=== PATIENT | male | born 1960 | race Two or more races ===

== ENCOUNTER 2022-04-21 12:11 | Inpatient (IN) | payer OTHER, MEDICAID ==
[~2022-04-21] VITALS: Ht 172.7 cm; Wt 92.5 kg
[2022-04-21] MEDS ORDERED: SODIUM CHLORIDE 0.9% 500 ML IV ONE (12:30)
[2022-04-21 13:36] LABS: Basophils # (auto) 0.1 10 ^3/uL (0-0.2); Eosinophils # (auto) 0.1 10 ^3/uL (0-0.8); Lymphocytes # (auto) 0.8 10 ^3/uL (0.4-5.4)
[2022-04-21 13:38] LABS: Basophils % (auto) 0.6 % (0.0-2.0); Eosinophils % (auto) 0.8 % (0.0-7.0); Hematocrit 38.8 % (41.0-53.0); Hemoglobin 11.8 g/dL (13.5-17.5); Mean Corpuscular Hgb Conc. 30.6 g/dL (32.0-36.0); Mean Corpuscular Volume 78.4 fL (80.0-100.0); Monocytes # (auto) 1.4 10 ^3/uL (0-1.3); Monocytes % (auto) 12.2 % (0.0-12.0); Neutrophils # (auto) 8.9 10 ^3/uL (1.6-8.6); Neutrophils % (auto) 79.4 % (37.0-80.0); Nucleated Red Blood Cells % 0.1 %; Red Blood Cells 4.94 10^6/uL (4.5-5.90); Red Cell Distribution Width 22.1 % (11.8-14.3); White Blood Cell 11.2 10^3/uL (4.4-10.8)
[2022-04-21 14:03] LABS: Albumin 2.8 g/dL (3.4-5.0); Calcium 8.7 mg/dL (8.5-10.1); Magnesium 2.3 mg/dL (1.6-2.6); Potassium 3.7 mmol/L (3.5-5.1)
[2022-04-21 14:05] LABS: BUN/Creatinine Ratio 20.5; Bilirubin, Total 0.5 mg/dL (0.2-1.0); Total Protein 7.7 g/dL (6.4-8.2)
[2022-04-21] MEDS ORDERED: GABAPENTIN 400 MG CAP PO ONE (15:00)
[2022-04-21] MEDS ORDERED: BACLOFEN 10 MG TAB PO ONE (15:00)
[2022-04-21] MEDS ORDERED: PIPERACILLIN-TAZOB 3.375GM 100 ML IV ONE (16:45)
[2022-04-21] MEDS ORDERED: SODIUM CHLORIDE 0.9% 1,000 ML IV SCH (16:45)
[2022-04-21] MEDS ORDERED: NITROGLYCERIN 0.4 MG SL TAB SL PRN (16:45)
[2022-04-21] MEDS ORDERED: MORPHINE SULFATE INJ 2 MG/ml SYRG IV PRN ×2 (16:45)
[2022-04-21] MEDS ORDERED: DEXTROSE (50%) 50ML SYRG IV PRN ×3 (16:45→21:15)
[2022-04-21] MEDS ORDERED: InsuLIN REG 1unit/0.01ml Soln (100units/ml) SC SCH ×2 (18:00→21:15)
[2022-04-21] MEDS ORDERED: ACCU-CHEK COMFORT CURVE STRIP VI SCH (18:00)
[2022-04-21] MEDS ORDERED: DULO20CA PO (18:59)
[2022-04-21] MEDS ORDERED: BACL10TA PO (18:59)
[2022-04-21] MEDS ORDERED: GABA300C10 PO (18:59)
[2022-04-21] MEDS ORDERED: CHOL20007 PO (18:59)
[2022-04-21] MEDS ORDERED: FAMO-12 PO (18:59)
[2022-04-21] MEDS ORDERED: METF-370 PO (18:59)
[2022-04-21] MEDS ORDERED: APIX5TAB PO (18:59)
[2022-04-21] MEDS: ACCU-CHEK COMFORT CURVE STRIP VI SCH (21:20)
[2022-04-21] MEDS: SODIUM CHLORIDE 0.9% 1,000 ML IV SCH (21:20)
[2022-04-21] MEDS: InsuLIN REG 1unit/0.01ml Soln (100units/ml) SC SCH (21:29)
[2022-04-21] MEDS: PIPERACILLIN-TAZOB 3.375GM 100 ML IV SCH (21:40)
[2022-04-21] MEDS: BACLOFEN 10 MG TAB PO SCH (21:40)
[2022-04-21] MEDS: GABAPENTIN 400 MG CAP PO SCH (21:40)
[2022-04-21 22:00] VITALS: BP 142/85
[2022-04-22] MEDS: ACCU-CHEK COMFORT CURVE STRIP VI SCH ×4 (03:57→21:00)
[2022-04-22] MEDS: InsuLIN REG 1unit/0.01ml Soln (100units/ml) SC SCH ×4 (04:19→21:00)
[2022-04-22 05:00] VITALS: BP 114/73
[2022-04-22 05:04] LABS: Basophils # (auto) 0.1 10 ^3/uL (0-0.2); Eosinophils # (auto) 0.1 10 ^3/uL (0-0.8); Monocytes # (auto) 1.2 10 ^3/uL (0-1.3)
[2022-04-22 05:08] LABS: Basophils % (auto) 0.8 % (0.0-2.0); Eosinophils % (auto) 0.9 % (0.0-7.0); Hemoglobin 11.3 g/dL (13.5-17.5); Lymphocytes # (auto) 0.7 10 ^3/uL (0.4-5.4); Lymphocytes % (auto) 7.7 % (10.0-50.0); Mean Corpuscular Hgb Conc. 31.5 g/dL (32.0-36.0); Mean Corpuscular Volume 79.3 fL (80.0-100.0); Monocytes % (auto) 13.7 % (0.0-12.0); Neutrophils # (auto) 6.7 10 ^3/uL (1.6-8.6); Neutrophils % (auto) 76.9 % (37.0-80.0); Red Blood Cells 4.54 10^6/uL (4.5-5.90); White Blood Cell 8.7 10^3/uL (4.4-10.8)
[2022-04-22 05:31] LABS: Potassium 3.6 mmol/L (3.5-5.1)
[2022-04-22 05:37] LABS: BUN/Creatinine Ratio 23.4; Calcium 8.7 mg/dL (8.5-10.1)
[2022-04-22 05:42] LABS: Red Cell Distribution Width 21.9 % (11.8-14.3)
[2022-04-22] MEDS: PIPERACILLIN-TAZOB 3.375GM 100 ML IV SCH ×3 (06:12→21:50)
[2022-04-22] MEDS: GABAPENTIN 400 MG CAP PO SCH ×3 (06:12→21:52)
[2022-04-22] MEDS: BACLOFEN 10 MG TAB PO SCH ×3 (06:12→21:51)
[2022-04-22 06:22] LABS: INR 1.01 (0.9-1.15); Partial Thromboplastin Time 30.6 sec (24.6-33.4)
[2022-04-22] MEDS: SODIUM CHLORIDE 0.9% 1,000 ML IV SCH ×2 (07:00→17:14)
[2022-04-22 08:59] VITALS: BP 100/71
[2022-04-22] MEDS: DULoxetine HCL 30 MG CAP PO SCH (09:42)
[2022-04-22] MEDS: FAMOTIDINE (10MG/ML) 2ML VL IV SCH (09:42)
[2022-04-22 13:00] VITALS: BP 109/69
[2022-04-22 15:31] LABS: Urine Amorphous Crystal FEW /hpf (None Seen); Urine Bacteria FEW /hpf (None Seen); Urine Blood TRACE /uL (Negative); Urine Mucus FEW (None Seen); Urine Specific Gravity 1.021 (1.001-1.035); Urine WBC 53 /hpf (0 - 3)
[2022-04-22] MEDS: traMADol HCL 50 MG TAB PO PRN (16:32)
[2022-04-22 17:00] VITALS: BP 106/77
[2022-04-22] MEDS: APIXABAN 5 MG TAB PO SCH (21:51)
[2022-04-22 22:00] VITALS: BP 120/72
[2022-04-23] MEDS: InsuLIN REG 1unit/0.01ml Soln (100units/ml) SC SCH ×4 (03:00→21:00)
[2022-04-23] MEDS: ACCU-CHEK COMFORT CURVE STRIP VI SCH ×4 (03:00→22:18)
[2022-04-23] MEDS: SODIUM CHLORIDE 0.9% 1,000 ML IV SCH ×2 (03:00→12:36)
[2022-04-23 05:00] VITALS: BP 99/78
[2022-04-23] MEDS: PIPERACILLIN-TAZOB 3.375GM 100 ML IV SCH ×3 (05:42→22:18)
[2022-04-23] MEDS: BACLOFEN 10 MG TAB PO SCH ×3 (05:43→22:18)
[2022-04-23] MEDS: GABAPENTIN 400 MG CAP PO SCH ×3 (05:45→22:18)
[2022-04-23 08:00] VITALS: BP 111/80
[2022-04-23 09:00] VITALS: BP 111/80
[2022-04-23] MEDS: traMADol HCL 50 MG TAB PO PRN (09:51)
[2022-04-23] MEDS: FAMOTIDINE (10MG/ML) 2ML VL IV SCH (09:51)
[2022-04-23] MEDS: DULoxetine HCL 30 MG CAP PO SCH (09:51)
[2022-04-23] MEDS: APIXABAN 5 MG TAB PO SCH ×2 (09:52→22:18)
[2022-04-23 13:00] VITALS: BP 98/71
[2022-04-23 17:00] VITALS: BP 114/66
[2022-04-23 22:00] VITALS: BP 115/73
[2022-04-24] VITALS (7 sets, daily range): BP systolic 106–166; BP diastolic 72–99
[2022-04-24] MEDS: InsuLIN REG 1unit/0.01ml Soln (100units/ml) SC SCH ×4 (03:00→21:00)
[2022-04-24] MEDS: ACCU-CHEK COMFORT CURVE STRIP VI SCH ×4 (03:00→21:00)
[2022-04-24] MEDS: PIPERACILLIN-TAZOB 3.375GM 100 ML IV SCH ×3 (05:54→22:23)
[2022-04-24] MEDS: BACLOFEN 10 MG TAB PO SCH (05:54)
[2022-04-24] MEDS: GABAPENTIN 400 MG CAP PO SCH ×3 (05:55→22:24)
[2022-04-24] MEDS: DULoxetine HCL 30 MG CAP PO SCH (09:35)
[2022-04-24] MEDS: FAMOTIDINE (10MG/ML) 2ML VL IV SCH (09:35)
[2022-04-24] MEDS: APIXABAN 5 MG TAB PO SCH (09:35)
[2022-04-24 10:43] LABS: Basophils # (auto) 0 10 ^3/uL (0-0.2); Eosinophils # (auto) 0.2 10 ^3/uL (0-0.8); Lymphocytes # (auto) 0.7 10 ^3/uL (0.4-5.4); Mean Corpuscular Hemoglobin 25.4 pg (28.0-32.0); Monocytes # (auto) 0.6 10 ^3/uL (0-1.3)
[2022-04-24 10:45] LABS: Basophils % (auto) 0.8 % (0.0-2.0); Hematocrit 32.5 % (41.0-53.0); Hemoglobin 10.4 g/dL (13.5-17.5); Lymphocytes % (auto) 11.4 % (10.0-50.0); Mean Corpuscular Volume 79.4 fL (80.0-100.0); Monocytes % (auto) 10.3 % (0.0-12.0); Neutrophils # (auto) 4.5 10 ^3/uL (1.6-8.6); Neutrophils % (auto) 73.5 % (37.0-80.0); Nucleated Red Blood Cells % 0.1 %; Red Cell Distribution Width 21.5 % (11.8-14.3); White Blood Cell 6.1 10^3/uL (4.4-10.8)
[2022-04-24] MEDS ORDERED: LACTULOSE 20Gm/30ML SOLN PO ONE (11:00)
[2022-04-24 11:14] LABS: Calcium 8.7 mg/dL (8.5-10.1); Potassium 3.4 mmol/L (3.5-5.1)
[2022-04-24 11:16] LABS: BUN/Creatinine Ratio 20.8
[2022-04-24] MEDS ORDERED: POTASSIUM CHL 20MEQ/100ML 100 ML IV ONE (14:15)
[2022-04-24] MEDS ORDERED: LORazepam 2MG/ML-1ML VIAL IV PRN (21:45)
[2022-04-25] MEDS: ACCU-CHEK COMFORT CURVE STRIP VI SCH ×4 (03:00→22:15)
[2022-04-25] MEDS: InsuLIN REG 1unit/0.01ml Soln (100units/ml) SC SCH ×4 (03:00→22:18)
[2022-04-25 04:26] VITALS: BP 142/95
[2022-04-25] MEDS: PIPERACILLIN-TAZOB 3.375GM 100 ML IV SCH ×3 (06:14→21:52)
[2022-04-25] MEDS: GABAPENTIN 400 MG CAP PO SCH ×3 (06:15→21:52)
[2022-04-25 09:18] VITALS: BP 122/85
[2022-04-25] MEDS: FAMOTIDINE (10MG/ML) 2ML VL IV SCH (12:44)
[2022-04-25] MEDS: DULoxetine HCL 30 MG CAP PO SCH (12:45)
[2022-04-25 13:19] VITALS: BP 147/96
[2022-04-25 17:29] VITALS: BP 145/98
[2022-04-25 22:00] VITALS: BP 127/90
[2022-04-26 05:00] VITALS: BP 148/101
[2022-04-26] MEDS: PIPERACILLIN-TAZOB 3.375GM 100 ML IV SCH ×2 (06:13→14:33)
[2022-04-26] MEDS: GABAPENTIN 400 MG CAP PO SCH ×2 (06:13→14:33)
[2022-04-26] MEDS: InsuLIN REG 1unit/0.01ml Soln (100units/ml) SC SCH ×3 (06:56→17:00)
[2022-04-26] MEDS: ACCU-CHEK COMFORT CURVE STRIP VI SCH ×3 (06:56→17:00)
[2022-04-26 07:57] LABS: BUN/Creatinine Ratio 15.9; Calcium 8.7 mg/dL (8.5-10.1); Potassium 3.5 mmol/L (3.5-5.1)
[2022-04-26 09:00] VITALS: BP 151/93
[2022-04-26] MEDS: FAMOTIDINE (10MG/ML) 2ML VL IV SCH (10:01)
[2022-04-26] MEDS: DULoxetine HCL 30 MG CAP PO SCH (10:01)
[2022-04-26] MEDS ORDERED: LEVO500T31 PO (12:22)
[2022-04-26 13:00] VITALS: BP 139/99
[2022-04-26 17:00] VITALS: BP 160/102
== END 2022-04-26 17:39 | disposition home or self-care (01) | DRG 871 ==
LOC: EDBD 12:11 → ER 12:11 → TELE 16:32 → TELE-WESTW 19:26
PROVIDERS: ADMIT Internal Medicine; ATTEND Internal Medicine
DX: A41.9 Sepsis, unspecified organism (principal); G92.8 Other toxic encephalopathy; G82.20 Paraplegia, unspecified; M47.16 Other spondylosis with myelopathy, lumbar region; N13.6 Pyonephrosis; E66.01 Morbid (severe) obesity due to excess calories; Z20.822 Contact with and (suspected) exposure to COVID-19; E11.40 Type 2 diabetes mellitus with diabetic neuropathy, unspecified; Z74.01 Bed confinement status; Z79.01 Long term (current) use of anticoagulants; Z80.52 Family history of malignant neoplasm of bladder; Z83.3 Family history of diabetes mellitus; Z85.51 Personal history of malignant neoplasm of bladder; Z86.718 Personal history of other venous thrombosis and embolism; Z93.3 Colostomy status; Z95.828 Presence of other vascular implants and grafts; Z93.6 Other artificial openings of urinary tract status; Z68.31 Body mass index [BMI] 31.0-31.9, adult
CPT/HCPCS: 36415; 70551; 71045; 72146; 74176; 76775; 80048; 80053; 81001; 82962; 83036; 83735; 85025; 85610; 85730; 87040; 87086; 92610; 93005; 95819; 96361; 96374; G0378; J1815; J2543; J3480; J3490

== ENCOUNTER 2022-06-01 17:49 | Emergency (ER) | payer OTHER, MEDICAID ==
[~2022-06-01] VITALS: Ht 177.8 cm; Wt 85.0 kg
[~2022-06-01 17:49] MED LIST: APIX5TAB PO; BACL10TA PO; CHOL20007 PO; DULO20CA PO; FAMO-12 PO; GABA300C10 PO; LEVO500T31 PO; METF-370 PO
[2022-06-01 20:14] LABS: Basophils # (auto) 0.1 10 ^3/uL (0-0.2); Eosinophils # (auto) 0.2 10 ^3/uL (0-0.8); Eosinophils % (auto) 2.3 % (0.0-7.0); Hemoglobin 13.1 g/dL (13.5-17.5); Lymphocytes # (auto) 1.1 10 ^3/uL (0.4-5.4); Monocytes # (auto) 0.8 10 ^3/uL (0-1.3); Neutrophils # (auto) 6.7 10 ^3/uL (1.6-8.6)
[2022-06-01 20:16] LABS: Hematocrit 39.6 % (41.0-53.0); Lymphocytes % (auto) 12.4 % (10.0-50.0); Mean Corpuscular Hemoglobin 26.4 pg (28.0-32.0); Mean Corpuscular Hgb Conc. 33.1 g/dL (32.0-36.0); Mean Corpuscular Volume 79.9 fL (80.0-100.0); Monocytes % (auto) 9.3 % (0.0-12.0); Red Blood Cells 4.95 10^6/uL (4.5-5.90); White Blood Cell 8.9 10^3/uL (4.4-10.8)
[2022-06-01 20:17] LABS: Red Cell Distribution Width 21.9 % (11.8-14.3)
[2022-06-01 20:28] LABS: Albumin 3.3 g/dL (3.4-5.0); Calcium 8.9 mg/dL (8.5-10.1); Potassium 4.3 mmol/L (3.5-5.1)
[2022-06-01 20:33] LABS: BUN/Creatinine Ratio 16.5; Bilirubin, Total 0.3 mg/dL (0.2-1.0); Total Protein 7.9 g/dL (6.4-8.2)
[2022-06-01 22:21] VITALS: BP 142/91
== END 2022-06-02 08:19 | disposition home or self-care (01) ==
LOC: EDBD 17:49 → ER 17:49
DX: I10 Essential (primary) hypertension (principal); E11.9 Type 2 diabetes mellitus without complications; Z85.51 Personal history of malignant neoplasm of bladder; Z79.899 Other long term (current) drug therapy
CPT/HCPCS: 36415; 71045; 80053; 84484; 85025; 99284; J7040

== ENCOUNTER → 2022-07-10 | Outpatient (CLI) | payer OTHER, MEDICAID | END | disposition home or self-care (01) | LOC: LAB 09:01 | PROVIDERS: ATTEND Internal Medicine Pulmonary Disease | DX: Z01.812 Encounter for preprocedural laboratory examination (principal); Z20.822 Contact with and (suspected) exposure to COVID-19 | CPT/HCPCS: 36415; 87426 ==

== ENCOUNTER → 2022-07-11 | Outpatient (CLI) | payer OTHER, MEDICAID ==
[~2022-07-11] MED LIST changes: +ALBUTEROL SULF 2.5 MG/0.5ML(0.5%) NEB SOLN ONE
== END | disposition home or self-care (01) ==
LOC: RT 08:04
PROVIDERS: ATTEND Internal Medicine Pulmonary Disease
DX: J44.9 Chronic obstructive pulmonary disease, unspecified (principal)
CPT/HCPCS: 94060; 94727; 94729

== ENCOUNTER 2023-03-07 16:25 | Inpatient (IN) | payer OTHER, MEDICAID ==
[~2023-03-07] VITALS: Ht 172.7 cm; Wt 94.7 kg
[~2023-03-07 16:25] MED LIST changes: -ALBUTEROL SULF 2.5 MG/0.5ML(0.5%) NEB SOLN ONE; +GABA-1250 PO; -GABA300C10 PO
[2023-03-07 18:42] LABS: Albumin 3.2 g/dL (3.4-5.0); Calcium 8.6 mg/dL (8.5-10.1); Potassium 4.2 mmol/L (3.5-5.1)
[2023-03-07 18:43] LABS: Basophils # (auto) 0.1 10 ^3/uL (0-0.2); Eosinophils # (auto) 0.1 10 ^3/uL (0-0.8); Eosinophils % (auto) 1.6 % (0.0-7.0); Hematocrit 41.8 % (41.0-53.0); Hemoglobin 13.4 g/dL (13.5-17.5); Lymphocytes # (auto) 0.9 10 ^3/uL (0.4-5.4); Lymphocytes % (auto) 10.1 % (10.0-50.0); Mean Corpuscular Hemoglobin 27.6 pg (28.0-32.0); Mean Corpuscular Hgb Conc. 32.1 g/dL (32.0-36.0); Monocytes # (auto) 0.9 10 ^3/uL (0-1.3); Monocytes % (auto) 10.3 % (0.0-12.0); Neutrophils # (auto) 6.9 10 ^3/uL (1.6-8.6); Nucleated Red Blood Cells % 0.2 %; Red Blood Cells 4.86 10^6/uL (4.5-5.90); White Blood Cell 8.9 10^3/uL (4.4-10.8)
[2023-03-07 18:47] LABS: BUN/Creatinine Ratio 21.1 (10.0-20.0); Bilirubin, Total 0.3 mg/dL (0.2-1.0); Total Protein 7.3 g/dL (6.4-8.2)
[2023-03-07 18:50] LABS: Red Cell Distribution Width 21.3 % (11.8-14.3)
[2023-03-07] MEDS ORDERED: cefTRIAXone 1GM/50ML D5W 50 ML IV ONE (22:30)
[2023-03-08 02:53] LABS: Urine Amorphous Crystal MOD /hpf (None Seen); Urine Bacteria FEW /hpf (None Seen); Urine Blood TRACE /uL (Negative); Urine Mucus FEW (None Seen); Urine Specific Gravity 1.016 (1.001-1.035); Urine WBC 127 /hpf (0 - 3); Urine WBC Clumps PRESENT /hpf (None Seen)
[2023-03-08] MEDS ORDERED: HYDROcodone-ACET 5/325MG TAB PO PRN (06:00)
[2023-03-08] MEDS ORDERED: ONDANSETRON HCL 4 MG/2 ML VIAL IV PRN (06:00)
[2023-03-08] MEDS ORDERED: ACETAMINOPHEN 325 MG TAB PO PRN (06:00)
[2023-03-08] MEDS ORDERED: DEXTROSE (50%) 50ML SYRG IV PRN (06:00)
[2023-03-08] MEDS: InsuLIN REG 1unit/0.01ml Soln (100units/ml) SC SCH ×4 (06:31→23:17)
[2023-03-08] MEDS: ACCU-CHEK COMFORT CURVE STRIP VI SCH ×4 (06:32→23:17)
[2023-03-08] MEDS: GABAPENTIN 400 MG CAP PO SCH ×3 (06:32→21:55)
[2023-03-08] MEDS: PANTOPRAZOLE 40 MG TAB PO SCH (10:13)
[2023-03-08] MEDS: METOPROLOL TARTRATE 25 MG TAB PO SCH ×2 (10:13→21:45)
[2023-03-08] MEDS: APIXABAN 5 MG TAB PO SCH ×2 (10:14→21:55)
[2023-03-08] MEDS: amLODIPine BESYLATE 5 MG TAB PO SCH (10:14)
[2023-03-08 19:10] VITALS: BP 121/70
[2023-03-08 20:00] VITALS: BP 121/70
[2023-03-08] MEDS: ATORVASTATIN 20 MG TAB PO SCH (21:54)
[2023-03-08] MEDS: cefTRIAXone 1GM/50ML D5W 50 ML IV SCH (21:55)
[2023-03-08 22:00] VITALS: BP 121/70
[2023-03-09] VITALS (7 sets, daily range): BP systolic 100–140; BP diastolic 60–84
[2023-03-09] MEDS ORDERED: CYA100I PO (03:23)
[2023-03-09] MEDS ORDERED: AMLO1TAB22 PO (03:25)
[2023-03-09] MEDS ORDERED: SIMV10TA20 PO (03:25)
[2023-03-09] MEDS ORDERED: FLUT1AER3 IN (03:27)
[2023-03-09] MEDS ORDERED: METO25TA5 PO (03:27)
[2023-03-09] MEDS: InsuLIN REG 1unit/0.01ml Soln (100units/ml) SC SCH ×3 (06:00→18:00)
[2023-03-09] MEDS: ACCU-CHEK COMFORT CURVE STRIP VI SCH ×3 (06:00→17:12)
[2023-03-09 06:23] LABS: BUN/Creatinine Ratio 23.6 (10.0-20.0); Calcium 8.4 mg/dL (8.5-10.1); Potassium 3.6 mmol/L (3.5-5.1)
[2023-03-09] MEDS: GABAPENTIN 400 MG CAP PO SCH ×3 (06:35→22:11)
[2023-03-09] MEDS: METOPROLOL TARTRATE 25 MG TAB PO SCH ×2 (10:00→22:11)
[2023-03-09] MEDS: APIXABAN 5 MG TAB PO SCH ×2 (10:22→22:11)
[2023-03-09] MEDS: PANTOPRAZOLE 40 MG TAB PO SCH (10:22)
[2023-03-09] MEDS: amLODIPine BESYLATE 5 MG TAB PO SCH (17:14)
[2023-03-09] MEDS: cefTRIAXone 1GM/50ML D5W 50 ML IV SCH (22:00)
[2023-03-09] MEDS: ATORVASTATIN 20 MG TAB PO SCH (22:11)
[2023-03-10 05:00] VITALS: BP 134/84
[2023-03-10] MEDS: GABAPENTIN 400 MG CAP PO SCH ×3 (05:54→22:26)
[2023-03-10] MEDS: InsuLIN REG 1unit/0.01ml Soln (100units/ml) SC SCH ×5 (05:59→23:50)
[2023-03-10] MEDS: ACCU-CHEK COMFORT CURVE STRIP VI SCH ×5 (05:59→23:47)
[2023-03-10 08:00] VITALS: BP 142/78
[2023-03-10 09:18] VITALS: BP 128/85
[2023-03-10] MEDS: METOPROLOL TARTRATE 25 MG TAB PO SCH ×2 (10:41→22:27)
[2023-03-10] MEDS: amLODIPine BESYLATE 5 MG TAB PO SCH (10:42)
[2023-03-10] MEDS: PANTOPRAZOLE 40 MG TAB PO SCH (10:42)
[2023-03-10] MEDS: APIXABAN 5 MG TAB PO SCH ×2 (10:42→22:26)
[2023-03-10 13:55] VITALS: BP 142/78
[2023-03-10 17:13] VITALS: BP 100/66
[2023-03-10] MEDS: cefTRIAXone 1GM/50ML D5W 50 ML IV SCH (21:19)
[2023-03-10 22:00] VITALS: BP 105/73
[2023-03-10] MEDS: ATORVASTATIN 20 MG TAB PO SCH (22:26)
[2023-03-11 05:00] VITALS: BP 104/64
[2023-03-11] MEDS: GABAPENTIN 400 MG CAP PO SCH ×3 (05:42→22:20)
[2023-03-11] MEDS: ACCU-CHEK COMFORT CURVE STRIP VI SCH ×4 (05:43→23:58)
[2023-03-11] MEDS: InsuLIN REG 1unit/0.01ml Soln (100units/ml) SC SCH ×4 (05:45→23:59)
[2023-03-11 08:00] VITALS: BP 109/72
[2023-03-11 09:00] VITALS: BP 109/72
[2023-03-11] MEDS: APIXABAN 5 MG TAB PO SCH ×2 (09:39→22:20)
[2023-03-11] MEDS: amLODIPine BESYLATE 5 MG TAB PO SCH (09:43)
[2023-03-11] MEDS: PANTOPRAZOLE 40 MG TAB PO SCH (09:44)
[2023-03-11] MEDS: METOPROLOL TARTRATE 25 MG TAB PO SCH ×2 (09:44→22:20)
[2023-03-11 13:00] VITALS: BP 112/73
[2023-03-11 17:00] VITALS: BP 96/72
[2023-03-11] MEDS: cefTRIAXone 1GM/50ML D5W 50 ML IV SCH (20:58)
[2023-03-11 22:00] VITALS: BP 101/77
[2023-03-11] MEDS: ATORVASTATIN 20 MG TAB PO SCH (22:20)
[2023-03-12 05:00] VITALS: BP 109/69
[2023-03-12] MEDS: InsuLIN REG 1unit/0.01ml Soln (100units/ml) SC SCH ×4 (06:00→23:47)
[2023-03-12] MEDS: ACCU-CHEK COMFORT CURVE STRIP VI SCH ×4 (06:10→23:46)
[2023-03-12] MEDS: GABAPENTIN 400 MG CAP PO SCH ×3 (06:10→22:08)
[2023-03-12 09:12] VITALS: BP 122/66
[2023-03-12] MEDS: APIXABAN 5 MG TAB PO SCH ×2 (09:12→22:08)
[2023-03-12] MEDS: PANTOPRAZOLE 40 MG TAB PO SCH (09:12)
[2023-03-12] MEDS: METOPROLOL TARTRATE 25 MG TAB PO SCH ×2 (09:13→22:09)
[2023-03-12] MEDS: amLODIPine BESYLATE 5 MG TAB PO SCH (09:14)
[2023-03-12] MEDS ORDERED: DOCUSATE SOD 100 MG CAP PO ONE (12:00)
[2023-03-12] MEDS ORDERED: LACTULOSE 20Gm/30ML SOLN PO ONE (12:00)
[2023-03-12 13:00] VITALS: BP 114/69
[2023-03-12 17:05] VITALS: BP 109/76
[2023-03-12] MEDS: cefTRIAXone 1GM/50ML D5W 50 ML IV SCH (21:43)
[2023-03-12 22:00] VITALS: BP 113/77
[2023-03-12] MEDS: DOCUSATE SOD 100 MG CAP PO SCH (22:08)
[2023-03-12] MEDS: ATORVASTATIN 20 MG TAB PO SCH (22:09)
[2023-03-13 05:00] VITALS: BP 129/81
[2023-03-13] MEDS: ACCU-CHEK COMFORT CURVE STRIP VI SCH ×2 (06:33→13:47)
[2023-03-13] MEDS: InsuLIN REG 1unit/0.01ml Soln (100units/ml) SC SCH ×2 (06:34→12:00)
[2023-03-13] MEDS: GABAPENTIN 400 MG CAP PO SCH (06:36)
[2023-03-13 08:00] VITALS: BP 113/81
[2023-03-13 08:40] VITALS: BP 113/81
[2023-03-13] MEDS ORDERED: CEFD300C2 PO (09:55)
[2023-03-13] MEDS: APIXABAN 5 MG TAB PO SCH (10:10)
[2023-03-13] MEDS: PANTOPRAZOLE 40 MG TAB PO SCH (10:10)
[2023-03-13] MEDS: METOPROLOL TARTRATE 25 MG TAB PO SCH (10:11)
[2023-03-13] MEDS: DOCUSATE SOD 100 MG CAP PO SCH (10:11)
[2023-03-13 10:52] VITALS: BP 117/71
[2023-03-13 12:52] VITALS: BP 112/76
== END 2023-03-13 13:20 | disposition home health service (06) | DRG 699 ==
LOC: ER 16:25 → OVERFLOW 03-08 05:51 → CENTRAL 03-08 18:53
PROVIDERS: ADMIT Nurse Practitioner; ATTEND Internal Medicine
DX: T83.511A Infection and inflammatory reaction due to indwelling urethral catheter, initial encounter (principal); G61.0 Guillain-Barre syndrome; G82.20 Paraplegia, unspecified; N39.0 Urinary tract infection, site not specified; K52.89 Other specified noninfective gastroenteritis and colitis; I10 Essential (primary) hypertension; E11.9 Type 2 diabetes mellitus without complications; E66.9 Obesity, unspecified; E78.5 Hyperlipidemia, unspecified; K21.9 Gastro-esophageal reflux disease without esophagitis; K56.41 Fecal impaction; Z74.01 Bed confinement status; Z85.51 Personal history of malignant neoplasm of bladder; Z92.3 Personal history of irradiation; Z93.3 Colostomy status; Z86.718 Personal history of other venous thrombosis and embolism; Z68.32 Body mass index [BMI] 32.0-32.9, adult; Z87.442 Personal history of urinary calculi
CPT/HCPCS: 36415; 74176; 80048; 80053; 81001; 82962; 85025; 87040; 87086; 96365; 97163; G0378; J0696; J1815

== ENCOUNTER 2023-04-21 22:44 | Emergency (ER) | payer OTHER, MEDICAID ==
[~2023-04-21] VITALS: Ht 177.8 cm; Wt 70.0 kg
[~2023-04-21 22:44] MED LIST changes: +AMLO1TAB22 PO; +CEFD300C2 PO; +CYA100I PO; +FLUT1AER3 IN; +METO25TA5 PO; +SIMV10TA20 PO
[2023-04-21 22:50] VITALS: BP 136/58; PULSE 74; RESP 16; O2SAT 100
[2023-04-21] MEDS ORDERED: OFLOXACIN OTIC(EAR) 0.3 % DROP 5ML EACH EAR ONE (23:00)
[2023-04-21] MEDS ORDERED: COROSUS RIGHT EAR ×3 (23:09→23:12)
== END 2023-04-22 02:01 | disposition home or self-care (01) ==
LOC: ER 22:44 → EDBD 22:44 → ER 04-22 02:01
DX: T16.1XXA Foreign body in right ear, initial encounter (principal); E11.9 Type 2 diabetes mellitus without complications; K21.9 Gastro-esophageal reflux disease without esophagitis; E78.5 Hyperlipidemia, unspecified; I10 Essential (primary) hypertension; Z79.899 Other long term (current) drug therapy
CPT/HCPCS: 99291

== ENCOUNTER 2023-09-13 21:05 | Inpatient (IN) | payer OTHER, MEDICAID ==
[~2023-09-13] VITALS: Ht 172.7 cm; Wt 93.0 kg
[~2023-09-13 21:05] MED LIST changes: +COROSUS RIGHT EAR
[2023-09-13 22:10] LABS: Basophils # (auto) 0.1 10 ^3/uL (0-0.2); Basophils % (auto) 0.6 % (0.0-2.0); Eosinophils # (auto) 0 10 ^3/uL (0-0.8); Eosinophils % (auto) 0.2 % (0.0-7.0); Hematocrit 39.6 % (41.0-53.0); Hemoglobin 12.6 g/dL (13.5-17.5); Lymphocytes # (auto) 0.7 10 ^3/uL (0.4-5.4); Lymphocytes % (auto) 7.7 % (10.0-50.0); Mean Corpuscular Hemoglobin 27.4 pg (28.0-32.0); Mean Corpuscular Hgb Conc. 31.8 g/dL (32.0-36.0); Mean Corpuscular Volume 86.1 fL (80.0-100.0); Monocytes # (auto) 1.1 10 ^3/uL (0-1.3); Monocytes % (auto) 11.6 % (0.0-12.0); Neutrophils # (auto) 7.8 10 ^3/uL (1.6-8.6); Neutrophils % (auto) 79.9 % (37.0-80.0); Nucleated Red Blood Cells % 0.1 %; Red Cell Distribution Width 21.1 % (11.8-14.3); White Blood Cell 9.7 10^3/uL (4.4-10.8)
[2023-09-13 22:24] LABS: Alanine Aminotransferase 14 U/L (7-40); Albumin 4.3 g/dL (3.2-4.8); Alkaline Phosphatase 100 U/L (46-116); Anion Gap 8 (5-15); Aspartate Aminotransferase < 8 U/L (13-40); BUN/Creatinine Ratio 11.4 (10.0-20.0); Blood Urea Nitrogen 13 mg/dL (9-23); Calcium 9.3 mg/dL (8.5-10.1); Carbon Dioxide 25 mmol/L (20-30); Chloride 104 mmol/L (98-107); Glucose 124 mg/dL (74-106); Potassium 4.3 mmol/L (3.5-5.1); Sodium 137 mmol/L (136-145)
[2023-09-13 22:25] LABS: Bilirubin, Total 0.5 mg/dL (0.2-1.0); Total Protein 7.9 g/dL (5.7-8.2)
[2023-09-13 22:42] LABS: INR 1.08 (0.9-1.15); Partial Thromboplastin Time 26.6 SEC (24.5-34.5); Prothrombin Time 11.3 sec (9.3-11.8)
[2023-09-13 23:15] VITALS: PULSE 123; RESP 19; O2SAT 94
[2023-09-14] VITALS (7 sets, daily range): BP systolic 104–132; BP diastolic 77–88; PULSE 88–105; RESP 10–19; TEMP 97.5–98.6; O2SAT 95–97
[2023-09-14 01:38] LABS: Rapid Influenza A Negative (Negative); Rapid Influenza B Negative (Negative)
[2023-09-14 01:39] LABS: COVID19 ANTIGEN SOFIA FIA POSITIVE (NEGATIVE)
[2023-09-14] MEDS ORDERED: DexAMETHasone SOD PHOS 10MG/1ML VIAL INJ IV ONE (01:45)
[2023-09-14] MEDS ORDERED: ALBUTEROL SULF HFA 90MCG INH 200DOSE IN PRN (02:45)
[2023-09-14] MEDS ORDERED: MORPHINE SULFATE INJ 2 MG/ml SYRG IV PRN (02:45)
[2023-09-14] MEDS ORDERED: NITROGLYCERIN 0.4 MG SL TAB SL PRN (02:45)
[2023-09-14] MEDS ORDERED: ONDANSETRON HCL 4 MG/2 ML VIAL IV PRN (02:45)
[2023-09-14] MEDS ORDERED: ACETAMINOPHEN 500 MG TAB PO PRN (02:45)
[2023-09-14] MEDS ORDERED: REMDESIVIR PER PHARMACY 0 ML IV SCH (02:45)
[2023-09-14] MEDS ORDERED: DEXTROSE (50%) 50ML SYRG IV PRN (02:45)
[2023-09-14 03:44] LABS: CRP High Sensitivity 14.51 mg/dL (<1.0)
[2023-09-14 03:54] LABS: Magnesium 2.3 mg/dL (1.6-2.6)
[2023-09-14] MEDS: InsuLIN REG 1unit/0.01ml Soln (100units/ml) SC SCH ×4 (06:42→22:17)
[2023-09-14] MEDS: ACCU-CHEK COMFORT CURVE STRIP VI SCH ×4 (06:43→22:06)
[2023-09-14 07:41] LABS: Urine Amorphous Crystal FEW /hpf (None Seen); Urine Bacteria NONE SEEN /hpf (None Seen); Urine Blood 1+ /uL (Negative); Urine Clarity CLOUDY (Clear); Urine Color Yellow (Yellow); Urine Mucus FEW (None Seen); Urine Protein, UAD 2+ (Negative); Urine Specific Gravity 1.015 (1.001-1.035); Urine Urobilinogen Normal (Negative); Urine WBC 51 /hpf (0 - 3); Urine WBC Clumps PRESENT /hpf (None Seen); Urine pH 8.5 (5.0-8.0)
[2023-09-14] MEDS ORDERED: DexAMETHasone SOD PHOS 10MG/1ML VIAL INJ IV SCH (10:00)
[2023-09-14] MEDS: AZITHROMYCIN 500MG/ 250ML 250 ML IV SCH (10:17)
[2023-09-14] MEDS: ASCORBIC ACID 1,000 MG TAB PO SCH (10:17)
[2023-09-14] MEDS: ZINC SULFATE 220mg CAP or TAB PO SCH (10:17)
[2023-09-14] MEDS: CHOLECALCIFEROL (VITD3) 2,000 UNIT CAP/TAB PO SCH (10:17)
[2023-09-14] MEDS: APIXABAN 5 MG TAB PO SCH ×2 (10:19→22:03)
[2023-09-14] MEDS ORDERED: REMDESIVIR 200 MG in NS 210ml LOADING DOSE ADULT IV ONE (12:30)
[2023-09-14] MEDS ORDERED: FAMO20IN2 PO (16:05)
[2023-09-14] MEDS ORDERED: METF500S3 PO (16:05)
[2023-09-14] MEDS ORDERED: BACL10TA PO (16:05)
[2023-09-14] MEDS ORDERED: CHOL25CH3 PO (16:05)
[2023-09-14] MEDS ORDERED: GABA-1250 PO (16:05)
[2023-09-14] MEDS ORDERED: DULO20CA PO (16:05)
[2023-09-14] MEDS ORDERED: CYAN-17 PO (16:05)
[2023-09-14] MEDS ORDERED: APIX5TAB PO (16:05)
[2023-09-14] MEDS: ATORVASTATIN 20 MG TAB PO SCH (22:04)
[2023-09-14] MEDS ORDERED: GABA-1251 PO (22:46)
[2023-09-14] MEDS ORDERED: FAMO20TA10 PO (22:46)
[2023-09-14] MEDS ORDERED: DULO1CAP5 PO (22:46)
[2023-09-14] MEDS ORDERED: MET25T PO (22:46)
[2023-09-14] MEDS ORDERED: METF-370 PO (22:46)
[2023-09-14] MEDS ORDERED: CYAN100042 PO (22:46)
[2023-09-15] VITALS (9 sets, daily range): BP systolic 101–136; BP diastolic 50–88; PULSE 78–103; RESP 17–20; TEMP 97.3–98.6; O2SAT 93–97
[2023-09-15 06:40] LABS: Alanine Aminotransferase 23 U/L (7-40); Albumin 4.1 g/dL (3.2-4.8); Alkaline Phosphatase 82 U/L (46-116); Anion Gap 7 (5-15); Aspartate Aminotransferase 27 U/L (13-40); BUN/Creatinine Ratio 19.5 (10.0-20.0); Bilirubin, Total 0.2 mg/dL (0.2-1.0); Blood Urea Nitrogen 23 mg/dL (9-23); Calcium 8.7 mg/dL (8.7-10.4); Carbon Dioxide 25 mmol/L (20-30); Chloride 107 mmol/L (98-107); Glucose 135 mg/dL (74-106); Potassium 3.7 mmol/L (3.5-5.1); Sodium 139 mmol/L (136-145); Total Protein 7.4 g/dL (5.7-8.2)
[2023-09-15] MEDS: ACCU-CHEK COMFORT CURVE STRIP VI SCH ×5 (06:44→22:39)
[2023-09-15] MEDS: InsuLIN REG 1unit/0.01ml Soln (100units/ml) SC SCH ×4 (06:44→22:00)
[2023-09-15 07:00] LABS: Basophils # (auto) 0 10 ^3/uL (0-0.2); Basophils % (auto) 0.3 % (0.0-2.0); Eosinophils # (auto) 0.1 10 ^3/uL (0-0.8); Eosinophils % (auto) 1.1 % (0.0-7.0); Hemoglobin 11.4 g/dL (13.5-17.5); Lymphocytes % (auto) 11.6 % (10.0-50.0); Mean Corpuscular Hemoglobin 27.3 pg (28.0-32.0); Mean Corpuscular Hgb Conc. 31.7 g/dL (32.0-36.0); Mean Corpuscular Volume 86.2 fL (80.0-100.0); Monocytes # (auto) 1.1 10 ^3/uL (0-1.3); Monocytes % (auto) 12.7 % (0.0-12.0); Neutrophils # (auto) 6.7 10 ^3/uL (1.6-8.6); Neutrophils % (auto) 74.3 % (37.0-80.0); Nucleated Red Blood Cells % 0.1 %; Red Blood Cells 4.17 10^6/uL (4.5-5.90)
[2023-09-15] MEDS: AZITHROMYCIN 500MG/ 250ML 250 ML IV SCH (10:22)
[2023-09-15] MEDS: DexAMETHasone SOD PHOS 10MG/1ML VIAL INJ IV SCH (10:24)
[2023-09-15] MEDS: ZINC SULFATE 220mg CAP or TAB PO SCH (10:24)
[2023-09-15] MEDS: ASCORBIC ACID 1,000 MG TAB PO SCH (10:24)
[2023-09-15] MEDS: APIXABAN 5 MG TAB PO SCH ×2 (10:25→22:13)
[2023-09-15] MEDS: PANTOPRAZOLE 40 MG TAB PO SCH (10:25)
[2023-09-15] MEDS: CHOLECALCIFEROL (VITD3) 2,000 UNIT CAP/TAB PO SCH (10:25)
[2023-09-15] MEDS: cefTRIAXone 1GM/50ML D5W 50 ML IV SCH (13:20)
[2023-09-15] MEDS: FUROSEMIDE 20 MG TAB PO SCH (13:23)
[2023-09-15] MEDS: REMDESIVIR 100mg 100 MG in SODIUM CHL 0.9% 230 ML IV SCH (15:00)
[2023-09-15] MEDS: ATORVASTATIN 20 MG TAB PO SCH (22:13)
[2023-09-16] VITALS (10 sets, daily range): BP systolic 128–152; BP diastolic 74–90; PULSE 74–111; RESP 16–20; TEMP 97.2–98.8; O2SAT 91–100
[2023-09-16 06:19] LABS: Basophils # (auto) 0 10 ^3/uL (0-0.2); Basophils % (auto) 0.6 % (0.0-2.0); Eosinophils # (auto) 0 10 ^3/uL (0-0.8); Eosinophils % (auto) 0.4 % (0.0-7.0); Hematocrit 34.4 % (41.0-53.0); Hemoglobin 10.8 g/dL (13.5-17.5); Lymphocytes # (auto) 0.8 10 ^3/uL (0.4-5.4); Lymphocytes % (auto) 10.6 % (10.0-50.0); Mean Corpuscular Hemoglobin 27.1 pg (28.0-32.0); Mean Corpuscular Hgb Conc. 31.5 g/dL (32.0-36.0); Mean Corpuscular Volume 86.2 fL (80.0-100.0); Monocytes # (auto) 0.8 10 ^3/uL (0-1.3); Neutrophils # (auto) 5.9 10 ^3/uL (1.6-8.6); Neutrophils % (auto) 77.4 % (37.0-80.0); Nucleated Red Blood Cells % 0.1 %; Red Blood Cells 3.99 10^6/uL (4.5-5.90); White Blood Cell 7.6 10^3/uL (4.4-10.8)
[2023-09-16 06:52] LABS: Calcium 8.4 mg/dL (8.7-10.4); Chloride 106 mmol/L (98-107); Potassium 3.7 mmol/L (3.5-5.1); Sodium 139 mmol/L (136-145)
[2023-09-16 06:53] LABS: Anion Gap 8 (5-15); Carbon Dioxide 25 mmol/L (20-30)
[2023-09-16 06:58] LABS: BUN/Creatinine Ratio 25.9 (10.0-20.0); Blood Urea Nitrogen 28 mg/dL (9-23); Glucose 131 mg/dL (74-106)
[2023-09-16 06:59] LABS: Red Cell Distribution Width 20.8 % (11.8-14.3)
[2023-09-16] MEDS: InsuLIN REG 1unit/0.01ml Soln (100units/ml) SC SCH ×4 (07:02→22:00)
[2023-09-16] MEDS: DexAMETHasone SOD PHOS 10MG/1ML VIAL INJ IV SCH (09:31)
[2023-09-16] MEDS: CHOLECALCIFEROL (VITD3) 2,000 UNIT CAP/TAB PO SCH (09:31)
[2023-09-16] MEDS: APIXABAN 5 MG TAB PO SCH ×2 (09:31→22:00)
[2023-09-16] MEDS: ASCORBIC ACID 1,000 MG TAB PO SCH (09:31)
[2023-09-16] MEDS: cefTRIAXone 1GM/50ML D5W 50 ML IV SCH (09:31)
[2023-09-16] MEDS: PANTOPRAZOLE 40 MG TAB PO SCH (09:31)
[2023-09-16] MEDS: ZINC SULFATE 220mg CAP or TAB PO SCH (09:31)
[2023-09-16] MEDS: FUROSEMIDE 20 MG TAB PO SCH (10:00)
[2023-09-16] MEDS: ACCU-CHEK COMFORT CURVE STRIP VI SCH ×3 (11:36→22:00)
[2023-09-16] MEDS: AZITHROMYCIN 500MG/ 250ML 250 ML IV SCH (11:36)
[2023-09-16] MEDS: REMDESIVIR 100mg 100 MG in SODIUM CHL 0.9% 230 ML IV SCH (15:00)
[2023-09-16] MEDS: ATORVASTATIN 20 MG TAB PO SCH (22:00)
[2023-09-16] MEDS ORDERED: GABAPENTIN 400 MG CAP PO ONE (23:30)
[2023-09-17] VITALS (9 sets, daily range): BP systolic 127–143; BP diastolic 73–96; PULSE 65–111; RESP 14–20; TEMP 97.2–98; O2SAT 93–100
[2023-09-17] MEDS: ACCU-CHEK COMFORT CURVE STRIP VI SCH ×4 (06:22→21:38)
[2023-09-17] MEDS: InsuLIN REG 1unit/0.01ml Soln (100units/ml) SC SCH ×4 (06:22→21:37)
[2023-09-17] MEDS: cefTRIAXone 1GM/50ML D5W 50 ML IV SCH (09:55)
[2023-09-17] MEDS: FUROSEMIDE 20 MG TAB PO SCH (09:56)
[2023-09-17] MEDS: ASCORBIC ACID 1,000 MG TAB PO SCH (09:57)
[2023-09-17] MEDS: DexAMETHasone SOD PHOS 10MG/1ML VIAL INJ IV SCH (09:57)
[2023-09-17] MEDS: ZINC SULFATE 220mg CAP or TAB PO SCH (09:57)
[2023-09-17] MEDS: APIXABAN 5 MG TAB PO SCH ×2 (09:57→21:36)
[2023-09-17] MEDS: PANTOPRAZOLE 40 MG TAB PO SCH (09:57)
[2023-09-17] MEDS: CHOLECALCIFEROL (VITD3) 2,000 UNIT CAP/TAB PO SCH (09:57)
[2023-09-17] MEDS: AZITHROMYCIN 500MG/ 250ML 250 ML IV SCH (09:58)
[2023-09-17 10:19] LABS: Base Excess -0.2 mmol/L (-2.0-2.0)
[2023-09-17] MEDS ORDERED: MORPHINE SULFATE INJ 2 MG/ml SYRG IV PRN (12:15)
[2023-09-17] MEDS ORDERED: HYDROcodone-ACET 5/325MG TAB PO PRN (12:15)
[2023-09-17] MEDS: REMDESIVIR 100mg 100 MG in SODIUM CHL 0.9% 230 ML IV SCH (16:20)
[2023-09-17] MEDS: BACLOFEN 10 MG TAB PO SCH ×2 (18:31→23:42)
[2023-09-17] MEDS: metFORMIN HYDROCHLORIDE 500 MG TAB PO SCH (18:32)
[2023-09-17] MEDS: ATORVASTATIN 20 MG TAB PO SCH (21:36)
[2023-09-18 05:00] VITALS: BP 144/98; PULSE 77; RESP 16; TEMP 96.3; O2SAT 94
[2023-09-18] MEDS: BACLOFEN 10 MG TAB PO SCH (05:58)
[2023-09-18] MEDS: InsuLIN REG 1unit/0.01ml Soln (100units/ml) SC SCH (06:41)
[2023-09-18] MEDS: ACCU-CHEK COMFORT CURVE STRIP VI SCH (06:41)
[2023-09-18 07:52] LABS: Alanine Aminotransferase 25 U/L (7-40); Alkaline Phosphatase 71 U/L (46-116); Anion Gap 8 (5-15); Aspartate Aminotransferase 11 U/L (13-40); BUN/Creatinine Ratio 27.2 (10.0-20.0); Bilirubin, Total 0.2 mg/dL (0.2-1.0); Blood Urea Nitrogen 28 mg/dL (9-23); Carbon Dioxide 26 mmol/L (20-30); Chloride 109 mmol/L (98-107); Glucose 145 mg/dL (74-106); Potassium 3.6 mmol/L (3.5-5.1); Sodium 143 mmol/L (136-145); Total Protein 7.1 g/dL (5.7-8.2)
[2023-09-18 08:00] VITALS: BP 139/96; PULSE 73; PULSE 74; RESP 17; RESP 20; TEMP 98.1; O2SAT 100
[2023-09-18 08:21] LABS: Hematocrit 37.7 % (41.0-53.0); Hemoglobin 11.9 g/dL (13.5-17.5); Mean Corpuscular Hemoglobin 26.8 pg (28.0-32.0); Mean Corpuscular Hgb Conc. 31.6 g/dL (32.0-36.0); Mean Corpuscular Volume 84.8 fL (80.0-100.0); Red Blood Cells 4.45 10^6/uL (4.5-5.90); White Blood Cell 10.6 10^3/uL (4.4-10.8)
[2023-09-18 08:30] LABS: Red Cell Distribution Width 20.6 % (11.8-14.3)
[2023-09-18 08:31] LABS: Band Neutrophils % (manual) 0; Basophils % (manual) 0 (0.0-2.0); Blast Cells 0; Eosinophils % (manual) 0 (0-7); Metamyelocytes % 0; Promyelocytes % 0; Reactive Lymphocytes 0
[2023-09-18 09:00] VITALS: BP 128/88; PULSE 73; RESP 20; TEMP 98.1; O2SAT 100
[2023-09-18] MEDS: cefTRIAXone 1GM/50ML D5W 50 ML IV SCH (09:00)
[2023-09-18 09:10] VITALS: BP 136/75
[2023-09-18 09:44] VITALS: O2SAT 96
[2023-09-18] MEDS: ZINC SULFATE 220mg CAP or TAB PO SCH (10:00)
[2023-09-18] MEDS ORDERED: TRELEGY ELLIPTA PO SCH (10:00)
[2023-09-18] MEDS: PANTOPRAZOLE 40 MG TAB PO SCH (10:00)
[2023-09-18] MEDS: ASCORBIC ACID 1,000 MG TAB PO SCH (10:00)
[2023-09-18] MEDS: FUROSEMIDE 20 MG TAB PO SCH (10:00)
[2023-09-18] MEDS: APIXABAN 5 MG TAB PO SCH (10:00)
[2023-09-18] MEDS: CHOLECALCIFEROL (VITD3) 2,000 UNIT CAP/TAB PO SCH (10:00)
[2023-09-18] MEDS: DexAMETHasone SOD PHOS 10MG/1ML VIAL INJ IV SCH (10:00)
[2023-09-18] MEDS ORDERED: DULoxetine HCL 30 MG CAP PO SCH (10:00)
[2023-09-18] MEDS: metFORMIN HYDROCHLORIDE 500 MG TAB PO SCH (10:01)
[2023-09-18] MEDS ORDERED: AZITHROMYCIN 250 MG TAB PO ONE (10:30)
[2023-09-18 10:42] VITALS: PULSE 74
[2023-09-18 13:29] LABS: Lymphocytes % (manual) 14 (10.0-50.0); Monocytes % (manual) 17 (0-12); Myelocytes % 4; Platelet Estimate Adequate
== END 2023-09-18 12:02 | disposition home or self-care (01) | DRG 177 ==
LOC: ER 21:05 → EDBD 21:05 → MERGE 09-14 02:51 → TELE 09-14 02:51 → TELE-WESTW 09-14 15:23
PROVIDERS: ADMIT Nurse Practitioner; ATTEND Nurse Practitioner Acute Care
PROC: XW033E5 Introduction of Remdesivir Anti-infective into Peripheral Vein, Percutaneous Approach, New Technology Group 5 (ICD-10-PCS; principal; 2023-09-14)
DX: U07.1 COVID-19 (principal); J12.82 Pneumonia due to coronavirus disease 2019; J96.01 Acute respiratory failure with hypoxia; G61.0 Guillain-Barre syndrome; I10 Essential (primary) hypertension; E11.9 Type 2 diabetes mellitus without complications; N20.0 Calculus of kidney; N30.90 Cystitis, unspecified without hematuria; Z74.01 Bed confinement status; Z86.711 Personal history of pulmonary embolism; Z86.718 Personal history of other venous thrombosis and embolism; Z87.442 Personal history of urinary calculi
CPT/HCPCS: 36415; 36600; 71045; 76775; 80048; 80053; 81001; 82306; 82728; 82805; 82962; 83036; 83605; 83615; 83735; 83880; 84443; 84484; 85007; 85025; 85027; 85379; 85610; 85730; 86141; 87040; 87426; 87804; 93005; G0378; J1100; J1815

== ENCOUNTER 2024-01-04 11:58 | Inpatient (IN) | payer OTHER, MEDICAID ==
[~2024-01-04] VITALS: Ht 170.2 cm; Wt 91.0 kg
[~2024-01-04 11:58] MED LIST changes: +CHOL25CH3 PO; +CYAN-17 PO; +CYAN100042 PO; +DULO1CAP5 PO; +FAMO20IN2 PO; +FAMO20TA10 PO; +GABA-1251 PO; +MET25T PO; +METF500S3 PO
[2024-01-04 12:30] VITALS: PULSE 91; RESP 14; O2SAT 93
[2024-01-04 14:13] LABS: Eosinophils # (auto) 0.2 10 ^3/uL (0-0.8); Hemoglobin 12.4 g/dL (13.5-17.5); Lymphocytes # (auto) 1.2 10 ^3/uL (0.4-5.4); Lymphocytes % (auto) 12.2 % (10.0-50.0)
[2024-01-04 14:15] LABS: Basophils # (auto) 0.1 10 ^3/uL (0-0.2); Basophils % (auto) 0.8 % (0.0-2.0); Eosinophils % (auto) 1.6 % (0.0-7.0); Hematocrit 39.4 % (41.0-53.0); Mean Corpuscular Hemoglobin 26.9 pg (28.0-32.0); Mean Corpuscular Hgb Conc. 31.5 g/dL (32.0-36.0); Mean Corpuscular Volume 85.5 fL (80.0-100.0); Monocytes # (auto) 1.1 10 ^3/uL (0-1.3); Monocytes % (auto) 11.5 % (0.0-12.0); Neutrophils % (auto) 73.9 % (37.0-80.0); Nucleated Red Blood Cells % 0.2 %; Red Cell Distribution Width 20.7 % (11.8-14.3); White Blood Cell 9.5 10^3/uL (4.4-10.8)
[2024-01-04 14:27] LABS: Alanine Aminotransferase 14 U/L (7-40); Albumin 4.1 g/dL (3.2-4.8); Alkaline Phosphatase 98 U/L (46-116); Anion Gap 4 (5-15); Aspartate Aminotransferase < 8 U/L (13-40); BUN/Creatinine Ratio 23.9 (10.0-20.0); Bilirubin, Total 0.3 mg/dL (0.2-1.0); Blood Urea Nitrogen 22 mg/dL (9-23); Calcium 9.1 mg/dL (8.7-10.4); Carbon Dioxide 25 mmol/L (20-30); Chloride 112 mmol/L (98-107); Glucose 111 mg/dL (74-106); Lipase 24 U/L (12-53); Potassium 4.2 mmol/L (3.5-5.1); Sodium 141 mmol/L (136-145); Total Protein 6.7 g/dL (5.7-8.2)
[2024-01-04 15:01] LABS: Lactic Acid w/Reflex 2.2 mmol/L (0.4-2.0)
[2024-01-04] MEDS: SODIUM CHLORIDE 0.9% 1,000 ML IV ONE (15:57)
[2024-01-04] MEDS: cefTRIAXone 1GM/50ML D5W 50 ML IV ONE (16:01)
[2024-01-04] MEDS ORDERED: ACETAMINOPHEN 325 MG TAB PO PRN (17:15)
[2024-01-04] MEDS ORDERED: FLEET ENEMA(ADULT) 135 ML PR ONE (17:15)
[2024-01-04] MEDS ORDERED: metroNIDAZOLE 500MG/100ML 100 ML IV ONE (17:15)
[2024-01-04] MEDS ORDERED: DEXTROSE (50%) 50ML SYRG IV PRN (17:15)
[2024-01-04] MEDS: SODIUM CHLORIDE 0.9% 1,000 ML IV SCH (18:12)
[2024-01-04] MEDS: LACTULOSE 20Gm/30ML SOLN PO ONE (18:12)
[2024-01-04 18:33] LABS: LDL Cholesterol 86 mg/dL (< 100); Triglycerides 252 mg/dL (< 150)
[2024-01-04 18:35] LABS: Cholesterol 132 mg/dL (< 200); HDL Cholesterol 26 mg/dL (40-59)
[2024-01-04] MEDS: PANTOPRAZOLE 40 MG TAB PO ONE (18:39)
[2024-01-04] MEDS: metroNIDAZOLE 500MG/100ML 100 ML IV SCH (20:16)
[2024-01-04 21:00] VITALS: O2SAT 94
[2024-01-04] MEDS: METOPROLOL TARTRATE 25 MG TAB PO SCH (21:48)
[2024-01-04] MEDS: PRAVASTATIN SODIUM 20 MG TAB PO SCH (21:49)
[2024-01-04] MEDS: InsuLIN REG 1unit/0.01ml Soln (100units/ml) SC SCH (21:49)
[2024-01-04] MEDS: GABAPENTIN 400 MG CAP PO SCH (21:49)
[2024-01-04] MEDS: ASCORBIC ACID 500 MG TAB PO SCH (21:49)
[2024-01-04] MEDS: ACCU-CHEK COMFORT CURVE STRIP VI SCH (21:49)
[2024-01-04] MEDS ORDERED: FAMOTIDINE 20 MG TAB PO SCH (22:00)
[2024-01-05] VITALS (11 sets, daily range): BP systolic 115–142; BP diastolic 84–96; PULSE 82–101; RESP 16–20; TEMP 97.9–98.8; O2SAT 92–97
[2024-01-05] MEDS ORDERED: BACL10TA PO (02:26)
[2024-01-05 07:33] LABS: Basophils # (auto) 0.1 10 ^3/uL (0-0.2); Basophils % (auto) 0.9 % (0.0-2.0); Eosinophils # (auto) 0.1 10 ^3/uL (0-0.8); Eosinophils % (auto) 1.5 % (0.0-7.0); Hematocrit 38.2 % (41.0-53.0); Hemoglobin 11.9 g/dL (13.5-17.5); Lymphocytes % (auto) 11.9 % (10.0-50.0); Mean Corpuscular Hemoglobin 27.3 pg (28.0-32.0); Mean Corpuscular Hgb Conc. 31.2 g/dL (32.0-36.0); Mean Corpuscular Volume 87.6 fL (80.0-100.0); Monocytes % (auto) 11.4 % (0.0-12.0); Neutrophils # (auto) 6.4 10 ^3/uL (1.6-8.6); Neutrophils % (auto) 74.3 % (37.0-80.0); Nucleated Red Blood Cells % 0.1 %; Red Blood Cells 4.36 10^6/uL (4.5-5.90); Red Cell Distribution Width 20.7 % (11.8-14.3); White Blood Cell 8.6 10^3/uL (4.4-10.8)
[2024-01-05 07:38] LABS: Alkaline Phosphatase 89 U/L (46-116); Anion Gap 10 (5-15); Aspartate Aminotransferase 10 U/L (13-40); BUN/Creatinine Ratio 19.3 (10.0-20.0); Bilirubin, Total 0.3 mg/dL (0.2-1.0); Blood Urea Nitrogen 17 mg/dL (9-23); Calcium 8.9 mg/dL (8.5-10.1); Carbon Dioxide 21 mmol/L (20-30); Chloride 110 mmol/L (98-107); Glucose 126 mg/dL (74-106); Potassium 3.7 mmol/L (3.5-5.1); Sodium 141 mmol/L (136-145); Total Protein 6.8 g/dL (5.7-8.2)
[2024-01-05 07:39] LABS: Alanine Aminotransferase < 9 U/L (7-40)
[2024-01-05] MEDS ORDERED: DULOXETINE HCL PO SCH (10:00)
[2024-01-05] MEDS ORDERED: ENOXAPARIN SOD 100 MG/1 ML SYRINGE SC SCH ×2 (10:00)
[2024-01-05] MEDS: MULTIPLE VITAMIN TAB PO SCH (11:03)
[2024-01-05] MEDS: ZINC SULFATE 220mg CAP or TAB PO SCH (11:03)
[2024-01-05] MEDS: PANTOPRAZOLE 40 MG TAB PO SCH (11:03)
[2024-01-05] MEDS: DULoxetine HCL 30 MG CAP PO SCH (11:03)
[2024-01-05] MEDS: CHOLECALCIFEROL (VITD3) 1,000UNIT=25mCg TAB PO SCH (11:04)
[2024-01-05] MEDS: cefTRIAXone 1GM/50ML D5W 50 ML IV SCH (11:05)
[2024-01-05] MEDS: amLODIPine BESYLATE 5 MG TAB PO SCH (11:05)
[2024-01-05] MEDS: LACTULOSE 20Gm/30ML SOLN PO PRN (14:00)
[2024-01-05] MEDS: metFORMIN HYDROCHLORIDE 500 MG TAB PO SCH (17:37)
[2024-01-05] MEDS: ENOXAPARIN SOD 100 MG/1 ML SYRINGE SC SCH (22:15)
[2024-01-06] VITALS (8 sets, daily range): BP systolic 126–152; BP diastolic 87–91; PULSE 87–102; RESP 16–21; TEMP 97.8–98.8; O2SAT 90–100
[2024-01-06 06:17] LABS: Urine Bacteria FEW /hpf (None Seen); Urine Blood 1+ /uL (Negative); Urine Clarity Turbid (Clear); Urine Color Light-Yellow (Yellow); Urine Mucus FEW (None Seen); Urine Protein, UAD TRACE (Negative); Urine Specific Gravity 1.017 (1.001-1.035); Urine Urobilinogen Normal (Negative); Urine WBC 47 /hpf (0 - 3); Urine pH 5.5 (5.0-9.0)
[2024-01-06 07:30] LABS: Basophils # (auto) 0.1 10 ^3/uL (0-0.2); Eosinophils # (auto) 0.2 10 ^3/uL (0-0.8); Mean Corpuscular Volume 85.3 fL (80.0-100.0); Monocytes # (auto) 1.1 10 ^3/uL (0-1.3); Neutrophils # (auto) 6.4 10 ^3/uL (1.6-8.6); White Blood Cell 8.8 10^3/uL (4.4-10.8)
[2024-01-06 07:32] LABS: Basophils % (auto) 0.9 % (0.0-2.0); Hemoglobin 12.3 g/dL (13.5-17.5); Lymphocytes % (auto) 11.7 % (10.0-50.0); Mean Corpuscular Hemoglobin 27.5 pg (28.0-32.0); Mean Corpuscular Hgb Conc. 32.3 g/dL (32.0-36.0); Neutrophils % (auto) 72.4 % (37.0-80.0); Nucleated Red Blood Cells % 0.1 %; Red Blood Cells 4.45 10^6/uL (4.5-5.90); Red Cell Distribution Width 21.1 % (11.8-14.3)
[2024-01-06 07:39] LABS: Anion Gap 5 (5-15); Carbon Dioxide 26 mmol/L (20-30); Chloride 112 mmol/L (98-107); Potassium 3.5 mmol/L (3.5-5.1); Sodium 143 mmol/L (136-145)
[2024-01-06 07:45] LABS: BUN/Creatinine Ratio 20.9 (10.0-20.0); Blood Urea Nitrogen 19 mg/dL (9-23); Glucose 114 mg/dL (74-106)
[2024-01-06] MEDS: DOCUSATE SOD 100 MG CAP PO ONE (12:11)
[2024-01-06] MEDS: LACTULOSE 20Gm/30ML SOLN PO ONE (12:13)
[2024-01-06] MEDS: DOCUSATE SOD 100 MG CAP PO SCH (22:13)
[2024-01-06] MEDS: FLEET ENEMA(ADULT) 135 ML PR ONE (23:17)
[2024-01-07] VITALS (8 sets, daily range): BP systolic 109–154; BP diastolic 73–98; PULSE 102–116; RESP 18–19; TEMP 98–99.6; O2SAT 90–95
[2024-01-07] MEDS: MAGNESIUM CITRATE SOLUTION 300 ML BTL PO ONE (11:45)
[2024-01-07] MEDS: FLEET ENEMA(ADULT) 135 ML PR ONE (15:09)
[2024-01-07] MEDS: GOLYTELY 4L KIT PO ONE (17:55)
[2024-01-08] VITALS (7 sets, daily range): BP systolic 108–139; BP diastolic 39–85; PULSE 79–124; RESP 18–20; TEMP 98.3–99.4; O2SAT 92–96
[2024-01-08] MEDS: FLEET ENEMA(ADULT) 135 ML PR ONE (14:44)
[2024-01-09 01:00] VITALS: BP 118/86; PULSE 99; RESP 18; TEMP 99.4; O2SAT 92
[2024-01-09 05:00] VITALS: BP 116/86; PULSE 96; RESP 18; TEMP 99.1; O2SAT 94
[2024-01-09 07:22] LABS: Chloride 111 mmol/L (98-107); Sodium 141 mmol/L (136-145)
[2024-01-09 07:23] LABS: Anion Gap 6 (5-15); Calcium 8.2 mg/dL (8.7-10.4); Carbon Dioxide 24 mmol/L (20-30)
[2024-01-09 07:28] LABS: BUN/Creatinine Ratio 21.3 (10.0-20.0); Blood Urea Nitrogen 16 mg/dL (9-23); Glucose 124 mg/dL (74-106)
[2024-01-09 07:32] LABS: Potassium 2.3 mmol/L (3.5-5.1)
[2024-01-09 09:00] VITALS: BP 124/82; PULSE 104; RESP 18; TEMP 97.6; O2SAT 94
[2024-01-09] MEDS: POTASSIUM CHL 20 Meq TABLET PO ONE ×2 (09:01→12:23)
[2024-01-09 13:00] VITALS: BP 130/82; PULSE 92; RESP 19; TEMP 97.7; O2SAT 96
[2024-01-09 16:45] LABS: Chloride 110 mmol/L (98-107); Sodium 141 mmol/L (136-145)
[2024-01-09 16:46] LABS: Anion Gap 7 (5-15); Calcium 8.2 mg/dL (8.5-10.1); Carbon Dioxide 24 mmol/L (20-30)
[2024-01-09 16:51] LABS: BUN/Creatinine Ratio 14.1 (10.0-20.0); Blood Urea Nitrogen 11 mg/dL (9-23); Glucose 135 mg/dL (74-106)
[2024-01-09 17:00] VITALS: BP 110/87; PULSE 94; RESP 20; TEMP 97.6; O2SAT 91
[2024-01-09 21:00] VITALS: BP 125/97; PULSE 119; RESP 16; TEMP 98; O2SAT 95
[2024-01-10] VITALS (7 sets, daily range): BP systolic 119–142; BP diastolic 83–103; PULSE 110–125; RESP 16–19; TEMP 96.3–98.7; O2SAT 92–98
[2024-01-10 06:36] LABS: Hematocrit 40.2 % (41.0-53.0); Mean Corpuscular Hemoglobin 27.3 pg (28.0-32.0); Mean Corpuscular Hgb Conc. 32.2 g/dL (32.0-36.0); Mean Corpuscular Volume 84.7 fL (80.0-100.0); Red Blood Cells 4.75 10^6/uL (4.5-5.90); White Blood Cell 9.9 10^3/uL (4.4-10.8)
[2024-01-10 06:40] LABS: Alanine Aminotransferase 22 U/L (7-40); Albumin 3.4 g/dL (3.2-4.8); Alkaline Phosphatase 68 U/L (46-116); Anion Gap 10 (5-15); Aspartate Aminotransferase 23 U/L (13-40); BUN/Creatinine Ratio 21.1 (10.0-20.0); Bilirubin, Total 0.2 mg/dL (0.2-1.0); Blood Urea Nitrogen 16 mg/dL (9-23); Calcium 8.5 mg/dL (8.7-10.4); Carbon Dioxide 21 mmol/L (20-30); Chloride 113 mmol/L (98-107); Glucose 138 mg/dL (74-106); Magnesium 2.1 mg/dL (1.6-2.6); Potassium 3.1 mmol/L (3.5-5.1); Sodium 144 mmol/L (136-145)
[2024-01-10] MEDS: GASTROGRAFIN 120 ML SOL ONE (07:51)
[2024-01-10 08:09] LABS: Red Cell Distribution Width 20.5 % (11.8-14.3)
[2024-01-10 08:11] LABS: Basophils % (manual) 0 (0.0-2.0); Blast Cells 0; Myelocytes % 0; Promyelocytes % 0; Reactive Lymphocytes 0
[2024-01-10] MEDS ORDERED: POTASSIUM CHL 20 Meq TABLET PO ONE (08:45)
[2024-01-10 09:41] LABS: Band Neutrophils % (manual) 10; Eosinophils % (manual) 1 (0-7); Lymphocytes % (manual) 16 (10.0-50.0); Metamyelocytes % 1; Monocytes % (manual) 9 (0-12); Platelet Estimate Adequate
[2024-01-10] MEDS: MAGNESIUM CITRATE SOLUTION 300 ML BTL PO ONE (11:00)
[2024-01-10] MEDS: MAGNESIUM CITRATE SOLUTION 300 ML BTL GT ONE (12:45)
[2024-01-10] MEDS: POTASSIUM CHL 20MEQ/100ML 100 ML IV ONE ×2 (13:09→19:00)
[2024-01-10] MEDS: GOLYTELY 4L KIT PO ONE (19:00)
[2024-01-10] MEDS: GLYCERIN ADULT RECTAL SUPP PR ONE (20:54)
[2024-01-11] VITALS (7 sets, daily range): BP systolic 109–144; BP diastolic 67–88; PULSE 87–107; RESP 17–19; TEMP 96.9–98.2; O2SAT 93–98
[2024-01-11 06:49] LABS: Alanine Aminotransferase 18 U/L (7-40); Alkaline Phosphatase 58 U/L (46-116); Anion Gap 12 (5-15); Aspartate Aminotransferase 23 U/L (13-40); BUN/Creatinine Ratio 19.1 (10.0-20.0); Bilirubin, Total < 0.2 mg/dL (0.2-1.0); Blood Urea Nitrogen 13 mg/dL (9-23); Calcium 8.4 mg/dL (8.7-10.4); Carbon Dioxide 21 mmol/L (20-30); Chloride 113 mmol/L (98-107); Glucose 110 mg/dL (74-106); Potassium 3.1 mmol/L (3.5-5.1); Sodium 146 mmol/L (136-145); Total Protein 5.4 g/dL (5.7-8.2)
[2024-01-11] MEDS: GLYCERIN ADULT RECTAL SUPP PR ONE ×2 (13:14→17:30)
[2024-01-11] MEDS: D5W/SOD CHL 0.45%/KCL 20MEQ 1,000 ML IV SCH (17:26)
[2024-01-11] MEDS: POTASSIUM CHL 20MEQ/100ML 100 ML IV SCH (21:50)
[2024-01-12] VITALS (7 sets, daily range): BP systolic 108–140; BP diastolic 64–92; PULSE 86–106; RESP 16–20; TEMP 97.3–98.3; O2SAT 92–99
[2024-01-12] MEDS: GLYCERIN ADULT RECTAL SUPP PR ONE (00:06)
[2024-01-12] MEDS: D5W/SOD CHL 0.45% 1,000 ML IV SCH (02:34)
[2024-01-12 12:40] LABS: Alanine Aminotransferase 23 U/L (7-40); Albumin 3.2 g/dL (3.2-4.8); Alkaline Phosphatase 62 U/L (46-116); Anion Gap 8 (5-15); Aspartate Aminotransferase 29 U/L (13-40); BUN/Creatinine Ratio 14.1 (10.0-20.0); Blood Urea Nitrogen 10 mg/dL (9-23); Calcium 8.2 mg/dL (8.7-10.4); Carbon Dioxide 21 mmol/L (20-30); Chloride 113 mmol/L (98-107); Glucose 129 mg/dL (74-106); Potassium 3.4 mmol/L (3.5-5.1); Sodium 142 mmol/L (136-145)
[2024-01-12 12:41] LABS: Bilirubin, Total 0.2 mg/dL (0.2-1.0); Total Protein 5.9 g/dL (5.7-8.2)
[2024-01-12 14:00] LABS: Basophils # (auto) 0 10 ^3/uL (0-0.2); Basophils % (auto) 0.5 % (0.0-2.0); Eosinophils # (auto) 0.2 10 ^3/uL (0-0.8); Hematocrit 40.2 % (41.0-53.0); Hemoglobin 12.7 g/dL (13.5-17.5); Lymphocytes # (auto) 0.9 10 ^3/uL (0.4-5.4); Lymphocytes % (auto) 9.5 % (10.0-50.0); Mean Corpuscular Hemoglobin 26.9 pg (28.0-32.0); Mean Corpuscular Hgb Conc. 31.5 g/dL (32.0-36.0); Mean Corpuscular Volume 85.5 fL (80.0-100.0); Monocytes # (auto) 1.2 10 ^3/uL (0-1.3); Monocytes % (auto) 12.6 % (0.0-12.0); Neutrophils # (auto) 7.3 10 ^3/uL (1.6-8.6); Neutrophils % (auto) 75.4 % (37.0-80.0); Nucleated Red Blood Cells % 0.1 %; White Blood Cell 9.6 10^3/uL (4.4-10.8)
[2024-01-12 14:01] LABS: Red Cell Distribution Width 20.7 % (11.8-14.3)
[2024-01-12] MEDS: GLYCERIN ADULT RECTAL SUPP PR SCH (16:51)
[2024-01-12] MEDS: POTASSIUM CHL 20MEQ/100ML 100 ML IV ONE (16:51)
[2024-01-12] MEDS: LACTULOSE 20Gm/30ML SOLN PO SCH (19:00)
[2024-01-13] VITALS (39 sets, daily range): BP systolic 88–153; BP diastolic 53–119; PULSE 104–146; RESP 11–22; TEMP 96.4–98.5; O2SAT 85–100
[2024-01-13 07:36] LABS: Alanine Aminotransferase 25 U/L (7-40); Albumin 3.3 g/dL (3.2-4.8); Alkaline Phosphatase 63 U/L (46-116); Anion Gap 7 (5-15); Aspartate Aminotransferase 30 U/L (13-40); BUN/Creatinine Ratio 16.2 (10.0-20.0); Bilirubin, Total 0.2 mg/dL (0.2-1.0); Blood Urea Nitrogen 12 mg/dL (9-23); Calcium 8.4 mg/dL (8.7-10.4); Carbon Dioxide 23 mmol/L (20-30); Chloride 111 mmol/L (98-107); Glucose 175 mg/dL (74-106); Potassium 3.3 mmol/L (3.5-5.1); Sodium 141 mmol/L (136-145); Total Protein 5.9 g/dL (5.7-8.2)
[2024-01-13] MEDS ORDERED: ONDANSETRON HCL 4 MG/2 ML VIAL IV PRN (09:30)
[2024-01-13] MEDS: D5W/ SOD CHL 0.9%/KCL 20MEQ 1,000 ML IV SCH (11:13)
[2024-01-13] MEDS ORDERED: ALBUTEROL SULF 2.5 MG/0.5ML(0.5%) NEB SOLN NEB PRN (13:15)
[2024-01-13] MEDS ORDERED: IPRATROPIUM BROM 0.5 MG/2.5ML INH SOL NEB PRN (13:15)
[2024-01-13] MEDS: METOCLOPRAMIDE HCL 5MG/ml INJ 2ml VIAL IV SCH (13:25)
[2024-01-13] MEDS ORDERED: CLINIMIX PER PHARMACY 0 ML IV SCH (14:00)
[2024-01-13] MEDS: IOHEXOL 300 MG/ML 100ML BOTTLE IJ ONE (14:03)
[2024-01-13 18:02] LABS: Magnesium 2.1 mg/dL (1.6-2.6)
[2024-01-13 18:04] LABS: Phosphorus 2.8 mg/dL (2.4-5.1)
[2024-01-13] MEDS: NOREPINEPHRINE 8 MG/250ML KIT 250 ML IV SCH (19:45)
[2024-01-13] MEDS: POTASSIUM CHL 20MEQ/100ML 100 ML IV SCH (19:55)
[2024-01-13] MEDS ORDERED: DEXTROSE (50%) 50ML SYRG IV SCH (20:00)
[2024-01-13] MEDS: FLEET ENEMA(ADULT) 135 ML PR ONE (21:00)
[2024-01-13] MEDS: AMINO ACID INFUSION IN D5W 1,000 ML IV SCH (21:23)
[2024-01-13] MEDS: POTASSIUM PHOSPHATE 22 MEQ in SODIUM CHL 0.9% 100 ML IV ONE (21:47)
[2024-01-13] MEDS: SODIUM CHLORIDE 0.9% 500 ML IV ONE (22:00)
[2024-01-13] MEDS: SODIUM CHLORIDE 0.9% 1,000 ML IV SCH (22:00)
[2024-01-13] MEDS: METOPROLOL TARTRATE 1MG/1ML-5ML VIAL IV ONE (22:30)
[2024-01-14] VITALS (70 sets, daily range): BP systolic 91–145; BP diastolic 54–105; PULSE 107–129; RESP 9–20; TEMP 96.4–98.9; O2SAT 89–100
[2024-01-14] MEDS: ACCU-CHEK COMFORT CURVE STRIP VI SCH (00:22)
[2024-01-14] MEDS: InsuLIN REG 1unit/0.01ml Soln (100units/ml) SC SCH (00:22)
[2024-01-14] MEDS: POTASSIUM CHL 20MEQ/100ML 100 ML IV ONE ×2 (01:16→18:07)
[2024-01-14] MEDS: SODIUM CHLORIDE 0.9% 500 ML IV ONE ×2 (02:00→13:04)
[2024-01-14 06:10] LABS: Alanine Aminotransferase 24 U/L (7-40); Alkaline Phosphatase 58 U/L (46-116); Anion Gap 8 (5-15); Aspartate Aminotransferase 26 U/L (13-40); BUN/Creatinine Ratio 12.3 (10.0-20.0); Blood Urea Nitrogen 9 mg/dL (9-23); Carbon Dioxide 19 mmol/L (20-30); Chloride 115 mmol/L (98-107); Glucose 149 mg/dL (74-106); Magnesium 2.2 mg/dL (1.6-2.6); Potassium 3.6 mmol/L (3.5-5.1); Sodium 142 mmol/L (136-145)
[2024-01-14 06:11] LABS: Bilirubin, Total 0.2 mg/dL (0.2-1.0); Phosphorus 2.6 mg/dL (2.4-5.1); Total Protein 5.6 g/dL (5.7-8.2)
[2024-01-14] MEDS: GASTROGRAFIN 120 ML SOL ONE (08:46)
[2024-01-14 08:53] LABS: Basophils # (auto) 0.1 10 ^3/uL (0-0.2); Eosinophils # (auto) 0.1 10 ^3/uL (0-0.8); Hemoglobin 12.6 g/dL (13.5-17.5); Monocytes # (auto) 1.8 10 ^3/uL (0-1.3)
[2024-01-14 08:55] LABS: Basophils % (auto) 0.3 % (0.0-2.0); Eosinophils % (auto) 0.6 % (0.0-7.0); Hematocrit 41.9 % (41.0-53.0); Lymphocytes % (auto) 6.4 % (10.0-50.0); Mean Corpuscular Hemoglobin 26.6 pg (28.0-32.0); Mean Corpuscular Hgb Conc. 30.2 g/dL (32.0-36.0); Mean Corpuscular Volume 88.1 fL (80.0-100.0); Monocytes % (auto) 11.2 % (0.0-12.0); Neutrophils # (auto) 13.1 10 ^3/uL (1.6-8.6); Neutrophils % (auto) 81.5 % (37.0-80.0); Nucleated Red Blood Cells % 0.1 %; Red Blood Cells 4.76 10^6/uL (4.5-5.90); White Blood Cell 16.1 10^3/uL (4.4-10.8)
[2024-01-14 08:59] LABS: Red Cell Distribution Width 21.2 % (11.8-14.3)
[2024-01-14] MEDS ORDERED: MEROPENEM 1GM IVPB 50 ML IV ONE (10:30)
[2024-01-14 11:27] LABS: INR 1.13 (0.9-1.15); Partial Thromboplastin Time 28.4 SEC (24.5-34.5); Prothrombin Time 11.9 sec (9.3-11.8)
[2024-01-14] MEDS: SODIUM CHLORIDE 0.9% 1,000 ML IV SCH (13:08)
[2024-01-14] MEDS: LIDOCAINE 1% (LOCAL ANESTH.) PF 5ml SDV ID ONE (13:30)
[2024-01-14 14:58] LABS: Base Excess -3.6 mmol/L (-2.0-2.0)
[2024-01-14] MEDS: MEROPENEM 1GM IVPB 50 ML IV SCH (15:10)
[2024-01-14 21:45] LABS: Base Excess -3.4 mmol/L (-2.0-2.0)
[2024-01-14] MEDS: SODIUM CHLOR 0.9% PF (SALINE LOCK) 10ML VIAL/SYR IV SCH (21:48)
[2024-01-14] MEDS: FUROSEMIDE 20 MG/2 ML VIAL IV ONE (21:48)
[2024-01-14] MEDS: IPRATROPIUM BROM 0.5 MG/2.5ML INH SOL NEB PRN (22:09)
[2024-01-14] MEDS: LEVALBUTEROL HCL 1.25 MG/3 ML NEB NEB SCH (22:09)
[2024-01-15] VITALS (63 sets, daily range): BP systolic 94–124; BP diastolic 47–75; PULSE 82–122; RESP 6–15; TEMP 97.3–98.2; O2SAT 93–100
[2024-01-15 05:22] LABS: Alanine Aminotransferase 17 U/L (7-40); Albumin 2.8 g/dL (3.2-4.8); Alkaline Phosphatase 49 U/L (46-116); Anion Gap 5 (5-15); Aspartate Aminotransferase 19 U/L (13-40); BUN/Creatinine Ratio 25.4 (10.0-20.0); Bilirubin, Total 0.2 mg/dL (0.2-1.0); Blood Urea Nitrogen 18 mg/dL (9-23); Calcium 7.7 mg/dL (8.5-10.1); Carbon Dioxide 26 mmol/L (20-30); Chloride 117 mmol/L (98-107); Glucose 146 mg/dL (74-106); Phosphorus 1.7 mg/dL (2.4-5.1); Potassium 2.9 mmol/L (3.5-5.1); Total Protein 4.9 g/dL (5.7-8.2)
[2024-01-15 05:32] LABS: Basophils # (auto) 0.1 10 ^3/uL (0-0.2); Basophils % (auto) 1.2 % (0.0-2.0); Eosinophils # (auto) 0.1 10 ^3/uL (0-0.8); Eosinophils % (auto) 1.3 % (0.0-7.0); Hematocrit 30.8 % (41.0-53.0); Hemoglobin 10.2 g/dL (13.5-17.5); Lymphocytes # (auto) 0.8 10 ^3/uL (0.4-5.4); Lymphocytes % (auto) 7.5 % (10.0-50.0); Mean Corpuscular Volume 84.9 fL (80.0-100.0); Monocytes # (auto) 0.9 10 ^3/uL (0-1.3); Monocytes % (auto) 9.2 % (0.0-12.0); Neutrophils # (auto) 8.3 10 ^3/uL (1.6-8.6); Neutrophils % (auto) 80.8 % (37.0-80.0); Red Blood Cells 3.63 10^6/uL (4.5-5.90); Red Cell Distribution Width 20.6 % (11.8-14.3); White Blood Cell 10.2 10^3/uL (4.4-10.8)
[2024-01-15 05:38] LABS: Sodium 148 mmol/L (136-145)
[2024-01-15 05:49] LABS: Magnesium 1.7 mg/dL (1.6-2.6)
[2024-01-15 06:04] LABS: Anisocytosis Slight; Platelet Estimate Adequate
[2024-01-15 06:05] LABS: Ovalocytes FEW; Stomatocytes Few
[2024-01-15] MEDS: POTASSIUM CHL 20MEQ/100ML 100 ML IV ONE (07:00)
[2024-01-15] MEDS: POTASSIUM CHL 20MEQ/100ML 100 ML IV SCH (08:54)
[2024-01-15] MEDS: D5W/SOD CHL 0.45%/KCL 20MEQ 1,000 ML IV SCH (10:53)
[2024-01-15] MEDS: SODIUM PHOSPHATES 40 MEQ in D5W 5% 250 ML IV ONE (11:03)
[2024-01-15] MEDS ORDERED: TPN PER PHARMACY 0 ML IV SCH (20:00)
[2024-01-15] MEDS: TPN PER PHARMACY IV NR (20:31)
[2024-01-16] VITALS (32 sets, daily range): BP systolic 102–136; BP diastolic 42–87; PULSE 82–122; RESP 8–18; TEMP 97.3–98.9; O2SAT 89–100
[2024-01-16 05:11] LABS: Basophils # (auto) 0 10 ^3/uL (0-0.2); Basophils % (auto) 0.4 % (0.0-2.0); Eosinophils # (auto) 0.1 10 ^3/uL (0-0.8); Eosinophils % (auto) 1.7 % (0.0-7.0); Hemoglobin 9.4 g/dL (13.5-17.5); Lymphocytes # (auto) 0.5 10 ^3/uL (0.4-5.4); Lymphocytes % (auto) 6.6 % (10.0-50.0); Mean Corpuscular Hgb Conc. 31.4 g/dL (32.0-36.0); Mean Corpuscular Volume 85.9 fL (80.0-100.0); Monocytes # (auto) 0.8 10 ^3/uL (0-1.3); Monocytes % (auto) 9.3 % (0.0-12.0); Neutrophils # (auto) 6.8 10 ^3/uL (1.6-8.6); Nucleated Red Blood Cells % 0.1 %; Red Cell Distribution Width 20.9 % (11.8-14.3); White Blood Cell 8.2 10^3/uL (4.4-10.8)
[2024-01-16 05:30] LABS: Alanine Aminotransferase 18 U/L (7-40); Albumin 2.7 g/dL (3.2-4.8); Alkaline Phosphatase 46 U/L (46-116); Anion Gap 4 (5-15); Aspartate Aminotransferase 13 U/L (13-40); BUN/Creatinine Ratio 16.4 (10.0-20.0); Bilirubin, Total 0.2 mg/dL (0.2-1.0); Blood Urea Nitrogen 10 mg/dL (9-23); Calcium 7.8 mg/dL (8.7-10.4); Carbon Dioxide 26 mmol/L (20-30); Chloride 114 mmol/L (98-107); Glucose 229 mg/dL (74-106); Potassium 2.9 mmol/L (3.5-5.1); Sodium 144 mmol/L (136-145)
[2024-01-16 06:01] LABS: Phosphorus 2.3 mg/dL (2.4-5.1)
[2024-01-16] MEDS: POTASSIUM CHL 20MEQ/100ML 100 ML IV SCH (09:23)
[2024-01-16] MEDS ORDERED: VANCOMYCIN PER PHARMACY 0 MG IV SCH (11:45)
[2024-01-16] MEDS: D5W 5% IV ONE (12:17)
[2024-01-16] MEDS: VANCOMYCIN 1GM/200ML 200 ML IV ONE (12:17)
[2024-01-16] MEDS: SODIUM PHOSPHATES IV ONE (12:17)
[2024-01-16] MEDS: TPN PER PHARMACY IV NR (21:34)
[2024-01-17] VITALS (35 sets, daily range): BP systolic 91–152; BP diastolic 54–105; PULSE 86–127; RESP 9–18; TEMP 98.2–99.2; O2SAT 88–100
[2024-01-17] MEDS: VANCOMYCIN 1GM/200ML 200 ML IV SCH (00:20)
[2024-01-17 05:14] LABS: Alanine Aminotransferase 16 U/L (7-40); Albumin 2.8 g/dL (3.2-4.8); Alkaline Phosphatase 48 U/L (46-116); Anion Gap 4 (5-15); Aspartate Aminotransferase 10 U/L (13-40); BUN/Creatinine Ratio 21.8 (10.0-20.0); Blood Urea Nitrogen 12 mg/dL (9-23); Calcium 7.9 mg/dL (8.7-10.4); Carbon Dioxide 31 mmol/L (20-30); Chloride 107 mmol/L (98-107); Glucose 221 mg/dL (74-106); Magnesium 1.9 mg/dL (1.6-2.6); Potassium 2.8 mmol/L (3.5-5.1); Sodium 142 mmol/L (136-145)
[2024-01-17 05:15] LABS: Bilirubin, Total 0.2 mg/dL (0.2-1.0); Phosphorus 2.5 mg/dL (2.4-5.1); Total Protein 5.1 g/dL (5.7-8.2)
[2024-01-17 06:39] LABS: Triglycerides 219 mg/dL (< 150)
[2024-01-17] MEDS: POTASSIUM CHL 20MEQ/100ML 100 ML IV SCH (07:40)
[2024-01-17] MEDS: POTASSIUM CHL 20MEQ/100ML 100 ML IV ONE (11:44)
[2024-01-17] MEDS: POTASSIUM PHOSPHATE 22 MEQ in SODIUM CHL 0.9% 100 ML IV ONE (13:06)
[2024-01-17] MEDS: TPN PER PHARMACY IV NR (20:39)
[2024-01-18] VITALS (16 sets, daily range): BP systolic 102–141; BP diastolic 56–79; PULSE 84–109; RESP 10–18; TEMP 97.5–99; O2SAT 93–100
[2024-01-18 05:30] LABS: Basophils # (auto) 0 10 ^3/uL (0-0.2); Basophils % (auto) 0.3 % (0.0-2.0); Eosinophils # (auto) 0.1 10 ^3/uL (0-0.8); Eosinophils % (auto) 1.5 % (0.0-7.0); Hematocrit 32.1 % (41.0-53.0); Lymphocytes # (auto) 0.8 10 ^3/uL (0.4-5.4); Lymphocytes % (auto) 10.5 % (10.0-50.0); Mean Corpuscular Hemoglobin 27.2 pg (28.0-32.0); Mean Corpuscular Volume 87.7 fL (80.0-100.0); Monocytes % (auto) 12.8 % (0.0-12.0); Neutrophils # (auto) 5.6 10 ^3/uL (1.6-8.6); Neutrophils % (auto) 74.9 % (37.0-80.0); Red Blood Cells 3.66 10^6/uL (4.5-5.90); Red Cell Distribution Width 20.8 % (11.8-14.3); White Blood Cell 7.4 10^3/uL (4.4-10.8)
[2024-01-18 05:47] LABS: Alanine Aminotransferase 16 U/L (7-40); Alkaline Phosphatase 55 U/L (46-116); Anion Gap 7 (5-15); Blood Urea Nitrogen 10 mg/dL (9-23); Calcium 8.1 mg/dL (8.7-10.4); Carbon Dioxide 26 mmol/L (20-30); Chloride 104 mmol/L (98-107); Glucose 219 mg/dL (74-106); Potassium 3.1 mmol/L (3.5-5.1); Sodium 137 mmol/L (136-145)
[2024-01-18 05:48] LABS: Albumin 2.8 g/dL (3.2-4.8); Aspartate Aminotransferase 19 U/L (13-40); Bilirubin, Total 0.2 mg/dL (0.2-1.0); Phosphorus 2.9 mg/dL (2.4-5.1)
[2024-01-18 05:49] LABS: Total Protein 5.3 g/dL (5.7-8.2)
[2024-01-18] MEDS: POTASSIUM CHL 20MEQ/100ML 100 ML IV SCH (12:21)
[2024-01-18] MEDS: POTASSIUM PHOSP 22MEQ(15MMOLE) in NS 100 ML IV ONE (15:28)
[2024-01-18] MEDS: TPN PER PHARMACY IV NR (20:49)
[2024-01-18] MEDS: VANCOMYCIN 1GM/200ML 200 ML IV SCH (21:47)
[2024-01-19] VITALS (20 sets, daily range): BP systolic 93–121; BP diastolic 54–82; PULSE 82–113; RESP 16–20; TEMP 97.9–98.1; O2SAT 92–100
[2024-01-19 06:45] LABS: Hematocrit 31.2 % (41.0-53.0); Hemoglobin 9.8 g/dL (13.5-17.5); Mean Corpuscular Hemoglobin 27.1 pg (28.0-32.0); Mean Corpuscular Hgb Conc. 31.3 g/dL (32.0-36.0); Mean Corpuscular Volume 86.6 fL (80.0-100.0); Red Blood Cells 3.61 10^6/uL (4.5-5.90); White Blood Cell 8.1 10^3/uL (4.4-10.8)
[2024-01-19 06:49] LABS: Red Cell Distribution Width 20.4 % (11.8-14.3)
[2024-01-19 06:51] LABS: Basophils % (manual) 0 (0.0-2.0); Blast Cells 0; Myelocytes % 0; Promyelocytes % 0; Reactive Lymphocytes 0
[2024-01-19 07:07] LABS: Alanine Aminotransferase 19 U/L (7-40); Alkaline Phosphatase 63 U/L (46-116); Anion Gap 6 (5-15); Aspartate Aminotransferase 33 U/L (13-40); BUN/Creatinine Ratio 17.7 (10.0-20.0); Blood Urea Nitrogen 11 mg/dL (9-23); Calcium 8.2 mg/dL (8.5-10.1); Carbon Dioxide 23 mmol/L (20-30); Chloride 107 mmol/L (98-107); Glucose 268 mg/dL (74-106); Potassium 3.6 mmol/L (3.5-5.1); Sodium 136 mmol/L (136-145)
[2024-01-19 07:08] LABS: Bilirubin, Total 0.2 mg/dL (0.2-1.0); Phosphorus 2.9 mg/dL (2.4-5.1); Total Protein 5.7 g/dL (5.7-8.2)
[2024-01-19 07:17] LABS: Band Neutrophils % (manual) 5; Lymphocytes % (manual) 11 (10.0-50.0)
[2024-01-19 07:18] LABS: Anisocytosis Slight; Eosinophils % (manual) 2 (0-7); Hypochromia Slight; Metamyelocytes % 2; Monocytes % (manual) 14 (0-12); Platelet Estimate Adequate
[2024-01-19] MEDS: LACTULOSE 20Gm/30ML SOLN PO SCH (09:27)
[2024-01-19 17:53] LABS: Magnesium 2.8 mg/dL (1.6-2.6)
[2024-01-19] MEDS: TPN PER PHARMACY IV NR (20:00)
[2024-01-20] VITALS (15 sets, daily range): BP systolic 104–126; BP diastolic 58–74; PULSE 74–100; RESP 14–20; TEMP 97.7–98; O2SAT 93–100
[2024-01-20 07:21] LABS: Hemoglobin 8.2 g/dL (13.5-17.5)
[2024-01-20 07:24] LABS: Hematocrit 27.1 % (41.0-53.0); Mean Corpuscular Hemoglobin 27.2 pg (28.0-32.0); Mean Corpuscular Hgb Conc. 30.2 g/dL (32.0-36.0); Mean Corpuscular Volume 90.3 fL (80.0-100.0); White Blood Cell 6.6 10^3/uL (4.4-10.8)
[2024-01-20 07:31] LABS: Red Cell Distribution Width 21.2 % (11.8-14.3)
[2024-01-20 07:33] LABS: Basophils % (manual) 0 (0.0-2.0); Blast Cells 0; Metamyelocytes % 0; Myelocytes % 0; Promyelocytes % 0; Reactive Lymphocytes 0
[2024-01-20 07:42] LABS: Alanine Aminotransferase 20 U/L (7-40); Alkaline Phosphatase 62 U/L (46-116); Anion Gap 7 (5-15); Calcium 7.5 mg/dL (8.5-10.1); Carbon Dioxide 21 mmol/L (20-30); Chloride 107 mmol/L (98-107); Potassium 4.2 mmol/L (3.5-5.1); Sodium 135 mmol/L (136-145)
[2024-01-20 07:43] LABS: Aspartate Aminotransferase 21 U/L (13-40)
[2024-01-20 07:44] LABS: BUN/Creatinine Ratio 26.2 (10.0-20.0); Blood Urea Nitrogen 16 mg/dL (9-23)
[2024-01-20 07:45] LABS: Anisocytosis Moderate; Band Neutrophils % (manual) 3; Eosinophils % (manual) 2 (0-7); Hypochromia Slight; Lymphocytes % (manual) 10 (10.0-50.0); Monocytes % (manual) 12 (0-12); Platelet Estimate Adequate
[2024-01-20 07:46] LABS: Albumin 2.7 g/dL (3.2-4.8); Bilirubin, Total 0.2 mg/dL (0.2-1.0); Phosphorus 2.3 mg/dL (2.4-5.1); Total Protein 5.3 g/dL (5.7-8.2)
[2024-01-20 07:49] LABS: Glucose 430 mg/dL (74-106)
[2024-01-20] MEDS: VANCOMYCIN 1GM/200ML 200 ML IV SCH (13:07)
[2024-01-20] MEDS: BACLOFEN 10 MG TAB PO PRN (17:33)
[2024-01-20] MEDS: TPN PER PHARMACY IV NR (20:12)
[2024-01-20] MEDS: ENOXAPARIN SOD 100 MG/1 ML SYRINGE SC SCH (22:23)
[2024-01-21] VITALS (11 sets, daily range): BP systolic 102–126; BP diastolic 58–73; PULSE 61–110; RESP 16–21; TEMP 97.6–98.1; O2SAT 94–97
[2024-01-21] MEDS ORDERED: LEVALBUTEROL HCL 1.25 MG/3 ML NEB NEB PRN (06:00)
[2024-01-21 07:17] LABS: Alanine Aminotransferase 20 U/L (7-40); Alkaline Phosphatase 74 U/L (46-116); Anion Gap 9 (5-15); Calcium 8.4 mg/dL (8.5-10.1); Carbon Dioxide 21 mmol/L (20-30); Chloride 106 mmol/L (98-107); Potassium 3.4 mmol/L (3.5-5.1); Sodium 136 mmol/L (136-145)
[2024-01-21 07:18] LABS: BUN/Creatinine Ratio 33.3 (10.0-20.0); Blood Urea Nitrogen 20 mg/dL (9-23)
[2024-01-21 07:20] LABS: Albumin 3.2 g/dL (3.2-4.8); Bilirubin, Total 0.2 mg/dL (0.2-1.0); Phosphorus 2.2 mg/dL (2.4-5.1); Total Protein 6.1 g/dL (5.7-8.2)
[2024-01-21 07:21] LABS: Aspartate Aminotransferase 17 U/L (13-40)
[2024-01-21 07:22] LABS: Glucose 244 mg/dL (74-106)
[2024-01-21] MEDS: POTASSIUM PHOSPHATE 22 MEQ in SODIUM CHL 0.9% 100 ML IV ONE (11:38)
[2024-01-21 12:48] LABS: Magnesium 2.1 mg/dL (1.6-2.6)
[2024-01-21 13:12] LABS: Magnesium 1.9 mg/dL (1.6-2.6)
[2024-01-21] MEDS: DOCUSATE SOD 100 MG CAP PO ONE (13:45)
[2024-01-21] MEDS: TPN PER PHARMACY IV NR (20:00)
[2024-01-21] MEDS: DOCUSATE SOD 100 MG CAP PO SCH (22:44)
[2024-01-22] VITALS (13 sets, daily range): BP systolic 107–123; BP diastolic 64–83; PULSE 81–118; RESP 16–19; TEMP 97.9–98.4; O2SAT 93–98
[2024-01-22 06:18] LABS: Hematocrit 30.5 % (41.0-53.0); Hemoglobin 9.7 g/dL (13.5-17.5); Mean Corpuscular Hemoglobin 27.1 pg (28.0-32.0); Mean Corpuscular Hgb Conc. 31.9 g/dL (32.0-36.0); Mean Corpuscular Volume 85.1 fL (80.0-100.0); Red Blood Cells 3.58 10^6/uL (4.5-5.90); White Blood Cell 7.3 10^3/uL (4.4-10.8)
[2024-01-22 06:31] LABS: Red Cell Distribution Width 20.3 % (11.8-14.3)
[2024-01-22 06:33] LABS: Alanine Aminotransferase 25 U/L (7-40); Albumin 3.1 g/dL (3.2-4.8); Alkaline Phosphatase 75 U/L (46-116); Anion Gap 9 (5-15); BUN/Creatinine Ratio 38.3 (10.0-20.0); Blood Urea Nitrogen 23 mg/dL (9-23); Calcium 8.5 mg/dL (8.5-10.1); Carbon Dioxide 20 mmol/L (20-30); Chloride 108 mmol/L (98-107); Glucose 257 mg/dL (74-106); Potassium 3.3 mmol/L (3.5-5.1); Sodium 137 mmol/L (136-145)
[2024-01-22 06:34] LABS: Aspartate Aminotransferase 21 U/L (13-40); Bilirubin, Total < 0.2 mg/dL (0.2-1.0); Phosphorus 2.4 mg/dL (2.4-5.1)
[2024-01-22 06:35] LABS: Basophils % (manual) 0 (0.0-2.0); Blast Cells 0; Metamyelocytes % 0; Myelocytes % 0; Promyelocytes % 0; Reactive Lymphocytes 0
[2024-01-22 07:21] LABS: Magnesium 1.9 mg/dL (1.6-2.6)
[2024-01-22 08:35] LABS: Band Neutrophils % (manual) 3; Eosinophils % (manual) 1 (0-7); Lymphocytes % (manual) 14 (10.0-50.0); Monocytes % (manual) 16 (0-12); Platelet Estimate Adequate
[2024-01-22] MEDS: POTASSIUM EFFERVESENT TAB 25 MEQ PO ONE (10:03)
[2024-01-22] MEDS: SODIUM PHOSPHATES 20 MEQ in SODIUM CHL 0.9% 100 ML IV ONE (10:05)
[2024-01-22] MEDS ORDERED: TPN PER PHARMACY IV NR (20:00)
[2024-01-23] VITALS (8 sets, daily range): BP systolic 103–114; BP diastolic 60–73; PULSE 83–103; RESP 16–20; TEMP 98–98.7; O2SAT 92–97
[2024-01-23 09:40] LABS: Alanine Aminotransferase 48 U/L (7-40); Albumin 2.9 g/dL (3.2-4.8); Alkaline Phosphatase 76 U/L (46-116); Anion Gap 6 (5-15); Aspartate Aminotransferase 36 U/L (13-40); BUN/Creatinine Ratio 24.6 (10.0-20.0); Bilirubin, Total 0.2 mg/dL (0.2-1.0); Blood Urea Nitrogen 17 mg/dL (9-23); Calcium 7.7 mg/dL (8.5-10.1); Carbon Dioxide 20 mmol/L (20-30); Chloride 109 mmol/L (98-107); Magnesium 1.7 mg/dL (1.6-2.6); Phosphorus 2.6 mg/dL (2.4-5.1); Potassium 4.8 mmol/L (3.5-5.1); Sodium 135 mmol/L (136-145); Total Protein 5.6 g/dL (5.7-8.2)
[2024-01-23 09:54] LABS: Glucose 453 mg/dL (74-106)
[2024-01-23] MEDS ORDERED: POLY335015 PO (10:17)
[2024-01-23] MEDS ORDERED: DOCU-94 PO (10:17)
[2024-01-23] MEDS ORDERED: POTA-228 PO (10:25)
[2024-01-23] MEDS: POTASSIUM EFFERVESENT TAB 25 MEQ PO ONE (11:20)
[2024-01-23 12:06] LABS: Alanine Aminotransferase 55 U/L (7-40); Albumin 3.2 g/dL (3.2-4.8); Alkaline Phosphatase 85 U/L (46-116); Anion Gap 6 (5-15); Aspartate Aminotransferase 38 U/L (13-40); BUN/Creatinine Ratio 28.8 (10.0-20.0); Bilirubin, Total 0.2 mg/dL (0.2-1.0); Blood Urea Nitrogen 19 mg/dL (9-23); Calcium 8.6 mg/dL (8.5-10.1); Carbon Dioxide 23 mmol/L (20-30); Chloride 109 mmol/L (98-107); Potassium 3.5 mmol/L (3.5-5.1); Sodium 138 mmol/L (136-145); Total Protein 6.3 g/dL (5.7-8.2)
[2024-01-23 12:23] LABS: Glucose 186 mg/dL (74-106)
[2024-01-24 01:00] VITALS: BP 127/74; PULSE 93; RESP 20; TEMP 98.4; O2SAT 98
[2024-01-24 05:00] VITALS: BP 118/78; PULSE 86; RESP 20; TEMP 97.5; O2SAT 91
[2024-01-24 08:00] VITALS: PULSE 89; PULSE 90; RESP 18; O2SAT 95
[2024-01-24 09:00] VITALS: BP 133/67; PULSE 89; RESP 18; TEMP 98.4; O2SAT 95
[2024-01-24 11:50] LABS: Chloride 108 mmol/L (98-107); Potassium 3.3 mmol/L (3.5-5.1); Sodium 139 mmol/L (136-145)
[2024-01-24 11:51] LABS: Anion Gap 7 (5-15); Calcium 8.8 mg/dL (8.5-10.1); Carbon Dioxide 24 mmol/L (20-30)
[2024-01-24 11:56] LABS: Blood Urea Nitrogen 16 mg/dL (9-23); Glucose 115 mg/dL (74-106)
[2024-01-24 13:00] VITALS: BP 116/75; PULSE 91; RESP 16; TEMP 98.2; O2SAT 96
== END 2024-01-24 13:54 | disposition home health service (06) | DRG 871 ==
LOC: EDUNIT# 11:58 → EDBD 11:58 → ER 11:58 → OVERFLOW 17:19 → WEST WING 01-05 02:45 → DOU IN ICU 01-13 16:00 → TELE-EAST 01-18 19:30
PROVIDERS: ADMIT Internal Medicine Geriatric Medicine; ATTEND Internal Medicine Geriatric Medicine
PROC: 0D9670Z Drainage of Stomach with Drainage Device, Via Natural or Artificial Opening (ICD-10-PCS; 2024-01-09)
PROC: 02HV33Z Insertion of Infusion Device into Superior Vena Cava, Percutaneous Approach (ICD-10-PCS; principal; 2024-01-14)
PROC: B548ZZA Ultrasonography of Superior Vena Cava, Guidance (ICD-10-PCS; 2024-01-14)
DX: A41.9 Sepsis, unspecified organism (principal); J96.01 Acute respiratory failure with hypoxia; K62.5 Hemorrhage of anus and rectum; K56.609 Unspecified intestinal obstruction, unspecified as to partial versus complete obstruction; G61.0 Guillain-Barre syndrome; N13.4 Hydroureter; K56.7 Ileus, unspecified; K56.41 Fecal impaction; E11.9 Type 2 diabetes mellitus without complications; E66.01 Morbid (severe) obesity due to excess calories; E78.5 Hyperlipidemia, unspecified; I10 Essential (primary) hypertension; K21.9 Gastro-esophageal reflux disease without esophagitis; E87.6 Hypokalemia; K64.9 Unspecified hemorrhoids; B95.8 Unspecified staphylococcus as the cause of diseases classified elsewhere; Z74.01 Bed confinement status; Z79.01 Long term (current) use of anticoagulants; Z85.51 Personal history of malignant neoplasm of bladder; Z93.2 Ileostomy status; Z93.3 Colostomy status; Z87.442 Personal history of urinary calculi; Z68.31 Body mass index [BMI] 31.0-31.9, adult; Z80.0 Family history of malignant neoplasm of digestive organs; Z82.5 Family history of asthma and other chronic lower respiratory diseases; Z80.3 Family history of malignant neoplasm of breast; Z83.3 Family history of diabetes mellitus; Z90.6 Acquired absence of other parts of urinary tract; Z93.6 Other artificial openings of urinary tract status; Z86.718 Personal history of other venous thrombosis and embolism; Z87.891 Personal history of nicotine dependence
CPT/HCPCS: 36415; 36569; 36600; 71045; 74018; 74176; 74177; 74250; 80048; 80053; 80061; 80202; 81001; 82805; 82962; 83036; 83605; 83615; 83690; 83735; 83880; 84100; 84132; 84443; 84478; 84484; 85007; 85025; 85027; 85610; 85730; 86850; 86900; 86901; 87040; 87077; 87186; 93306; 93970; 94640; 96365; 97163; G0378; J1815; J2185; J3480; J3490; J7060; J7131

== ENCOUNTER 2024-03-25 14:07 | Inpatient (IN) | payer OTHER, MEDICAID ==
[~2024-03-25] VITALS: Ht 175.3 cm; Wt 99.9 kg
[~2024-03-25 14:07] MED LIST changes: -CEFD300C2 PO; -CHOL20007 PO; -CYA100I PO; -CYAN-17 PO; +DOCU-94 PO; -DULO1CAP5 PO; -FAMO20IN2 PO; -GABA-1251 PO; -LEVO500T31 PO; -MET25T PO; -METF500S3 PO; +POLY335015 PO; +POTA-228 PO
[2024-03-25 15:13] LABS: Basophils # (auto) 0.1 10 ^3/uL (0-0.2); Monocytes # (auto) 0.9 10 ^3/uL (0-1.3); Neutrophils # (auto) 6.5 10 ^3/uL (1.6-8.6)
[2024-03-25 15:14] LABS: Eosinophils # (auto) 0.1 10 ^3/uL (0-0.8); Eosinophils % (auto) 1.6 % (0.0-7.0); Hematocrit 38.2 % (41.0-53.0); Lymphocytes % (auto) 11.6 % (10.0-50.0); Mean Corpuscular Hgb Conc. 31.5 g/dL (32.0-36.0); Mean Corpuscular Volume 82.5 fL (80.0-100.0); Neutrophils % (auto) 75.8 % (37.0-80.0); Nucleated Red Blood Cells % 0.1 %; Red Blood Cells 4.63 10^6/uL (4.5-5.90); White Blood Cell 8.5 10^3/uL (4.4-10.8)
[2024-03-25 15:17] LABS: Red Cell Distribution Width 21.7 % (11.8-14.3)
[2024-03-25 15:31] LABS: Alanine Aminotransferase 16 U/L (7-40); Alkaline Phosphatase 83 U/L (46-116); Anion Gap 6 (5-15); Aspartate Aminotransferase 13 U/L (13-40); BUN/Creatinine Ratio 23.1 (10.0-20.0); Blood Urea Nitrogen 18 mg/dL (9-23); Calcium 9.3 mg/dL (8.5-10.1); Carbon Dioxide 27 mmol/L (20-30); Chloride 104 mmol/L (98-107); Glucose 145 mg/dL (74-106); Potassium 4.6 mmol/L (3.5-5.1); Sodium 137 mmol/L (136-145)
[2024-03-25 15:32] LABS: Bilirubin, Total 0.3 mg/dL (0.2-1.0); Total Protein 6.7 g/dL (5.7-8.2)
[2024-03-25] MEDS: LOPERAMIDE HCL 2 MG CAP/TAB PO ONE (15:50)
[2024-03-25 15:56] LABS: Lactic Acid w/Reflex 2.2 mmol/L (0.4-2.0)
[2024-03-25] MEDS ORDERED: NITROGLYCERIN 0.4 MG SL TAB SL PRN (19:30)
[2024-03-25] MEDS ORDERED: DOCUSATE SOD 100 MG CAP PO PRN (19:30)
[2024-03-25] MEDS ORDERED: ONDANSETRON HCL 4 MG/2 ML VIAL IV PRN (19:30)
[2024-03-25] MEDS: SODIUM CHLORIDE 0.9% 1,000 ML IV SCH (19:30)
[2024-03-25] MEDS ORDERED: MORPHINE SULFATE INJ 2 MG/ml SYRG IV PRN ×2 (19:30)
[2024-03-25] MEDS ORDERED: metroNIDAZOLE 500MG/100ML 100 ML IV ONE (19:30)
[2024-03-25 21:53] VITALS: PULSE 86; RESP 17; O2SAT 94
[2024-03-25] MEDS: SODIUM CHLORIDE 0.9% 1,000 ML IV ONE (22:00)
[2024-03-25] MEDS: metroNIDAZOLE 500MG/100ML 100 ML IV SCH (22:50)
[2024-03-25] MEDS: APIXABAN 5 MG TAB PO SCH (22:50)
[2024-03-25] MEDS: BACLOFEN 10 MG TAB PO SCH (22:51)
[2024-03-25] MEDS: METOPROLOL TARTRATE 25 MG TAB PO SCH (22:51)
[2024-03-25] MEDS: FAMOTIDINE 20 MG TAB PO SCH (22:52)
[2024-03-25] MEDS: PRAVASTATIN SODIUM 20 MG TAB PO SCH (22:52)
[2024-03-25] MEDS: GABAPENTIN 300 MG CAP PO SCH (23:30)
[2024-03-26] VITALS (9 sets, daily range): BP systolic 112–152; BP diastolic 71–83; PULSE 65–82; RESP 18–21; TEMP 97.3–98.3; O2SAT 92–95
[2024-03-26] MEDS ORDERED: PRIM50TA5 PO (01:27)
[2024-03-26 06:19] LABS: Basophils # (auto) 0.1 10 ^3/uL (0-0.2); Basophils % (auto) 1.2 % (0.0-2.0); Eosinophils # (auto) 0.2 10 ^3/uL (0-0.8); Eosinophils % (auto) 2.8 % (0.0-7.0); Lymphocytes # (auto) 1.3 10 ^3/uL (0.4-5.4); Monocytes # (auto) 0.8 10 ^3/uL (0-1.3); Nucleated Red Blood Cells % 0.1 %
[2024-03-26 06:22] LABS: Hematocrit 40.2 % (41.0-53.0); Hemoglobin 12.8 g/dL (13.5-17.5); Lymphocytes % (auto) 17.8 % (10.0-50.0); Mean Corpuscular Hemoglobin 25.9 pg (28.0-32.0); Mean Corpuscular Hgb Conc. 31.9 g/dL (32.0-36.0); Mean Corpuscular Volume 81.3 fL (80.0-100.0); Monocytes % (auto) 10.8 % (0.0-12.0); Neutrophils # (auto) 4.8 10 ^3/uL (1.6-8.6); Neutrophils % (auto) 67.4 % (37.0-80.0); Red Blood Cells 4.94 10^6/uL (4.5-5.90); White Blood Cell 7.1 10^3/uL (4.4-10.8)
[2024-03-26 06:29] LABS: Alanine Aminotransferase 13 U/L (7-40); Albumin 4.2 g/dL (3.2-4.8); Alkaline Phosphatase 85 U/L (46-116); Anion Gap 6 (5-15); Aspartate Aminotransferase 8 U/L (13-40); BUN/Creatinine Ratio 16.7 (10.0-20.0); Blood Urea Nitrogen 13 mg/dL (9-23); Calcium 9.7 mg/dL (8.7-10.4); Carbon Dioxide 29 mmol/L (20-30); Chloride 105 mmol/L (98-107); Glucose 103 mg/dL (74-106); Potassium 3.8 mmol/L (3.5-5.1); Sodium 140 mmol/L (136-145)
[2024-03-26 06:30] LABS: Bilirubin, Total 0.4 mg/dL (0.2-1.0); Total Protein 7.6 g/dL (5.7-8.2)
[2024-03-26 06:31] LABS: Red Cell Distribution Width 21.4 % (11.8-14.3)
[2024-03-26] MEDS: GABAPENTIN 400 MG CAP PO SCH (06:44)
[2024-03-26] MEDS: CYANOCOBALAMIN 500 MCG TAB PO SCH (09:30)
[2024-03-26] MEDS: DULoxetine HCL 30 MG CAP PO SCH (09:30)
[2024-03-26] MEDS: amLODIPine BESYLATE 5 MG TAB PO SCH (09:31)
[2024-03-26] MEDS: CIPROFLOXACIN 400MG/200ML 200 ML IV ONE (17:36)
[2024-03-26] MEDS: CIPROFLOXACIN 400MG/200ML 200 ML IV SCH (21:23)
[2024-03-27 01:00] VITALS: BP 114/68; PULSE 70; RESP 20; TEMP 97.9; O2SAT 96
[2024-03-27 05:00] VITALS: BP 101/65; PULSE 59; RESP 16; TEMP 98.3; O2SAT 93
[2024-03-27 05:51] LABS: Basophils # (auto) 0.1 10 ^3/uL (0-0.2); Eosinophils # (auto) 0.2 10 ^3/uL (0-0.8); Monocytes # (auto) 0.8 10 ^3/uL (0-1.3); Neutrophils # (auto) 4.6 10 ^3/uL (1.6-8.6); White Blood Cell 6.7 10^3/uL (4.4-10.8)
[2024-03-27 05:54] LABS: Basophils % (auto) 0.9 % (0.0-2.0); Eosinophils % (auto) 3.3 % (0.0-7.0); Hematocrit 34.9 % (41.0-53.0); Hemoglobin 11.1 g/dL (13.5-17.5); Lymphocytes % (auto) 14.9 % (10.0-50.0); Mean Corpuscular Hemoglobin 26.2 pg (28.0-32.0); Mean Corpuscular Hgb Conc. 31.9 g/dL (32.0-36.0); Mean Corpuscular Volume 82.3 fL (80.0-100.0); Monocytes % (auto) 12.4 % (0.0-12.0); Neutrophils % (auto) 68.5 % (37.0-80.0); Red Blood Cells 4.25 10^6/uL (4.5-5.90)
[2024-03-27 05:59] LABS: Red Cell Distribution Width 22.1 % (11.8-14.3)
[2024-03-27 06:09] LABS: Anion Gap 6 (5-15); Calcium 8.8 mg/dL (8.5-10.1); Carbon Dioxide 26 mmol/L (20-30); Chloride 109 mmol/L (98-107); Potassium 3.8 mmol/L (3.5-5.1); Sodium 141 mmol/L (136-145)
[2024-03-27 06:16] LABS: BUN/Creatinine Ratio 22.1 (10.0-20.0); Blood Urea Nitrogen 17 mg/dL (9-23); Glucose 101 mg/dL (74-106)
[2024-03-27 09:00] VITALS: BP 131/67; PULSE 59; RESP 20; TEMP 98.4; O2SAT 96
[2024-03-27 09:25] LABS: Hepatitis B Core Total AB Negative (Negative)
[2024-03-27 12:13] LABS: Hepatitis A Total Antibody Positive (Negative); Hepatitis B Surface Antibody Negative (Negative); Hepatitis B Surface Antigen Negative (Negative); Hepatitis C Antibody Negative (Negative)
[2024-03-27 13:00] VITALS: BP 130/69; PULSE 60; RESP 18; TEMP 98; O2SAT 95
[2024-03-27 17:00] VITALS: BP 134/79; PULSE 69; RESP 20; TEMP 98; O2SAT 92
[2024-03-27 21:00] VITALS: BP 123/77; PULSE 73; RESP 19; TEMP 98.2; O2SAT 92
[2024-03-28 05:00] VITALS: BP 121/76; PULSE 69; RESP 19; TEMP 97.5; O2SAT 95
[2024-03-28 07:19] LABS: Eosinophils # (auto) 0.2 10 ^3/uL (0-0.8); Hemoglobin 12.1 g/dL (13.5-17.5); Mean Corpuscular Volume 82.9 fL (80.0-100.0); Monocytes # (auto) 0.8 10 ^3/uL (0-1.3); Monocytes % (auto) 10.1 % (0.0-12.0); Neutrophils # (auto) 5.6 10 ^3/uL (1.6-8.6); Nucleated Red Blood Cells % 0.2 %
[2024-03-28 07:23] LABS: Basophils # (auto) 0.1 10 ^3/uL (0-0.2); Basophils % (auto) 1.2 % (0.0-2.0); Eosinophils % (auto) 2.8 % (0.0-7.0); Hematocrit 38.7 % (41.0-53.0); Lymphocytes % (auto) 13.2 % (10.0-50.0); Mean Corpuscular Hgb Conc. 31.4 g/dL (32.0-36.0); Neutrophils % (auto) 72.7 % (37.0-80.0); Red Blood Cells 4.67 10^6/uL (4.5-5.90); Red Cell Distribution Width 21.7 % (11.8-14.3); White Blood Cell 7.6 10^3/uL (4.4-10.8)
[2024-03-28 07:27] LABS: Chloride 109 mmol/L (98-107); Potassium 3.8 mmol/L (3.5-5.1); Sodium 142 mmol/L (136-145)
[2024-03-28 07:28] LABS: Anion Gap 6 (5-15); Carbon Dioxide 27 mmol/L (20-30)
[2024-03-28 07:33] LABS: BUN/Creatinine Ratio 17.6 (10.0-20.0); Blood Urea Nitrogen 16 mg/dL (9-23); Glucose 96 mg/dL (74-106)
[2024-03-28 09:00] VITALS: BP 116/80; PULSE 71; RESP 17; TEMP 98.6; O2SAT 95
[2024-03-28] MEDS: PRIMIDONE 50 MG TAB PO ONE (10:59)
[2024-03-28 13:00] VITALS: BP 127/76; PULSE 67; RESP 17; TEMP 98.7; O2SAT 95
[2024-03-28 17:00] VITALS: BP 109/80; PULSE 74; RESP 17; TEMP 97.8; O2SAT 95
[2024-03-28 19:30] VITALS: PULSE 77; RESP 16
[2024-03-28 21:00] VITALS: BP 139/83; PULSE 77; RESP 17; TEMP 97.9; O2SAT 92
[2024-03-28] MEDS: FLORASTOR (S. BOULARDII) 250 MG CAP PO SCH (22:00)
[2024-03-29 05:00] VITALS: BP 112/61; PULSE 64; RESP 15; TEMP 97.7; O2SAT 94
[2024-03-29 05:18] LABS: Hemoglobin 11.7 g/dL (13.5-17.5); Nucleated Red Blood Cells % 0.1 %; Red Cell Distribution Width 21.7 % (11.8-14.3)
[2024-03-29 05:22] LABS: Basophils # (auto) 0.1 10 ^3/uL (0-0.2); Basophils % (auto) 1.4 % (0.0-2.0); Eosinophils # (auto) 0.2 10 ^3/uL (0-0.8); Eosinophils % (auto) 2.5 % (0.0-7.0); Hematocrit 37.1 % (41.0-53.0); Lymphocytes % (auto) 12.7 % (10.0-50.0); Mean Corpuscular Hemoglobin 26.2 pg (28.0-32.0); Mean Corpuscular Hgb Conc. 31.7 g/dL (32.0-36.0); Mean Corpuscular Volume 82.8 fL (80.0-100.0); Monocytes % (auto) 11.7 % (0.0-12.0); Neutrophils # (auto) 5.8 10 ^3/uL (1.6-8.6); Neutrophils % (auto) 71.7 % (37.0-80.0); Red Blood Cells 4.48 10^6/uL (4.5-5.90); White Blood Cell 8.2 10^3/uL (4.4-10.8)
[2024-03-29 05:28] LABS: Anion Gap 6 (5-15); Carbon Dioxide 26 mmol/L (20-30); Chloride 109 mmol/L (98-107); Potassium 3.4 mmol/L (3.5-5.1); Sodium 141 mmol/L (136-145)
[2024-03-29 05:29] LABS: Calcium 8.6 mg/dL (8.7-10.4)
[2024-03-29 05:34] LABS: BUN/Creatinine Ratio 18.8 (10.0-20.0); Blood Urea Nitrogen 16 mg/dL (9-23); Glucose 94 mg/dL (74-106)
[2024-03-29 09:56] VITALS: BP 127/63; PULSE 65; RESP 18; TEMP 98; O2SAT 96
[2024-03-29] MEDS: POTASSIUM EFFERVESENT TAB 25 MEQ PO ONE (11:19)
[2024-03-29 13:43] VITALS: BP 140/90; PULSE 75; RESP 18; TEMP 97.8; O2SAT 94
[2024-03-29 16:33] VITALS: BP 124/74; PULSE 88; RESP 18; TEMP 97.7; O2SAT 94
[2024-03-29 19:30] VITALS: PULSE 76; RESP 16
[2024-03-29 21:00] VITALS: BP 160/63; PULSE 81; RESP 22; TEMP 98; O2SAT 95
[2024-03-30 01:00] VITALS: BP 103/70; PULSE 76; RESP 18; TEMP 98.5; O2SAT 92
[2024-03-30 05:00] VITALS: BP 108/71; PULSE 69; RESP 20; TEMP 97.8; O2SAT 96
[2024-03-30 08:18] LABS: Alanine Aminotransferase 15 U/L (7-40); Alkaline Phosphatase 81 U/L (46-116); Anion Gap 4 (5-15); Aspartate Aminotransferase 11 U/L (13-40); Calcium 9.1 mg/dL (8.7-10.4); Carbon Dioxide 27 mmol/L (20-30); Chloride 110 mmol/L (98-107); Glucose 99 mg/dL (74-106); Magnesium 1.9 mg/dL (1.6-2.6); Potassium 3.9 mmol/L (3.5-5.1); Sodium 141 mmol/L (136-145)
[2024-03-30 08:19] LABS: Bilirubin, Total 0.3 mg/dL (0.2-1.0); Total Protein 7.1 g/dL (5.7-8.2)
[2024-03-30 09:05] LABS: BUN/Creatinine Ratio 21.5 (10.0-20.0); Blood Urea Nitrogen 17 mg/dL (9-23)
[2024-03-30 09:06] VITALS: BP 133/75; PULSE 65; RESP 18; TEMP 97.7; O2SAT 95
[2024-03-30 13:25] VITALS: BP 120/76; PULSE 64; RESP 19; TEMP 97.6; O2SAT 94
[2024-03-30] MEDS ORDERED: PANC3600 OR (18:10)
[2024-03-30 19:30] VITALS: PULSE 79; RESP 17
[2024-03-30 21:00] VITALS: BP 126/73; PULSE 90; RESP 18; TEMP 97.9; O2SAT 92
[2024-03-31 05:00] VITALS: BP 109/73; PULSE 68; RESP 18; TEMP 97.8; O2SAT 94
[2024-03-31 07:31] VITALS: PULSE 77; RESP 20; O2SAT 92
[2024-03-31 08:40] VITALS: BP 112/77; PULSE 77; RESP 20; TEMP 97.5; O2SAT 92
[2024-03-31 11:19] VITALS: BP 134/75; PULSE 79
== END 2024-03-31 11:42 | disposition home or self-care (01) | DRG 392 ==
LOC: EDUNIT# 14:07 → ER 14:07 → EDBD 14:07 → OVERFLOW 19:25 → WEST WING 23:09
PROVIDERS: ADMIT Internal Medicine Pulmonary Disease; ATTEND Internal Medicine Pulmonary Disease
DX: K52.89 Other specified noninfective gastroenteritis and colitis (principal); G61.0 Guillain-Barre syndrome; K62.5 Hemorrhage of anus and rectum; E11.9 Type 2 diabetes mellitus without complications; E66.01 Morbid (severe) obesity due to excess calories; I10 Essential (primary) hypertension; K21.9 Gastro-esophageal reflux disease without esophagitis; E87.6 Hypokalemia; E78.5 Hyperlipidemia, unspecified; Z79.01 Long term (current) use of anticoagulants; Z74.01 Bed confinement status; Z86.718 Personal history of other venous thrombosis and embolism; Z85.51 Personal history of malignant neoplasm of bladder; Z68.32 Body mass index [BMI] 32.0-32.9, adult; Z93.3 Colostomy status; Z82.5 Family history of asthma and other chronic lower respiratory diseases; Z80.3 Family history of malignant neoplasm of breast; Z80.0 Family history of malignant neoplasm of digestive organs; Z83.3 Family history of diabetes mellitus
CPT/HCPCS: 36415; 74176; 80048; 80053; 82270; 83605; 83735; 85025; 85048; 86703; 86704; 86706; 86708; 86803; 87045; 87177; 87340; 87427; 87493; 96361; 96365; G0378; J3490

== ENCOUNTER 2024-05-29 20:56 | Inpatient (IN) | payer OTHER, MEDICAID ==
[~2024-05-29] VITALS: Ht 172.7 cm; Wt 91.7 kg
[~2024-05-29 20:56] MED LIST changes: +PANC3600 OR; +PRIM50TA5 PO
[2024-05-29] MEDS: cefTRIAXone 1GM/50ML D5W 50 ML IV ONE (22:11)
[2024-05-29] MEDS: SODIUM CHLORIDE 0.9% 1,000 ML IVB ONE (22:12)
[2024-05-29 22:32] LABS: Eosinophils # (auto) 0.1 10 ^3/uL (0-0.8); Neutrophils # (auto) 9.9 10 ^3/uL (1.6-8.6)
[2024-05-29 22:34] LABS: Basophils # (auto) 0 10 ^3/uL (0-0.2); Basophils % (auto) 0.1 % (0.0-2.0); Eosinophils % (auto) 0.5 % (0.0-7.0); Hematocrit 42.6 % (41.0-53.0); Hemoglobin 13.8 g/dL (13.5-17.5); Lymphocytes # (auto) 0.6 10 ^3/uL (0.4-5.4); Lymphocytes % (auto) 4.8 % (10.0-50.0); Mean Corpuscular Hemoglobin 26.6 pg (28.0-32.0); Mean Corpuscular Hgb Conc. 32.4 g/dL (32.0-36.0); Mean Corpuscular Volume 82.3 fL (80.0-100.0); Monocytes # (auto) 0.9 10 ^3/uL (0-1.3); Monocytes % (auto) 8.2 % (0.0-12.0); Neutrophils % (auto) 86.4 % (37.0-80.0); Platelet Count (auto) 306 10^3/uL (140-450); Red Blood Cells 5.17 10^6/uL (4.5-5.90); White Blood Cell 11.5 10^3/uL (4.4-10.8)
[2024-05-29 22:57] LABS: Alanine Aminotransferase 17 U/L (7-40); Albumin 4.2 g/dL (3.2-4.8); Alkaline Phosphatase 106 U/L (46-116); Anion Gap 6 (5-15); Aspartate Aminotransferase 8 U/L (13-40); Calcium 9.2 mg/dL (8.7-10.4); Carbon Dioxide 26 mmol/L (20-30); Chloride 105 mmol/L (98-107); Glucose 153 mg/dL (74-106); Potassium 4.4 mmol/L (3.5-5.1); Sodium 137 mmol/L (136-145)
[2024-05-29 22:58] LABS: Bilirubin, Total 0.4 mg/dL (0.2-1.0); Total Protein 7.7 g/dL (5.7-8.2)
[2024-05-29 23:15] LABS: Lactic Acid w/Reflex 2.3 mmol/L (0.4-2.0)
[2024-05-29 23:16] LABS: BUN/Creatinine Ratio 22.6 (10.0-20.0); Blood Urea Nitrogen 21 mg/dL (9-23)
[2024-05-29 23:42] LABS: Urine Amorphous Crystal FEW /hpf (None Seen); Urine Bacteria FEW /hpf (None Seen); Urine Blood 1+ /uL (Negative); Urine Clarity Turbid (Clear); Urine Color Yellow (Yellow); Urine Protein, UAD TRACE (Negative); Urine Specific Gravity 1.009 (1.001-1.035); Urine Urobilinogen Normal (Negative); Urine WBC 94 /hpf (0 - 3); Urine WBC Clumps PRESENT /hpf (None Seen); Urine pH 7.5 (5.0-9.0)
[2024-05-29] MEDS ORDERED: NITROGLYCERIN 0.4 MG SL TAB SL PRN (23:45)
[2024-05-29] MEDS ORDERED: ONDANSETRON HCL 4 MG/2 ML VIAL IV PRN (23:45)
[2024-05-29] MEDS ORDERED: DEXTROSE (50%) 50ML SYRG IV PRN (23:45)
[2024-05-29] MEDS ORDERED: HYDROcodone-ACET 5/325MG TAB PO PRN (23:45)
[2024-05-29] MEDS ORDERED: MORPHINE SULFATE INJ 2 MG/ml SYRG IV PRN (23:45)
[2024-05-29] MEDS ORDERED: ACETAMINOPHEN 325 MG TAB PO PRN (23:45)
[2024-05-30] VITALS (9 sets, daily range): BP systolic 91–137; BP diastolic 60–80; PULSE 91–109; RESP 14–19; TEMP 98.2–99.1; O2SAT 91–97
[2024-05-30] MEDS: SODIUM CHLORIDE 0.9% 1,000 ML IV SCH (00:08)
[2024-05-30] MEDS: InsuLIN REG 1unit/0.01ml Soln (100units/ml) SC SCH ×2 (07:00→21:48)
[2024-05-30] MEDS: ACCU-CHEK COMFORT CURVE STRIP VI SCH (07:00)
[2024-05-30] MEDS: PANTOPRAZOLE 40 MG/10 ML VIAL INJ IV SCH (09:32)
[2024-05-30] MEDS: ENOXAPARIN SOD 40 MG/0.4 ML SYRINGE SC SCH (09:32)
[2024-05-30] MEDS: cefTRIAXone 1GM/50ML D5W 50 ML IV SCH (09:32)
[2024-05-30 10:32] LABS: Alanine Aminotransferase 20 U/L (7-40); Albumin 3.9 g/dL (3.2-4.8); Alkaline Phosphatase 89 U/L (46-116); Anion Gap 5 (5-15); Aspartate Aminotransferase 10 U/L (13-40); BUN/Creatinine Ratio 16.3 (10.0-20.0); Blood Urea Nitrogen 15 mg/dL (9-23); Calcium 8.9 mg/dL (8.7-10.4); Carbon Dioxide 26 mmol/L (20-30); Chloride 107 mmol/L (98-107); Glucose 237 mg/dL (74-106); Potassium 4.2 mmol/L (3.5-5.1); Sodium 138 mmol/L (136-145)
[2024-05-30 10:33] LABS: Bilirubin, Total 0.3 mg/dL (0.2-1.0); Total Protein 6.8 g/dL (5.7-8.2)
[2024-05-30 10:46] LABS: Eosinophils # (auto) 0 10 ^3/uL (0-0.8); Hemoglobin 12.4 g/dL (13.5-17.5); Lymphocytes # (auto) 0.5 10 ^3/uL (0.4-5.4); Monocytes # (auto) 0.7 10 ^3/uL (0-1.3); Neutrophils # (auto) 8.5 10 ^3/uL (1.6-8.6); Nucleated Red Blood Cells % 0.1 %; White Blood Cell 9.9 10^3/uL (4.4-10.8)
[2024-05-30 10:49] LABS: Basophils # (auto) 0.1 10 ^3/uL (0-0.2); Basophils % (auto) 1.1 % (0.0-2.0); Eosinophils % (auto) 0.5 % (0.0-7.0); Hematocrit 37.8 % (41.0-53.0); Lymphocytes % (auto) 5.5 % (10.0-50.0); Mean Corpuscular Hemoglobin 27.5 pg (28.0-32.0); Mean Corpuscular Hgb Conc. 32.7 g/dL (32.0-36.0); Mean Corpuscular Volume 84.1 fL (80.0-100.0); Monocytes % (auto) 6.9 % (0.0-12.0); Platelet Count (auto) 280 10^3/uL (140-450); Red Blood Cells 4.49 10^6/uL (4.5-5.90)
[2024-05-30 10:52] LABS: Red Cell Distribution Width 22.1 % (11.8-14.3)
[2024-05-31] VITALS (7 sets, daily range): BP systolic 133–148; BP diastolic 73–92; PULSE 82–102; RESP 14–17; TEMP 98–98.1; O2SAT 92–96
[2024-05-31] MEDS: DOCUSATE SOD 100 MG CAP PO PRN (09:48)
[2024-05-31] MEDS ORDERED: PANCREATIC ENZYMES 4200 UNIT CAP PO SCH (12:00)
[2024-05-31] MEDS: PRIMIDONE 50 MG TAB PO SCH (14:21)
[2024-05-31] MEDS: PANCREATIC ENZYMES 4200 UNIT CAP PO SCH (17:32)
[2024-05-31] MEDS: APIXABAN 5 MG TAB PO SCH (21:35)
[2024-06-01] VITALS (7 sets, daily range): BP systolic 135–152; BP diastolic 80–85; PULSE 70–81; RESP 14–19; TEMP 97.5–98.3; O2SAT 93–97
[2024-06-02 01:00] VITALS: BP 138/78; PULSE 84; RESP 17; TEMP 97.7; O2SAT 97
[2024-06-02 05:00] VITALS: BP 135/90; PULSE 84; RESP 17; TEMP 98; O2SAT 95
[2024-06-02 08:00] VITALS: PULSE 79; RESP 16; O2SAT 96
[2024-06-02 08:34] VITALS: BP 153/88; PULSE 75; RESP 15; TEMP 98.1; O2SAT 95
[2024-06-02 12:37] VITALS: BP 150/90; PULSE 75; RESP 14; TEMP 98.1; O2SAT 93
[2024-06-02] MEDS ORDERED: CIPR-173 PO (13:06)
[2024-06-02 15:16] VITALS: BP 150/90; PULSE 75; RESP 14; TEMP 98.1; O2SAT 93
== END 2024-06-02 16:47 | disposition home health service (06) | DRG 871 ==
LOC: EDBD 20:56 → ER 20:56 → TELE-WESTW 23:40 → TELE 23:40 → TELE-WESTW 05-30 02:30
PROVIDERS: ADMIT Registered Nurse General Practice; ATTEND Family Medicine
DX: A41.9 Sepsis, unspecified organism (principal); G93.41 Metabolic encephalopathy; R65.21 Severe sepsis with septic shock; Z68.41 Body mass index [BMI] 40.0-44.9, adult; G61.0 Guillain-Barre syndrome; N39.0 Urinary tract infection, site not specified; E78.00 Pure hypercholesterolemia, unspecified; E66.9 Obesity, unspecified; E11.9 Type 2 diabetes mellitus without complications; K21.9 Gastro-esophageal reflux disease without esophagitis; I10 Essential (primary) hypertension; Z85.51 Personal history of malignant neoplasm of bladder; Z95.828 Presence of other vascular implants and grafts; Z93.6 Other artificial openings of urinary tract status; Z74.01 Bed confinement status; Z86.718 Personal history of other venous thrombosis and embolism; Z79.01 Long term (current) use of anticoagulants; Z79.84 Long term (current) use of oral hypoglycemic drugs
CPT/HCPCS: 36415; 71045; 80053; 81001; 82962; 83605; 85025; 87040; 87086; 93005; 99291; G0378; J2470

== ENCOUNTER 2024-07-10 18:00 | Inpatient (IN) | payer OTHER, MEDICAID ==
[~2024-07-10] VITALS: Ht 172.7 cm; Wt 104.5 kg
[~2024-07-10 18:00] MED LIST changes: +CIPR-173 PO
[2024-07-10 18:20] VITALS: PULSE 132; RESP 14; O2SAT 95
[2024-07-10 18:55] LABS: Chloride 103 mmol/L (98-107); Potassium 4.2 mmol/L (3.5-5.1); Sodium 137 mmol/L (136-145)
[2024-07-10 18:56] LABS: Anion Gap 8 (5-15); Calcium 9.4 mg/dL (8.7-10.4); Carbon Dioxide 26 mmol/L (20-31)
[2024-07-10 18:57] LABS: Basophils # (auto) 0.1 10 ^3/uL (0-0.2); Basophils % (auto) 1.1 % (0.0-2.0); Eosinophils # (auto) 0.1 10 ^3/uL (0-0.8); Eosinophils % (auto) 1.2 % (0.0-7.0); Hematocrit 42.2 % (41.0-53.0); Hemoglobin 13.9 g/dL (13.5-17.5); Lymphocytes # (auto) 0.7 10 ^3/uL (0.4-5.4); Lymphocytes % (auto) 7.1 % (10.0-50.0); Mean Corpuscular Hemoglobin 27.2 pg (28.0-32.0); Mean Corpuscular Hgb Conc. 32.9 g/dL (32.0-36.0); Mean Corpuscular Volume 82.9 fL (80.0-100.0); Monocytes # (auto) 1.1 10 ^3/uL (0-1.3); Monocytes % (auto) 11.5 % (0.0-12.0); Neutrophils # (auto) 7.4 10 ^3/uL (1.6-8.6); Neutrophils % (auto) 79.1 % (37.0-80.0); Nucleated Red Blood Cells % 0.1 %; Platelet Count (auto) 337 10^3/uL (140-450); Red Blood Cells 5.09 10^6/uL (4.5-5.90); White Blood Cell 9.4 10^3/uL (4.4-10.8)
[2024-07-10 18:58] LABS: Red Cell Distribution Width 20.8 % (11.8-14.3)
[2024-07-10 19:01] LABS: BUN/Creatinine Ratio 15.8 (10.0-20.0); Blood Urea Nitrogen 12 mg/dL (9-23); Glucose 126 mg/dL (74-106)
[2024-07-10 19:20] VITALS: PULSE 130; RESP 15; O2SAT 95
[2024-07-10 21:51] LABS: Urine Bacteria FEW /hpf (None Seen); Urine Blood 1+ /uL (Negative); Urine Clarity Turbid (Clear); Urine Color Colorless (Yellow); Urine Protein, UAD 1+ (Negative); Urine Specific Gravity 1.011 (1.001-1.035); Urine Urobilinogen Normal (Negative); Urine WBC 102 /hpf (0 - 3)
[2024-07-10] MEDS ORDERED: GABAPENTIN 300 MG CAP PO SCH (22:00)
[2024-07-10] MEDS ORDERED: MORPHINE SULFATE INJ 2 MG/ml SYRG IV PRN ×2 (22:00)
[2024-07-10] MEDS ORDERED: ONDANSETRON HCL 4 MG/2 ML VIAL IV PRN (22:00)
[2024-07-10] MEDS ORDERED: ACETAMINOPHEN 325 MG TAB PO PRN (22:00)
[2024-07-10] MEDS ORDERED: BACLOFEN 10 MG TAB PO SCH (22:00)
[2024-07-10] MEDS ORDERED: ENOXAPARIN SOD 40 MG/0.4 ML SYRINGE SC SCH (22:00)
[2024-07-10] MEDS ORDERED: NITROGLYCERIN 0.4 MG SL TAB SL PRN (22:00)
[2024-07-10] MEDS: SODIUM CHLOR 0.9% PF (SALINE LOCK) 10ML VIAL/SYR IV SCH (22:36)
[2024-07-10] MEDS: METOPROLOL TARTRATE 25 MG TAB PO SCH (22:37)
[2024-07-10] MEDS: DOCUSATE SOD 100 MG CAP PO SCH (22:37)
[2024-07-10] MEDS: APIXABAN 5 MG TAB PO SCH (22:37)
[2024-07-10] MEDS: FAMOTIDINE 20 MG TAB PO SCH (22:37)
[2024-07-10] MEDS ORDERED: BACLOFEN 10 MG TAB PO PRN (23:00)
[2024-07-10] MEDS: GABAPENTIN 300 MG CAP PO SCH (23:00)
[2024-07-10] MEDS: HYDROcodone-ACET 5/325MG TAB PO PRN (23:00)
[2024-07-11] VITALS (8 sets, daily range): BP systolic 104–115; BP diastolic 67–83; PULSE 84–96; RESP 16–19; TEMP 97.3–98.4; O2SAT 92–96
[2024-07-11] MEDS ORDERED: METOPROLOL TARTRATE 1MG/1ML-5ML VIAL IV PRN (00:15)
[2024-07-11] MEDS: methylPREDNISolone SOD SUCC 40 MG/ML VL IV SCH (03:33)
[2024-07-11 04:13] LABS: Amphetamine Screen, Urine Neg (NEGATIVE); Barbiturate Scree,Urine Pos (NEGATIVE); Benzodiazephine Screen, Urine Neg (NEGATIVE); Cocaine Screen, Urine Neg (NEGATIVE)
[2024-07-11 04:14] LABS: Cannabinoid Screen, Urine Neg (NEGATIVE); Opiate Scree,Urine Neg (NEGATIVE); Phencyclidine Screen, Urine Neg (NEGATIVE)
[2024-07-11 04:39] LABS: Urine Blood 1+ /uL (Negative); Urine Color STRAW YELLOW (Yellow); Urine Protein, UAD Trace (Negative); Urine Specific Gravity 1.008 (1.001-1.035); Urine Urobilinogen Normal (Negative)
[2024-07-11 04:41] LABS: Urine Clarity Hazy (Clear)
[2024-07-11 05:22] LABS: Urine Amorphous Crystal MODERATE /hpf (None Seen); Urine Epithelial Cast RARE /hpf (<5); Urine WBC MANY /hpf (0 - 3)
[2024-07-11 05:23] LABS: Urine Bacteria RARE /hpf (None Seen)
[2024-07-11] MEDS: PANTOPRAZOLE 40 MG TAB PO SCH (05:38)
[2024-07-11 06:22] LABS: Alanine Aminotransferase 12 U/L (7-40); Alkaline Phosphatase 87 U/L (46-116); Anion Gap 3 (5-15); Aspartate Aminotransferase < 8 U/L (13-40); BUN/Creatinine Ratio 16.3 (10.0-20.0); Blood Urea Nitrogen 13 mg/dL (9-23); Calcium 9.3 mg/dL (8.7-10.4); Carbon Dioxide 30 mmol/L (20-31); Chloride 105 mmol/L (98-107); Glucose 142 mg/dL (74-106); Hematocrit 41.5 % (41.0-53.0); Hemoglobin 13.7 g/dL (13.5-17.5); Mean Corpuscular Hemoglobin 27.8 pg (28.0-32.0); Mean Corpuscular Hgb Conc. 33.1 g/dL (32.0-36.0); Mean Corpuscular Volume 83.8 fL (80.0-100.0); Platelet Count (auto) 313 10^3/uL (140-450); Potassium 4.2 mmol/L (3.5-5.1); Red Blood Cells 4.95 10^6/uL (4.5-5.90); Red Cell Distribution Width 21.7 % (11.8-14.3); Sodium 138 mmol/L (136-145); White Blood Cell 9.6 10^3/uL (4.4-10.8)
[2024-07-11 06:23] LABS: Albumin 4.3 g/dL (3.2-4.8); Bilirubin, Total 0.4 mg/dL (0.2-1.0); Total Protein 7.4 g/dL (5.7-8.2)
[2024-07-11 07:10] LABS: Basophils % (manual) 0 (0.0-2.0); Blast Cells 0; Metamyelocytes % 0; Myelocytes % 0; Promyelocytes % 0; Reactive Lymphocytes 0
[2024-07-11 07:43] LABS: Band Neutrophils % (manual) 6; Eosinophils % (manual) 2 (0-7); Lymphocytes % (manual) 5 (10.0-50.0); Monocytes % (manual) 6 (0-12); Platelet Estimate Adequate
[2024-07-11] MEDS ORDERED: DEXTROSE (50%) 50ML SYRG IV PRN (08:00)
[2024-07-11] MEDS: InsuLIN REG 1unit/0.01ml Soln (100units/ml) SC SCH (08:00)
[2024-07-11] MEDS: cefTRIAXone 1GM/50ML D5W 50 ML IV SCH (08:42)
[2024-07-11] MEDS ORDERED: POLYETHYLENE GLYCOL 17 GM PWDR PO SCH (10:00)
[2024-07-11 10:24] LABS: INR 1.03 (0.9-1.15); Partial Thromboplastin Time 29.1 SEC (24.5-34.5); Prothrombin Time 10.9 sec (9.3-11.8)
[2024-07-11] MEDS ORDERED: IOHEXOL 350 MG/ML 100ML IJ ONE (10:54)
[2024-07-11] MEDS: amLODIPine BESYLATE 5 MG TAB PO SCH (11:58)
[2024-07-11] MEDS: ACCU-CHEK COMFORT CURVE STRIP VI SCH (11:59)
[2024-07-11] MEDS ORDERED: CEPH500C PO (15:14)
[2024-07-11] MEDS ORDERED: PRAVASTATIN SODIUM 20 MG TAB PO SCH (22:00)
== END 2024-07-11 18:10 | disposition home or self-care (01) | DRG 189 ==
LOC: ER 18:00 → EDBD 18:00 → EDUNIT# 18:00 → TELE 21:55 → TELE-EAST 23:24
PROVIDERS: ADMIT Hospitalist; ATTEND Hospitalist
DX: J96.01 Acute respiratory failure with hypoxia (principal); N30.00 Acute cystitis without hematuria; I82.512 Chronic embolism and thrombosis of left femoral vein; R50.9 Fever, unspecified; K21.9 Gastro-esophageal reflux disease without esophagitis; E11.9 Type 2 diabetes mellitus without complications; I10 Essential (primary) hypertension; T50.Z15A Adverse effect of immunoglobulin, initial encounter; Z79.4 Long term (current) use of insulin; Z85.51 Personal history of malignant neoplasm of bladder; Z74.01 Bed confinement status; Y92.89 Other specified places as the place of occurrence of the external cause
CPT/HCPCS: 36415; 71045; 71275; 80048; 80053; 80307; 81001; 82306; 82607; 82784; 82962; 83036; 83735; 83880; 84443; 84484; 85007; 85025; 85027; 85610; 85730; 87081; 87086; 93005; 93970; 99291; G0378

== ENCOUNTER 2024-08-13 11:23 | Inpatient (IN) | payer OTHER, MEDICAID ==
[~2024-08-13] VITALS: Ht 172.7 cm; Wt 98.6 kg
[~2024-08-13 11:23] MED LIST changes: +CEPH500C PO
--- NOTE | 2024-08-13 11:37 | ED.PDOC ---
History of Present Illness HPI Comments 63-year-old male brought in by EMS presents with a chief complaint of possible urinary tract infection. Per EMS, caregiver of patient called 911 due to patient having a history of sepsis from a urinary tract infection and when she noticed that his urine was dark in color and had a foul odor to it she believed that he has another urinary tract infection. Patient states that he feels weak, but is bed bound. Patient is on eliquis from a DVT in the past. No other symptoms or modifying factors present at this time. Time Seen by MD: 11:31 Primary Care Provider: UNKNOWN NAME Reviewed Notes: Nurses Notes, Medications, Allergies Allergies: Coded Allergies: No Known Drug Allergy (Verified Allergy, Unknown, 04/21/22) Home Meds Active Scripts Cephalexin Monohydrate (Cephalexin) 500 Mg Cap, 1 CAP PO TID for 7 Days, #30 CAP Prov:KRISTAL MATHIS 07/11/24 Ciprofloxacin Hcl (Cipro) 500 Mg Tab, 1 TAB PO BID, #20 TAB Prov:CONI SAVAGE MD 06/02/24 Pancrelipase (Lipase-Protease- (CREON) 36,000 Unt Cap, [address] UNT OR TIDWM for 30 Days, #90 CAP Prov:MILLIE CALIXTO MD 03/30/24 Potassium Chloride (Potassium Chloride ER) 10 Meq Tab, 10 MEQ PO DAILY for 30 Days, #30 TAB Prov:JEREMIAH BOOGIE MD 01/23/24 Polyethylene Glycol 3350 (Miralax) 17 Gm Pow, 17 GM PO DAILY for 30 Days, #510 POW Prov:JEREMIAH BOOGIE MD 01/23/24 Docusate Sodium (Colace) 100 Mg Cap, 1 CAP PO BID, #60 CAP 2 Refills Prov:JEREMIAH BOOGIE MD 01/23/24 Vzoxnpcb-Ftugoiwoz-Ld (Otic) (Cortisporin Otic Susp) [address], 3 DROP RIGHT EAR TID, #10 ML Prov:JEANNE ARRIOLA PAC 04/21/23 Reported Medications Primidone (MYSOLINE TABLET) 50 Mg Tb, 50 MG PO, TAB 03/26/24 Famotidine (PEPCID TABLET) 20 Mg Tb, 1 TAB PO QHSP 09/14/23 Cyanocobalamin (Vitamin B-12) 1,000 Mcg Tab, 1 TAB PO DAILY 09/14/23 Metformin Hydrochloride (Metformin Hcl) 500 Mg Tab, 1 TAB PO BID 09/14/23 Duloxetine Hcl (Cymbalta) 20 Mg Cap, 30 CAP PO DAILY, #30 CAP 2 Refills 09/14/23 Cholecalciferol (D3) 25 Mcg Chw, 25 MCG PO DAILY, TAB.CHEW 09/14/23 Zrjrsemcvot-Ecauqpiqhfkh-Izhas (Trelegy Ellipta 100-62.5-25 Mcg/INH) 1 Aer Aer, 1 AER IN DAILY, AER 03/09/23 Metoprolol Tartrate (Metoprolol Tartrate) 25 Mg Tab, 25 MG PO BID for 30 Days, MG 03/09/23 Amlodipine Besylate (Amlodipine Besylate) 5 Mg Tab, 2.5 MG PO DAILY for 30 Days, MG 03/09/23 Simvastatin (Simvastatin) 10 Mg Tab, 10 MG PO HS for 30 Days, MG 03/09/23 Gabapentin (Gabapentin) 300 Mg Cap, 400 MG PO TID for 30 Days, MG 04/21/22 Famotidine (Famotidine) 20 Mg Tab, 20 MG PO HS for 30 Days, MG 04/21/22 Apixaban Base (ELIQUIS) 5 Mg Tab, 5 MG PO BID, TAB 04/21/22 Baclofen (Baclofen) 10 Mg Tab, 10 MG PO Q8HP for 30 Days, MG 04/21/22 Information Source: Patient, Emergency Med Personnel Mode of Arrival: EMS Severity: Moderate Timing: Days Duration: Since onset Prehospital treatment: None Past Medical History PAST MEDICAL HISTORY: Cancer, DM, GERD, High Lipids, HTN, UTI'S Family History Family History: Reviewed,noncontributory to illness Social History Smoker: Non-Smoker Alcohol: Denies ETOH Use Drugs: Denies Drug Use Lives In: Home Constitutional: denies: chills, diaphoresis, fatigue, fever, malaise, sweats, weakness, others EENTM: denies: blurred vision, double vision, ear bleeding, ear discharge, ear drainage, ear pain, ear ringing, eye pain, eye redness, hearing loss, mouth pain, mouth swelling, nasal discharge, nose bleeding, nose congestion, nose pain, photophobia, tearing, throat pain, throat swelling, voice changes, others Respiratory: denies: cough, hemoptysis, orthopnea, SOB at rest, shortness of breath, SOB with excertion, stridor, wheezing, others Cardiovascular: denies: chest pain, dizzy spells, diaphoresis, Dyspnea on exertion, edema, irregular heart beat, left arm pain, lightheadedness, palpitations, PND, syncope, others Gastrointestinal: denies: abdomen distended, abdominal pain, blood streaked bowels, constipated, diarrhea, dysphagia, difficulty swallowing, hematemesis, melena, nausea, poor appetite, poor fluid intake, rectal bleeding, rectal pain, vomiting, others Genitourinary: reports: others (POSSIBLE UTI; FOUL ODOR, DISCOLORATION); denies: burning, dysuria, flank pain, frequency, hematuria, incontinence, penile discharge, penile sore, pain, testicle pain, testicle swelling, urgency Neurological: denies: dizziness, fainting, headache, left sided numbness, left sided weakness, numbness, paresthesia, pre-existing deficit, right sided numbness, right sided weakness, seizure, speech problems, tingling, tremors, weakness, others Musculoskeletal: denies: back pain, gout, joint pain, joint swelling, muscle pain, muscle stiffness, neck pain, others Integumetry: denies: bruises, change in color, change in hair/nails, dryness, laceration, lesions, lumps, rash, wounds, others Allergic/Immunocompromised: denies: Difficulty Healing, Frequent Infections, Hives, Itching, others Hematologic/Lymphatic: denies: anemia, blood clots, easy bleeding, easy bruising, swollen glands, others Endocrine: denies: excessive hunger, excessive sweating, excessive thirst, excessive urination, flushing, intolerance to cold, intolerance to heat, unexplained weight gain, unexplained weight loss, others Psychiatric: denies: anxiety, bipolar disorder, depression, hopeless, panic disorder, schizophrenia, sleepless, suicidal, others All Other Systems: Reviewed and Negative Physical Exam General Appearance: Moderate Distress, Obese HEENT: Normal ENT Inspection, Pharynx Normal, TMs Normal Neck: Full Range of Motion, Non-Tender, Normal, Normal Inspection Respiratory: Chest Non-Tender, Lungs Clear, No Accessory Muscle Use, No Respiratory Distress, Normal Breath Sounds Cardiovascular: No Edema, No JVD, No Murmur, No Gallop, Normal Peripheral Pulses, Regular Rate/Rhythm Breast Exam: Deferred Gastrointestinal: No Organomegaly, Non Tender, No Pulsatile Mass, Normal Bowel Sounds, Soft Genitalia: Other (Urostomy bag on the right) Pelvic: Deferred Rectal: Deferred Extremities: No calf tenderness, Normal capillary refill, No pedal edema, Other (Contractures) Musculoskeletal : Apperance: Normal Neurologic: Alert, analytical technician II-XII nml as Tested, Motor Weakness, Normal Affect, Normal Mood Cerebellar Function: Unable to Test Reflexes: Normal Skin: Dry, Pallor, Warm Lymphatic: No Adenopathy Was a procedure done? Was a procedure done?: No Differential Dx Considerations may include: Dehydration, UTI, gastroenteritis, sepsis X-Ray, Labs, Meds, VS Vital Signs Date Time Temp Pulse Resp B/P (MAP) Pulse Ox O2 Delivery O2 Flow Rate FiO2 08/13/24 11:39 97.8 98 18 115/81 (92) 94 Lab Test 08/13/24 14:04 08/13/24 13:15 08/13/24 11:55 08/13/24 11:50 Range/Units Lactic Acid Level Pending 2.2 *H 0.4-2.0 mmol/L Urine Color Yellow Yellow Urine Clarity Ex.turbid Clear Urine pH 8.5 5.0-9.0 Urine Specific [place] 1.013 1.001-1.035 Urine Protein 1+ H Negative Urine Ketones Negative Negative Urine Blood 2+ H Negative /uL Urine Nitrite 2+ H Negative Urine Bilirubin Negative Negative Urine Urobilinogen Normal Negative mg/dL Urine Leukocyte Esterase 3+ Negative /uL Urine RBC 48 0 - 3 /hpf Urine WBC 29 0 - 3 /hpf Urine WBC Clumps Present None Seen /hpf Urine Squamous Epithelial Cells None seen <5 /hpf Urine Calcium Phosphate Crystals Mod None Seen /hpf Urine Calcium Oxalate Crystals Few None Seen Urine Bacteria None seen None Seen /hpf Urine Mucus Few None Seen Urine Glucose Normal Normal mg/dL White Blood Count 10.7 4.4-10.8 10^3/uL Red Blood Count 5.22 4.5-5.90 10^6/uL Hemoglobin 15.9 13.5-17.5 g/dL Hematocrit 47.8 41.0-53.0 % Mean Corpuscular Volume 91.7 80.0-100.0 fL Mean Corpuscular Hemoglobin 30.5 28.0-32.0 pg Mean Corpuscular Hemoglobin Concent 33.2 32.0-36.0 g/dL Red Cell Distribution Width 26.7 H 11.8-14.3 % Platelet Count 287 140-450 10^3/uL Mean Platelet Volume 6.7 L 6.9-10.8 fL Neutrophils (%) (Auto) 37.0-80.0 % Lymphocytes (%) (Auto) 10.0-50.0 % Monocytes (%) (Auto) 0.0-12.0 % Basophils (%) (Auto) 0.0-2.0 % Neutrophils # (Auto) 1.6-8.6 10 ^3/uL Lymphocytes # (Auto) 0.4-5.4 10 ^3/uL Monocytes # (Auto) 0-1.3 10 ^3/uL Differential Total Cells Counted 100.0 100 Neutrophils % (Manual) 77 37.0-80.0 Band Neutrophils % (Manual) 3 Lymphocytes % (Manual) 4 L 10.0-50.0 Monocytes % (Manual) 15 H 0-12 Eosinophils % (Manual) 1 0-7 Basophils % (Manual) 0 0.0-2.0 Metamyelocytes % (manual) 0 Myelocytes % (Manual) 0 Promyelocytes % (Manual) 0 Blast Cells % (Manual) 0 Reactive Lymphocytes 0 Platelet Estimate Adequate Sodium Level 138 136-145 mmol/L Potassium Level 3.5 3.5-5.1 mmol/L Chloride Level 106 98-107 mmol/L Carbon Dioxide Level 25 20-31 mmol/L Anion Gap 7 5-15 Blood Urea Nitrogen 24 H 9-23 mg/dL Creatinine 0.90 0.700-1.30 mg/dL Glomerular Filtration Rate Calc 95 >90 mL/min BUN/Creatinine Ratio 26.7 H 10.0-20.0 Serum Glucose 162 H 74-106 mg/dL Calcium Level 10.1 8.7-10.4 mg/dL Current Medications Medications (Trade) Dose Ordered Sig/Simon Route Start Time Stop Time Status Last Admin Ceftriaxone Sodium 50 ml @ 100 mls/hr ONCE ONCE IV 08/13/24 13:15 08/13/24 13:44 DC 08/13/24 13:31 The patient's CBC and chemistry panel is within normal limits except for hyperglycemia at 162 The lactic acid level is 2.2 The patient was given normal saline bolus. The patient was given Rocephin after blood cultures were drawn The patient was being admitted to the hospitalist Images Reviewed?: Images reviewed and evaluated by me Time of 1ST Reevaluation: 12:01 Reevaluation 1ST: Unchanged Patient Education/Counseling: Diagnosis, Treatment, Prognosis Family Education/Counseling: No Family Present Departure 1 Departure Time of Disposition: 13:19 Impression: Primary Impression: UTI (urinary tract infection) Qualified Codes: N30.01 - Acute cystitis with hematuria Additional Impression: Sepsis Qualified Codes: A41.9 - Sepsis, unspecified organism Disposition: 09 ADMITTED INPATIENT Admit to: Tele Condition: Fair Critical Care Note Critical Care Time?: Yes (35 min-critical care time only) Stability Stability form required: Yes Unstable for transfer: Telemetry monitoring (Telemetry monitoring required), ED Physician Assesment (Clinical assesment) Heart Score Heart Score: Heart Score Response (Comments) Value History N/A 0 EKG N/A 0 Age N/A 0 Risk Factors N/A 0 Troponin N/A 0 Total 0 I personally scribed for WILLIAM GUTIERREZ MD ([email or web address]) on 08/13/24 at 11:37. Electronically submitted by Robert Jacobsen ([email or web address]). WILLIAM GUTIERREZ MD Aug 13, 2024 11:37 HARDY COLLIER Aug 13, 2024 14:02
[2024-08-13 12:10] LABS: Hematocrit 47.8 % (41.0-53.0); Hemoglobin 15.9 g/dL (13.5-17.5); Mean Corpuscular Hemoglobin 30.5 pg (28.0-32.0); Mean Corpuscular Hgb Conc. 33.2 g/dL (32.0-36.0); Mean Corpuscular Volume 91.7 fL (80.0-100.0); Platelet Count (auto) 287 10^3/uL (140-450); Red Blood Cells 5.22 10^6/uL (4.5-5.90); White Blood Cell 10.7 10^3/uL (4.4-10.8)
[2024-08-13 12:19] LABS: Red Cell Distribution Width 26.7 % (11.8-14.3)
[2024-08-13 12:22] LABS: Basophils % (manual) 0 (0.0-2.0); Blast Cells 0; Metamyelocytes % 0; Myelocytes % 0; Promyelocytes % 0; Reactive Lymphocytes 0
[2024-08-13 12:25] LABS: Chloride 106 mmol/L (98-107); Sodium 138 mmol/L (136-145)
[2024-08-13 12:26] LABS: Anion Gap 7 (5-15); Calcium 10.1 mg/dL (8.7-10.4); Carbon Dioxide 25 mmol/L (20-31)
[2024-08-13 12:31] LABS: BUN/Creatinine Ratio 26.7 (10.0-20.0)
[2024-08-13 12:32] LABS: Blood Urea Nitrogen 24 mg/dL (9-23); Glucose 162 mg/dL (74-106); Potassium 3.5 mmol/L (3.5-5.1)
[2024-08-13 12:35] LABS: Lactic Acid w/Reflex 2.2 mmol/L (0.4-2.0)
[2024-08-13 12:44] LABS: Band Neutrophils % (manual) 3; Eosinophils % (manual) 1 (0-7); Lymphocytes % (manual) 4 (10.0-50.0); Monocytes % (manual) 15 (0-12); Platelet Estimate Adequate
[2024-08-13] MEDS: cefTRIAXone 1GM/50ML D5W 50 ML IV ONE (13:31)
[2024-08-13 13:45] LABS: Urine Bacteria None Seen /hpf (None Seen)
[2024-08-13] MEDS ORDERED: BACLOFEN 10 MG TAB PO PRN (14:00)
[2024-08-13 14:03] LABS: Urine Blood 2+ /uL (Negative); Urine Clarity Ex.Turbid (Clear); Urine Color Yellow (Yellow); Urine Mucus FEW (None Seen); Urine Protein, UAD 1+ (Negative); Urine Specific Gravity 1.013 (1.001-1.035); Urine Urobilinogen Normal (Negative); Urine WBC 29 /hpf (0 - 3); Urine WBC Clumps PRESENT /hpf (None Seen); Urine pH 8.5 (5.0-9.0)
--- NOTE | 2024-08-13 14:17 | DVHHP2 ---
History of Present Illness Reason for Visit: Foul smelling urine and dark in color History of Present Illness Paul Montes De Oca is a 63YO M with pmHx of DVT LLE s/p IVC filter on eliquis, Bladder CA s/p cystectomy, DM, GERD, HLD, HTN, GBS, chronically bedridden, and recurrent UTI with sepsis who presents to the ED for dark urine and foul in odor. Upon examination patient reports that his HH RN called EMS to have him sent to the ER because his urine was dark and had a foul odor. Per patient the HH RN told him she thinks he has a UTI with sepsis. Patient denies fever, chills, chest pain, abdominal pain, shortness of breath, and N/V/D. Cardiovascular: HTN, hyperipidemia GI: GERD Renal/: UTI, Other (Bladder CA ) Endocrine: Diabetes Past Medical History DVT LLE GBS Past Surgical History Cystectomy Family History: None Smoke: Quit ALCOHOL: rare Drugs: None Lives: with Family Domestic Violence: Neg Review of Systems Constitutional: No: Fever, Chills, Sweats, Weakness, Malaise, Other Eyes: No: Pain, Vision change, Conjunctivae inflammation, Eyelid inflammation, Other, Redness ENT: No: Ear pain, Ear discharge, Nose pain, Nose discharge, Nose congestion, Mouth pain, Mouth swelling, Throat pain, Throat swelling, Other Respiratory: No: Cough, Dry, Shortness of breath, SOB with excertion, Wheezing, Hemoptysis, Pleuritic Pain, Sputum, Wheezing, Other Cardiovascular: No: Chest Pain, Palpitations, Orthopnea, Paroxysmal Noc. Dyspnea, Edema, Lt Headedness, Other Gastrointestinal: No: Nausea, Vomiting, Abdominal Pain, Diarrhea, Constipation, Melena, Hematochezia, Other Genitourinary: Other (urostomy) Musculoskeletal: No: other, neck pain, shoulder pain, arm pain, back pain, hand pain, leg pain, foot pain Skin: No: Rash, Lesions, Jaundice, Bruising, Other Neurological: No: Weakness, Numbness, Incoordination, Change in speech, Confusion, Seizures, Other Allergies: Coded Allergies: No Known Drug Allergy (Verified Allergy, Unknown, 04/21/22) Medications Current Medications Medications Dose Ordered Sig/Simon Route Start Time Stop Time Status Last Admin Dose Admin Ceftriaxone Sodium 50 ml @ 100 mls/hr DAILY@09 IV 08/14/24 09:00 UNV Amlodipine Besylate 2.5 mg DAILY PO 08/14/24 10:00 UNV Apixaban 5 mg BID PO 08/13/24 22:00 UNV Baclofen 10 mg Q8HP PO 08/13/24 14:00 UNV Famotidine 20 mg HS PO 08/13/24 22:00 UNV Famotidine 20 mg QHSP PO 08/13/24 22:00 UNV Gabapentin 400 mg TID PO 08/13/24 14:00 UNV Metoprolol Tartrate 25 mg BID PO 08/13/24 22:00 UNV Polyethylene Glycol 17 gm DAILY PO 08/14/24 10:00 UNV Patient Own Medication 25 mcg DAILY PO 08/14/24 10:00 UNV Patient Own Medication 1 tab DAILY PO 08/14/24 10:00 UNV Patient Own Medication 30 cap DAILY PO 08/14/24 10:00 UNV Patient Own Medication 1 aer DAILY IN 08/14/24 10:00 UNV Patient Own Medication 36,000 unt TIDWM OR 08/13/24 18:00 UNV Patient Own Medication 10 mg HS PO 08/13/24 22:00 UNV Exam Vital Signs Vital Signs Date Time Temp Pulse Resp B/P (MAP) Pulse Ox O2 Delivery O2 Flow Rate FiO2 08/13/24 11:39 97.8 98 18 115/81 (92) 94 General Appearance: Alert, Oriented X3, Cooperative, No acute distress HEENT: Atraumatic, PERRLA, EOMI, Mucous membr. moist/pink Respiratory: Normal air movement Cardiovascular: Regular rate, Normal S1, Normal S2, No murmurs Abdominal: Normal bowel sounds, Soft, No tenderness, No hepatospenomegaly, No masses Extremities: No clubbing, No cyanosis, No edema, Normal pulses, No tenderness/swelling Skin: No rashes, No significant lesion Neuro: Normal speech, Normal tone, Sensation intact Psych/Mental Status: Mental status NL, Mood NL Labs/Xrays Labs Test 08/13/24 13:15 08/13/24 11:55 08/13/24 11:50 Range/Units White Blood Count 10.7 4.4-10.8 10^3/uL Red Blood Count 5.22 4.5-5.90 10^6/uL Hemoglobin 15.9 13.5-17.5 g/dL Hematocrit 47.8 41.0-53.0 % Mean Corpuscular Volume 91.7 80.0-100.0 fL Mean Corpuscular Hemoglobin 30.5 28.0-32.0 pg Mean Corpuscular Hemoglobin Concent 33.2 32.0-36.0 g/dL Red Cell Distribution Width 26.7 H 11.8-14.3 % Platelet Count 287 140-450 10^3/uL Mean Platelet Volume 6.7 L 6.9-10.8 fL Neutrophils (%) (Auto) 37.0-80.0 % Lymphocytes (%) (Auto) 10.0-50.0 % Monocytes (%) (Auto) 0.0-12.0 % Basophils (%) (Auto) 0.0-2.0 % Neutrophils # (Auto) 1.6-8.6 10 ^3/uL Lymphocytes # (Auto) 0.4-5.4 10 ^3/uL Monocytes # (Auto) 0-1.3 10 ^3/uL Differential Total Cells Counted 100.0 100 Neutrophils % (Manual) 77 37.0-80.0 Band Neutrophils % (Manual) 3 Lymphocytes % (Manual) 4 L 10.0-50.0 Monocytes % (Manual) 15 H 0-12 Eosinophils % (Manual) 1 0-7 Basophils % (Manual) 0 0.0-2.0 Metamyelocytes % (manual) 0 Myelocytes % (Manual) 0 Promyelocytes % (Manual) 0 Blast Cells % (Manual) 0 Reactive Lymphocytes 0 Platelet Estimate Adequate Sodium Level 138 136-145 mmol/L Potassium Level 3.5 3.5-5.1 mmol/L Chloride Level 106 98-107 mmol/L Carbon Dioxide Level 25 20-31 mmol/L Anion Gap 7 5-15 Blood Urea Nitrogen 24 H 9-23 mg/dL Creatinine 0.90 0.700-1.30 mg/dL Glomerular Filtration Rate Calc 95 >90 mL/min BUN/Creatinine Ratio 26.7 H 10.0-20.0 Serum Glucose 162 H 74-106 mg/dL Calcium Level 10.1 8.7-10.4 mg/dL Lactic Acid Level 2.2 *H 0.4-2.0 mmol/L Assessment/Plan Assessment/Plan Assessment: Acute UTI with possible sepsis Hx of HTN DM HLD Chronically beridden GBS DVT LLE s/p IVC filter on Eliquis Bladder CA 2013 s/p cystectomy and chemo S/p ileal conduit for urine drainage Plan: Admit to tele IVf IV Abx Diet as tolerated Pain management ISS and accuchecks Trend lactic acid Monitor labs AM Labs HgbA1C 5.9% Blood cx UA noted Home medications reconciled Discussed plan of care with patient and nurse Plan discussed with: Patient My Orders Orders - [facility] Procedure Category Date Status Time Ceftriaxone 1gm/50ml PHA 08/14/24 Logged D5w (Rocephin) 09:00 Lactic Acid W/ Reflex LAB 08/14/24 Verified Order 04:00 Amlodipine Tablet PHA 08/14/24 Logged (Norvasc Tablet) 10:00 Apixaban (Eliquis) PHA 08/13/24 Logged 22:00 Baclofen Tablet PHA 08/13/24 Logged (Liorisal Tablet) 14:00 Famotidine Tablet PHA 08/13/24 Logged (Pepcid Tablet) 22:00 Famotidine Tablet PHA 08/13/24 Logged (Pepcid Tablet) 22:00 Gabapentin Capsule PHA 08/13/24 Logged (Neurontin Capsule) 14:00 Metoprolol Tartrate PHA 08/13/24 Logged Tablet (Lopressor Ta 22:00 Polyethylene Glycol PHA 08/14/24 Logged 17g Powder (Miralax 10:00 (Nf) Cholecalciferol PHA 08/14/24 Logged (D3) 10:00 (Nf) Cyanocobalamin PHA 08/14/24 Logged (Vitamin B-12) 10:00 (Nf) Duloxetine Hcl PHA 08/14/24 Logged (Cymbalta) 10:00 (NF) PHA 08/14/24 Logged Mfnkxippcla-Xxlscbwsssvf-Khmbb 10:00 (Nf) Pancrelipase PHA 08/13/24 Logged (Lipase-Protease- (Cre 18:00 (Nf) Simvastatin PHA 08/13/24 Logged 22:00 Problem List: (1) Urinary tract infection (2) Sepsis (3) History of bladder cancer (4) Guillain Luis syndrome (5) Hypertension (6) Hyperlipemia (7) GERD (gastroesophageal reflux disease) (8) DVT (deep venous thrombosis) Date of Service: Aug 13, 2024 Billing Provider: HARDY COLLIER Common Visit Codes: [id number] INP/OBS CARE (MOD) HARDY COLLIER Aug 13, 2024 14:17
[2024-08-13] MEDS ORDERED: MORPHINE SULFATE INJ 2 MG/ml SYRG IV PRN (14:30)
[2024-08-13] MEDS ORDERED: DOCUSATE SOD 100 MG CAP PO PRN (14:30)
[2024-08-13] MEDS ORDERED: ACETAMINOPHEN 325 MG TAB PO PRN (14:30)
[2024-08-13] MEDS ORDERED: ONDANSETRON HCL 4 MG/2 ML VIAL IV PRN (14:30)
[2024-08-13] MEDS: SODIUM CHLORIDE 0.9% 1,000 ML IV SCH (14:30)
[2024-08-13] MEDS ORDERED: DEXTROSE (50%) 50ML SYRG IV PRN (14:30)
[2024-08-13] MEDS: InsuLIN REG 1unit/0.01ml Soln (100units/ml) SC SCH (15:47)
[2024-08-13] MEDS: ACCU-CHEK COMFORT CURVE STRIP VI SCH (15:47)
[2024-08-13] MEDS: GABAPENTIN 300 MG CAP PO SCH (15:54)
[2024-08-13] MEDS: GABAPENTIN 400 MG CAP PO SCH (16:03)
[2024-08-13 17:00] VITALS: O2SAT 91
[2024-08-13] MEDS: PANCRELIPASE 36000 UNIT PO SCH (19:00)
[2024-08-13] MEDS: FAMOTIDINE 20 MG TAB PO SCH (22:00)
[2024-08-13] MEDS ORDERED: FAMOTIDINE 20 MG TAB PO SCH (22:00)
[2024-08-13] MEDS: APIXABAN 5 MG TAB PO SCH (22:44)
[2024-08-13] MEDS: METOPROLOL TARTRATE 25 MG TAB PO SCH (22:45)
[2024-08-13] MEDS: PRAVASTATIN SODIUM 20 MG TAB PO SCH (22:45)
[2024-08-13] MEDS: ASCORBIC ACID 500 MG TAB PO SCH (22:46)
[2024-08-14 05:00] VITALS: BP 100/70; PULSE 81; RESP 18; TEMP 98.1; O2SAT 93
[2024-08-14 05:39] LABS: Basophils # (auto) 0.1 10 ^3/uL (0-0.2); Basophils % (auto) 1.1 % (0.0-2.0); Eosinophils # (auto) 0.2 10 ^3/uL (0-0.8); Eosinophils % (auto) 2.3 % (0.0-7.0); Hematocrit 41.9 % (41.0-53.0); Hemoglobin 13.8 g/dL (13.5-17.5); Lymphocytes # (auto) 1.2 10 ^3/uL (0.4-5.4); Lymphocytes % (auto) 13.2 % (10.0-50.0); Mean Corpuscular Hemoglobin 30.3 pg (28.0-32.0); Mean Corpuscular Hgb Conc. 32.9 g/dL (32.0-36.0); Monocytes # (auto) 1.2 10 ^3/uL (0-1.3); Monocytes % (auto) 13.2 % (0.0-12.0); Neutrophils # (auto) 6.3 10 ^3/uL (1.6-8.6); Neutrophils % (auto) 70.2 % (37.0-80.0); Nucleated Red Blood Cells % 0.1 %; Platelet Count (auto) 277 10^3/uL (140-450); Red Blood Cells 4.55 10^6/uL (4.5-5.90)
[2024-08-14 05:53] LABS: Alanine Aminotransferase 15 U/L (7-40); Alkaline Phosphatase 85 U/L (46-116); Anion Gap 11 (5-15); BUN/Creatinine Ratio 25.6 (10.0-20.0); Blood Urea Nitrogen 21 mg/dL (9-23); Calcium 9.1 mg/dL (8.7-10.4); Carbon Dioxide 21 mmol/L (20-31); Potassium 3.7 mmol/L (3.5-5.1); Sodium 144 mmol/L (136-145)
[2024-08-14 05:54] LABS: Albumin 4.2 g/dL (3.2-4.8); Total Protein 6.4 g/dL (5.7-8.2)
[2024-08-14 05:55] LABS: Aspartate Aminotransferase < 8 U/L (13-40); Bilirubin, Total 0.2 mg/dL (0.2-1.0); Chloride 112 mmol/L (98-107); Glucose 124 mg/dL (74-106)
[2024-08-14 06:54] LABS: Anisocytosis Slight; Platelet Estimate Adequate
[2024-08-14 08:10] VITALS: PULSE 88
[2024-08-14] MEDS: cefTRIAXone 1GM/50ML D5W 50 ML IV SCH (08:53)
[2024-08-14] MEDS: CHOLECALCIFEROL (VITD3) 1,000UNIT=25mCg TAB PO SCH (08:53)
[2024-08-14] MEDS: MULTIPLE VITAMIN TAB PO SCH (08:53)
[2024-08-14] MEDS: DULoxetine HCL 30 MG CAP PO SCH (08:56)
[2024-08-14] MEDS: CYANOCOBALAMIN 500 MCG TAB PO SCH (08:56)
[2024-08-14] MEDS: amLODIPine BESYLATE 5 MG TAB PO SCH (08:56)
[2024-08-14] MEDS: ZINC SULFATE 220mg CAP or TAB PO SCH (08:56)
[2024-08-14] MEDS: POLYETHYLENE GLYCOL 17 GM PWDR PO SCH (08:57)
[2024-08-14] MEDS: Fluticasone-Umeclidinium-Vilan (Trelegy Ellipta 100-62.5-25 Mcg/I IN SCH (08:58)
[2024-08-14 09:00] VITALS: BP 108/69; PULSE 79; RESP 18; TEMP 97.6; O2SAT 94
[2024-08-14 13:00] VITALS: BP 106/73; PULSE 80; RESP 20; TEMP 97.6; O2SAT 92
--- NOTE | 2024-08-14 13:50 | DVH ---
CHEST RADIOGRAPH Indication: sob Technique: Single frontal view of the chest was obtained Comparison: XY CHEST XRAY 1 VIEW on DOS: 07/10/24, XY CHEST PORTABLE on DOS: 05/29/24, XY CHEST PORTAB LE on DOS: 01/15/24 FINDINGS: Lines and Tubes: None Lungs: No focal consolidation. Pleura: No effusion. No pneumothorax. Cardiomediastinal contours: Unremarkable Bones: No acute osseous abnormality. IMPRESSION: No acute cardiopulmonary disease.
[2024-08-14 17:00] VITALS: BP 130/82; PULSE 86; RESP 18; TEMP 97.6; O2SAT 92
--- NOTE | 2024-08-14 17:00 | DVHPNRES ---
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 Patient reported that she has home health nurse noticed foul odor from the urine she drained from the ileal conduit and given the history of multiple urinary tract infections the patient was brought to the hospital for further evaluation. patient reported no abdominal pain, no dizziness, no shortness of breath, no headache. Chest X ray shows no acute cardiopulmonary disease. 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 Past medical history: As per HPI Past surgical history: Ileal urine Conduit surgery Social history: Patient lives at home and has home health services which take care. Denies smoking, alcohol, drug use Home medication: Amlodipine 2.5 mg, apixaban 5 mg b.i.d., duloxetine 20 mg once daily, famotidine 20 mg HS, pancrelipase TIDWM, metoprolol tartrate 25 mg b.i.d. Review of systems Patient seen and examined at the bedside. Patient is alert oriented to time, place and person. Patient reports no abdominal pain, nausea, vomiting, diarrhea, fever, chills. Vitals stable. SpO2 92-95% on room air. Objective vital signs Vital Sign Date Time Temp Pulse Resp B/P (MAP) Pulse Ox O2 Delivery O2 Flow Rate FiO2 08/14/24 13:00 97.6 80 20 106/73 (84) 92 97.6 08/14/24 07:52 Room Air* 0 21 Total Intake and Output 08/13/24 08/13/24 08/14/24 15:00 23:00 07:00 Intake Total 180 ml Balance 180 ml medications Current Medications Medications Dose Ordered Sig/Simon Route Start Time Stop Time Status Last Admin Dose Admin Ceftriaxone Sodium 50 ml @ 100 mls/hr DAILY@09 IV 08/14/24 09:00 08/14/24 08:53 100 MLS/HR Amlodipine Besylate 2.5 mg DAILY PO 08/14/24 10:00 08/14/24 08:56 2.5 MG Apixaban 5 mg BID PO 08/13/24 22:00 08/14/24 08:57 5 MG Baclofen 10 mg Q8HP PRN PO 08/13/24 14:00 Hold Famotidine 20 mg HS PO 08/13/24 22:00 08/13/24 22:00 20 MG Metoprolol Tartrate 25 mg BID PO 08/13/24 22:00 08/14/24 08:57 25 MG Polyethylene Glycol 17 gm DAILY PO 08/14/24 10:00 08/14/24 08:57 17 GM Cholecalciferol 1,000 unit DAILY PO 08/14/24 10:00 08/14/24 08:53 1,000 UNIT Cyanocobalamin 1,000 mcg DAILY PO 08/14/24 10:00 08/14/24 08:56 1,000 MCG Duloxetine HCl 30 mg DAILY PO 08/14/24 10:00 08/14/24 08:56 30 MG Patient Own Medication 1 aer DAILY IN 08/14/24 10:00 Patient Own Medication 36,000 unt TIDWM PO 08/13/24 18:00 Pravastatin Sodium 20 mg HS PO 08/13/24 22:00 08/13/24 22:45 20 MG Dextrose 50 ml UD PRN IV 08/13/24 14:30 Sodium Chloride 1,000 ml @ 60 mls/hr [id number] IV 08/13/24 14:30 08/13/24 15:28 60 MLS/HR Acetaminophen/ Hydrocodone Bitart 1 tab Q4HP PRN PO 08/13/24 14:30 Ondansetron HCl 4 mg Q4HP PRN IV 08/13/24 14:30 Docusate Sodium 100 mg BIDPRN PRN PO 08/13/24 14:30 Zinc Sulfate 220 mg DAILY PO 08/14/24 10:00 08/14/24 08:56 220 MG Ascorbic Acid 500 mg BID PO 08/13/24 22:00 08/14/24 08:57 500 MG Multivitamins 1 tab DAILY PO 08/14/24 10:00 08/14/24 08:53 1 TAB Acetaminophen 650 mg Q6HP PRN PO 08/13/24 14:30 Morphine Sulfate 2 mg Q4HPRN PRN IV 08/13/24 14:30 Gabapentin 400 mg TID PO 08/13/24 15:58 08/14/24 14:11 400 MG Examination Physical Examination Gen - no pallor, no icterus, no cyanosis, no clubbing, no LAD, no edema . Skin - Patients skin is warm and dry. lower limbs are cold and clammy. HEENT - normocephalic, atraumatic, moist mucous membranes. Neck - full ROM, no LAD, no JVD. Pulmonary - B/L vesicular breath sounds. no crackles , no wheezing, no stridor. cardiovascular - normal S1,S2 heard. no murmurs heard. peripheral pulses normal radial 2+, pedal 2+. capillary refill normal <2 secs. GI - distended abdomen. no hepatosplenomegaly; ileal conduit with ileostomy bag; dark urine with haziness Neurological - Patient is A/O X 3 . Bilateral upper extremity strength 3/5. patient has lower extremity paralysis. no sensorium below the level of nipples. fecal incontinence. laboratory and microbiology Laboratory Tests 08/14/24 04:58 Test 08/14/24 04:58 Range/Units Serum Glucose 124 H 74-106 mg/dL Microbiology Date/Time Source Procedure Growth Status 08/13/24 11:55 Blood Blood Culture - Preliminary NO GROWTH AFTER 24 HOURS OF INCUBATION. Resulted Labs and/or images reviewed: Labs reviewed by me, Image(s) reviewed by me Problem List/Assessment/Plan Problem List/Assessment/Plan Assessment and Plan # UTI # H/o urinary bladder Ca s/p cystectomy with ileal conduit - UA shows 3+LE, 2+nitrite, elevated WBC - urine culture pending - on IV ceftriaxone - previous urine cultures showing mixed chelsea # Lactic acidosis, resolved given IV fluids # H/o Hypertension - continued on home medication amlodipine 2.5mg qd and metoprolol 25mg bid # H/o GBS - on gabapentin - pancrelipase # DVT lower extremity with IVC filter - continued on apixaban # Constipation - on MiraLax Goals of care discussed with the patient for 20 minutes: Full code Plan discussed with . Plan discussed with: Patient, Other (Nurse) Addendum Addendum Addendum I was physically present for the rodriguez portions of the service provided to patient by THE RESIDENT. I have reviewed the documentation, discussed the case with resident and agree with the resident's documentation except as noted. Also the patient's clinical case was discussed with the patient's nurse. This medical document was created using an electronic medical record system with computerized dictation system. Although this document has been carefully reviewed, there might still be some phonetic and typographical errors. These areas are purely typographical due to imperfections of the software programs, and do not reflect any compromise in the patient's medical care. Late signature. Date of Service: Aug 14, 2024 Billing Provider: ÁNGELA MARTINEZ MD Common Visit Codes: [id number] INP/OBS CARE(HIGH) Secondary Visit Codes: [id number] CARE PLAN 30 MINUTES (20 minutes) SHAWNA ROCHE RESIDENT Aug 14, 2024 17:00 ÁNGELA MARTINEZ MD Aug 16, 2024 06:01
[2024-08-14 20:55] VITALS: BP 138/86; PULSE 90; RESP 18; TEMP 97.6; O2SAT 93
[2024-08-15 05:00] VITALS: BP 118/85; PULSE 77; RESP 17; TEMP 97.6; O2SAT 97
[2024-08-15 09:00] VITALS: BP 136/83; PULSE 84; RESP 15; TEMP 97.3; O2SAT 98
[2024-08-15 10:32] LABS: Basophils # (auto) 0.1 10 ^3/uL (0-0.2); Basophils % (auto) 0.7 % (0.0-2.0); Eosinophils # (auto) 0.2 10 ^3/uL (0-0.8); Eosinophils % (auto) 1.9 % (0.0-7.0); Hematocrit 43.6 % (41.0-53.0); Hemoglobin 14.1 g/dL (13.5-17.5); Lymphocytes # (auto) 0.9 10 ^3/uL (0.4-5.4); Lymphocytes % (auto) 9.2 % (10.0-50.0); Mean Corpuscular Hgb Conc. 32.4 g/dL (32.0-36.0); Mean Corpuscular Volume 92.6 fL (80.0-100.0); Monocytes # (auto) 0.9 10 ^3/uL (0-1.3); Monocytes % (auto) 9.1 % (0.0-12.0); Neutrophils # (auto) 7.4 10 ^3/uL (1.6-8.6); Neutrophils % (auto) 79.1 % (37.0-80.0); Nucleated Red Blood Cells % 0.1 %; Platelet Count (auto) 283 10^3/uL (140-450); Red Cell Distribution Width 26.4 % (11.8-14.3); White Blood Cell 9.4 10^3/uL (4.4-10.8)
[2024-08-15 10:37] LABS: Anion Gap 8 (5-15); Carbon Dioxide 28 mmol/L (20-31); Potassium 3.6 mmol/L (3.5-5.1); Sodium 144 mmol/L (136-145)
[2024-08-15 10:38] LABS: Calcium 9.3 mg/dL (8.7-10.4)
[2024-08-15 10:40] LABS: Chloride 108 mmol/L (98-107)
[2024-08-15 10:43] LABS: BUN/Creatinine Ratio 25.4 (10.0-20.0); Blood Urea Nitrogen 17 mg/dL (9-23)
[2024-08-15 10:45] LABS: Glucose 175 mg/dL (74-106)
[2024-08-15 13:00] VITALS: BP 123/76; PULSE 81; RESP 17; TEMP 98.1; O2SAT 96
[2024-08-15 17:00] VITALS: BP 126/85; PULSE 86; RESP 19; TEMP 98; O2SAT 97
--- NOTE | 2024-08-15 18:00 | DVHPNRES ---
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 Patient reported that she has home health nurse noticed foul odor from the urine she drained from the ileal conduit and given the history of multiple urinary tract infections the patient was brought to the hospital for further evaluation. patient reported no abdominal pain, no dizziness, no shortness of breath, no headache. Chest X ray shows no acute cardiopulmonary disease. 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 Past medical history: As per HPI Past surgical history: Ileal urine Conduit surgery Social history: Patient lives at home and has home health services which take care. Denies smoking, alcohol, drug use Home medication: Amlodipine 2.5 mg, apixaban 5 mg b.i.d., duloxetine 20 mg once daily, famotidine 20 mg HS, pancrelipase TIDWM, metoprolol tartrate 25 mg b.i.d. Review of systems Patient seen and examined at the bedside. Patient is alert oriented to time, place and person. Patient reports no abdominal pain, nausea, vomiting, diarrhea, fever, chills. Vitals stable. SpO2 >95% on room air. Patient reported to pass stool 3 times overnight. Objective vital signs Vital Sign Date Time Temp Pulse Resp B/P (MAP) Pulse Ox O2 Delivery O2 Flow Rate FiO2 08/15/24 17:00 98.0 86 19 126/85 (99) 97 98.0 08/15/24 07:51 Room Air* 0 21 Total Intake and Output 08/14/24 08/14/24 08/15/24 15:00 23:00 07:00 Intake Total 50 ml 600 ml 240 ml Output Total 850 ml 800 ml Balance 50 ml -250 ml -560 ml medications Current Medications Medications Dose Ordered Sig/Simon Route Start Time Stop Time Status Last Admin Dose Admin Ceftriaxone Sodium 50 ml @ 100 mls/hr DAILY@09 IV 08/14/24 09:00 08/15/24 08:14 100 MLS/HR Amlodipine Besylate 2.5 mg DAILY PO 08/14/24 10:00 08/15/24 08:16 2.5 MG Apixaban 5 mg BID PO 08/13/24 22:00 08/15/24 08:15 5 MG Baclofen 10 mg Q8HP PRN PO 08/13/24 14:00 Hold Famotidine 20 mg HS PO 08/13/24 22:00 08/14/24 21:55 20 MG Metoprolol Tartrate 25 mg BID PO 08/13/24 22:00 08/15/24 08:15 25 MG Polyethylene Glycol 17 gm DAILY PO 08/14/24 10:00 08/14/24 08:57 17 GM Cholecalciferol 1,000 unit DAILY PO 08/14/24 10:00 08/15/24 08:16 1,000 UNIT Cyanocobalamin 1,000 mcg DAILY PO 08/14/24 10:00 08/15/24 08:16 1,000 MCG Duloxetine HCl 30 mg DAILY PO 08/14/24 10:00 08/15/24 08:15 30 MG Patient Own Medication 1 aer DAILY IN 08/14/24 10:00 Patient Own Medication 36,000 unt TIDWM PO 08/13/24 18:00 Pravastatin Sodium 20 mg HS PO 08/13/24 22:00 08/14/24 21:55 20 MG Dextrose 50 ml UD PRN IV 08/13/24 14:30 Acetaminophen/ Hydrocodone Bitart 1 tab Q4HP PRN PO 08/13/24 14:30 Ondansetron HCl 4 mg Q4HP PRN IV 08/13/24 14:30 Docusate Sodium 100 mg BIDPRN PRN PO 08/13/24 14:30 Zinc Sulfate 220 mg DAILY PO 08/14/24 10:00 08/15/24 08:17 220 MG Ascorbic Acid 500 mg BID PO 08/13/24 22:00 08/15/24 08:16 500 MG Multivitamins 1 tab DAILY PO 08/14/24 10:00 08/15/24 08:17 1 TAB Acetaminophen 650 mg Q6HP PRN PO 08/13/24 14:30 Morphine Sulfate 2 mg Q4HPRN PRN IV 08/13/24 14:30 Gabapentin 400 mg TID PO 08/13/24 15:58 08/15/24 13:58 400 MG Examination Physical Examination Gen - no pallor, no icterus, no cyanosis, no clubbing, no LAD, no edema . Skin - Patients skin is warm and dry. lower limbs are cold and clammy. HEENT - normocephalic, atraumatic, moist mucous membranes. Neck - full ROM, no LAD, no JVD. Pulmonary - B/L vesicular breath sounds. no crackles , no wheezing, no stridor. cardiovascular - normal S1,S2 heard. no murmurs heard. peripheral pulses normal radial 2+, pedal 2+. capillary refill normal <2 secs. GI - distended abdomen. no hepatosplenomegaly. Ileal conduit with ileostomy bag with clearing urine with no haziness Neurological - Patient is A/O X 3 . Bilateral upper extremity strength 3/5. patient has lower extremity paralysis. no sensorium below the level of nipples. fecal incontinence. laboratory and microbiology Laboratory Tests 08/15/24 09:34 Test 08/15/24 09:34 Range/Units Serum Glucose 175 H 74-106 mg/dL Microbiology Date/Time Source Procedure Growth Status 08/13/24 13:15 Voided Urine Urine Culture - Preliminary Resulted 08/13/24 11:55 Blood Blood Culture - Preliminary NO GROWTH AFTER 48 HOURS OF INCUBATION. Resulted Labs and/or images reviewed: Labs reviewed by me, Image(s) reviewed by me Problem List/Assessment/Plan Problem List/Assessment/Plan Assessment and Plan # UTI # H/o urinary bladder Ca s/p cystectomy with ileal conduit - UA shows 3+LE, 2+nitrite, elevated WBC - urine culture pending - on IV ceftriaxone - previous urine cultures showing mixed chelsea - urine culture showing growth of gram negative rods, waiting for susceptibility to follow, given multiple risk factors of the patient. # Lactic acidosis, resolved given IV fluids # H/o Hypertension - continued on home medication amlodipine 2.5mg qd and metoprolol 25mg bid # H/o GBS - on gabapentin - pancrelipase # DVT lower extremity with IVC filter - continued on apixaban # Constipation - on MiraLax Plan discussed with . Plan discussed with: Patient, Other (Nurse) My Orders My Orders Orders - SHAWNA ROCHE RESIDENT Procedure Category Date Status Time Mechanical Soft Diet DIET 08/15/24 Transmitted Breakfast * Rollout Manager CONS 08/15/24 Transmitted Consult Addendum Addendum Addendum I was physically present for the rodriguez portions of the service provided to patient by THE RESIDENT. I have reviewed the documentation, discussed the case with resident and agree with the resident's documentation except as noted. Also the patient's clinical case was discussed with the patient's nurse. This medical document was created using an electronic medical record system with computerized dictation system. Although this document has been carefully reviewed, there might still be some phonetic and typographical errors. These areas are purely typographical due to imperfections of the software programs, and do not reflect any compromise in the patient's medical care. Late signature. Date of Service: Aug 15, 2024 Billing Provider: ÁNGELA MARTINEZ MD Common Visit Codes: [id number] INP/OBS CARE(HIGH) SHAWNA ROCHE RESIDENT Aug 15, 2024 18:00 ÁNGELA MARTINEZ MD Aug 16, 2024 06:03
[2024-08-15 21:00] VITALS: BP 141/81; PULSE 92; RESP 20; TEMP 97.5; O2SAT 95
[2024-08-16] VITALS (7 sets, daily range): BP systolic 111–132; BP diastolic 70–80; PULSE 67–88; RESP 16–20; TEMP 97.5–98.5; O2SAT 93–98
[2024-08-16 06:50] LABS: Potassium 3.6 mmol/L (3.5-5.1); Sodium 144 mmol/L (136-145)
[2024-08-16 06:51] LABS: Anion Gap 7 (5-15); Carbon Dioxide 26 mmol/L (20-31)
[2024-08-16 06:56] LABS: BUN/Creatinine Ratio 18.3 (10.0-20.0); Blood Urea Nitrogen 13 mg/dL (9-23); Chloride 111 mmol/L (98-107); Glucose 99 mg/dL (74-106)
[2024-08-16] MEDS ORDERED: CEFP200T15 PO (11:59)
--- NOTE | 2024-08-16 14:34 | DVHDSRES ---
Discharge Summary Date of Admission Resident Creating Document: ERLINDA ARMANDO RESIDENT Aug 13, 2024 at 14:19 Date of Discharge: Aug 18, 2024 (Planned discharge was on August 16, 2024; home health will be arranged on Sunday August 18, 2024) Admitting Diagnosis Suspected UTI Labs/Diagnostic Data: Laboratory Results Test 08/16/24 06:14 08/15/24 09:34 08/14/24 13:33 08/14/24 11:45 Sodium Level 144 mmol/L (136-145) Potassium Level 3.6 mmol/L (3.5-5.1) Chloride Level 111 mmol/L (98-107) Carbon Dioxide Level 26 mmol/L (20-31) Anion Gap 7 (5-15) Blood Urea Nitrogen 13 mg/dL (9-23) Creatinine 0.71 mg/dL (0.700-1.30) Glomerular Filtration Rate Calc 102 mL/min (>90) BUN/Creatinine Ratio 18.3 (10.0-20.0) Serum Glucose 99 mg/dL (74-106) Calcium Level 9.0 mg/dL (8.7-10.4) White Blood Count 9.4 10^3/uL (4.4-10.8) Red Blood Count 4.70 10^6/uL (4.5-5.90) Hemoglobin 14.1 g/dL (13.5-17.5) Hematocrit 43.6 % (41.0-53.0) Mean Corpuscular Volume 92.6 fL (80.0-100.0) Mean Corpuscular Hemoglobin 30.0 pg (28.0-32.0) Mean Corpuscular Hemoglobin Concent 32.4 g/dL (32.0-36.0) Red Cell Distribution Width 26.4 % (11.8-14.3) Platelet Count 283 10^3/uL (140-450) Mean Platelet Volume 6.8 fL (6.9-10.8) Neutrophils (%) (Auto) 79.1 % (37.0-80.0) Lymphocytes (%) (Auto) 9.2 % (10.0-50.0) Monocytes (%) (Auto) 9.1 % (0.0-12.0) Eosinophils (%) (Auto) 1.9 % (0.0-7.0) Basophils (%) (Auto) 0.7 % (0.0-2.0) Neutrophils # (Auto) 7.4 10 ^3/uL (1.6-8.6) Lymphocytes # (Auto) 0.9 10 ^3/uL (0.4-5.4) Monocytes # (Auto) 0.9 10 ^3/uL (0-1.3) Eosinophils # (Auto) 0.2 10 ^3/uL (0-0.8) Basophils # (Auto) 0.1 10 ^3/uL (0-0.2) Nucleated Red Blood Cells 0.1 % Lactic Acid Level 1.8 mmol/L (0.4-2.0) POC Glucose 111 mg/dl (70-106) Test 08/14/24 04:58 08/13/24 13:15 08/13/24 11:55 Platelet Estimate Adequate Anisocytosis (manual) Slight Total Bilirubin 0.2 mg/dL (0.2-1.0) Aspartate Amino Transferase (AST) < 8 U/L (13-40) Alanine Aminotransferase (ALT) 15 U/L (7-40) Alkaline Phosphatase 85 U/L (46-116) Total Protein 6.4 g/dL (5.7-8.2) Albumin 4.2 g/dL (3.2-4.8) Urine Color Yellow (Yellow) Urine Clarity Ex.turbid (Clear) Urine pH 8.5 (5.0-9.0) Urine Specific Pandora 1.013 (1.001-1.035) Urine Protein 1+ (Negative) Urine Ketones Negative (Negative) Urine Blood 2+ /uL (Negative) Urine Nitrite 2+ (Negative) Urine Bilirubin Negative (Negative) Urine Urobilinogen Normal mg/dL (Negative) Urine Leukocyte Esterase 3+ /uL (Negative) Urine RBC 48 /hpf (0 - 3) Urine WBC 29 /hpf (0 - 3) Urine WBC Clumps Present /hpf (None Seen) Urine Squamous Epithelial Cells None seen /hpf (<5) Urine Calcium Phosphate Crystals Mod /hpf (None Seen) Urine Calcium Oxalate Crystals Few (None Seen) Urine Bacteria None seen /hpf (None Seen) Urine Mucus Few (None Seen) Urine Glucose Normal mg/dL (Normal) Differential Total Cells Counted 100.0 (100) Neutrophils % (Manual) 77 (37.0-80.0) Band Neutrophils % (Manual) 3 Lymphocytes % (Manual) 4 (10.0-50.0) Monocytes % (Manual) 15 (0-12) Eosinophils % (Manual) 1 (0-7) Basophils % (Manual) 0 (0.0-2.0) Metamyelocytes % (manual) 0 Myelocytes % (Manual) 0 Promyelocytes % (Manual) 0 Blast Cells % (Manual) 0 Reactive Lymphocytes 0 Hemoglobin A1c 5.9 % A1C (<5.7) Other Laboratory Tests 08/16/24 06:14 08/15/24 09:34 Brief Hx & Hospital Course: Patient is a 63-year-old male with a past medical history of Guillian [place] syndrome diagnosed in 2020, history of bladder cancer status post cystectomy ileal conduit for urinary drainage, left lower extremity + 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 Patient reported that she has home health nurse noticed foul odor from the urine she drained from the ileal conduit and given the history of multiple urinary tract infections the patient was brought to the hospital for further evaluation. patient reported no abdominal pain, no dizziness, no shortness of breath, no headache. Chest X ray shows no acute cardiopulmonary disease. 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 Past medical history: As per HPI Past surgical history: Ileal urine Conduit surgery Social history: Patient lives at home and has home health services which take care. Denies smoking, alcohol, drug use Home medication: Amlodipine 2.5 mg, apixaban 5 mg b.i.d., duloxetine 20 mg once daily, famotidine 20 mg HS, pancrelipase TIDWM, metoprolol tartrate 25 mg b.i.d. On initial assessment, patient seen and examined at the bedside. Patient is alert oriented to time, place and person. Patient reports no abdominal pain, nausea, vomiting, diarrhea, fever, chills. Vitals stable. SpO2 >95% on room air. Patient reported to pass stool 3 times overnight. Urine culture came back positive for Proteus mirabilis and Morganella Morgagni, sensitive to Rocephin, 3rd generation cephalosporin. Patient's vital signs are stable, labs are was unremarkable today, he is currently stated feeling well, denies any chest pain, shortness of breath, abdominal pain, nausea, dizziness. Physical examination as below: Gen - no pallor, no icterus, no cyanosis, no clubbing, no LAD, no edema . Skin - Patients skin is warm and dry. lower limbs are cold and clammy. HEENT - normocephalic, atraumatic, moist mucous membranes. Neck - full ROM, no LAD, no JVD. Pulmonary - B/L vesicular breath sounds. no crackles , no wheezing, no stridor. cardiovascular - normal S1,S2 heard. no murmurs heard. peripheral pulses normal radial 2+, pedal 2+. capillary refill normal <2 secs. GI - distended abdomen. no hepatosplenomegaly. Ileal conduit with ileostomy bag with clearing urine with no haziness Neurological - Patient is A/O X 3 . Bilateral upper extremity strength 3/5. patient has lower extremity paralysis. no sensorium below the level of nipples. fecal incontinence. Discharge plan: Patient will be DC home and resume home health services Continue cefpodoxime 200 mg p.o. b.i.d. for seven days Resume home medications Follow with PCP within 1-2 weeks Counseled on lifestyle modifications and medical compliance Patient verbalized understanding and agree with this plan, we spent 35 minute explaining the plan. Plan discussed with . Operations or Procedures [place] [address] Ph: [phone] DIAGNOSTIC IMAGING Diagnostic Imaging Report : [id number] Signed PATIENT: MONI KEMP ACCT: [id number] UNIT: [id number] : 1960 LOC: [facility] RO[facility] / BED: [address] [place] [address] AGE / SEX: 63 / M ADM STATUS: ADM IN SERVICE 1054 ORDERING PHYSICIAN: ERLINDA ARMANDO RESIDENT PROCEDURE(s): CXRP - CHEST PORTABLE REASON: sob ORDER NUMBER(s): [id number], ACCESSION NUMBER(s): [id number] CHEST RADIOGRAPH Indication: sob Technique: Single frontal view of the chest was obtained Comparison: XY CHEST XRAY 1 VIEW on DOS: 07/10/24, XY CHEST PORTABLE on DOS: 05/29/24, XY CHEST PORTABLE on DOS: 01/15/24 FINDINGS: Lines and Tubes: None Lungs: No focal consolidation. Pleura: No effusion. No pneumothorax. Cardiomediastinal contours: Unremarkable Bones: No acute osseous abnormality. IMPRESSION: No acute cardiopulmonary disease. ATED BY: RACH MENDEZ DO DICTATED DATE/TIME: 08/14/24 1348 SIGNED BY: RACH MENDEZ DO SIGNED DATE/TIME: 08/14/24 1348 CC: Condition at Discharge: Stable Final Diagnosis/Problems List # UTI # H/o urinary bladder Ca s/p cystectomy with ileal conduit # Lactic acidosis, resolved # H/o Hypertension # H/o GBS # DVT lower extremity with IVC filter # Constipation Discharge Disposition: Home with Health Services Discharge Instruct/Medications Diet: Regular Activity: No Restrictions, As Tolerated Follow Up/Referral: fu with pcp in 1 week Medications: continue home meds as prescribed along with prescribed oral antibiotic Discharge Statement: "Patient was advised to return to the ER or call 911 if any headaches, dizziness, shortness of breath, chest pain, abdominal pain, bleeding, fevers, or worsening of medical condition. Patient was counseled about treatment plan, medications, possible side effects, patientverbalized understanding. All questions were answered to the best of my ability. This discharge took greater then 30 minutes in planning, reviewing documentation, counseling the patient, and discussing with other team members." ASSESSMENT ASSESSMENT Assessment UTI Addendum Addendum Addendum I was physically present for the rodriguez portions of the service provided to patient by THE RESIDENT. I have reviewed the documentation, discussed the case with resident and agree with the resident's documentation except as noted. Also the patient's clinical case was discussed with the patient's nurse. This medical document was created using an electronic medical record system with computerized dictation system. Although this document has been carefully reviewed, there might still be some phonetic and typographical errors. These areas are purely typographical due to imperfections of the software programs, and do not reflect any compromise in the patient's medical care. Late signature. Date of Service: Aug 16, 2024 Billing Provider: ÁNGELA MARTINEZ MD Common Visit Codes: [id number] INP/OBS CARE(HIGH) HECTOR KENT,ERLINDA RESIDENT Aug 16, 2024 14:34 ÁNGELA MARTINEZ MD Aug 17, 2024 21:42
[2024-08-16] MEDS: HYDROcodone-ACET 5/325MG TAB PO PRN (21:48)
[2024-08-17 05:00] VITALS: BP 126/73; PULSE 81; RESP 16; TEMP 97.7; O2SAT 92
[2024-08-17 09:00] VITALS: BP 126/79; PULSE 79; RESP 17; TEMP 97.4; O2SAT 94
[2024-08-17 13:00] VITALS: BP 126/82; PULSE 75; RESP 18; TEMP 98; O2SAT 92
[2024-08-17 17:00] VITALS: BP 139/87; PULSE 86; RESP 17; TEMP 97.9; O2SAT 92
--- NOTE | 2024-08-17 18:06 | DVHPNRES ---
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 Patient reported that she has home health nurse noticed foul odor from the urine she drained from the ileal conduit and given the history of multiple urinary tract infections the patient was brought to the hospital for further evaluation. patient reported no abdominal pain, no dizziness, no shortness of breath, no headache. Chest X ray shows no acute cardiopulmonary disease. 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 Past medical history: As per HPI Past surgical history: Ileal urine Conduit surgery Social history: Patient lives at home and has home health services which take care. Denies smoking, alcohol, drug use Home medication: Amlodipine 2.5 mg, apixaban 5 mg b.i.d., duloxetine 20 mg once daily, famotidine 20 mg HS, pancrelipase TIDWM, metoprolol tartrate 25 mg b.i.d. Review of systems Patient seen and examined at the bedside. Patient is alert oriented to time, place and person. Patient reports no abdominal pain, nausea, vomiting, diarrhea, fever, chills. Vitals stable. SpO2 >95% on room air. Patient reported no acute overnight complaints. Objective vital signs Vital Sign Date Time Temp Pulse Resp B/P (MAP) Pulse Ox O2 Delivery O2 Flow Rate FiO2 08/17/24 17:00 97.9 86 17 139/87 (104) 92 97.9 08/17/24 08:05 Room Air* 0 21 Total Intake and Output 08/16/24 08/16/24 08/17/24 15:00 23:00 07:00 Intake Total 50 ml 1040 ml 300 ml Output Total 850 ml 750 ml Balance 50 ml 190 ml -450 ml medications Current Medications Medications Dose Ordered Sig/Simon Route Start Time Stop Time Status Last Admin Dose Admin Ceftriaxone Sodium 50 ml @ 100 mls/hr DAILY@09 IV 08/14/24 09:00 08/17/24 09:35 100 MLS/HR Amlodipine Besylate 2.5 mg DAILY PO 08/14/24 10:00 08/17/24 09:37 2.5 MG Apixaban 5 mg BID PO 08/13/24 22:00 08/17/24 09:35 5 MG Baclofen 10 mg Q8HP PRN PO 08/13/24 14:00 Hold Famotidine 20 mg HS PO 08/13/24 22:00 08/16/24 21:47 20 MG Metoprolol Tartrate 25 mg BID PO 08/13/24 22:00 08/17/24 09:35 25 MG Polyethylene Glycol 17 gm DAILY PO 08/14/24 10:00 08/17/24 09:35 17 GM Cholecalciferol 1,000 unit DAILY PO 08/14/24 10:00 08/17/24 09:36 1,000 UNIT Cyanocobalamin 1,000 mcg DAILY PO 08/14/24 10:00 08/17/24 09:36 1,000 MCG Duloxetine HCl 30 mg DAILY PO 08/14/24 10:00 08/17/24 09:40 30 MG Patient Own Medication 1 aer DAILY IN 08/14/24 10:00 Patient Own Medication 36,000 unt TIDWM PO 08/13/24 18:00 Pravastatin Sodium 20 mg HS PO 08/13/24 22:00 08/16/24 21:47 20 MG Dextrose 50 ml UD PRN IV 08/13/24 14:30 Acetaminophen/ Hydrocodone Bitart 1 tab Q4HP PRN PO 08/13/24 14:30 08/16/24 21:48 1 TAB Ondansetron HCl 4 mg Q4HP PRN IV 08/13/24 14:30 Docusate Sodium 100 mg BIDPRN PRN PO 08/13/24 14:30 Zinc Sulfate 220 mg DAILY PO 08/14/24 10:00 08/17/24 09:36 220 MG Ascorbic Acid 500 mg BID PO 08/13/24 22:00 08/17/24 09:36 500 MG Multivitamins 1 tab DAILY PO 08/14/24 10:00 08/17/24 09:35 1 TAB Acetaminophen 650 mg Q6HP PRN PO 08/13/24 14:30 Morphine Sulfate 2 mg Q4HPRN PRN IV 08/13/24 14:30 Gabapentin 400 mg TID PO 08/13/24 15:58 08/17/24 13:44 400 MG Examination Physical Examination Gen - no pallor, no icterus, no cyanosis, no clubbing, no LAD, no edema . Skin - Patients skin is warm and dry. lower limbs are cold and clammy. HEENT - normocephalic, atraumatic, moist mucous membranes. Neck - full ROM, no LAD, no JVD. Pulmonary - B/L vesicular breath sounds. no crackles , no wheezing, no stridor. cardiovascular - normal S1,S2 heard. no murmurs heard. peripheral pulses normal radial 2+, pedal 2+. capillary refill normal <2 secs. GI - distended abdomen. no hepatosplenomegaly. Ileal conduit with ileostomy bag with clearing urine with no haziness Neurological - Patient is A/O X 3 . Bilateral upper extremity strength 3/5. patient has lower extremity paralysis. no sensorium below the level of nipples. fecal incontinence. laboratory and microbiology Laboratory Tests 08/16/24 06:14 08/15/24 09:34 Test 08/16/24 06:14 Range/Units Serum Glucose 99 74-106 mg/dL Microbiology Date/Time Source Procedure Growth Status 08/13/24 13:15 Voided Urine Urine Culture - Final Proteus mirabilis Morganella morganii Complete 08/13/24 11:55 Blood Blood Culture - Preliminary NO GROWTH AFTER 72 HOURS OF INCUBATION. Resulted Labs and/or images reviewed: Labs reviewed by me, Image(s) reviewed by me Problem List/Assessment/Plan Problem List/Assessment/Plan Assessment and Plan # Sepsis due to UTI # H/o urinary bladder Ca s/p cystectomy with ileal conduit - UA shows 3+LE, 2+nitrite, elevated WBC - on IV ceftriaxone - previous urine cultures showing mixed chelsea - Urine culture came back positive for Proteus mirabilis and Morganella Morgagni, susceptible to ceftriaxone and 3rd generation oral cephalosporin; will continue IV ceftriaxone as inpatient # Lactic acidosis, resolved given IV fluids # H/o Hypertension - continued on home medication amlodipine 2.5mg qd and metoprolol 25mg bid # H/o GBS - on gabapentin - pancrelipase # DVT lower extremity with IVC filter - continued on apixaban # Constipation - on MiraLax 08/17- Patient was discharged on 08/16 but due to home health services being not arranged . SW is following up with the home health services. Expected home health arrangement on August 18, 2024 Plan discussed with . Plan discussed with: Patient Addendum Addendum Addendum I was physically present for the rodriguez portions of the service provided to patient by THE RESIDENT. I have reviewed the documentation, discussed the case with resident and agree with the resident's documentation except as noted. Also the patient's clinical case was discussed with the patient's nurse. This medical document was created using an electronic medical record system with computerized dictation system. Although this document has been carefully reviewed, there might still be some phonetic and typographical errors. These areas are purely typographical due to imperfections of the software programs, and do not reflect any compromise in the patient's medical care. Late signature. Date of Service: Aug 17, 2024 Billing Provider: ÁNGELA MARTINEZ MD Common Visit Codes: [id number] INP/OBS CARE(HIGH) SHAWNA ROCHE RESIDENT Aug 17, 2024 18:06 ÁNGELA MARTINEZ MD Aug 18, 2024 05:48
[2024-08-17 21:00] VITALS: BP 128/92; PULSE 97; RESP 20; TEMP 98.3; O2SAT 92
[2024-08-18 01:00] VITALS: BP 129/82; PULSE 78; RESP 18; TEMP 97.9; O2SAT 93
[2024-08-18 05:00] VITALS: BP 131/78; PULSE 76; RESP 20; TEMP 97.8; O2SAT 94
[2024-08-18 09:00] VITALS: BP 121/76; PULSE 76; RESP 17; TEMP 97.7; O2SAT 97
[2024-08-18 13:00] VITALS: BP 114/83; PULSE 64; RESP 17; TEMP 97.5; O2SAT 96
--- NOTE | 2024-08-18 18:42 | DVHPNRES ---
Progress Note Date Seen: Aug 18, 2024 Resident Creating Document: SHAWNA ROCHE RESIDENT Medical Necessity Reason Pt with a Central, PICC or Fol: No Subjective Review of Systems Patient is a 63-year-old male with a past medical history of Guillian [place] syndrome diagnosed in 2020, history of bladder cancer status post cystectomy ileal conduit for urinary drainage, left lower extremity + 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 Patient reported that she has home health nurse noticed foul odor from the urine she drained from the ileal conduit and given the history of multiple urinary tract infections the patient was brought to the hospital for further evaluation. patient reported no abdominal pain, no dizziness, no shortness of breath, no headache. Chest X ray shows no acute cardiopulmonary disease. 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 Past medical history: As per HPI Past surgical history: Ileal urine Conduit surgery Social history: Patient lives at home and has home health services which take care. Denies smoking, alcohol, drug use Home medication: Amlodipine 2.5 mg, apixaban 5 mg b.i.d., duloxetine 20 mg once daily, famotidine 20 mg HS, pancrelipase TIDWM, metoprolol tartrate 25 mg b.i.d. Review of systems Patient seen and examined at the bedside. Patient is alert oriented to time, place and person. Patient reports no abdominal pain, nausea, vomiting, diarrhea, fever, chills. Vitals stable. SpO2 >95% on room air. Patient reported no acute overnight complaints. Objective vital signs Vital Sign Date Time Temp Pulse Resp B/P (MAP) Pulse Ox O2 Delivery O2 Flow Rate FiO2 08/18/24 13:00 97.5 64 17 114/83 (93) 96 97.5 08/18/24 08:00 Room Air* 0 21 Total Intake and Output 08/17/24 08/17/24 08/18/24 15:00 23:00 07:00 Intake Total 50 ml 236 ml 480 ml Output Total 600 ml 250 ml 1000 ml Balance -550 ml -14 ml -520 ml Examination Physical Examination Gen - no pallor, no icterus, no cyanosis, no clubbing, no LAD, no edema . Skin - Patients skin is warm and dry. lower limbs are cold and clammy. HEENT - normocephalic, atraumatic, moist mucous membranes. Neck - full ROM, no LAD, no JVD. Pulmonary - B/L vesicular breath sounds. no crackles , no wheezing, no stridor. cardiovascular - normal S1,S2 heard. no murmurs heard. peripheral pulses normal radial 2+, pedal 2+. capillary refill normal <2 secs. GI - distended abdomen. no hepatosplenomegaly. Ileal conduit with ileostomy bag with clearing urine with no haziness Neurological - Patient is A/O X 3 . Bilateral upper extremity strength 3/5. patient has lower extremity paralysis. no sensorium below the level of nipples. fecal incontinence. laboratory and microbiology Laboratory Tests 08/16/24 06:14 08/15/24 09:34 Test 08/16/24 06:14 Range/Units Serum Glucose 99 74-106 mg/dL Microbiology Date/Time Source Procedure Growth Status 08/13/24 13:15 Voided Urine Urine Culture - Final Proteus mirabilis Morganella morganii Complete 08/13/24 11:55 Blood Blood Culture - Final NO GROWTH AFTER 5 DAYS OF INCUBATION. Complete Problem List/Assessment/Plan Problem List/Assessment/Plan Assessment and Plan # UTI # H/o urinary bladder Ca s/p cystectomy with ileal conduit - UA shows 3+LE, 2+nitrite, elevated WBC - urine culure pending - on IV ceftriaxine - previous urine cultures showing mixed chel[place] - urine culture showing growth of gram negative rods, waiting for susceptibilty to follow, given multiple risk factors of the patient. # Lactic acidosis, resolved given IV fluids # H/o Hypertension - continued on home medication amlodipine 2.5mg qd and metoprolol 25mg bid # H/o GBS - on gabapentin - pancrealipase # DVT lower extremity with IVC filter - continued on apixaban # Constipation - on miralax 08/18- Home health services are set up with [facility]. patient sent home. Goals of care discussed with the patient for over 25 minutes. Full code Plan discussed with . Plan discussed with: Patient, Other (RN Sheela Hester )) My Orders My Orders Orders - SHAWNA ROCHE RESIDENT Procedure Category Date Status Time Discharge DISCHARGE 08/18/24 Transmitted 11:11 SHAWNA ROCHE RESIDENT Aug 18, 2024 18:42
== END 2024-08-18 15:48 | disposition home health service (06) | DRG 690 ==
LOC: EDBD 11:23 → ER 11:23 → TELE 14:19 → TELE-WESTW 08-14 03:52 → WEST WING 08-15 08:06
PROVIDERS: ADMIT Student in an Organized Health Care Education/Training Program; ATTEND Student in an Organized Health Care Education/Training Program
DX: N30.01 Acute cystitis with hematuria (principal); E87.20 Acidosis, unspecified; I10 Essential (primary) hypertension; K21.9 Gastro-esophageal reflux disease without esophagitis; E11.9 Type 2 diabetes mellitus without complications; E78.5 Hyperlipidemia, unspecified; K59.00 Constipation, unspecified; Z74.01 Bed confinement status; Z90.6 Acquired absence of other parts of urinary tract; Z93.6 Other artificial openings of urinary tract status; Z86.718 Personal history of other venous thrombosis and embolism; Z79.01 Long term (current) use of anticoagulants; Z85.51 Personal history of malignant neoplasm of bladder; Z95.828 Presence of other vascular implants and grafts
CPT/HCPCS: 36415; 71045; 80048; 80053; 81001; 82962; 83036; 83605; 85007; 85025; 85027; 87040; 87086; 87088; 87186; 96365; 99291; G0378; J1815

== ENCOUNTER 2024-10-29 20:53 | Inpatient (IN) | payer OTHER, MEDICAID ==
[~2024-10-29] VITALS: Ht 170.2 cm; Wt 91.5 kg
[~2024-10-29 20:53] MED LIST changes: +CEFP200T15 PO; -CEPH500C PO; -CIPR-173 PO; -FAMO20TA10 PO
--- NOTE | 2024-10-29 21:37 | ED.PDOC ---
History of Present Illness HPI Comments 64 year old male brought in by EMS presents to the ED with a chief complaint of LT sided neck pain/swelling onset today around 08:00. Patient states he woke up today and noticed LT side neck swollen, tender to touch. Patient's nurse arrived around 15:00 and noticed swelling was radiating to RT side neck as well as tongue. Patient was able to eat dinner with no difficulty. PMHx bladder cancer, asthma, HTN, HLD, GERD, DM. Denies difficulty breathing, shortness of breath, difficulty swallowing, chest pain, dizziness, headache, injury, nausea, vomiting, diarrhea. No other symptoms or modifying factors present at this time. Chief Complaint: Face pain Time Seen by MD: 21:23 Primary Care Provider: UNKNOWN NAME Reviewed Notes: Medications, Allergies Allergies: Coded Allergies: No Known Drug Allergy (Verified Allergy, Unknown, 04/21/22) Home Meds Active Scripts Cefpodoxime Proxetil (Cefpodoxime Proxetil) 200 Mg Tab, 1 TAB PO BID for 7 Days, #14 TAB Prov:ERLINDA ARMANDO RESIDENT 08/16/24 Pancrelipase (Lipase-Protease- (CREON) 36,000 Unt Cap, [address] UNT OR TIDWM for 30 Days, #90 CAP Prov:MILLIE CALIXTO MD 03/30/24 Potassium Chloride (Potassium Chloride ER) 10 Meq Tab, 10 MEQ PO DAILY for 30 Days, #30 TAB Prov:JEREMIAH BOOGIE MD 01/23/24 Polyethylene Glycol 3350 (Miralax) 17 Gm Pow, 17 GM PO DAILY for 30 Days, #510 POW Prov:JEREMIAH BOOGIE MD 01/23/24 Docusate Sodium (Colace) 100 Mg Cap, 1 CAP PO BID, #60 CAP 2 Refills Prov:JEREMIAH BOOGIE MD 01/23/24 Rrynxsjo-Nkgqwgbzu-Hv (Otic) (Cortisporin Otic Susp) [address], 3 DROP RIGHT EAR TID, #10 ML Prov:JEANNE ARRIOLA PAC 04/21/23 Reported Medications Primidone (MYSOLINE TABLET) 50 Mg Tb, 50 MG PO, TAB 03/26/24 Cyanocobalamin (Vitamin B-12) 1,000 Mcg Tab, 1 TAB PO DAILY 09/14/23 Metformin Hydrochloride (Metformin Hcl) 500 Mg Tab, 1 TAB PO BID 09/14/23 Duloxetine Hcl (Cymbalta) 20 Mg Cap, 30 CAP PO DAILY, #30 CAP 2 Refills 09/14/23 Cholecalciferol (D3) 25 Mcg Chw, 25 MCG PO DAILY, TAB.CHEW 09/14/23 Eotsdtvphqq-Jowaumxepitc-Okbat (Trelegy Ellipta 100-62.5-25 Mcg/INH) 1 Aer Aer, 1 AER IN DAILY, AER 03/09/23 Metoprolol Tartrate (Metoprolol Tartrate) 25 Mg Tab, 25 MG PO BID for 30 Days, MG 03/09/23 Amlodipine Besylate (Amlodipine Besylate) 5 Mg Tab, 2.5 MG PO DAILY for 30 Days, MG 03/09/23 Simvastatin (Simvastatin) 10 Mg Tab, 10 MG PO HS for 30 Days, MG 03/09/23 Gabapentin (Gabapentin) 300 Mg Cap, 400 MG PO TID for 30 Days, MG 04/21/22 Famotidine (Famotidine) 20 Mg Tab, 20 MG PO HS for 30 Days, MG 04/21/22 Apixaban Base (ELIQUIS) 5 Mg Tab, 5 MG PO BID, TAB 04/21/22 Baclofen (Baclofen) 10 Mg Tab, 10 MG PO Q8HP for 30 Days, MG 04/21/22 Information Source: Patient, Emergency Med Personnel Mode of Arrival: Ambulatory Severity: Moderate Timing: Hours Duration: Since onset Prehospital treatment: None Past Medical History PAST MEDICAL HISTORY: Asthma, Cancer (bladder), DM, GERD, High Lipids, HTN, UTI'S Surgical History (Other): cystectomy Family History Family History: Reviewed,noncontributory to illness Social History Smoker: Non-Smoker Alcohol: Denies ETOH Use Drugs: Denies Drug Use Lives In: Home Constitutional: denies: chills, diaphoresis, fatigue, fever, malaise, sweats, weakness, others EENTM: denies: blurred vision, double vision, ear bleeding, ear discharge, ear drainage, ear pain, ear ringing, eye pain, eye redness, hearing loss, mouth pain, mouth swelling, nasal discharge, nose bleeding, nose congestion, nose pain, photophobia, tearing, throat pain, throat swelling, voice changes, others Respiratory: denies: cough, hemoptysis, orthopnea, SOB at rest, shortness of breath, SOB with excertion, stridor, wheezing, others Cardiovascular: denies: chest pain, dizzy spells, diaphoresis, Dyspnea on exertion, edema, irregular heart beat, left arm pain, lightheadedness, palpitations, PND, syncope, others Gastrointestinal: denies: abdomen distended, abdominal pain, blood streaked bowels, constipated, diarrhea, dysphagia, difficulty swallowing, hematemesis, melena, nausea, poor appetite, poor fluid intake, rectal bleeding, rectal pain, vomiting, others Genitourinary: denies: burning, dysuria, flank pain, frequency, hematuria, incontinence, penile discharge, penile sore, pain, testicle pain, testicle swelling, urgency, others Neurological: denies: dizziness, fainting, headache, left sided numbness, left sided weakness, numbness, paresthesia, pre-existing deficit, right sided numbness, right sided weakness, seizure, speech problems, tingling, tremors, weakness, others Musculoskeletal: reports: neck pain (swelling); denies: back pain, gout, joint pain, joint swelling, muscle pain, muscle stiffness, others Integumetry: denies: bruises, change in color, change in hair/nails, dryness, laceration, lesions, lumps, rash, wounds, others Allergic/Immunocompromised: denies: Difficulty Healing, Frequent Infections, Hives, Itching, others Hematologic/Lymphatic: denies: anemia, blood clots, easy bleeding, easy bruising, swollen glands, others Endocrine: denies: excessive hunger, excessive sweating, excessive thirst, excessive urination, flushing, intolerance to cold, intolerance to heat, unexplained weight gain, unexplained weight loss, others Psychiatric: denies: anxiety, bipolar disorder, depression, hopeless, panic disorder, schizophrenia, sleepless, suicidal, others All Other Systems: Reviewed and Negative Physical Exam General Appearance: No Apparent Distress HEENT: Other (Moist mucous membranes. Mild left sublingual soft tissue swelling. ) Neck: Full Range of Motion, Normal Inspection, Tender Lateral (Moderate left anterolateral neck soft tissue swelling, tenderness. No fluctuance.) Respiratory: Lungs Clear, No Accessory Muscle Use, No Respiratory Distress, Normal Breath Sounds Cardiovascular: No JVD, Regular Rate/Rhythm Breast Exam: Deferred Gastrointestinal: Non Tender, Soft Genitalia: Deferred Pelvic: Deferred Rectal: Deferred Extremities: Normal inspection, Normal range of motion, Non-tender, No pedal edema Neurologic: Alert (Oriented x4), Normal Affect, Normal Mood, Other (No gross focal deficit) Cerebellar Function: NOT DONE Reflexes: NOT DONE Skin: Dry, Normal Color, Warm Lymphatic: NOT DONE Was a procedure done? Was a procedure done?: No Differential Dx Considerations may include: Cellulitis, abscess, mass lesion, lymphadenitis, among others X-Ray, Labs, Meds, VS Vital Signs Date Time Temp Pulse Resp B/P (MAP) Pulse Ox O2 Delivery O2 Flow Rate FiO2 10/29/24 20:53 98.3 97 16 135/92 (106) 94 Lab Test 10/29/24 23:41 10/29/24 21:59 Range/Units Lactic Acid Level Pending 2.4 *H 0.4-2.0 mmol/L White Blood Count 9.6 4.4-10.8 10^3/uL Red Blood Count 4.63 4.5-5.90 10^6/uL Hemoglobin 14.9 13.5-17.5 g/dL Hematocrit 44.4 41.0-53.0 % Mean Corpuscular Volume 95.7 80.0-100.0 fL Mean Corpuscular Hemoglobin 32.2 H 28.0-32.0 pg Mean Corpuscular Hemoglobin Concent 33.6 32.0-36.0 g/dL Red Cell Distribution Width 17.5 H 11.8-14.3 % Platelet Count 276 140-450 10^3/uL Mean Platelet Volume 6.5 L 6.9-10.8 fL Neutrophils (%) (Auto) 75.5 37.0-80.0 % Lymphocytes (%) (Auto) 11.0 10.0-50.0 % Monocytes (%) (Auto) 10.5 0.0-12.0 % Eosinophils (%) (Auto) 1.8 0.0-7.0 % Basophils (%) (Auto) 1.2 0.0-2.0 % Neutrophils # (Auto) 7.2 1.6-8.6 10 ^3/uL Lymphocytes # (Auto) 1.1 0.4-5.4 10 ^3/uL Monocytes # (Auto) 1.0 0-1.3 10 ^3/uL Eosinophils # (Auto) 0.2 0-0.8 10 ^3/uL Basophils # (Auto) 0.1 0-0.2 10 ^3/uL Nucleated Red Blood Cells 0.1 % Sodium Level 139 136-145 mmol/L Potassium Level 4.0 3.5-5.1 mmol/L Chloride Level 104 98-107 mmol/L Carbon Dioxide Level 27 20-31 mmol/L Anion Gap 8 5-15 Blood Urea Nitrogen 21 9-23 mg/dL Creatinine 0.87 0.700-1.30 mg/dL Glomerular Filtration Rate Calc 95 >90 mL/min BUN/Creatinine Ratio 24.1 H 10.0-20.0 Serum Glucose 183 H 74-106 mg/dL Calcium Level 9.7 8.7-10.4 mg/dL ORDERING PHYSICIAN: NAIN GUZMAN MD PROCEDURE(s): CXRP - CHEST PORTABLE REASON: neck swelling, diff swallowing ORDER NUMBER(s): [id number], ACCESSION NUMBER(s): [id number] CHEST RADIOGRAPH Indication: neck swelling, diff swallowing Technique: Single frontal view of the chest was obtained COMPARISON: XY CHEST PORTABLE on DOS: 08/14/24, XY CHEST XRAY 1 VIEW on DOS: 07/10/24, XY CHEST PORTABLE on DOS: 05/29/24, XY CHEST PORTABLE on DOS: 01/15/24, XY CHEST PORTABLE on DOS: 01/14/24 FINDINGS: Lines and Tubes: None Lungs: Questionable mild interstitial pulmonary edema. Pleura: No effusion. No pneumothorax. Cardiomediastinal contours: Unremarkable Bones: Unremarkable IMPRESSION: 1. Questionable mild interstitial pulmonary edema. ATED BY: SUHAIL HUGO MD DICTATED DATE/TIME: 10/29/242246 SIGNED BY: SUHAIL HUGO MD SIGNED DATE/TIME: 10/29/242246 X-Ray, Labs, Meds, VS Comment 64-year-old male with a history of asthma, hypertension, diabetes, hyperlipidemia, bladder cancer in remission, brought in by EMS for evaluation of left neck swelling, pain and difficulty swallowing Vitals remarkable for BP 135/92, oxygen saturation 94% on room air Exam remarkable for left neck and left submandibular soft tissue swelling and soft tissue tenderness Rhythm strip independently interpreted by me: Sinus rhythm, rate 97, no ectopy. CT neck soft tissue: IMPRESSION: 1. Mild fat stranding and skin thickening is seen in the left superficial neck may reflect mild cellulitis. No abscess identified. Chest x-ray IMPRESSION: 1. Questionable mild interstitial pulmonary edema. CBC and metabolic panel unremarkable. Lactate 2.4 Patient treated with the following in the ED: Morphine 4 mg IV, Zofran 4 mg IV, Zosyn 4.5 g IV, vancomycin 1 g IV. On re-evaluation, patient states pain has improved. Vitals are stable, and he is in no respiratory distress. Plan is to admit the patient for IV antibiotics and lactate trend. Time of 1ST Reevaluation: 21:53 Reevaluation 1ST: Unchanged Patient Education/Counseling: Diagnosis, Treatment, Prognosis Family Education/Counseling: No Family Present Additional Information The following tests were ordered, and results were reviewed by me: CBC, XY CHEST, UA, BMP, CT NECK WO CONTRAST, LA W/REFLEX, BLOOD CULTURE I reviewed and agreed with the following test results read by other providers: CT NECK WO CONTRAST, XY CHEST Additional Information was gathered from interviewing the following independent historians: EMS I discussed treatment and results with medical personnel and: patient Sepsis Sepsis Reasesment Focused Exam Sepsis focused exam: focus exam completed (2352 blood pressure stable. Pain improved. 30 cc/kilogram bolus not administered due to finding of possible pulmonary edema on chest x-ray. Aggressive fluid administration could cause harm.) Departure 1 Departure Time of Disposition: 23:53 Impression: Primary Impression: Cellulitis of neck Disposition: ADMITTED INPATIENT Admit to: Tele Condition: Guarded Critical Care Note Critical Care Time?: No Stability Stability form required: No Heart Score Heart Score: Heart Score Response (Comments) Value History N/A 0 EKG N/A 0 Age N/A 0 Risk Factors N/A 0 Troponin N/A 0 Total 0 I personally scribed for NAIN GUZMAN MD ([email or web address]) on 10/29/24 at 21:37. Electronically submitted by Lennie Rust ([email or web address]). I personally scribed for NAIN GUZMAN MD ([email or web address]) on 10/29/24 at 21:50. Electronically submitted by Lennie Rust ([email or web address]). I personally scribed for NAIN GUZMAN MD ([email or web address]) on 10/29/24 at 22:56. Electronically submitted by Lennie Rust ([email or web address]). NAIN GUZMAN MD Oct 29, 2024 21:37
[2024-10-29 22:17] LABS: Basophils # (auto) 0.1 10 ^3/uL (0-0.2); Basophils % (auto) 1.2 % (0.0-2.0); Eosinophils # (auto) 0.2 10 ^3/uL (0-0.8); Eosinophils % (auto) 1.8 % (0.0-7.0); Hematocrit 44.4 % (41.0-53.0); Hemoglobin 14.9 g/dL (13.5-17.5); Lymphocytes # (auto) 1.1 10 ^3/uL (0.4-5.4); Mean Corpuscular Hemoglobin 32.2 pg (28.0-32.0); Mean Corpuscular Hgb Conc. 33.6 g/dL (32.0-36.0); Mean Corpuscular Volume 95.7 fL (80.0-100.0); Monocytes % (auto) 10.5 % (0.0-12.0); Neutrophils # (auto) 7.2 10 ^3/uL (1.6-8.6); Neutrophils % (auto) 75.5 % (37.0-80.0); Nucleated Red Blood Cells % 0.1 %; Platelet Count (auto) 276 10^3/uL (140-450); Red Blood Cells 4.63 10^6/uL (4.5-5.90); Red Cell Distribution Width 17.5 % (11.8-14.3); White Blood Cell 9.6 10^3/uL (4.4-10.8)
[2024-10-29 22:24] LABS: Chloride 104 mmol/L (98-107); Sodium 139 mmol/L (136-145)
[2024-10-29 22:25] LABS: Anion Gap 8 (5-15); Calcium 9.7 mg/dL (8.7-10.4); Carbon Dioxide 27 mmol/L (20-31)
[2024-10-29 22:30] LABS: BUN/Creatinine Ratio 24.1 (10.0-20.0); Blood Urea Nitrogen 21 mg/dL (9-23)
[2024-10-29 22:31] LABS: Glucose 183 mg/dL (74-106)
[2024-10-29 22:39] LABS: Lactic Acid w/Reflex 2.4 mmol/L (0.4-2.0)
--- NOTE | 2024-10-29 22:50 | DVH ---
CHEST RADIOGRAPH Indication: neck swelling, diff swallowing Technique: Single frontal view of the chest was obtained COMPARISON: XY CHEST PORTABLE on DOS: 08/14/24, XY CHEST XRAY 1 VIEW on DOS: 07/10/24, XY CHEST JAZMYN BLE on DOS: 05/29/24, XY CHEST PORTABLE on DOS: 01/15/24, XY CHEST PORTABLE on DOS: 01/14/24 FINDINGS: Lines and Tubes: None Lungs: Questionable mild interstitial pulmonary edema. Pleura: No effusion. No pneumothorax. Cardiomediastinal contours: Unremarkable Bones: Unremarkable IMPRESSION: 1. Questionable mild interstitial pulmonary edema.
--- NOTE | 2024-10-29 22:59 | DVH ---
EXAM: CT NECK WITHOUT CONTRAST INDICATION: L neck swelling/pain, diff swallowing Exam Date: 10/29/2024 10:22 PM COMPARISON: None available TECHNIQUE: CT of the neck with intravenous contrast. RADIATION DOSE: CTDIvol: 23 mGy, DLP: 657 mGy*cm CONTRAST: None given FINDINGS: There is no evidence of cervical mass lesion, pathologically enlarged lymph nodes or fluid collection . The fat planes of the neck appear intact. The airway and larynx are unremarkable. The parotid, submandibular and thyroid glands are unremarkable. The vascular structures of the neck appear patent. The visualized lung apices are clear. The limited visualized portions of the brain are unremarkable. The osseous structures are unremarkable. Mild fat stranding and skin thickening is seen in the left superficial neck may reflect mild celluli tis IMPRESSION: 1. Mild fat stranding and skin thickening is seen in the left superficial neck may reflect mild cell ulitis. No abscess identified.
[2024-10-30] MEDS ORDERED: DEXTROSE (50%) 50ML SYRG IV PRN (01:30)
[2024-10-30] MEDS ORDERED: VANCOMYCIN PER PHARMACY 0 MG IV SCH (01:30)
[2024-10-30] MEDS ORDERED: KETOROLAC TROMETH 30 MG/ML 1ML VIAL IV PRN (01:30)
[2024-10-30] MEDS ORDERED: VANCOMYCIN 1GM/250ML KIT 250 ML IV SCH (01:45)
--- NOTE | 2024-10-30 01:50 | DVHHPRES ---
History of Present Illness Resident Creating Document: LEVY BASILIO RESIDENT History of Present Illness A 63y old with PMHx Guillian Ballico syndrome diagnosed in 2020, history of bladder cancer status post cystectomy ileal conduit for urinary drainage, DVT, type 2 diabetes mellitus, GERD, hypertension, dyslipidemia who came to the ED due to left side neck pain that started 2 days ago and neck swelling 1 day ago Home medication: Amlodipine 2.5 mg, apixaban 5 mg b.i.d., duloxetine 20 mg once daily, famotidine 20 mg HS, pancrelipase, metoprolol tartrate 25 mg b.i.d. Review of Systems Constitutional: No: Fever, Chills, Sweats, Weakness, Malaise, Other Eyes: No: Pain, Vision change, Conjunctivae inflammation, Eyelid inflammation, Other, Redness ENT: No: Ear pain, Ear discharge, Nose pain, Nose discharge, Nose congestion, Mouth pain, Mouth swelling, Throat pain, Throat swelling, Other Respiratory: No: Cough, Dry, Shortness of breath, SOB with excertion, Wheezing, Hemoptysis, Pleuritic Pain, Sputum, Wheezing, Other Cardiovascular: No: Chest Pain, Palpitations, Orthopnea, Paroxysmal Noc. Dyspnea, Edema, Lt Headedness, Other Gastrointestinal: No: Nausea, Vomiting, Abdominal Pain, Diarrhea, Constipation, Melena, Hematochezia, Other Genitourinary: No Dysuria, No Frequency, No Incontinence, No Hematuria, No Retention, No Other Musculoskeletal: No: other, neck pain, shoulder pain, arm pain, back pain, hand pain, leg pain, foot pain Skin: No: Rash, Lesions, Jaundice, Bruising, Other Neurological: No: Weakness, Numbness, Incoordination, Change in speech, Confusion, Seizures, Other Allergies: Coded Allergies: No Known Drug Allergy (Verified Allergy, Unknown, 04/21/22) Medications Current Medications Medications Dose Ordered Sig/Simon Route Start Time Stop Time Status Last Admin Dose Admin Vancomycin HCl 0 ml @ 0 mls/hr UD IV 10/30/24 01:30 UNV Piperacillin Sod/ Tazobactam Sod 100 ml @ 100 mls/hr Q6HR IV 10/30/24 06:00 UNV Exam Vital Signs Vital Signs Date Time Temp Pulse Resp B/P (MAP) Pulse Ox O2 Delivery O2 Flow Rate FiO2 10/29/24 20:53 98.3 97 16 135/92 (106) 94 General Appearance: Alert, Oriented X3, Cooperative, No acute distress HEENT: Atraumatic, PERRLA, EOMI, Mucous membr. moist/pink, Other (swelling and redness in the left side of the neck, no masses, no airway involvement, no stridor, no teeth in cavity ) Respiratory: Clear to auscultation Cardiovascular: Regular rate, Normal S1, Normal S2 Abdominal: Normal bowel sounds, Other (ileostomy ) Extremities: No clubbing, No cyanosis, No edema Skin: No rashes, No breakdown, No significant lesion Neuro: Normal gait, Normal speech, Strength at 5/5 X4 ext Psych/Mental Status: Mental status NL, Mood NL Labs/Xrays Labs Test 10/29/24 23:41 10/29/24 21:59 Range/Units Lactic Acid Level 2.2 *H 0.4-2.0 mmol/L White Blood Count 9.6 4.4-10.8 10^3/uL Red Blood Count 4.63 4.5-5.90 10^6/uL Hemoglobin 14.9 13.5-17.5 g/dL Hematocrit 44.4 41.0-53.0 % Mean Corpuscular Volume 95.7 80.0-100.0 fL Mean Corpuscular Hemoglobin 32.2 H 28.0-32.0 pg Mean Corpuscular Hemoglobin Concent 33.6 32.0-36.0 g/dL Red Cell Distribution Width 17.5 H 11.8-14.3 % Platelet Count 276 140-450 10^3/uL Mean Platelet Volume 6.5 L 6.9-10.8 fL Neutrophils (%) (Auto) 75.5 37.0-80.0 % Lymphocytes (%) (Auto) 11.0 10.0-50.0 % Monocytes (%) (Auto) 10.5 0.0-12.0 % Eosinophils (%) (Auto) 1.8 0.0-7.0 % Basophils (%) (Auto) 1.2 0.0-2.0 % Neutrophils # (Auto) 7.2 1.6-8.6 10 ^3/uL Lymphocytes # (Auto) 1.1 0.4-5.4 10 ^3/uL Monocytes # (Auto) 1.0 0-1.3 10 ^3/uL Eosinophils # (Auto) 0.2 0-0.8 10 ^3/uL Basophils # (Auto) 0.1 0-0.2 10 ^3/uL Nucleated Red Blood Cells 0.1 % Sodium Level 139 136-145 mmol/L Potassium Level 4.0 3.5-5.1 mmol/L Chloride Level 104 98-107 mmol/L Carbon Dioxide Level 27 20-31 mmol/L Anion Gap 8 5-15 Blood Urea Nitrogen 21 9-23 mg/dL Creatinine 0.87 0.700-1.30 mg/dL Glomerular Filtration Rate Calc 95 >90 mL/min BUN/Creatinine Ratio 24.1 H 10.0-20.0 Serum Glucose 183 H 74-106 mg/dL Calcium Level 9.7 8.7-10.4 mg/dL Assessment/Plan Assessment/Plan #Sepsis due to neck cellulitis #Rule out neck abscess #H/o of bladder cancer #HTN #HLD #DM type 2 #H/o ileostomy #H/o DVT Admit Med/ surg Full liquid diet Vancomycin and Zosyn IV Enoxaparin 40 mg SC BID Mild sliding scale NS 75cc/h Pain managment Hold on BP medications for now Case discussed with Dr Calixto Time spent on care 23 min Plan discussed with: Patient, Other (rn) My Orders Orders - LEVY BASILIO Procedure Category Date Status Time Vancomycin Per PHA 10/30/24 Logged Pharmacy 01:30 Piperacillin-Tazo PHA 10/30/24 Logged 4.5gm (Zosyn 4.5gm/100 06:00 Date of Service: Oct 30, 2024 Billing Provider: MILLIE CALIXTO MD Common Visit Codes: [id number] INP/OBS CARE (HIGH) LEVY BASILIO Oct 30, 2024 01:50 MILLIE CALIXTO MD Oct 31, 2024 00:19
[2024-10-30 03:43] VITALS: BP 132/79; PULSE 88; RESP 17; RESP 18; TEMP 98; O2SAT 90; O2SAT 91
[2024-10-30] MEDS: PIPERACILLIN-TAZO 4.5GM 100 ML IV ONE ×2 (04:30→04:41)
[2024-10-30] MEDS: MORPHINE SULFATE 4 MG/ML SYR/VIAL IV ONE (04:30)
[2024-10-30] MEDS: VANCOMYCIN 1GM/250ML KIT 250 ML IV ONE (04:30)
[2024-10-30] MEDS: ONDANSETRON HCL 4 MG/2 ML VIAL IV ONE (04:30)
[2024-10-30 05:00] VITALS: BP 132/79; PULSE 88; RESP 17; TEMP 98; O2SAT 90
[2024-10-30] MEDS ORDERED: VANCOMYCIN 1GM/250ML KIT 250 ML IV ONE (05:00)
[2024-10-30] MEDS: ACETAMINOPHEN 325 MG TAB PO SCH (06:00)
[2024-10-30] MEDS ORDERED: PIPERACILLIN-TAZO 4.5GM 100 ML IV SCH (06:00)
[2024-10-30] MEDS: VANCOMYCIN 1GM/250ML KIT 250 ML IV SCH (06:07)
[2024-10-30] MEDS: SODIUM CHLORIDE 0.9% 1,000 ML IV ONE ×2 (06:24→11:42)
[2024-10-30] MEDS: InsuLIN REG 1unit/0.01ml Soln (100units/ml) SC SCH (06:25)
[2024-10-30] MEDS: ACCU-CHEK COMFORT CURVE STRIP VI SCH (06:25)
[2024-10-30 09:00] VITALS: BP 121/72; PULSE 77; RESP 18; TEMP 97.7; O2SAT 90
[2024-10-30 09:47] LABS: Hematocrit 42.9 % (41.0-53.0); Hemoglobin 14.4 g/dL (13.5-17.5); Mean Corpuscular Hgb Conc. 33.5 g/dL (32.0-36.0); Mean Corpuscular Volume 95.7 fL (80.0-100.0); Platelet Count (auto) 273 10^3/uL (140-450); Red Blood Cells 4.49 10^6/uL (4.5-5.90); Red Cell Distribution Width 17.4 % (11.8-14.3); White Blood Cell 7.7 10^3/uL (4.4-10.8)
[2024-10-30 09:59] LABS: Erythrocyte Sedimentation Rate 36 mm/hr (0-20)
[2024-10-30] MEDS ORDERED: ENOXAPARIN SOD 40 MG/0.4 ML SYRINGE SC SCH ×2 (10:00)
[2024-10-30 10:03] LABS: Basophils % (manual) 0 (0.0-2.0); Blast Cells 0; Eosinophils % (manual) 0 (0-7); Metamyelocytes % 0; Myelocytes % 0; Promyelocytes % 0; Reactive Lymphocytes 0
[2024-10-30] MEDS: PIPERACILLIN-TAZO 4.5GM 100 ML IV SCH ×2 (10:26→10:52)
[2024-10-30] MEDS: APIXABAN 5 MG TAB PO SCH (10:26)
[2024-10-30] MEDS: diphenhdrAMINE HCL 25 MG CAP PO PRN (10:29)
[2024-10-30] MEDS: diphenhdrAMINE HCL 25 MG CAP PO ONE (10:29)
[2024-10-30 10:32] LABS: Hepatitis B Surface Antigen Negative (Negative); Hepatitis C Antibody Negative (Negative)
[2024-10-30 10:36] LABS: Lactic Acid w/Reflex 2.7 mmol/L (0.4-2.0)
--- NOTE | 2024-10-30 11:15 | DVHPNRES ---
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 Patient reports that it all started with tongue numbness and itching followed by left-sided neck swelling and erythema. He also reported difficulty swelling for the past 1 day. Denies fever or chills. Previously admitted for allergic reaction and UTI. Home medication: Amlodipine 2.5 mg, apixaban 5 mg b.i.d., duloxetine 20 mg once daily, famotidine 20 mg HS, pancrelipase, metoprolol tartrate 25 mg b.i.d. Patient seen and examined at the bedside. Objective vital signs Vital Sign Date Time Temp Pulse Resp B/P (MAP) Pulse Ox O2 Delivery O2 Flow Rate FiO2 10/30/24 09:00 97.7 77 18 121/72 (88) 90 97.7 10/30/24 08:00 Room Air* 0 21 Total Intake and Output 10/29/24 10/29/24 10/30/24 15:00 23:00 07:00 Intake Total 0 ml Output Total 0 ml Balance 0 ml medications Current Medications Medications Dose Ordered Sig/Simon Route Start Time Stop Time Status Last Admin Dose Admin Vancomycin HCl 0 ml @ 0 mls/hr UD IV 10/30/24 01:30 Diagnostic Test (Pha) 1 strip ACHS 10/30/24 07:00 10/30/24 06:25 1 STRIP Insulin Human Regular ACHS SC 10/30/24 07:00 Dextrose 50 ml UD PRN IV 10/30/24 01:30 Acetaminophen 650 mg TIDP PO 10/30/24 06:00 Ketorolac Tromethamine 15 mg Q6HPRN PRN IV 10/30/24 01:30 11/04/24 01:29 Apixaban 5 mg BID PO 10/30/24 10:00 10/30/24 10:26 5 MG Diphenhydramine HCl 25 mg Q8HP PRN PO 10/30/24 10:00 10/30/24 10:29 25 MG Piperacillin Sod/ Tazobactam Sod 100 ml @ 25 mls/hr Q6H IV 10/30/24 11:00 10/30/24 10:52 25 MLS/HR Examination General Appearance: Alert, Oriented X3, Cooperative, No acute distress HEENT: Atraumatic, PERRLA, EOMI, Mucous membr. moist/pink, Other (swelling and redness in the left side of the neck, no masses, no airway involvement, no stridor, no teeth in cavity ) Respiratory: Clear to auscultation Cardiovascular: Regular rate, Normal S1, Normal S2 Abdominal: Normal bowel sounds, Other (ileostomy ) Extremities: No clubbing, No cyanosis, No edema Skin: No rashes, No breakdown, No significant lesion Neuro: Normal gait, Normal speech, Strength at 5/5 X4 ext Psych/Mental Status: Mental status NL, Mood NL laboratory and microbiology Laboratory Tests 10/30/24 08:41 Test 10/30/24 08:41 Range/Units Serum Glucose Pending Labs and/or images reviewed: Labs reviewed by me, Image(s) reviewed by me Problem List/Assessment/Plan Problem List/Assessment/Plan Mild Cellulitis of the neck versus type 1 hypersensitivity reaction Lactic acidosis - resolved Patient received 1 L NS bolus Continue vancomycin IV along with IV Zosyn starting 10/29 Tablet Benadryl 25 mg p.r.n. ? Hypothyroidism Follow up with free T4/total T3 CIDP, history of Taina Colora syndrome Continue home medication baclofen 10 mg daily Continue duloxetine 30 mg daily Continue gabapentin 400 mg TID p.r.n. Diabetes mellitus type 2-controlled On mild ISS Hold home medication metformin Left lower extremity port thrombosis DVT status post IVC filter Continue Eliquis 5 mg b.i.d GERD Continue home medication famotidine 20 mg daily Hypertension Continue home medication amlodipine 2.5 mg daily Continue home medication metoprolol tartrate 25 mg daily DVT prophylaxis, Eliquis 5 mg b.i.d. Goals of care discussed with the patient for more than 28 minutes, full code status Plan discussed with patient in which all questions have been answered Case discussed with Dr. Urias Plan discussed with: Patient My Orders My Orders Orders - AMRIK SMITH Procedure Category Date Status Time Complete Blood Count LAB 10/30/24 In Process 07:46 Comprehensive LAB 10/30/24 In Process Metabolic Panel 07:46 Drug Screen LAB 10/30/24 Logged 07:46 Magnesium LAB 10/30/24 In Process 07:46 Urinalysis LAB 10/30/24 Logged 07:46 Vitamin B12 LAB 10/30/24 In Process 07:46 Vitamin D, 25-Hydroxy LAB 10/30/24 In Process 07:46 Diphenhdramine PHA 10/30/24 In Process Capsule (Benadryl 10:00 Manual Differential LAB 10/30/24 In Process 08:41 * Wound Consult CONS 10/30/24 Transmitted NS PHA 10/30/24 Transmitted 11:15 Lactic Acid W/ Reflex LAB 10/30/24 Transmitted Order 16:00 Date of Service: Oct 30, 2024 Billing Provider: GRADY SANCHEZ MD Common Visit Codes: [id number] INP/OBS CARE(HIGH) AMRIK SMITH Oct 30, 2024 11:15 GRADY SANCHEZ MD Nov 03, 2024 00:09
[2024-10-30 11:19] LABS: Band Neutrophils % (manual) 3; Lymphocytes % (manual) 24 (10.0-50.0); Monocytes % (manual) 6 (0-12); Platelet Estimate Adequate
[2024-10-30 11:23] LABS: Alanine Aminotransferase 17 U/L (7-40); Alkaline Phosphatase 67 U/L (46-116); Anion Gap 9 (5-15); BUN/Creatinine Ratio 23.2 (10.0-20.0); Blood Urea Nitrogen 19 mg/dL (9-23); Calcium 9.7 mg/dL (8.7-10.4); Carbon Dioxide 25 mmol/L (20-31); Chloride 105 mmol/L (98-107); Potassium 3.7 mmol/L (3.5-5.1); Sodium 139 mmol/L (136-145)
[2024-10-30 11:24] LABS: Magnesium 2.1 mg/dL (1.6-2.6)
[2024-10-30 11:25] LABS: Albumin 4.5 g/dL (3.2-4.8)
[2024-10-30 11:26] LABS: Bilirubin, Total 0.3 mg/dL (0.2-1.0); Total Protein 7.2 g/dL (5.7-8.2)
[2024-10-30 11:27] LABS: Aspartate Aminotransferase 10 U/L (13-40); Glucose 139 mg/dL (74-106)
[2024-10-30 13:00] VITALS: BP 125/81; PULSE 89; RESP 20; TEMP 97.8; O2SAT 92
[2024-10-30 17:37] LABS: T3 Total 1.11 ng/mL (0.60-1.81)
[2024-10-30 17:38] LABS: Free T4 (Free Thyroxine) 1.06 ng/dL (0.89-1.76)
[2024-10-30] MEDS: FAMOTIDINE 20 MG TAB PO ONE (17:53)
[2024-10-30] MEDS: BACLOFEN 10 MG TAB PO ONE (17:53)
[2024-10-30 20:00] VITALS: PULSE 97; RESP 18; O2SAT 96
[2024-10-30] MEDS: VANCOMYCIN 1.25GM/250ML 250 ML IV SCH (20:19)
[2024-10-30 21:00] VITALS: BP 127/83; PULSE 97; RESP 18; TEMP 97.9; O2SAT 96
[2024-10-30] MEDS: BACLOFEN 10 MG TAB PO PRN (22:44)
[2024-10-31] VITALS (8 sets, daily range): BP systolic 126–144; BP diastolic 77–88; PULSE 87–101; RESP 16–19; TEMP 97.6–98.9; O2SAT 90–99
[2024-10-31 06:59] LABS: Anion Gap 8 (5-15); Basophils # (auto) 0.1 10 ^3/uL (0-0.2); Basophils % (auto) 0.7 % (0.0-2.0); Carbon Dioxide 28 mmol/L (20-31); Chloride 105 mmol/L (98-107); Eosinophils # (auto) 0.2 10 ^3/uL (0-0.8); Eosinophils % (auto) 1.8 % (0.0-7.0); Hematocrit 46.5 % (41.0-53.0); Hemoglobin 15.6 g/dL (13.5-17.5); Lymphocytes # (auto) 0.9 10 ^3/uL (0.4-5.4); Lymphocytes % (auto) 9.6 % (10.0-50.0); Mean Corpuscular Hemoglobin 32.3 pg (28.0-32.0); Mean Corpuscular Hgb Conc. 33.5 g/dL (32.0-36.0); Mean Corpuscular Volume 96.4 fL (80.0-100.0); Monocytes # (auto) 1.1 10 ^3/uL (0-1.3); Monocytes % (auto) 11.8 % (0.0-12.0); Neutrophils # (auto) 6.9 10 ^3/uL (1.6-8.6); Neutrophils % (auto) 76.1 % (37.0-80.0); Nucleated Red Blood Cells % 0.1 %; Platelet Count (auto) 290 10^3/uL (140-450); Potassium 4.3 mmol/L (3.5-5.1); Red Blood Cells 4.82 10^6/uL (4.5-5.90); Sodium 141 mmol/L (136-145); White Blood Cell 9.1 10^3/uL (4.4-10.8)
[2024-10-31 07:00] LABS: Calcium 10.3 mg/dL (8.7-10.4)
[2024-10-31 07:05] LABS: BUN/Creatinine Ratio 15.7 (10.0-20.0); Blood Urea Nitrogen 16 mg/dL (9-23)
[2024-10-31 07:06] LABS: Glucose 125 mg/dL (74-106)
[2024-10-31] MEDS: FAMOTIDINE 20 MG TAB PO SCH (09:06)
[2024-10-31] MEDS: amLODIPine BESYLATE 5 MG TAB PO SCH (09:07)
[2024-10-31] MEDS: DULoxetine HCL 30 MG CAP PO SCH (09:08)
[2024-10-31] MEDS: METOPROLOL TARTRATE 25 MG TAB PO SCH (09:08)
--- NOTE | 2024-10-31 17:24 | DVHPNRES ---
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 Patient reports that it all started with tongue numbness and itching followed by left-sided neck swelling and erythema. He also reported difficulty swelling for the past 1 day. Denies fever or chills. Previously admitted for allergic reaction and UTI. Home medication: Amlodipine 2.5 mg, apixaban 5 mg b.i.d., duloxetine 20 mg once daily, famotidine 20 mg HS, pancrelipase, metoprolol tartrate 25 mg b.i.d. Patient seen and examined at the bedside. Today the patient said his mood is funny, says he sleeps with a knife, in the night says that his life is not worth it, patient says he does not thinks like that and has no plans to follow the knives advice. Tele psych consulted. Objective vital signs Vital Sign Date Time Temp Pulse Resp B/P (MAP) Pulse Ox O2 Delivery O2 Flow Rate FiO2 10/31/24 13:00 97.6 89 17 140/86 (104) 92 97.6 10/30/24 20:00 Room Air* 0 21 Total Intake and Output 10/30/24 10/30/24 10/31/24 15:00 23:00 07:00 Intake Total 350 ml 1550 ml 900 ml Output Total 2400 ml 1900 ml Balance 350 ml -850 ml -1000 ml medications Current Medications Medications Dose Ordered Sig/Simon Route Start Time Stop Time Status Last Admin Dose Admin Vancomycin HCl 0 ml @ 0 mls/hr UD IV 10/30/24 01:30 Diagnostic Test (Pha) 1 strip ACHS 10/30/24 07:00 10/31/24 11:30 1 STRIP Insulin Human Regular ACHS SC 10/30/24 07:00 Dextrose 50 ml UD PRN IV 10/30/24 01:30 Acetaminophen 650 mg TIDP PO 10/30/24 06:00 Ketorolac Tromethamine 15 mg Q6HPRN PRN IV 10/30/24 01:30 11/04/24 01:29 Apixaban 5 mg BID PO 10/30/24 10:00 10/30/24 22:34 5 MG Diphenhydramine HCl 25 mg Q8HP PRN PO 10/30/24 10:00 10/30/24 22:34 25 MG Piperacillin Sod/ Tazobactam Sod 100 ml @ 25 mls/hr Q6H IV 10/30/24 11:00 10/31/24 13:51 25 MLS/HR Vancomycin HCl 250 ml @ 200 mls/hr Q12H IV 10/30/24 20:00 10/31/24 09:06 200 MLS/HR Amlodipine Besylate 2.5 mg DAILY PO 10/31/24 10:00 10/31/24 09:07 2.5 MG Metoprolol Tartrate 25 mg DAILY PO 10/31/24 10:00 10/31/24 09:08 25 MG Baclofen 10 mg Q8HP PRN PO 10/30/24 17:15 10/30/24 22:44 10 MG Famotidine 20 mg DAILY PO 10/31/24 10:00 10/31/24 09:06 20 MG Duloxetine HCl 30 mg DAILY PO 10/31/24 10:00 10/31/24 09:08 30 MG Gabapentin 300 mg TID PRN PO 10/30/24 17:15 Examination General Appearance: Alert, Oriented X3, Cooperative, No acute distress HEENT: Atraumatic, PERRLA, EOMI, Mucous membr. moist/pink, Other (swelling and redness in the left side of the neck, no masses, no airway involvement, no stridor, no teeth in cavity ) Respiratory: Clear to auscultation Cardiovascular: Regular rate, Normal S1, Normal S2 Abdominal: Normal bowel sounds, Other (ileostomy ) Extremities: No clubbing, No cyanosis, No edema Skin: No rashes, No breakdown, No significant lesion Neuro: Normal gait, Normal speech, Strength at 5/5 X4 ext Psych/Mental Status: Mental status alert laboratory and microbiology Laboratory Tests 10/31/24 05:17 Test 10/31/24 05:17 Range/Units Serum Glucose 125 H 74-106 mg/dL Microbiology Date/Time Source Procedure Growth Status 10/29/24 21:59 Blood Blood Culture - Preliminary Resulted Labs and/or images reviewed: Labs reviewed by me, Image(s) reviewed by me Problem List/Assessment/Plan Problem List/Assessment/Plan Mild Cellulitis of the neck versus type 1 hypersensitivity reaction Lactic acidosis - resolved Patient received 1 L NS bolus Continue vancomycin IV along with IV Zosyn starting 10/29 Tablet Benadryl 25 mg p.r.n. ? Hypothyroidism Follow up with free T4/total T3 Ruled out depression Tele psych consult - no depression, braulio, SI/HI Sitter discontinued CIDP, history of Taina Joliet syndrome Continue home medication baclofen 10 mg daily Continue duloxetine 30 mg daily Continue gabapentin 400 mg TID p.r.n. Diabetes mellitus type 2-controlled On mild ISS Hold home medication metformin Left lower extremity port thrombosis DVT status post IVC filter Continue Eliquis 5 mg b.i.d GERD Continue home medication famotidine 20 mg daily Hypertension Continue home medication amlodipine 2.5 mg daily Continue home medication metoprolol tartrate 25 mg daily DVT prophylaxis, Eliquis 5 mg b.i.d. Goals of care discussed with the patient for more than 28 minutes, full code status Plan discussed with patient in which all questions have been answered Case discussed with Dr. Urias Plan discussed with: Patient My Orders My Orders Orders - AMRIK SMITH Procedure Category Date Status Time Soc Telemed Psych CONS 10/31/24 Transmitted Consult 12:21 Dietary Evaluation Review Comments: CCHO-60g, mechanical Soft diet for tight control of DM.and Promote wound healing, Consider Christian BID, MVI and zn supplementation Expected Outcomes/Goals: healed wounds, gradual wt loss. Date of Service: Oct 31, 2024 Billing Provider: GRADY SANCHEZ MD Common Visit Codes: [id number] INP/OBS CARE(HIGH) AMRIK SMITH Oct 31, 2024 17:24 GRADY SANCHEZ MD Nov 03, 2024 00:18
--- NOTE | 2024-10-31 18:59 | DVHINCON2 ---
Date of Service if different f: Oct 31, 2024 Consultation ([facility]) Progress: Somewhat better Labs Laboratory Tests Test 10/30/24 08:41 10/30/24 16:04 10/31/24 05:17 10/31/24 17:41 Differential Total Cells Counted 100.0 (100) Neutrophils % (Manual) 67 (37.0-80.0) Band Neutrophils % (Manual) 3 Lymphocytes % (Manual) 24 (10.0-50.0) Monocytes % (Manual) 6 (0-12) Eosinophils % (Manual) 0 (0-7) Basophils % (Manual) 0 (0.0-2.0) Metamyelocytes % (manual) 0 Myelocytes % (Manual) 0 Promyelocytes % (Manual) 0 Blast Cells % (Manual) 0 Reactive Lymphocytes 0 Platelet Estimate Adequate Erythrocyte Sedimentation Rate 36 mm/hr (0-20) Hemoglobin A1c 6.1 % A1C (<5.7) Magnesium Level 2.1 mg/dL (1.6-2.6) Total Bilirubin 0.3 mg/dL (0.2-1.0) Aspartate Amino Transf (AST/SGOT) 10 U/L (13-40) Alanine Aminotransferase (ALT/SGPT) 17 U/L (7-40) Alkaline Phosphatase 67 U/L (46-116) Total Protein 7.2 g/dL (5.7-8.2) Albumin 4.5 g/dL (3.2-4.8) Vitamin B12 Level 904 pg/mL (211-911) Vitamin D 25-Hydroxy 58.6 ng/mL (30.0-100) Thyroid Stimulating Hormone (TSH) 7.19 uIU/mL (0.55-4.78) Free Thyroxine (T4) Calculated 1.06 ng/dL (0.89-1.76) Total Triiodothyronine 1.11 ng/mL (0.60-1.81) Hepatitis B Surface Antigen Negative (Negative) Hepatitis C Antibody Negative (Negative) Lactic Acid Level 1.7 mmol/L (0.4-2.0) White Blood Count 9.1 10^3/uL (4.4-10.8) Red Blood Count 4.82 10^6/uL (4.5-5.90) Hemoglobin 15.6 g/dL (13.5-17.5) Hematocrit 46.5 % (41.0-53.0) Mean Corpuscular Volume 96.4 fL (80.0-100.0) Mean Corpuscular Hemoglobin 32.3 pg (28.0-32.0) Mean Corpuscular Hemoglobin Concent 33.5 g/dL (32.0-36.0) Red Cell Distribution Width 17.0 % (11.8-14.3) Platelet Count 290 10^3/uL (140-450) Mean Platelet Volume 6.6 fL (6.9-10.8) Neutrophils (%) (Auto) 76.1 % (37.0-80.0) Lymphocytes (%) (Auto) 9.6 % (10.0-50.0) Monocytes (%) (Auto) 11.8 % (0.0-12.0) Eosinophils (%) (Auto) 1.8 % (0.0-7.0) Basophils (%) (Auto) 0.7 % (0.0-2.0) Neutrophils # (Auto) 6.9 10 ^3/uL (1.6-8.6) Lymphocytes # (Auto) 0.9 10 ^3/uL (0.4-5.4) Monocytes # (Auto) 1.1 10 ^3/uL (0-1.3) Eosinophils # (Auto) 0.2 10 ^3/uL (0-0.8) Basophils # (Auto) 0.1 10 ^3/uL (0-0.2) Nucleated Red Blood Cells 0.1 % Sodium Level 141 mmol/L (136-145) Potassium Level 4.3 mmol/L (3.5-5.1) Chloride Level 105 mmol/L (98-107) Carbon Dioxide Level 28 mmol/L (20-31) Anion Gap 8 (5-15) Blood Urea Nitrogen 16 mg/dL (9-23) Creatinine 1.02 mg/dL (0.700-1.30) Glomerular Filtration Rate Calc 81 mL/min (>90) BUN/Creatinine Ratio 15.7 (10.0-20.0) Serum Glucose 125 mg/dL (74-106) Calcium Level 10.3 mg/dL (8.7-10.4) Bedside Glucose 186 mg/dl (70-106) Microbiology Date/Time Source Procedure Growth Status 10/29/24 21:59 Blood Blood Culture - Preliminary Resulted Appetite: Good Side effects of medications: No Appearance: Stated age Psychomotor activity: WNL Behavioral: Cooperative Eye contact: Appropriate Speech: WNL Affect: Appropriate Mood: Euthymic Thought processes: Linear/Goal-directed Thought content: WNL Suicidal ideations: Absent Homicidal ideations: Absent Orientation: Person, Place, Situation Memory intact: Remote Intellect: Average Abstractability: WNL Concentration: Adequate Attention: Adequate Judgement: WNL Insight: Good Vitals Vital Signs Date Time Temp Pulse Resp B/P (MAP) Pulse Ox O2 Delivery O2 Flow Rate FiO2 10/31/24 17:00 97.8 93 17 139/85 (103) 90 97.8 10/31/24 08:00 Room Air* 0 21 Current medications Current Medications Medications Dose Ordered Sig/Simon Route Start Time Stop Time Status Last Admin Dose Admin Vancomycin HCl 0 ml @ 0 mls/hr UD IV 10/30/24 01:30 Diagnostic Test (Pha) 1 strip ACHS 10/30/24 07:00 10/31/24 17:00 1 STRIP Insulin Human Regular ACHS SC 10/30/24 07:00 Dextrose 50 ml UD PRN IV 10/30/24 01:30 Acetaminophen 650 mg TIDP PO 10/30/24 06:00 Ketorolac Tromethamine 15 mg Q6HPRN PRN IV 10/30/24 01:30 11/04/24 01:29 Apixaban 5 mg BID PO 10/30/24 10:00 10/30/24 22:34 5 MG Diphenhydramine HCl 25 mg Q8HP PRN PO 10/30/24 10:00 10/30/24 22:34 25 MG Piperacillin Sod/ Tazobactam Sod 100 ml @ 25 mls/hr Q6H IV 10/30/24 11:00 10/31/24 18:17 25 MLS/HR Vancomycin HCl 250 ml @ 200 mls/hr Q12H IV 10/30/24 20:00 10/31/24 09:06 200 MLS/HR Amlodipine Besylate 2.5 mg DAILY PO 10/31/24 10:00 10/31/24 09:07 2.5 MG Metoprolol Tartrate 25 mg DAILY PO 10/31/24 10:00 10/31/24 09:08 25 MG Baclofen 10 mg Q8HP PRN PO 10/30/24 17:15 10/30/24 22:44 10 MG Famotidine 20 mg DAILY PO 10/31/24 10:00 10/31/24 09:06 20 MG Duloxetine HCl 30 mg DAILY PO 10/31/24 10:00 10/31/24 09:08 30 MG Gabapentin 300 mg TID PRN PO 10/30/24 17:15 Treatment plan discussed: With staff Medication adjusted: No Labs ordered: No Type: Voluntary Diagnosis: No psychiatric diagnosis applicable. Plan : The pt appears not to have any discernible psychiatric pathology requiring further monitoring or treatment. It is possible that the discourse the pt had with his medical provider was misunderstood as the pt is hard of hearing. There appears to be no safety concern and no reason to think that the pt is lying about the use of a 4 inch pocket knife kept nearby as anything but a tool to open things when his hands feel weak for the job. There does not appear to be any need for a 5150 or inpatient psychiatric transfer. No DTS/DTO or psychosis. At this time, there does not even seem to be a need for aa psychiatric follow-up as an outpatient. History of Present Illness Reason for Consult : Pt sleeps with a knife at home. HPI : Pt says that he does indeed sleep with a knife nearby his bedside. It is a 4 inch pocket knife that he uses as a tool to open things when his hands are not strong enough d/t the worsening paralysis. Pt is admitted for worsening weakness in limbs as well as neck cellulitis. Pt has diagnosis of GBS. Pt is responding well to medical treatments being provided. Earlier today a medical provider spoke to the pt. The pt confided that he sleeps with a knife close by. There seems to have been a misunderstanding about what the knife's purpose is and what it means to the patient. The pt does appear to be hard of hearing and when engaged in a figurative line of questioning will respond in kind. Case in point, when it was asked what does the knife say to the pt, he thought about it and said, to be used for hunting. It was also asked if it is kept nearby for protection, to which the pt replied, if an assailant has come close enough to harm the pt, then the knife will be of little help. The pt denies sleeping with the knife under the pillow - this seems to have been misunderstood. The pt adds that if he wanted to kill himself he would have done so years ago. He denies feeling depressed, anxious, having symptoms of psychosis or braulio and likes to keep a positive attitude despite all his health woes. Pt spoke logically with a full affect and does not appear to be impaired in any way. Past Psychiatric History : Denies past psychiatric eval, psych admission, psychotherapy. Denies family psychiatric history. Denies Substance or alcohol use. Past Medical History : Lower extremity paralysis for 4 years. Social History : Lives with sister who acts his caregiver. Pt also has other caregivers coming to help him throughout the week. Assessment/Diagnosis/Plan Reviewed: Care Plan ANA RIZO MD Oct 31, 2024 18:59
[2024-10-31] MEDS: GABAPENTIN 300 MG CAP PO PRN (22:15)
[2024-11-01] VITALS (7 sets, daily range): BP systolic 105–129; BP diastolic 70–80; PULSE 72–88; RESP 16–19; TEMP 97.5–99.2; O2SAT 93–95
[2024-11-01 11:07] LABS: Basophils # (auto) 0.1 10 ^3/uL (0-0.2); Basophils % (auto) 1.1 % (0.0-2.0); Eosinophils # (auto) 0.2 10 ^3/uL (0-0.8); Hematocrit 42.6 % (41.0-53.0); Hemoglobin 14.1 g/dL (13.5-17.5); Lymphocytes # (auto) 0.8 10 ^3/uL (0.4-5.4); Lymphocytes % (auto) 10.5 % (10.0-50.0); Mean Corpuscular Hemoglobin 32.1 pg (28.0-32.0); Mean Corpuscular Hgb Conc. 33.1 g/dL (32.0-36.0); Mean Corpuscular Volume 97.2 fL (80.0-100.0); Monocytes # (auto) 0.7 10 ^3/uL (0-1.3); Monocytes % (auto) 8.6 % (0.0-12.0); Neutrophils # (auto) 6.1 10 ^3/uL (1.6-8.6); Neutrophils % (auto) 77.8 % (37.0-80.0); Nucleated Red Blood Cells % 0.1 %; Platelet Count (auto) 253 10^3/uL (140-450); Red Blood Cells 4.39 10^6/uL (4.5-5.90); Red Cell Distribution Width 16.7 % (11.8-14.3); White Blood Cell 7.9 10^3/uL (4.4-10.8)
[2024-11-01] MEDS ORDERED: [UNRECOGNIZED DRUG - CODE] PO (12:53)
[2024-11-01] MEDS ORDERED: AUG875T PO (12:53)
--- NOTE | 2024-11-01 12:57 | DVHDS2 ---
Discharge Summary Date of Admission Oct 30, 2024 at 01:27 Date of Discharge: Nov 01, 2024 Admitting Diagnosis Neck and tongue swelling Labs/Diagnostic Data: Laboratory Results Test 11/01/24 10:26 10/31/24 21:38 10/31/24 19:12 10/31/24 05:17 White Blood Count 7.9 10^3/uL (4.4-10.8) Red Blood Count 4.39 10^6/uL (4.5-5.90) Hemoglobin 14.1 g/dL (13.5-17.5) Hematocrit 42.6 % (41.0-53.0) Mean Corpuscular Volume 97.2 fL (80.0-100.0) Mean Corpuscular Hemoglobin 32.1 pg (28.0-32.0) Mean Corpuscular Hemoglobin Concent 33.1 g/dL (32.0-36.0) Red Cell Distribution Width 16.7 % (11.8-14.3) Platelet Count 253 10^3/uL (140-450) Mean Platelet Volume 6.5 fL (6.9-10.8) Neutrophils (%) (Auto) 77.8 % (37.0-80.0) Lymphocytes (%) (Auto) 10.5 % (10.0-50.0) Monocytes (%) (Auto) 8.6 % (0.0-12.0) Eosinophils (%) (Auto) 2.0 % (0.0-7.0) Basophils (%) (Auto) 1.1 % (0.0-2.0) Neutrophils # (Auto) 6.1 10 ^3/uL (1.6-8.6) Lymphocytes # (Auto) 0.8 10 ^3/uL (0.4-5.4) Monocytes # (Auto) 0.7 10 ^3/uL (0-1.3) Eosinophils # (Auto) 0.2 10 ^3/uL (0-0.8) Basophils # (Auto) 0.1 10 ^3/uL (0-0.2) Nucleated Red Blood Cells 0.1 % Creatinine 0.96 mg/dL (0.700-1.30) Glomerular Filtration Rate Calc 87 mL/min (>90) Random Vancomycin Level 13.3 ug/mL (5-10) POC Glucose 198 mg/dl (70-106) Vancomycin Level Trough 26.0 ug/mL (5-10) Sodium Level 141 mmol/L (136-145) Potassium Level 4.3 mmol/L (3.5-5.1) Chloride Level 105 mmol/L (98-107) Carbon Dioxide Level 28 mmol/L (20-31) Anion Gap 8 (5-15) Blood Urea Nitrogen 16 mg/dL (9-23) BUN/Creatinine Ratio 15.7 (10.0-20.0) Serum Glucose 125 mg/dL (74-106) Calcium Level 10.3 mg/dL (8.7-10.4) Test 10/30/24 16:04 10/30/24 08:41 Lactic Acid Level 1.7 mmol/L (0.4-2.0) Differential Total Cells Counted 100.0 (100) Neutrophils % (Manual) 67 (37.0-80.0) Band Neutrophils % (Manual) 3 Lymphocytes % (Manual) 24 (10.0-50.0) Monocytes % (Manual) 6 (0-12) Eosinophils % (Manual) 0 (0-7) Basophils % (Manual) 0 (0.0-2.0) Metamyelocytes % (manual) 0 Myelocytes % (Manual) 0 Promyelocytes % (Manual) 0 Blast Cells % (Manual) 0 Reactive Lymphocytes 0 Platelet Estimate Adequate Erythrocyte Sedimentation Rate 36 mm/hr (0-20) Hemoglobin A1c 6.1 % A1C (<5.7) Magnesium Level 2.1 mg/dL (1.6-2.6) Total Bilirubin 0.3 mg/dL (0.2-1.0) Aspartate Amino Transferase (AST) 10 U/L (13-40) Alanine Aminotransferase (ALT) 17 U/L (7-40) Alkaline Phosphatase 67 U/L (46-116) Total Protein 7.2 g/dL (5.7-8.2) Albumin 4.5 g/dL (3.2-4.8) Vitamin B12 Level 904 pg/mL (211-911) Vitamin D 25-Hydroxy 58.6 ng/mL (30.0-100) Thyroid Stimulating Hormone (TSH) 7.19 uIU/mL (0.55-4.78) Free Thyroxine (T4) Calculated 1.06 ng/dL (0.89-1.76) Total Triiodothyronine (TT3) 1.11 ng/mL (0.60-1.81) Hepatitis B Surface Antigen Negative (Negative) Hepatitis C Antibody Negative (Negative) Other Laboratory Tests 11/01/24 10:26 10/31/24 05:17 Brief Hx & Hospital Course: hpi: 63-year-old male patient with PMHx of: CIDP, [place]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 Patient reports that it all started with tongue numbness and itching followed by left-sided neck swelling and erythema. He also reported difficulty swelling for the past 1 day. Denies fever or chills. Summary: Patient presents with acute leg/tongue/face swelling and numbness on left side. There is no known allergen. CT neck showing possible cellulitis of left superficial neck but otherwise unremarkable. Given presentation there is concern for possible angioedema/anaphylaxis/allergic reaction, NAD patient is given morphine, Zofran, vancomycin/Zosyn. Next morning Patient was given IV Benadryl for concern for allergy. After medications swelling recedes and patient was feeling well. ESR is elevated, lactic acidosis up to 2.7 resolves. Patient was stable thereafter son med to finish treatment outpatient as outlined below in the discharge plan. Diagnosis: Mild Cellulitis of the neck versus type 1 hypersensitivity reaction Lactic acidosis - resolved allergic reaction possible Hypothyroidism MDD possible, acute SI ruled out CIDP, history of [place] syndrome Diabetes mellitus type 2-controlled Left lower extremity port thrombosis DVT status post IVC filter GERD Hypertension Discharge plan: - augmentin 875mg 2x/day for x5 days - benadryl 25mg nightly for x5 nights - follow-up with PCP. PCP to follow-up with blood cultures. - continue other home medications. Condition at Discharge: Fair Final Diagnosis/Problems List Mild Cellulitis of the neck versus type 1 hypersensitivity reaction Lactic acidosis - resolved allergic reaction possible Hypothyroidism MDD possible, acute SI ruled out CIDP, history of [place] syndrome Diabetes mellitus type 2-controlled Left lower extremity port thrombosis DVT status post IVC filter GERD Hypertension Discharge Disposition: Home Discharge Instruct/Medications Diet: Regular Activity: No Restrictions, As Tolerated Follow Up/Referral: pcp Medications: as below Discharge Statement: "Patient was advised to return to the ER or call 911 if any headaches, dizziness, shortness of breath, chest pain, abdominal pain, bleeding, fevers, or worsening of medical condition. Patient was counseled about treatment plan, medications, possible side effects, patientverbalized understanding. All questions were answered to the best of my ability. This discharge took greater then 30 minutes in planning, reviewing documentation, counseling the patient, and discussing with other team members." Date of Service: Nov 01, 2024 Billing Provider: GRADY SANCHEZ MD Common Visit Codes: 95995-PQL/OBS DISCH DAY >30min GRADY SANCHEZ MD Nov 01, 2024 12:57
[2024-11-01] MEDS ORDERED: PIPERACILLIN-TAZOB 3.375GM 100 ML IV SCH ×2 (14:00→20:00)
[2024-11-01] MEDS ORDERED: VANCOMYCIN 1GM/250ML KIT 250 ML IV SCH (20:00)
== END 2024-11-01 19:15 | disposition home health service (06) | DRG 603 ==
LOC: ER 20:53 → EDBD 20:53 → EDUNIT# 20:53 → OVERFLOW 10-30 01:27 → WEST WING 10-30 03:42
PROVIDERS: ADMIT Student in an Organized Health Care Education/Training Program; ATTEND Student in an Organized Health Care Education/Training Program
DX: L03.221 Cellulitis of neck (principal); E87.20 Acidosis, unspecified; T78.2XXA Anaphylactic shock, unspecified, initial encounter; I10 Essential (primary) hypertension; E78.5 Hyperlipidemia, unspecified; E11.9 Type 2 diabetes mellitus without complications; K21.9 Gastro-esophageal reflux disease without esophagitis; T78.49XA Other allergy, initial encounter; J45.909 Unspecified asthma, uncomplicated; F32.9 Major depressive disorder, single episode, unspecified; E03.9 Hypothyroidism, unspecified; T78.3XXA Angioneurotic edema, initial encounter; Z79.01 Long term (current) use of anticoagulants; Z85.51 Personal history of malignant neoplasm of bladder; Z79.899 Other long term (current) drug therapy; Z95.828 Presence of other vascular implants and grafts; X58.XXXA Exposure to other specified factors, initial encounter; Y84.8 Other medical procedures as the cause of abnormal reaction of the patient, or of later complication, without mention of misadventure at the time of the procedure; Y92.89 Other specified places as the place of occurrence of the external cause; Z79.84 Long term (current) use of oral hypoglycemic drugs
CPT/HCPCS: 36415; 70490; 71045; 80048; 80053; 80202; 82306; 82565; 82607; 82962; 83036; 83605; 83735; 84439; 84443; 84480; 85007; 85025; 85027; 85652; 86803; 87040; 87077; 87186; 87340; G0378; J2543

== ENCOUNTER 2024-11-13 10:21 | Inpatient (IN) | payer OTHER, MEDICAID ==
[~2024-11-13] VITALS: Ht 182.9 cm; Wt 102.5 kg
[~2024-11-13 10:21] MED LIST changes: +AUG875T PO; -CEFP200T15 PO; +[UNRECOGNIZED DRUG - CODE] PO
--- NOTE | 2024-11-13 10:48 | ED.PDOC ---
History of Present Illness HPI Comments 64 y/o M, BIBA with PMHX of cancer, DM, HTN, HLD, and GERD presents to the ED for CC of face pain. Patient states, that he has been experiencing left sided facial pain with associated swelling since 10/29/24. Patient comments on, being admitted to [facility] on 10/30/24 for Dx: Neck Cellulitis and being discharged on 11/05/24 with antibiotics. Patient relays, compliance with prescribed medications and symptoms improving however, symptoms returned as of yesterday (11/12/24). Patient denies fever, numbness, tingling, oral discharge, or facial weeping. No other associated symptom's, modifiers, recent injuries or sick contacts at this time. Chief Complaint: Face pain Time Seen by MD: 10:15 Primary Care Provider: unknown Reviewed Notes: Nurses Notes, Dice Table Operator Notes, Medications, Allergies Allergies: Coded Allergies: No Known Drug Allergy (Verified Allergy, Unknown, 04/21/22) Home Meds Active Scripts Amoxicillin & Pot Clavulanate (AUGMENTIN TABLET) 875 Mg Tb, 875 MG PO BID for 5 Days, #10 TAB 0 Refills Prov:GRADY SANCHEZ MD 11/01/24 Diphenhydramine Hcl (Gnp Allergy) 25 Mg Cap, 25 MG PO HS for 5 Days, #5 CAP 0 Refills Prov:GRADY SANCHEZ MD 11/01/24 Pancrelipase (Lipase-Protease- (CREON) 36,000 Unt Cap, 97830 UNT OR TIDWM for 30 Days, #90 CAP Prov:MILLIE CALIXTO MD 03/30/24 Potassium Chloride (Potassium Chloride ER) 10 Meq Tab, 10 MEQ PO DAILY for 30 Days, #30 TAB Prov:JEREMIAH BOOGIE MD 01/23/24 Polyethylene Glycol 3350 (Miralax) 17 Gm Pow, 17 GM PO DAILY for 30 Days, #510 POW Prov:JEREMIAH BOOGIE MD 01/23/24 Docusate Sodium (Colace) 100 Mg Cap, 1 CAP PO BID, #60 CAP 2 Refills Prov:JEREMIAH BOOGIE MD 01/23/24 Sekhlzcd-Hsdoybyww-Qp (Otic) (Cortisporin Otic Susp) [address], 3 DROP RIGHT EAR TID, #10 ML Prov:JEANNE ARRIOLA PAC 04/21/23 Reported Medications Primidone (MYSOLINE TABLET) 50 Mg Tb, 50 MG PO, TAB 03/26/24 Cyanocobalamin (Vitamin B-12) 1,000 Mcg Tab, 1 TAB PO DAILY 09/14/23 Metformin Hydrochloride (Metformin Hcl) 500 Mg Tab, 1 TAB PO BID 09/14/23 Duloxetine Hcl (Cymbalta) 20 Mg Cap, 30 CAP PO DAILY, #30 CAP 2 Refills 09/14/23 Cholecalciferol (D3) 25 Mcg Chw, 25 MCG PO DAILY, TAB.CHEW 09/14/23 Nedzsvpoqhg-Auxtcmxduzrk-Pmddt (Trelegy Ellipta 100-62.5-25 Mcg/INH) 1 Aer Aer, 1 AER IN DAILY, AER 03/09/23 Metoprolol Tartrate (Metoprolol Tartrate) 25 Mg Tab, 25 MG PO BID for 30 Days, MG 03/09/23 Amlodipine Besylate (Amlodipine Besylate) 5 Mg Tab, 2.5 MG PO DAILY for 30 Days, MG 03/09/23 Simvastatin (Simvastatin) 10 Mg Tab, 10 MG PO HS for 30 Days, MG 03/09/23 Gabapentin (Gabapentin) 300 Mg Cap, 400 MG PO TID for 30 Days, MG 04/21/22 Famotidine (Famotidine) 20 Mg Tab, 20 MG PO HS for 30 Days, MG 04/21/22 Apixaban Base (ELIQUIS) 5 Mg Tab, 5 MG PO BID, TAB 04/21/22 Baclofen (Baclofen) 10 Mg Tab, 10 MG PO Q8HP for 30 Days, MG 04/21/22 Information Source: Patient, Emergency Med Personnel Mode of Arrival: EMS Severity: Moderate Timing: Days Duration: Since onset Prehospital treatment: None Past Medical History PAST MEDICAL HISTORY: Asthma, Cancer, DM, GERD, High Lipids, HTN, UTI'S Surgical History (Other): urostomy Family History Family History: Reviewed,noncontributory to illness Social History Smoker: Non-Smoker Alcohol: Denies ETOH Use Drugs: Denies Drug Use Lives In: Home Constitutional: denies: chills, diaphoresis, fatigue, fever, malaise, sweats, weakness, others EENTM: denies: blurred vision, double vision, ear bleeding, ear discharge, ear drainage, ear pain, ear ringing, eye pain, eye redness, hearing loss, mouth pain, mouth swelling, nasal discharge, nose bleeding, nose congestion, nose pain, photophobia, tearing, throat pain, throat swelling, voice changes, others Respiratory: denies: cough, hemoptysis, orthopnea, SOB at rest, shortness of breath, SOB with excertion, stridor, wheezing, others Cardiovascular: denies: chest pain, dizzy spells, diaphoresis, Dyspnea on exertion, edema, irregular heart beat, left arm pain, lightheadedness, palpitations, PND, syncope, others Gastrointestinal: denies: abdomen distended, abdominal pain, blood streaked bowels, constipated, diarrhea, dysphagia, difficulty swallowing, hematemesis, melena, nausea, poor appetite, poor fluid intake, rectal bleeding, rectal pain, vomiting, others Genitourinary: denies: burning, dysuria, flank pain, frequency, hematuria, incontinence, penile discharge, penile sore, pain, testicle pain, testicle swelling, urgency, others Neurological: denies: dizziness, fainting, headache, left sided numbness, left sided weakness, numbness, paresthesia, pre-existing deficit, right sided numbness, right sided weakness, seizure, speech problems, tingling, tremors, weakness, others Musculoskeletal: denies: back pain, gout, joint pain, joint swelling, muscle pain, muscle stiffness, neck pain, others Integumetry: reports: lumps; denies: bruises, change in color, change in hair/nails, dryness, laceration, lesions, rash, wounds, others Allergic/Immunocompromised: denies: Difficulty Healing, Frequent Infections, Hives, Itching, others Hematologic/Lymphatic: denies: anemia, blood clots, easy bleeding, easy bruising, swollen glands, others Endocrine: denies: excessive hunger, excessive sweating, excessive thirst, excessive urination, flushing, intolerance to cold, intolerance to heat, unexplained weight gain, unexplained weight loss, others Psychiatric: denies: anxiety, bipolar disorder, depression, hopeless, panic disorder, schizophrenia, sleepless, suicidal, others All Other Systems: Reviewed and Negative Physical Exam General Appearance: Moderate Distress HEENT: Normal ENT Inspection, Pharynx Normal, TMs Normal Neck: Full Range of Motion, Non-Tender, Normal, Normal Inspection Respiratory: Chest Non-Tender, Lungs Clear, No Accessory Muscle Use, No Respiratory Distress, Normal Breath Sounds Cardiovascular: No Edema, No JVD, No Murmur, No Gallop, Normal Peripheral Pulses, Regular Rate/Rhythm Breast Exam: Deferred Gastrointestinal: Soft, Other (Urostomy bag) Genitalia: Deferred Pelvic: Deferred Rectal: Deferred Extremities: No calf tenderness, Normal capillary refill, Normal inspection, Normal range of motion, Non-tender, No pedal edema Musculoskeletal : Apperance: Normal Neurologic: Alert Cerebellar Function: NOT DONE Reflexes: NOT DONE Skin: Normal Color Peripheral Pulses: 3+ Radial (R), 3+ Radial (L) Lymphatic: No Adenopathy Was a procedure done? Was a procedure done?: No Differential Dx Considerations may include: Urosepsis Abscess X-Ray, Labs, Meds, VS Vital Signs Date Time Temp Pulse Resp B/P (MAP) Pulse Ox O2 Delivery O2 Flow Rate FiO2 11/13/24 10:25 97.7 88 16 143/80 (101) 94 Lab Test 11/13/24 11:13 Range/Units White Blood Count 11.3 H 4.4-10.8 10^3/uL Red Blood Count 4.62 4.5-5.90 10^6/uL Hemoglobin 14.8 13.5-17.5 g/dL Hematocrit 44.7 41.0-53.0 % Mean Corpuscular Volume 96.8 80.0-100.0 fL Mean Corpuscular Hemoglobin 32.1 H 28.0-32.0 pg Mean Corpuscular Hemoglobin Concent 33.2 32.0-36.0 g/dL Red Cell Distribution Width 16.6 H 11.8-14.3 % Platelet Count 344 140-450 10^3/uL Mean Platelet Volume 6.5 L 6.9-10.8 fL Neutrophils (%) (Auto) 37.0-80.0 % Lymphocytes (%) (Auto) 10.0-50.0 % Monocytes (%) (Auto) 0.0-12.0 % Basophils (%) (Auto) 0.0-2.0 % Neutrophils # (Auto) 1.6-8.6 10 ^3/uL Lymphocytes # (Auto) 0.4-5.4 10 ^3/uL Monocytes # (Auto) 0-1.3 10 ^3/uL Differential Total Cells Counted Pending Neutrophils % (Manual) Pending Band Neutrophils % (Manual) Pending Lymphocytes % (Manual) Pending Monocytes % (Manual) Pending Eosinophils % (Manual) Pending Basophils % (Manual) Pending Metamyelocytes % (manual) Pending Myelocytes % (Manual) Pending Promyelocytes % (Manual) Pending Blast Cells % (Manual) Pending Reactive Lymphocytes Pending Platelet Estimate Pending Sodium Level 140 136-145 mmol/L Potassium Level 4.3 3.5-5.1 mmol/L Chloride Level 106 98-107 mmol/L Carbon Dioxide Level 26 20-31 mmol/L Anion Gap 8 5-15 Blood Urea Nitrogen 19 9-23 mg/dL Creatinine 0.79 0.700-1.30 mg/dL Glomerular Filtration Rate Calc 98 >90 mL/min BUN/Creatinine Ratio 24.1 H 10.0-20.0 Serum Glucose 133 H 74-106 mg/dL Calcium Level 9.7 8.7-10.4 mg/dL Troponin I High Sensitivity 3 L </=54 ng/L Current Medications Medications (Trade) Dose Ordered Sig/Simon Route Start Time Stop Time Status Last Admin Clindamycin Phosphate 50 ml @ 50 mls/hr ONCE ONCE IV 11/13/24 11:00 11/13/24 11:59 DC 11/13/24 11:55 [place] [id number] Ph: [phone] DIAGNOSTIC IMAGING Diagnostic Imaging Report : [id number] Signed PATIENT: MONI KEMP ACCT: [id number] UNIT: [id number] : 1960 LOC: ER ROOM / BED: / AGE / SEX: 64 / M ADM STATUS: REG ER SERVICE 1048 ORDERING PHYSICIAN: ONUR VALADEZ MD PROCEDURE(s): CXRP - CHEST PORTABLE REASON: sob ORDER NUMBER(s): [id number], ACCESSION NUMBER(s): [id number] CHEST RADIOGRAPH Indication: sob Technique: Single frontal view of the chest was obtained COMPARISON: XY CHEST PORTABLE on DOS: 10/29/24, XY CHEST PORTABLE on DOS: 08/14/24, XY CHEST XRAY 1 VIEW on DOS: 07/10/24, XY CHEST PORTABLE on DOS: 05/29/24, XY CHEST PORTABLE on DOS: 01/15/24 FINDINGS: Lines and Tubes: None Lungs: Increased interstitial prominence Pleura: No effusion. No pneumothorax. Cardiomediastinal contours: Unremarkable Bones: Unremarkable IMPRESSION: Pulmonary vascular congestion or viral pneumonia. ATED BY: AVI MCCARTHY MD DICTATED DATE/TIME: 11/13/24 1113 SIGNED BY: AVI MCCARTHY MD SIGNED DATE/TIME: 11/13/24 1113 CC: [place] [id number] Ph: [phone] DIAGNOSTIC IMAGING Diagnostic Imaging Report : [id number] Signed PATIENT: MONI KEMP ACCT: [id number] UNIT: [id number] : 1960 LOC: ER ROOM / BED: / AGE / SEX: 64 / M ADM STATUS: REG ER SERVICE 1049 ORDERING PHYSICIAN: ONUR VALADEZ MD PROCEDURE(s): NECK - NECK FOR SOFT TISSUE REASON: abscess ORDER NUMBER(s): [id number], ACCESSION NUMBER(s): [id number] Procedure: XY NECK FOR SOFT TISSUE Exam Date: 11/13/2024 10:49 AM History: abscess pain Comparison Study: None available at time of dictation. Soft Tissue Neck: AP and lateral views. Findings: No evidence of soft tissue swelling or radiopaque foreign body. Epiglottis appears normal. Impression: Negative soft tissue neck. ATED BY: AVERY QUIROZ MD DICTATED DATE/TIME: 11/13/24 1145 SIGNED BY: AVERY QUIROZ MD SIGNED DATE/TIME: 11/13/24 1145 CC: Patient alert. Came in because of left-sided neck swelling. Vitals stable. Answering questions. Chronic history. Reviewed his previous visit. Blood pressure slightly elevated. CT of the neck. Establish intravenous access. Was given fluids. Possible urosepsis. Establish intravenous access. Was given Zosyn. Was given clindamycin. Explained to the patient. Continue monitoring. Time of 1ST Reevaluation: 10:45 Reevaluation 1ST: Unchanged Patient Education/Counseling: Diagnosis, Treatment Family Education/Counseling: No Family Present Departure 1 Departure Time of Disposition: 10:52 Impression: Primary Impression: Cellulitis of neck Disposition: ADMITTED INPATIENT Admit to: Med Surg Condition: Guarded Critical Care Note Critical Care Time?: Yes (45 min-critical care time only) Critical care comment: Patient complaining of difficulty swallowing possible watch for airway compromise Stability Stability form required: No Heart Score Heart Score: Heart Score Response (Comments) Value History N/A 0 EKG N/A 0 Age N/A 0 Risk Factors N/A 0 Troponin N/A 0 Total 0 I personally scribed for ONUR VALADEZ MD ([email or web address]) on 11/13/24 at 10:48. Electronically submitted by Luna Fortune ([email or web address]). I personally scribed for ONUR VALADEZ MD ([email or web address]) on 11/13/24 at 10:59. Electronically submitted by Luna Fortune ([email or web address]). I personally scribed for ONUR VALADEZ MD ([email or web address]) on 11/13/24 at 11:59. Electronically submitted by Luna Fortune ([email or web address]). I personally scribed for ONUR VALADEZ MD ([email or web address]) on 11/13/24 at 12:00. Electronically submitted by Luna Fortune ([email or web address]). I personally scribed for ONUR VALADEZ MD ([email or web address]) on 11/13/24 at 12:02. Electronically submitted by Luna Fortune ([email or web address]). ONUR VALADEZ MD Nov 13, 2024 10:48
--- NOTE | 2024-11-13 11:18 | DVH ---
CHEST RADIOGRAPH Indication: sob Technique: Single frontal view of the chest was obtained COMPARISON: XY CHEST PORTABLE on DOS: 10/29/24, XY CHEST PORTABLE on DOS: 08/14/24, XY CHEST XRAY 1 EW on DOS: 07/10/24, XY CHEST PORTABLE on DOS: 05/29/24, XY CHEST PORTABLE on DOS: 01/15/24 FINDINGS: Lines and Tubes: None Lungs: Increased interstitial prominence Pleura: No effusion. No pneumothorax. Cardiomediastinal contours: Unremarkable Bones: Unremarkable IMPRESSION: Pulmonary vascular congestion or viral pneumonia.
[2024-11-13 11:38] LABS: Anion Gap 8 (5-15); Carbon Dioxide 26 mmol/L (20-31); Chloride 106 mmol/L (98-107); Potassium 4.3 mmol/L (3.5-5.1); Sodium 140 mmol/L (136-145)
[2024-11-13 11:40] LABS: Calcium 9.7 mg/dL (8.7-10.4); Hematocrit 44.7 % (41.0-53.0); Hemoglobin 14.8 g/dL (13.5-17.5); Mean Corpuscular Hemoglobin 32.1 pg (28.0-32.0); Mean Corpuscular Hgb Conc. 33.2 g/dL (32.0-36.0); Mean Corpuscular Volume 96.8 fL (80.0-100.0); Platelet Count (auto) 344 10^3/uL (140-450); Red Blood Cells 4.62 10^6/uL (4.5-5.90); Red Cell Distribution Width 16.6 % (11.8-14.3); White Blood Cell 11.3 10^3/uL (4.4-10.8)
[2024-11-13 11:41] LABS: Basophils % (manual) 0 (0.0-2.0); Blast Cells 0; Metamyelocytes % 0; Myelocytes % 0; Promyelocytes % 0; Reactive Lymphocytes 0
[2024-11-13 11:44] LABS: BUN/Creatinine Ratio 24.1 (10.0-20.0); Blood Urea Nitrogen 19 mg/dL (9-23)
--- NOTE | 2024-11-13 11:46 | DVH ---
Procedure: XY NECK FOR SOFT TISSUE Exam Date: 11/13/2024 10:49 AM History: abscess pain Comparison Study: None available at time of dictation. Soft Tissue Neck: AP and lateral views. Findings: No evidence of soft tissue swelling or radiopaque foreign body. Epiglottis appears normal. Impression: Negative soft tissue neck.
[2024-11-13 11:52] LABS: Glucose 133 mg/dL (74-106)
[2024-11-13] MEDS: CLINDAMYCIN 600MG IV 50 ML IV ONE (11:55)
[2024-11-13 12:42] LABS: Band Neutrophils % (manual) 14; Eosinophils % (manual) 3 (0-7); Lymphocytes % (manual) 12 (10.0-50.0); Monocytes % (manual) 8 (0-12); Platelet Estimate Adequate
[2024-11-13] MEDS: PIPERACILLIN-TAZOB 3.375GM 100 ML IV ONE (12:50)
[2024-11-13 13:25] VITALS: PULSE 85; RESP 13; O2SAT 92
[2024-11-13] MEDS ORDERED: ACETAMINOPHEN 325 MG TAB PO PRN (16:45)
[2024-11-13] MEDS ORDERED: DEXTROSE (50%) 50ML SYRG IV PRN (16:45)
[2024-11-13] MEDS ORDERED: HYDROcodone-ACET 5/325MG TAB PO PRN (16:45)
[2024-11-13] MEDS ORDERED: ONDANSETRON HCL 4 MG/2 ML VIAL IV PRN (16:45)
--- NOTE | 2024-11-13 17:01 | DVHHP2 ---
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. Patient reports and [id number] at bedside reports that the patient uses an electric wheelchair also has a sling at home. Patient also follows with a neurologist in the [facility]. He also states that he is hard of hearing and left his hearing aids at home. Patient reports that he was here 2 weeks ago for neck swelling. Patient denies any recent trauma or injury, chest pain, shortness of breath, fever, chills, minus, dizziness, abdominal pain, nausea, vomiting, and diarrhea. Cardiovascular: HTN, hyperipidemia Pulmonary: Asthma GI: GERD Renal/: UTI Endocrine: Diabetes Past Medical History Bladder CA has a right urostomy History of left lower extremity DVT ? Clot from where his chest port was placed Past Surgical History: Other (Urostomy And IVC filter placed in 2013) Family History: Cancer, Other (Mom with scoliosis and dad with pancreatic cancer) Smoke: Quit ALCOHOL: none (Quit) Drugs: Other (Quit) Lives: with Family Domestic Violence: Neg Review of Systems Skin: Other (Facial swelling) Allergies: Coded Allergies: No Known Drug Allergy (Verified Allergy, Unknown, 04/21/22) Exam Vital Signs Vital Signs Date Time Temp Pulse Resp B/P (MAP) Pulse Ox O2 Delivery O2 Flow Rate FiO2 11/13/24 16:00 82 11 100/76 (84) 92 11/13/24 13:25 97.8 97.8 11/13/24 13:25 Room Air* 0 21 General Appearance: Alert, Oriented X3, Cooperative, No acute distress HEENT: PERRLA, EOMI, Mucous membr. moist/pink Respiratory: Normal air movement Cardiovascular: Regular rate, Normal S1, Normal S2, No murmurs Abdominal: Normal bowel sounds, Soft, No tenderness, No hepatospenomegaly, No masses Extremities: No clubbing, No cyanosis, No tenderness/swelling Neuro: Other (Delayed speech) Psych/Mental Status: Mental status NL Labs/Xrays Labs Test 11/13/24 11:13 Range/Units White Blood Count 11.3 H 4.4-10.8 10^3/uL Red Blood Count 4.62 4.5-5.90 10^6/uL Hemoglobin 14.8 13.5-17.5 g/dL Hematocrit 44.7 41.0-53.0 % Mean Corpuscular Volume 96.8 80.0-100.0 fL Mean Corpuscular Hemoglobin 32.1 H 28.0-32.0 pg Mean Corpuscular Hemoglobin Concent 33.2 32.0-36.0 g/dL Red Cell Distribution Width 16.6 H 11.8-14.3 % Platelet Count 344 140-450 10^3/uL Mean Platelet Volume 6.5 L 6.9-10.8 fL Neutrophils (%) (Auto) 37.0-80.0 % Lymphocytes (%) (Auto) 10.0-50.0 % Monocytes (%) (Auto) 0.0-12.0 % Basophils (%) (Auto) 0.0-2.0 % Neutrophils # (Auto) 1.6-8.6 10 ^3/uL Lymphocytes # (Auto) 0.4-5.4 10 ^3/uL Monocytes # (Auto) 0-1.3 10 ^3/uL Differential Total Cells Counted 100.0 100 Neutrophils % (Manual) 63 37.0-80.0 Band Neutrophils % (Manual) 14 Lymphocytes % (Manual) 12 10.0-50.0 Monocytes % (Manual) 8 0-12 Eosinophils % (Manual) 3 0-7 Basophils % (Manual) 0 0.0-2.0 Metamyelocytes % (manual) 0 Myelocytes % (Manual) 0 Promyelocytes % (Manual) 0 Blast Cells % (Manual) 0 Reactive Lymphocytes 0 Platelet Estimate Adequate Sodium Level 140 136-145 mmol/L Potassium Level 4.3 3.5-5.1 mmol/L Chloride Level 106 98-107 mmol/L Carbon Dioxide Level 26 20-31 mmol/L Anion Gap 8 5-15 Blood Urea Nitrogen 19 9-23 mg/dL Creatinine 0.79 0.700-1.30 mg/dL Glomerular Filtration Rate Calc 98 >90 mL/min BUN/Creatinine Ratio 24.1 H 10.0-20.0 Serum Glucose 133 H 74-106 mg/dL Calcium Level 9.7 8.7-10.4 mg/dL Troponin I High Sensitivity 3 L </=54 ng/L Procedure: XY NECK FOR SOFT TISSUE Exam Date: 11/13/2024 10:49 AM History: abscess pain Comparison Study: None available at time of dictation. Soft Tissue Neck: AP and lateral views. Findings: No evidence of soft tissue swelling or radiopaque foreign body. Epiglottis appears normal. Impression: Negative soft tissue neck. Indication: sob Technique: Single frontal view of the chest was obtained COMPARISON: XY CHEST PORTABLE on DOS: 10/29/24, XY CHEST PORTABLE on DOS: 08/14/24, XY CHEST XRAY 1 VIEW on DOS: 07/10/24, XY CHEST PORTABLE on DOS: 05/29/24, XY CHEST PORTABLE on DOS: 01/15/24 FINDINGS: Lines and Tubes: None Lungs: Increased interstitial prominence Pleura: No effusion. No pneumothorax. Cardiomediastinal contours: Unremarkable Bones: Unremarkable IMPRESSION: Pulmonary vascular congestion or viral pneumonia. Assessment/Plan Assessment/Plan Assessment/Plan: PNA ? Lymphadenopathy due to pneumonia Facial swelling ruled out Leukocytosis likely due to pneumonia Labs IV antibiotics Zosyn plus clindamycin Budesonide CT neck noted Chest x-ray Manual differential UA Chest x-ray Troponin Urine culture Last echo on 01/14/2024 EF 55% A.m. labs Diabetes type 2 uncontrolled Hemoglobin A1c ISS and Accu-Cheks Chronic hypertension Continue home medications Chronic hyperlipidemia Continue home medications History of asthma Respiratory treatments Budesonide History of bladder cancer status post right urostomy Monitor Chronic GERD Continue home medication History of left lower extremity DVT IVC filter Monitor FEN/PPX diet Hep-Lock DVT prophylaxis-patient on Eliquis PUD prophylaxis-famotidine, continue home medication Admit patient to Med surg Home medications reconciled Discussed plan of care with patient, patient's [id number], and nurse Plan discussed with: Patient, Other ([id number]) My Orders Orders - HARDY COLLIER [employer]OC[employer]ATE Procedure Category Date Status Time Zosyn Extended PHA 11/13/24 Transmitted Infusion 22:00 Clindamycin Ivpb PHA 11/13/24 Transmitted Cleocin 22:00 Glucose Blood PHA 11/13/24 Transmitted (Accu-Chek Comfort 17:00 Mild Sliding Scale PHA 11/13/24 Transmitted 17:00 Dextrose 50% Syringe PHA 11/13/24 Transmitted 16:45 Hemoglobin A1c LAB 11/13/24 Transmitted 16:32 Admit ADMIT 11/13/24 Transmitted 16:32 Allergies PRABHU 11/13/24 Transmitted 16:32 Code Status CODE 11/13/24 Transmitted 16:32 Hydrocodone-Acet PHA 11/13/24 Transmitted 5/325mg Tab (Mitchell 16:45 Ondansetron Hcl PHA 11/13/24 Transmitted (Zofran) 16:45 Complete Blood Count LAB 11/14/24 Verified 04:00 Comprehensive LAB 11/14/24 Verified Metabolic Panel 04:00 Cardiac DIET 11/13/24 Transmitted Diet-2gna,Lofat,Lochol Dinner Acetaminophen Tablet PHA 11/13/24 Transmitted (Tylenol Tablet) 16:45 Amlodipine Tablet PHA 11/14/24 Transmitted (Norvasc Tablet) 10:00 Apixaban (Eliquis) PHA 11/13/24 Transmitted 22:00 Baclofen Tablet PHA 11/13/24 Transmitted (Liorisal Tablet) 22:00 Docusate Sodium PHA 11/13/24 Transmitted Capsule (Colace 22:00 Famotidine Tablet PHA 11/13/24 Transmitted (Pepcid Tablet) 22:00 Gabapentin Capsule PHA 11/13/24 Transmitted (Neurontin Capsule) 22:00 Metoprolol Tartrate PHA 11/13/24 Transmitted Tablet (Lopressor Ta 22:00 (Nf) Cholecalciferol PHA 11/14/24 Transmitted (D3) 10:00 (Nf) Cyanocobalamin PHA 11/14/24 Transmitted (Vitamin B-12) 10:00 (Nf) Duloxetine Hcl PHA 11/14/24 Transmitted (Cymbalta) 10:00 (Nf) Pancrelipase PHA 11/13/24 Transmitted (Lipase-Protease- (Cre 18:00 (Nf) Potassium PHA 11/14/24 Transmitted Chloride (Potassium 10:00 (Nf) Simvastatin PHA 11/13/24 Transmitted 22:00 Date of Service: Nov 13, 2024 Billing Provider: HARDY COLLIER Common Visit Codes: [id number] INP/OBS CARE (HIGH) HARDY COLLIER Nov 13, 2024 17:01
[2024-11-13] MEDS: InsuLIN REG 1unit/0.01ml Soln (100units/ml) SC SCH (17:30)
[2024-11-13] MEDS: ACCU-CHEK COMFORT CURVE STRIP VI SCH (17:30)
[2024-11-13 18:14] LABS: Urine Bacteria FEW /hpf (None Seen); Urine Blood 2+ /uL (Negative); Urine Clarity Ex.Turbid (Clear); Urine Color Light-Brown (Yellow); Urine Mucus FEW (None Seen); Urine Protein, UAD 1+ (Negative); Urine Specific Gravity 1.016 (1.001-1.035); Urine Squamous Epithelial Cell None Seen /hpf (<5); Urine Urobilinogen Normal (Negative); Urine WBC 207 /HPF (0-3); Urine WBC Clumps PRESENT /hpf (None Seen); Urine pH 7.5 (5.0-9.0)
[2024-11-13 19:50] VITALS: PULSE 79; RESP 11; O2SAT 97
[2024-11-13 21:38] VITALS: PULSE 75; RESP 11; O2SAT 94
[2024-11-13] MEDS: BUDESONIDE (INHALATION) 0.5 MG/2 ML NEB NEB SCH (21:38)
[2024-11-13 21:44] VITALS: PULSE 81; RESP 22; O2SAT 97
[2024-11-13 23:00] VITALS: BP 97/55; PULSE 81; RESP 22; O2SAT 94
[2024-11-13 23:42] VITALS: PULSE 78; RESP 18; O2SAT 97
[2024-11-14] VITALS (11 sets, daily range): BP systolic 106–140; BP diastolic 68–89; PULSE 61–85; RESP 12–20; TEMP 97.3–98.4; O2SAT 90–100
[2024-11-14] MEDS: CLINDAMYCIN 600MG IV 50 ML IV SCH ×2 (01:04→09:29)
[2024-11-14] MEDS: PRAVASTATIN SODIUM 20 MG TAB PO SCH (01:20)
[2024-11-14] MEDS: METOPROLOL TARTRATE 25 MG TAB PO SCH (01:20)
[2024-11-14] MEDS: APIXABAN 5 MG TAB PO SCH (01:21)
[2024-11-14] MEDS: GABAPENTIN 400 MG CAP PO SCH (01:21)
[2024-11-14] MEDS: BACLOFEN 10 MG TAB PO SCH (01:22)
[2024-11-14] MEDS: FAMOTIDINE 20 MG TAB PO SCH (01:22)
[2024-11-14] MEDS: DOCUSATE SOD 100 MG CAP PO SCH (01:23)
[2024-11-14] MEDS: PIPERACILLIN-TAZOB 3.375GM 100 ML IV SCH ×2 (02:09→11:31)
[2024-11-14 07:22] LABS: Hemoglobin 14.4 g/dL (13.5-17.5); Mean Corpuscular Hemoglobin 32.2 pg (28.0-32.0); Mean Corpuscular Hgb Conc. 32.8 g/dL (32.0-36.0); Mean Corpuscular Volume 98.1 fL (80.0-100.0); Platelet Count (auto) 284 10^3/uL (140-450); Red Blood Cells 4.48 10^6/uL (4.5-5.90); White Blood Cell 9.1 10^3/uL (4.4-10.8)
[2024-11-14 07:29] LABS: Basophils % (manual) 0 (0.0-2.0); Blast Cells 0; Myelocytes % 0; Promyelocytes % 0; Reactive Lymphocytes 0
[2024-11-14 07:34] LABS: Albumin 4.1 g/dL (3.2-4.8); Alkaline Phosphatase 70 U/L (46-116); Anion Gap 9 (5-15); BUN/Creatinine Ratio 31.1 (10.0-20.0); Calcium 9.3 mg/dL (8.7-10.4); Carbon Dioxide 24 mmol/L (20-31); Sodium 141 mmol/L (136-145); Total Protein 6.3 g/dL (5.7-8.2)
[2024-11-14 07:35] LABS: Alanine Aminotransferase 25 U/L (7-40); Aspartate Aminotransferase 42 U/L (13-40); Bilirubin, Total 0.2 mg/dL (0.2-1.0); Blood Urea Nitrogen 23 mg/dL (9-23); Chloride 108 mmol/L (98-107); Glucose 111 mg/dL (74-106); Potassium 4.8 mmol/L (3.5-5.1)
[2024-11-14] MEDS: CREON 36000 UNIT PO SCH (08:00)
[2024-11-14 08:37] LABS: Band Neutrophils % (manual) 9; Eosinophils % (manual) 2 (0-7); Lymphocytes % (manual) 12 (10.0-50.0); Metamyelocytes % 2; Monocytes % (manual) 13 (0-12); Platelet Estimate Adequate
[2024-11-14] MEDS: DULoxetine HCL 30 MG CAP PO SCH (09:34)
[2024-11-14] MEDS: POTASSIUM CHL 10 Meq TABLET PO SCH (09:35)
[2024-11-14] MEDS: amLODIPine BESYLATE 5 MG TAB PO SCH (09:36)
[2024-11-14] MEDS: CHOLECALCIFEROL (VITD3) 1,000UNIT=25mCg TAB PO SCH (09:37)
[2024-11-14] MEDS: CYANOCOBALAMIN 500 MCG TAB PO SCH (09:37)
--- NOTE | 2024-11-14 13:46 | DVHPN2 ---
Reviewed: Care Plan, H&P, Labs, Medications, Previous Orders, Radiology Changes from previous H/P or p: No Changes Skin: Other (Facial swelling) Objective Vitals Vital Signs Date Time Temp Pulse Resp B/P (MAP) Pulse Ox O2 Delivery O2 Flow Rate FiO2 11/14/24 13:00 97.5 71 16 118/77 (91) 90 97.5 11/14/24 10:01 Nasal Cannula 3.0 11/14/24 10:01 32 Intake/Output Intake and Output 11/14/24 07:00 Intake Total 650 ml Output Total 900 ml Balance -250 ml Intake Oral 500 ml IV Total 150 ml Output Urine Total 900 ml Medications Current Medications Medications Dose Ordered Sig/Simon Route Start Time Stop Time Status Last Admin Dose Admin Diagnostic Test (Pha) 1 strip ACHS 11/13/24 17:00 11/14/24 12:07 1 STRIP Insulin Human Regular ACHS SC 11/13/24 17:00 Dextrose 50 ml UD PRN IV 11/13/24 16:45 Acetaminophen/ Hydrocodone Bitart 1 tab Q4HP PRN PO 11/13/24 16:45 Ondansetron HCl 4 mg Q4HP PRN IV 11/13/24 16:45 Acetaminophen 650 mg Q6HP PRN PO 11/13/24 16:45 Amlodipine Besylate 2.5 mg DAILY PO 11/14/24 10:00 11/14/24 09:36 2.5 MG Apixaban 5 mg BID PO 11/13/24 22:00 11/14/24 09:36 5 MG Baclofen 10 mg Q8HP PO 11/13/24 22:00 11/14/24 07:01 10 MG Docusate Sodium 100 mg BID PO 11/13/24 22:00 11/14/24 09:36 100 MG Famotidine 20 mg HS PO 11/13/24 22:00 11/14/24 01:22 20 MG Gabapentin 400 mg TID PO 11/13/24 22:00 11/14/24 07:01 400 MG Metoprolol Tartrate 25 mg BID PO 11/13/24 22:00 11/14/24 09:36 25 MG Cholecalciferol 1,000 unit DAILY PO 11/14/24 10:00 11/14/24 09:37 1,000 UNIT Cyanocobalamin 1,000 mcg DAILY PO 11/14/24 10:00 11/14/24 09:37 1,000 MCG Duloxetine HCl 30 mg DAILY PO 11/14/24 10:00 11/14/24 09:34 30 MG Patient Own Medication 36,000 unt TIDWM PO 11/13/24 18:00 Potassium Chloride 10 meq DAILY PO 11/14/24 10:00 11/14/24 09:35 10 MEQ Pravastatin Sodium 20 mg HS PO 11/13/24 22:00 11/14/24 01:20 20 MG Budesonide 0.5 mg BID NEB 11/13/24 22:00 11/14/24 10:01 0.5 MG Albuterol 2.5 mg Q4HPRN PRN NEB 11/13/24 17:00 Ipratropium [place] 0.5 mg Q4HPRN PRN NEB 11/13/24 17:00 Clindamycin Phosphate 50 ml @ 50 mls/hr Q8HR@0100,0900,1700 IV 11/14/24 09:00 11/14/24 09:29 50 MLS/HR Piperacillin Sod/ Tazobactam Sod 100 ml @ 25 mls/hr Q8HR@0200,1000,1800 IV 11/14/24 10:00 11/14/24 11:31 25 MLS/HR Laboratory Results Laboratory Tests 11/14/24 06:00 Chemistry Test 11/14/24 06:00 Albumin 4.1 g/dL (3.2-4.8) Calcium Level 9.3 mg/dL (8.7-10.4) Total Protein 6.3 g/dL (5.7-8.2) LFT Test 11/14/24 06:00 Alanine Aminotransferase (ALT) 25 U/L (7-40) Alkaline Phosphatase 70 U/L (46-116) Aspartate Amino Transferase (AST) 42 U/L (13-40) H Total Bilirubin 0.2 mg/dL (0.2-1.0) Urinalysis Test 11/13/24 17:52 Urine Color Light-brown (Yellow) Urine Clarity Ex.turbid (Clear) Urine pH 7.5 (5.0-9.0) Urine Specific [place] 1.016 (1.001-1.035) Urine Protein 1+ (Negative) H Urine Ketones Negative (Negative) Urine Blood 2+ /uL (Negative) H Urine Nitrite 2+ (Negative) H Urine Bilirubin Negative (Negative) Urine Urobilinogen Normal mg/dL (Negative) Urine Leukocyte Esterase 3+ /uL (Negative) Urine RBC 30 /hpf (0 - 3) Urine WBC Clumps Present /hpf (None Seen) Urine Microscopic WBC 207 /HPF (0-3) H Urine Squamous Epithelial Cells None seen /hpf (<5) Urine Calcium Oxalate Crystals Mod (None Seen) Urine Bacteria Few /hpf (None Seen) H Urine Mucus Few (None Seen) Urine Glucose Normal mg/dL (Normal) Microbiology Microbiology Date/Time Source Procedure Growth Status 11/14/24 00:00 Nose MRSA Screen - Final Complete 11/13/24 17:52 Urine - [place] Urine Culture - Preliminary Resulted Labs and/or images reviewed: Labs reviewed by me, Image(s) reviewed by me Assessment/Plan Assessment/Plan Sepsis secondary to community-acquired pneumonia Bilateral community-acquired pneumonia Uncontrolled diabetes type 2 Hypertension Hypercholesterolemia Asthma Bladder cancer status post right urostomy GERD History of left lower extremity DVT History of IVC filter History of left neck cellulitis 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
[2024-11-15] VITALS (9 sets, daily range): BP systolic 100–124; BP diastolic 60–70; PULSE 73–90; RESP 15–18; TEMP 98–98.6; O2SAT 93–100
--- NOTE | 2024-11-15 09:23 | DVHPN2 ---
Reviewed: Care Plan, H&P, Labs, Medications, Previous Orders, Radiology Changes from previous H/P or p: No Changes Skin: Other Objective Vitals Vital Signs Date Time Temp Pulse Resp B/P (MAP) Pulse Ox O2 Delivery O2 Flow Rate FiO2 11/15/24 09:00 98.0 73 15 113/60 (77) 98 98.0 11/15/24 07:35 Nasal Cannula* 2 28 Intake/Output Intake and Output 11/15/24 07:00 Intake Total 1650 ml Output Total 1700 ml Balance -50 ml Intake Oral 1200 ml IV Total 450 ml Output Urine Total 1700 ml Medications Current Medications Medications Dose Ordered Sig/Simon Route Start Time Stop Time Status Last Admin Dose Admin Diagnostic Test (Pha) 1 strip ACHS 11/13/24 17:00 11/15/24 06:03 1 STRIP Insulin Human Regular ACHS SC 11/13/24 17:00 Dextrose 50 ml UD PRN IV 11/13/24 16:45 Acetaminophen/ Hydrocodone Bitart 1 tab Q4HP PRN PO 11/13/24 16:45 Ondansetron HCl 4 mg Q4HP PRN IV 11/13/24 16:45 Acetaminophen 650 mg Q6HP PRN PO 11/13/24 16:45 Amlodipine Besylate 2.5 mg DAILY PO 11/14/24 10:00 11/14/24 09:36 2.5 MG Apixaban 5 mg BID PO 11/13/24 22:00 11/14/24 22:07 5 MG Baclofen 10 mg Q8HP PO 11/13/24 22:00 11/15/24 05:49 10 MG Docusate Sodium 100 mg BID PO 11/13/24 22:00 11/14/24 22:07 100 MG Famotidine 20 mg HS PO 11/13/24 22:00 11/14/24 22:07 20 MG Gabapentin 400 mg TID PO 11/13/24 22:00 11/15/24 05:49 400 MG Metoprolol Tartrate 25 mg BID PO 11/13/24 22:00 11/14/24 22:09 25 MG Cholecalciferol 1,000 unit DAILY PO 11/14/24 10:00 11/14/24 09:37 1,000 UNIT Cyanocobalamin 1,000 mcg DAILY PO 11/14/24 10:00 11/14/24 09:37 1,000 MCG Duloxetine HCl 30 mg DAILY PO 11/14/24 10:00 11/14/24 09:34 30 MG Patient Own Medication 36,000 unt TIDWM PO 11/13/24 18:00 Potassium Chloride 10 meq DAILY PO 11/14/24 10:00 11/14/24 09:35 10 MEQ Pravastatin Sodium 20 mg HS PO 11/13/24 22:00 11/14/24 22:07 20 MG Budesonide 0.5 mg BID NEB 11/13/24 22:00 11/15/24 07:35 0.5 MG Albuterol 2.5 mg Q4HPRN PRN NEB 11/13/24 17:00 Ipratropium [place] 0.5 mg Q4HPRN PRN NEB 11/13/24 17:00 Clindamycin Phosphate 50 ml @ 50 mls/hr Q8HR@0100,0900,1700 IV 11/14/24 09:00 11/15/24 00:14 50 MLS/HR Piperacillin Sod/ Tazobactam Sod 100 ml @ 25 mls/hr Q8HR@0200,1000,1800 IV 11/14/24 10:00 11/15/24 01:40 25 MLS/HR Laboratory Results Laboratory Tests 11/14/24 06:00 Urinalysis Test 11/13/24 17:52 Urine Color Light-brown (Yellow) Urine Clarity Ex.turbid (Clear) Urine pH 7.5 (5.0-9.0) Urine Specific [place] 1.016 (1.001-1.035) Urine Protein 1+ (Negative) H Urine Ketones Negative (Negative) Urine Blood 2+ /uL (Negative) H Urine Nitrite 2+ (Negative) H Urine Bilirubin Negative (Negative) Urine Urobilinogen Normal mg/dL (Negative) Urine Leukocyte Esterase 3+ /uL (Negative) Urine RBC 30 /hpf (0 - 3) Urine WBC Clumps Present /hpf (None Seen) Urine Microscopic WBC 207 /HPF (0-3) H Urine Squamous Epithelial Cells None seen /hpf (<5) Urine Calcium Oxalate Crystals Mod (None Seen) Urine Bacteria Few /hpf (None Seen) H Urine Mucus Few (None Seen) Urine Glucose Normal mg/dL (Normal) Microbiology Microbiology Date/Time Source Procedure Growth Status 11/14/24 00:00 Nose MRSA Screen - Final Complete 11/13/24 17:52 Urine - [place] Urine Culture - Preliminary Resulted Labs and/or images reviewed: Labs reviewed by me, Image(s) reviewed by me Assessment/Plan Assessment/Plan Sepsis secondary to community-acquired pneumonia: zosyn Bilateral community-acquired pneumonia Uncontrolled diabetes type 2 Hypertension Hypercholesterolemia Asthma History of Bladder cancer status post cystectomy, prostatectomy, status post right urostomy GERD History of left lower extremity DVT History of IVC filter History of left neck cellulitis 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
[2024-11-16] VITALS (9 sets, daily range): BP systolic 105–126; BP diastolic 59–74; PULSE 68–98; RESP 12–20; TEMP 98–98.3; O2SAT 94–100
[2024-11-16] MEDS: PIPERACILLIN-TAZOB 3.375GM 100 ML IV SCH (03:49)
[2024-11-16] MEDS: ALBUTEROL SULF 2.5 MG/0.5ML(0.5%) NEB SOLN NEB PRN (06:55)
[2024-11-16] MEDS: IPRATROPIUM BROM 0.5 MG/2.5ML INH SOL NEB PRN (06:55)
--- NOTE | 2024-11-16 10:42 | DVHPN2 ---
Reviewed: Care Plan, H&P, Labs, Medications, Previous Orders, Radiology Changes from previous H/P or p: No Changes Skin: Other Objective Vitals Vital Signs Date Time Temp Pulse Resp B/P (MAP) Pulse Ox O2 Delivery O2 Flow Rate FiO2 11/16/24 10:32 117/62 11/16/24 10:31 72 11/16/24 09:00 98.0 20 96 98.0 11/16/24 06:55 Nasal Cannula 2.0 11/16/24 06:55 28 Intake/Output Intake and Output 11/16/24 07:00 Intake Total 1780 ml Output Total 1260 ml Balance 520 ml Intake Oral 1330 ml IV Total 450 ml Output Urine Total 1260 ml Medications Current Medications Medications Dose Ordered Sig/Simon Route Start Time Stop Time Status Last Admin Dose Admin Diagnostic Test (Pha) 1 strip ACHS 11/13/24 17:00 11/16/24 10:28 1 STRIP Insulin Human Regular ACHS SC 11/13/24 17:00 Dextrose 50 ml UD PRN IV 11/13/24 16:45 Acetaminophen/ Hydrocodone Bitart 1 tab Q4HP PRN PO 11/13/24 16:45 Ondansetron HCl 4 mg Q4HP PRN IV 11/13/24 16:45 Acetaminophen 650 mg Q6HP PRN PO 11/13/24 16:45 Amlodipine Besylate 2.5 mg DAILY PO 11/14/24 10:00 11/16/24 10:32 2.5 MG Apixaban 5 mg BID PO 11/13/24 22:00 11/16/24 10:26 5 MG Baclofen 10 mg Q8HP PO 11/13/24 22:00 11/16/24 05:43 10 MG Docusate Sodium 100 mg BID PO 11/13/24 22:00 11/16/24 10:23 100 MG Famotidine 20 mg HS PO 11/13/24 22:00 11/15/24 22:05 20 MG Gabapentin 400 mg TID PO 11/13/24 22:00 11/16/24 05:43 400 MG Metoprolol Tartrate 25 mg BID PO 11/13/24 22:00 11/16/24 10:31 25 MG Cholecalciferol 1,000 unit DAILY PO 11/14/24 10:00 11/16/24 10:27 1,000 UNIT Cyanocobalamin 1,000 mcg DAILY PO 11/14/24 10:00 11/16/24 10:27 1,000 MCG Duloxetine HCl 30 mg DAILY PO 11/14/24 10:00 11/16/24 10:24 30 MG Patient Own Medication 36,000 unt TIDWM PO 11/13/24 18:00 11/16/24 09:00 36,000 UNT Potassium Chloride 10 meq DAILY PO 11/14/24 10:00 11/16/24 10:26 10 MEQ Pravastatin Sodium 20 mg HS PO 11/13/24 22:00 11/15/24 22:05 20 MG Budesonide 0.5 mg BID NEB 11/13/24 22:00 11/16/24 06:55 0.5 MG Albuterol 2.5 mg Q4HPRN PRN NEB 11/13/24 17:00 11/16/24 06:55 2.5 MG Ipratropium [place] 0.5 mg Q4HPRN PRN NEB 11/13/24 17:00 11/16/24 06:55 0.5 MG Clindamycin Phosphate 50 ml @ 50 mls/hr Q8HR@0100,0900,1700 IV 11/14/24 09:00 11/16/24 09:17 50 MLS/HR Piperacillin Sod/ Tazobactam Sod 100 ml @ 25 mls/hr Q8HR@0400,1200,2000 IV 11/16/24 04:00 11/16/24 03:49 25 MLS/HR Laboratory Results Laboratory Tests 11/14/24 06:00 Urinalysis Test 11/13/24 17:52 Urine Color Light-brown (Yellow) Urine Clarity Ex.turbid (Clear) Urine pH 7.5 (5.0-9.0) Urine Specific [place] 1.016 (1.001-1.035) Urine Protein 1+ (Negative) H Urine Ketones Negative (Negative) Urine Blood 2+ /uL (Negative) H Urine Nitrite 2+ (Negative) H Urine Bilirubin Negative (Negative) Urine Urobilinogen Normal mg/dL (Negative) Urine Leukocyte Esterase 3+ /uL (Negative) Urine RBC 30 /hpf (0 - 3) Urine WBC Clumps Present /hpf (None Seen) Urine Microscopic WBC 207 /HPF (0-3) H Urine Squamous Epithelial Cells None seen /hpf (<5) Urine Calcium Oxalate Crystals Mod (None Seen) Urine Bacteria Few /hpf (None Seen) H Urine Mucus Few (None Seen) Urine Glucose Normal mg/dL (Normal) Microbiology Microbiology Date/Time Source Procedure Growth Status 11/14/24 00:00 Nose MRSA Screen - Final Complete 11/13/24 17:52 Urine - [place] Urine Culture - Preliminary Resulted Labs and/or images reviewed: Labs reviewed by me, Image(s) reviewed by me Assessment/Plan Assessment/Plan Sepsis secondary to community-acquired pneumonia: zosyn Bilateral community-acquired pneumonia Uncontrolled diabetes type 2 Hypertension Hypercholesterolemia Asthma History of Bladder cancer status post cystectomy, prostatectomy, and right urostomy GERD History of left lower extremity DVT History of IVC filter History of left neck cellulitis 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
[2024-11-17] VITALS (14 sets, daily range): BP systolic 104–135; BP diastolic 62–82; PULSE 68–98; RESP 16–21; TEMP 97.4–98.3; O2SAT 90–100
--- NOTE | 2024-11-17 10:26 | DVHPN2 ---
Reviewed: Care Plan, H&P, Labs, Medications, Previous Orders, Radiology Changes from previous H/P or p: No Changes Skin: Other Objective Vitals Vital Signs Date Time Temp Pulse Resp B/P (MAP) Pulse Ox O2 Delivery O2 Flow Rate FiO2 11/17/24 09:06 134/62 11/17/24 09:05 86 11/17/24 08:42 97.6 18 90 97.6 11/16/24 20:27 Nasal Cannula 2.0 11/16/24 20:27 28 Intake/Output Intake and Output 11/17/24 07:00 Intake Total 2105 ml Output Total 2100 ml Balance 5 ml Intake Oral 1855 ml IV Total 250 ml Output Urine Total 2100 ml Medications Current Medications Medications Dose Ordered Sig/Simon Route Start Time Stop Time Status Last Admin Dose Admin Diagnostic Test (Pha) 1 strip ACHS 11/13/24 17:00 11/17/24 06:20 1 STRIP Insulin Human Regular ACHS SC 11/13/24 17:00 Dextrose 50 ml UD PRN IV 11/13/24 16:45 Acetaminophen/ Hydrocodone Bitart 1 tab Q4HP PRN PO 11/13/24 16:45 Ondansetron HCl 4 mg Q4HP PRN IV 11/13/24 16:45 Acetaminophen 650 mg Q6HP PRN PO 11/13/24 16:45 Amlodipine Besylate 2.5 mg DAILY PO 11/14/24 10:00 11/17/24 09:06 2.5 MG Apixaban 5 mg BID PO 11/13/24 22:00 11/17/24 09:06 5 MG Baclofen 10 mg Q8HP PO 11/13/24 22:00 11/17/24 06:20 10 MG Docusate Sodium 100 mg BID PO 11/13/24 22:00 11/17/24 09:04 100 MG Famotidine 20 mg HS PO 11/13/24 22:00 11/16/24 21:52 20 MG Gabapentin 400 mg TID PO 11/13/24 22:00 11/17/24 06:20 400 MG Metoprolol Tartrate 25 mg BID PO 11/13/24 22:00 11/17/24 09:05 25 MG Cholecalciferol 1,000 unit DAILY PO 11/14/24 10:00 11/17/24 09:05 1,000 UNIT Cyanocobalamin 1,000 mcg DAILY PO 11/14/24 10:00 11/17/24 09:04 1,000 MCG Duloxetine HCl 30 mg DAILY PO 11/14/24 10:00 11/17/24 09:03 30 MG Patient Own Medication 36,000 unt TIDWM PO 11/13/24 18:00 11/17/24 09:00 36,000 UNT Potassium Chloride 10 meq DAILY PO 11/14/24 10:00 11/17/24 09:03 10 MEQ Pravastatin Sodium 20 mg HS PO 11/13/24 22:00 11/16/24 21:52 20 MG Budesonide 0.5 mg BID NEB 11/13/24 22:00 11/16/24 20:26 0.5 MG Albuterol 2.5 mg Q4HPRN PRN NEB 11/13/24 17:00 11/16/24 20:27 2.5 MG Ipratropium [place] 0.5 mg Q4HPRN PRN NEB 11/13/24 17:00 11/16/24 20:27 0.5 MG Clindamycin Phosphate 50 ml @ 50 mls/hr Q8HR@0100,0900,1700 IV 11/14/24 09:00 11/17/24 09:06 50 MLS/HR Piperacillin Sod/ Tazobactam Sod 100 ml @ 25 mls/hr Q8HR@0400,1200,2000 IV 11/16/24 04:00 11/17/24 04:08 25 MLS/HR Laboratory Results Laboratory Tests 11/14/24 06:00 Urinalysis Test 11/13/24 17:52 Urine Color Light-brown (Yellow) Urine Clarity Ex.turbid (Clear) Urine pH 7.5 (5.0-9.0) Urine Specific [place] 1.016 (1.001-1.035) Urine Protein 1+ (Negative) H Urine Ketones Negative (Negative) Urine Blood 2+ /uL (Negative) H Urine Nitrite 2+ (Negative) H Urine Bilirubin Negative (Negative) Urine Urobilinogen Normal mg/dL (Negative) Urine Leukocyte Esterase 3+ /uL (Negative) Urine RBC 30 /hpf (0 - 3) Urine WBC Clumps Present /hpf (None Seen) Urine Microscopic WBC 207 /HPF (0-3) H Urine Squamous Epithelial Cells None seen /hpf (<5) Urine Calcium Oxalate Crystals Mod (None Seen) Urine Bacteria Few /hpf (None Seen) H Urine Mucus Few (None Seen) Urine Glucose Normal mg/dL (Normal) Microbiology Microbiology Date/Time Source Procedure Growth Status 11/14/24 00:00 Nose MRSA Screen - Final Complete 11/13/24 17:52 Urine - [place] Urine Culture - Final Citrobacter youngae Pseudomonas aeruginosa Complete Labs and/or images reviewed: Labs reviewed by me, Image(s) reviewed by me Assessment/Plan Assessment/Plan Sepsis secondary to community-acquired pneumonia: zosyn Bilateral community-acquired pneumonia Complicated UTI with Citrobacter and Pseudomonas: Start Levaquin 500 mg IV daily for two weeks, DC clindamycin Uncontrolled diabetes type 2 Hypertension Hypercholesterolemia Asthma History of Bladder cancer status post cystectomy, prostatectomy, and right urostomy GERD History of left lower extremity DVT History of IVC filter History of left neck cellulitis 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
--- NOTE | 2024-11-17 10:38 | DVHDS2 ---
Discharge Summary Date of Admission Nov 13, 2024 at 16:32 Date of Discharge: Nov 17, 2024 Admitting Diagnosis Generalized weakness Wounds: None Labs/Diagnostic Data: Laboratory Results Test 11/17/24 05:35 11/14/24 13:00 11/14/24 06:00 11/13/24 17:52 POC Glucose 110 mg/dl (70-106) White Blood Count 9.1 10^3/uL (4.4-10.8) Red Blood Count 4.48 10^6/uL (4.5-5.90) Hemoglobin 14.4 g/dL (13.5-17.5) Hematocrit 44.0 % (41.0-53.0) Mean Corpuscular Volume 98.1 fL (80.0-100.0) Mean Corpuscular Hemoglobin 32.2 pg (28.0-32.0) Mean Corpuscular Hemoglobin Concent 32.8 g/dL (32.0-36.0) Red Cell Distribution Width 17.0 % (11.8-14.3) Platelet Count 284 10^3/uL (140-450) Mean Platelet Volume 6.8 fL (6.9-10.8) Neutrophils (%) (Auto) % (37.0-80.0) Lymphocytes (%) (Auto) % (10.0-50.0) Monocytes (%) (Auto) % (0.0-12.0) Basophils (%) (Auto) % (0.0-2.0) Neutrophils # (Auto) 10 ^3/uL (1.6-8.6) Lymphocytes # (Auto) 10 ^3/uL (0.4-5.4) Monocytes # (Auto) 10 ^3/uL (0-1.3) Differential Total Cells Counted 100.0 (100) Neutrophils % (Manual) 62 (37.0-80.0) Band Neutrophils % (Manual) 9 Lymphocytes % (Manual) 12 (10.0-50.0) Monocytes % (Manual) 13 (0-12) Eosinophils % (Manual) 2 (0-7) Basophils % (Manual) 0 (0.0-2.0) Metamyelocytes % (manual) 2 Myelocytes % (Manual) 0 Promyelocytes % (Manual) 0 Blast Cells % (Manual) 0 Reactive Lymphocytes 0 Platelet Estimate Adequate Sodium Level 141 mmol/L (136-145) Potassium Level 4.8 mmol/L (3.5-5.1) Chloride Level 108 mmol/L (98-107) Carbon Dioxide Level 24 mmol/L (20-31) Anion Gap 9 (5-15) Blood Urea Nitrogen 23 mg/dL (9-23) Creatinine 0.74 mg/dL (0.700-1.30) Glomerular Filtration Rate Calc 100 mL/min (>90) BUN/Creatinine Ratio 31.1 (10.0-20.0) Serum Glucose 111 mg/dL (74-106) Calcium Level 9.3 mg/dL (8.7-10.4) Total Bilirubin 0.2 mg/dL (0.2-1.0) Aspartate Amino Transferase (AST) 42 U/L (13-40) Alanine Aminotransferase (ALT) 25 U/L (7-40) Alkaline Phosphatase 70 U/L (46-116) Total Protein 6.3 g/dL (5.7-8.2) Albumin 4.1 g/dL (3.2-4.8) Urine Color Light-brown (Yellow) Urine Clarity Ex.turbid (Clear) Urine pH 7.5 (5.0-9.0) Urine Specific [place] 1.016 (1.001-1.035) Urine Protein 1+ (Negative) Urine Ketones Negative (Negative) Urine Blood 2+ /uL (Negative) Urine Nitrite 2+ (Negative) Urine Bilirubin Negative (Negative) Urine Urobilinogen Normal mg/dL (Negative) Urine Leukocyte Esterase 3+ /uL (Negative) Urine RBC 30 /hpf (0 - 3) Urine WBC Clumps Present /hpf (None Seen) Urine Microscopic WBC 207 /HPF (0-3) Urine Squamous Epithelial Cells None seen /hpf (<5) Urine Calcium Oxalate Crystals Mod (None Seen) Urine Bacteria Few /hpf (None Seen) Urine Mucus Few (None Seen) Urine Glucose Normal mg/dL (Normal) Test 11/13/24 11:13 Troponin I High Sensitivity 3 ng/L (</=54) Other Laboratory Tests 11/14/24 06:00 Brief Hx & Hospital Course: 84-year-old male with a history of bladder cancer status post cystectomy prostatectomy and right urostomy left lower extremity DVT status post IVC filter previous history of left neck cellulitis [place] syndrome diagnosed at [facility] four years ago bed-bound history of diabetes hypertension hypercholesterolemia asthma came in for generalized weakness and shortness of breaths found to have community-acquired pneumonia treated with the Zosyn. Also had urinary tract infection treated with a clindamycin. Urine cultures came positive for Citrobacter and Pseudomonas and antibiotic changed to Levaquin 500 mg IV daily which he will receive they agreed for for two weeks. The patient will receive Zosyn 3.375 g IV q.8 hours for pneumonia and Levaquin 500 mg IV daily for two weeks discussed with the patient's sister Amy and [id number] Chad and they agreed for the patient to go to [facility] facility for IV antibiotics. 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 Consults/Reason for consult None Operations or Procedures CT neck Condition at Discharge: Fair Final Diagnosis/Problems List Sepsis secondary to community-acquired pneumonia: zosyn Bilateral community-acquired pneumonia Complicated UTI with Citrobacter and Pseudomonas: Start Levaquin 500 mg IV daily for two weeks, DC clindamycin Uncontrolled diabetes type 2 Hypertension Hypercholesterolemia Asthma History of Bladder cancer status post cystectomy, prostatectomy, and right urostomy GERD History of left lower extremity DVT History of IVC filter History of left neck cellulitis History of [place] syndrome diagnosed at [facility] four years ago Discharge Disposition: [facility] Discharge Instruct/Medications Diet: Cardiac 2g Na,low cholest Activity: Light activity Follow Up/Referral: Follow up with the retirement Medications: Zosyn 3.375 g IV q.8 hours for two weeks for pneumonia Levaquin 500 mg IV daily for two weeks for complicated UTI 39 (Time taken for discharge summary 39 minutes) Discharge Statement: "Patient was advised to return to the ER or call 911 if any headaches, dizziness, shortness of breath, chest pain, abdominal pain, bleeding, fevers, or worsening of medical condition. Patient was counseled about treatment plan, medications, possible side effects, patientverbalized understanding. All questions were answered to the best of my ability. This discharge took greater then 30 minutes in planning, reviewing documentation, counseling the patient, and discussing with other team members." ASSESSMENT ASSESSMENT Hospital Course Improved Assessment Sepsis secondary to community-acquired pneumonia: zosyn Bilateral community-acquired pneumonia Complicated UTI with Citrobacter and Pseudomonas: Start Levaquin 500 mg IV daily for two weeks, DC clindamycin Uncontrolled diabetes type 2 Hypertension Hypercholesterolemia Asthma History of Bladder cancer status post cystectomy, prostatectomy, and right urostomy GERD History of left lower extremity DVT History of IVC filter History of left neck cellulitis History of T[place]a [place] syndrome diagnosed at [facility] four years ago Date of Service: Nov 17, 2024 Billing Provider: CONI SAVAGE MD Common Visit Codes: [id number] DISCH DAY >30min CONI SAVAGE MD Nov 17, 2024 10:38
[2024-11-17 10:41] LABS: Hepatitis B Surface Antigen Negative (Negative)
[2024-11-17 10:42] LABS: Hepatitis C Antibody Negative (Negative)
[2024-11-17] MEDS: levoFLOXacin 500MG 100 ML IV ONE (12:07)
[2024-11-18] VITALS (11 sets, daily range): BP systolic 107–138; BP diastolic 60–85; PULSE 66–97; RESP 17–18; TEMP 97.4–98.2; O2SAT 92–96
[2024-11-18] MEDS: levoFLOXacin 500MG 100 ML IV SCH (11:08)
--- NOTE | 2024-11-18 11:11 | DVHPN2 ---
Reviewed: Care Plan, H&P, Labs, Medications, Previous Orders, Radiology Changes from previous H/P or p: No Changes Skin: Other Objective Vitals Vital Signs Date Time Temp Pulse Resp B/P (MAP) Pulse Ox O2 Delivery O2 Flow Rate FiO2 11/18/24 10:00 96 Room Air 0.0 11/18/24 10:00 21 11/18/24 09:00 97.4 97 17 121/72 (88) 97.4 Intake/Output Intake and Output 11/18/24 07:00 Intake Total 1500 ml Output Total 2200 ml Balance -700 ml Intake Oral 1050 ml IV Total 450 ml Output Urine Total 2200 ml Medications Current Medications Medications Dose Ordered Sig/Simon Route Start Time Stop Time Status Last Admin Dose Admin Diagnostic Test (Pha) 1 strip ACHS 11/13/24 17:00 11/18/24 06:43 1 STRIP Insulin Human Regular ACHS SC 11/13/24 17:00 Dextrose 50 ml UD PRN IV 11/13/24 16:45 Acetaminophen/ Hydrocodone Bitart 1 tab Q4HP PRN PO 11/13/24 16:45 Ondansetron HCl 4 mg Q4HP PRN IV 11/13/24 16:45 Acetaminophen 650 mg Q6HP PRN PO 11/13/24 16:45 Amlodipine Besylate 2.5 mg DAILY PO 11/14/24 10:00 11/17/24 09:06 2.5 MG Apixaban 5 mg BID PO 11/13/24 22:00 11/17/24 21:30 5 MG Baclofen 10 mg Q8HP PO 11/13/24 22:00 11/18/24 05:54 10 MG Docusate Sodium 100 mg BID PO 11/13/24 22:00 11/17/24 21:28 100 MG Famotidine 20 mg HS PO 11/13/24 22:00 11/17/24 21:32 20 MG Gabapentin 400 mg TID PO 11/13/24 22:00 11/18/24 05:54 400 MG Metoprolol Tartrate 25 mg BID PO 11/13/24 22:00 11/17/24 21:29 25 MG Cholecalciferol 1,000 unit DAILY PO 11/14/24 10:00 11/17/24 09:05 1,000 UNIT Cyanocobalamin 1,000 mcg DAILY PO 11/14/24 10:00 11/17/24 09:04 1,000 MCG Duloxetine HCl 30 mg DAILY PO 11/14/24 10:00 11/17/24 09:03 30 MG Patient Own Medication 36,000 unt TIDWM PO 11/13/24 18:00 11/18/24 08:12 36,000 UNT Potassium Chloride 10 meq DAILY PO 11/14/24 10:00 11/17/24 09:03 10 MEQ Pravastatin Sodium 20 mg HS PO 11/13/24 22:00 11/17/24 21:52 20 MG Budesonide 0.5 mg BID NEB 11/13/24 22:00 11/17/24 18:50 0.5 MG Albuterol 2.5 mg Q4HPRN PRN NEB 11/13/24 17:00 11/16/24 20:27 2.5 MG Ipratropium [place] 0.5 mg Q4HPRN PRN NEB 11/13/24 17:00 11/16/24 20:27 0.5 MG Piperacillin Sod/ Tazobactam Sod 100 ml @ 25 mls/hr Q8HR@0400,1200,2000 IV 11/16/24 04:00 11/17/24 21:27 25 MLS/HR Levofloxacin/ Dextrose 100 ml @ 100 mls/hr DAILY IV 11/18/24 10:00 Laboratory Results Laboratory Tests 11/14/24 06:00 Urinalysis Test 11/13/24 17:52 Urine Color Light-brown (Yellow) Urine Clarity Ex.turbid (Clear) Urine pH 7.5 (5.0-9.0) Urine Specific [place] 1.016 (1.001-1.035) Urine Protein 1+ (Negative) H Urine Ketones Negative (Negative) Urine Blood 2+ /uL (Negative) H Urine Nitrite 2+ (Negative) H Urine Bilirubin Negative (Negative) Urine Urobilinogen Normal mg/dL (Negative) Urine Leukocyte Esterase 3+ /uL (Negative) Urine RBC 30 /hpf (0 - 3) Urine WBC Clumps Present /hpf (None Seen) Urine Microscopic WBC 207 /HPF (0-3) H Urine Squamous Epithelial Cells None seen /hpf (<5) Urine Calcium Oxalate Crystals Mod (None Seen) Urine Bacteria Few /hpf (None Seen) H Urine Mucus Few (None Seen) Urine Glucose Normal mg/dL (Normal) Microbiology Microbiology Date/Time Source Procedure Growth Status 11/16/24 13:09 Blood Blood Culture - Preliminary NO GROWTH AFTER 24 HOURS OF INCUBATION. Resulted 11/14/24 00:00 Nose MRSA Screen - Final Complete 11/13/24 17:52 Urine - [place] Urine Culture - Final Citrobacter youngae Pseudomonas aeruginosa Complete Labs and/or images reviewed: Labs reviewed by me, Image(s) reviewed by me Assessment/Plan Assessment/Plan Sepsis secondary to community-acquired pneumonia: zosyn Bilateral community-acquired pneumonia Complicated UTI with Citrobacter and Pseudomonas: Start Levaquin 500 mg IV daily for two weeks, DC clindamycin Uncontrolled diabetes type 2 Hypertension Hypercholesterolemia Asthma History of Bladder cancer status post cystectomy, prostatectomy, and right urostomy GERD History of left lower extremity DVT History of IVC filter History of left neck cellulitis 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
[2024-11-19] VITALS (12 sets, daily range): BP systolic 103–143; BP diastolic 63–88; PULSE 66–112; RESP 16–20; TEMP 97.4–98; O2SAT 91–99
--- NOTE | 2024-11-19 11:26 | DVHPN2 ---
Reviewed: Care Plan, H&P, Labs, Medications, Previous Orders, Radiology Changes from previous H/P or p: No Changes Skin: Other Objective Vitals Vital Signs Date Time Temp Pulse Resp B/P (MAP) Pulse Ox O2 Delivery O2 Flow Rate FiO2 11/19/24 10:36 82 16 99 11/19/24 10:33 Room Air 11/19/24 10:33 0 N/A 11/19/24 09:28 143/81 11/19/24 09:00 97.4 97.4 Intake/Output Intake and Output 11/19/24 07:00 Intake Total 1850 ml Output Total 2650 ml Balance -800 ml Intake Oral 1650 ml IV Total 200 ml Output Urine Total 2650 ml Medications Current Medications Medications Dose Ordered Sig/Simon Route Start Time Stop Time Status Last Admin Dose Admin Diagnostic Test (Pha) 1 strip ACHS 11/13/24 17:00 11/19/24 06:12 1 STRIP Insulin Human Regular ACHS SC 11/13/24 17:00 Dextrose 50 ml UD PRN IV 11/13/24 16:45 Acetaminophen/ Hydrocodone Bitart 1 tab Q4HP PRN PO 11/13/24 16:45 Ondansetron HCl 4 mg Q4HP PRN IV 11/13/24 16:45 Acetaminophen 650 mg Q6HP PRN PO 11/13/24 16:45 Amlodipine Besylate 2.5 mg DAILY PO 11/14/24 10:00 11/19/24 09:27 2.5 MG Apixaban 5 mg BID PO 11/13/24 22:00 11/19/24 09:27 5 MG Baclofen 10 mg Q8HP PO 11/13/24 22:00 11/19/24 05:38 10 MG Docusate Sodium 100 mg BID PO 11/13/24 22:00 11/19/24 09:26 100 MG Famotidine 20 mg HS PO 11/13/24 22:00 11/18/24 22:02 20 MG Gabapentin 400 mg TID PO 11/13/24 22:00 11/19/24 05:38 400 MG Metoprolol Tartrate 25 mg BID PO 11/13/24 22:00 11/19/24 09:28 25 MG Cholecalciferol 1,000 unit DAILY PO 11/14/24 10:00 11/19/24 09:27 1,000 UNIT Cyanocobalamin 1,000 mcg DAILY PO 11/14/24 10:00 11/19/24 09:27 1,000 MCG Duloxetine HCl 30 mg DAILY PO 11/14/24 10:00 11/19/24 09: 30 MG Patient Own Medication 36,000 unt TIDWM PO 11/13/24 18:00 11/19/24 08:18 36,000 UNT Potassium Chloride 10 meq DAILY PO 11/14/24 10:00 11/19/24 09: 10 MEQ Pravastatin Sodium 20 mg HS PO 11/13/24 22:00 11/18/24 22:02 20 MG Budesonide 0.5 mg BID NEB 11/13/24 22:00 11/19/24 10:25 0.5 MG Albuterol 2.5 mg Q4HPRN PRN NEB 11/13/24 17:00 11/16/24 20:27 2.5 MG Ipratropium [place] 0.5 mg Q4HPRN PRN NEB 11/13/24 17:00 11/16/24 20:27 0.5 MG Piperacillin Sod/ Tazobactam Sod 100 ml @ 25 mls/hr Q8HR@0400,1200,2000 IV 11/16/24 04:00 11/19/24 04:02 25 MLS/HR Levofloxacin/ Dextrose 100 ml @ 100 mls/hr DAILY IV 11/18/24 10:00 11/19/24 09:28 100 MLS/HR Laboratory Results Laboratory Tests 11/14/24 06:00 Urinalysis Test 11/13/24 17:52 Urine Color Light-brown (Yellow) Urine Clarity Ex.turbid (Clear) Urine pH 7.5 (5.0-9.0) Urine Specific [place] 1.016 (1.001-1.035) Urine Protein 1+ (Negative) H Urine Ketones Negative (Negative) Urine Blood 2+ /uL (Negative) H Urine Nitrite 2+ (Negative) H Urine Bilirubin Negative (Negative) Urine Urobilinogen Normal mg/dL (Negative) Urine Leukocyte Esterase 3+ /uL (Negative) Urine RBC 30 /hpf (0 - 3) Urine WBC Clumps Present /hpf (None Seen) Urine Microscopic WBC 207 /HPF (0-3) H Urine Squamous Epithelial Cells None seen /hpf (<5) Urine Calcium Oxalate Crystals Mod (None Seen) Urine Bacteria Few /hpf (None Seen) H Urine Mucus Few (None Seen) Urine Glucose Normal mg/dL (Normal) Microbiology Microbiology Date/Time Source Procedure Growth Status 11/16/24 13:09 Blood Blood Culture - Preliminary NO GROWTH AFTER 48 HOURS OF INCUBATION. Resulted 11/14/24 00:00 Nose MRSA Screen - Final Complete 11/13/24 17:52 Urine - [place] Urine Culture - Final Citrobacter youngae Pseudomonas aeruginosa Complete Labs and/or images reviewed: Labs reviewed by me, Image(s) reviewed by me Assessment/Plan Assessment/Plan Sepsis secondary to community-acquired pneumonia: zosyn Bilateral community-acquired pneumonia Complicated UTI with Citrobacter and Pseudomonas: Start Levaquin 500 mg IV daily for two weeks, DC clindamycin Uncontrolled diabetes type 2 Hypertension Hypercholesterolemia Asthma History of Bladder cancer status post cystectomy, prostatectomy, and right urostomy GERD History of left lower extremity DVT History of IVC filter History of left neck cellulitis 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
[2024-11-20] VITALS (11 sets, daily range): BP systolic 105–130; BP diastolic 66–78; PULSE 68–88; RESP 16–18; TEMP 97.3–97.8; O2SAT 92–100
--- NOTE | 2024-11-20 10:29 | DVHPN2 ---
Reviewed: Care Plan, H&P, Labs, Medications, Previous Orders, Radiology Changes from previous H/P or p: No Changes Skin: Other Objective Vitals Vital Signs Date Time Temp Pulse Resp B/P (MAP) Pulse Ox O2 Delivery O2 Flow Rate FiO2 11/20/24 10:17 71 16 124/66 96 21 11/20/24 08:38 97.3 97.3 11/20/24 06:58 Room Air* 0 Intake/Output Intake and Output 11/20/24 07:00 Intake Total 1625 ml Output Total 1700 ml Balance -75 ml Intake Oral 1525 ml IV Total 100 ml Output Urine Total 1700 ml # Bowel Movements 1 Medications Current Medications Medications Dose Ordered Sig/Simon Route Start Time Stop Time Status Last Admin Dose Admin Diagnostic Test (Pha) 1 strip ACHS 11/13/24 17:00 11/20/24 06:13 1 STRIP Insulin Human Regular ACHS SC 11/13/24 17:00 Dextrose 50 ml UD PRN IV 11/13/24 16:45 Acetaminophen/ Hydrocodone Bitart 1 tab Q4HP PRN PO 11/13/24 16:45 Ondansetron HCl 4 mg Q4HP PRN IV 11/13/24 16:45 Acetaminophen 650 mg Q6HP PRN PO 11/13/24 16:45 Amlodipine Besylate 2.5 mg DAILY PO 11/14/24 10:00 11/20/24 10:05 2.5 MG Apixaban 5 mg BID PO 11/13/24 22:00 11/20/24 10:02 5 MG Baclofen 10 mg Q8HP PO 11/13/24 22:00 11/20/24 05:09 10 MG Docusate Sodium 100 mg BID PO 11/13/24 22:00 11/20/24 10:03 100 MG Famotidine 20 mg HS PO 11/13/24 22:00 11/19/24 21:51 20 MG Gabapentin 400 mg TID PO 11/13/24 22:00 11/20/24 05:09 400 MG Metoprolol Tartrate 25 mg BID PO 11/13/24 22:00 11/20/24 10:04 25 MG Cholecalciferol 1,000 unit DAILY PO 11/14/24 10:00 11/20/24 10:02 1,000 UNIT Cyanocobalamin 1,000 mcg DAILY PO 11/14/24 10:00 11/20/24 10:01 1,000 MCG Duloxetine HCl 30 mg DAILY PO 11/14/24 10:00 11/20/24 10:03 30 MG Patient Own Medication 36,000 unt TIDWM PO 11/13/24 18:00 11/20/24 08:00 36,000 UNT Potassium Chloride 10 meq DAILY PO 11/14/24 10:00 11/20/24 10:02 10 MEQ Pravastatin Sodium 20 mg HS PO 11/13/24 22:00 11/19/24 21:58 20 MG Budesonide 0.5 mg BID NEB 11/13/24 22:00 11/20/24 06:58 0.5 MG Albuterol 2.5 mg Q4HPRN PRN NEB 11/13/24 17:00 11/16/24 20:27 2.5 MG Ipratropium [place] 0.5 mg Q4HPRN PRN NEB 11/13/24 17:00 11/16/24 20:27 0.5 MG Piperacillin Sod/ Tazobactam Sod 100 ml @ 25 mls/hr Q8HR@0400,1200,2000 IV 11/16/24 04:00 11/20/24 05:06 25 MLS/HR Levofloxacin/ Dextrose 100 ml @ 100 mls/hr DAILY IV 11/18/24 10:00 11/20/24 10:05 100 MLS/HR Laboratory Results Laboratory Tests 11/14/24 06:00 Urinalysis Test 11/13/24 17:52 Urine Color Light-brown (Yellow) Urine Clarity Ex.turbid (Clear) Urine pH 7.5 (5.0-9.0) Urine Specific [place] 1.016 (1.001-1.035) Urine Protein 1+ (Negative) H Urine Ketones Negative (Negative) Urine Blood 2+ /uL (Negative) H Urine Nitrite 2+ (Negative) H Urine Bilirubin Negative (Negative) Urine Urobilinogen Normal mg/dL (Negative) Urine Leukocyte Esterase 3+ /uL (Negative) Urine RBC 30 /hpf (0 - 3) Urine WBC Clumps Present /hpf (None Seen) Urine Microscopic WBC 207 /HPF (0-3) H Urine Squamous Epithelial Cells None seen /hpf (<5) Urine Calcium Oxalate Crystals Mod (None Seen) Urine Bacteria Few /hpf (None Seen) H Urine Mucus Few (None Seen) Urine Glucose Normal mg/dL (Normal) Microbiology Microbiology Date/Time Source Procedure Growth Status 11/16/24 13:09 Blood Blood Culture - Preliminary NO GROWTH AFTER 72 HOURS OF INCUBATION. Resulted 11/14/24 00:00 Nose MRSA Screen - Final Complete 11/13/24 17:52 Urine - [place] Urine Culture - Final Citrobacter youngae Pseudomonas aeruginosa Complete Labs and/or images reviewed: Labs reviewed by me, Image(s) reviewed by me Assessment/Plan Assessment/Plan Sepsis secondary to community-acquired pneumonia: zosyn Bilateral community-acquired pneumonia Complicated UTI with Citrobacter and Pseudomonas: Start Levaquin 500 mg IV daily for two weeks, DC clindamycin Uncontrolled diabetes type 2 Hypertension Hypercholesterolemia Asthma History of Bladder cancer status post cystectomy, prostatectomy, and right urostomy GERD History of left lower extremity DVT History of IVC filter History of left neck cellulitis History of [place] syndrome diagnosed at [facility] four years ago Patient discharged to group home facility on 11/17/2024 for IV antibiotics [facility] No new changes Plan discussed with: Patient My Orders Orders - CONI SAVAGE MD Procedure Category Date Status Time * Classification Control Clerk CONS 11/19/24 Transmitted Consult Date of Service: Nov 20, 2024 Billing Provider: CONI SAVAGE MD Common Visit Codes: [id number] INP/OBS CARE(HIGH) CONI SAVAGE MD Nov 20, 2024 10:28
== END 2024-11-20 11:50 | disposition home or self-care (01) | DRG 871 ==
LOC: EDUNIT# 10:21 → EDBD 10:21 → ER 10:21 → OVERFLOW 16:32 → EAST 23:40
PROVIDERS: ADMIT Family Medicine; ATTEND Family Medicine
PROC: 05HB33Z Insertion of Infusion Device into Right Basilic Vein, Percutaneous Approach (ICD-10-PCS; principal; 2024-11-17)
PROC: B54MZZA Ultrasonography of Right Upper Extremity Veins, Guidance (ICD-10-PCS; 2024-11-17)
DX: A41.50 Gram-negative sepsis, unspecified (principal); J15.69 Pneumonia due to other Gram-negative bacteria; J96.00 Acute respiratory failure, unspecified whether with hypoxia or hypercapnia; J15.9 Unspecified bacterial pneumonia; N39.0 Urinary tract infection, site not specified; E11.9 Type 2 diabetes mellitus without complications; K21.9 Gastro-esophageal reflux disease without esophagitis; I10 Essential (primary) hypertension; B96.5 Pseudomonas (aeruginosa) (mallei) (pseudomallei) as the cause of diseases classified elsewhere; E78.00 Pure hypercholesterolemia, unspecified; J45.909 Unspecified asthma, uncomplicated; Z79.2 Long term (current) use of antibiotics; Z79.899 Other long term (current) drug therapy; Z79.84 Long term (current) use of oral hypoglycemic drugs; Z85.51 Personal history of malignant neoplasm of bladder; Z86.718 Personal history of other venous thrombosis and embolism; Z80.0 Family history of malignant neoplasm of digestive organs; Z79.1 Long term (current) use of non-steroidal anti-inflammatories (NSAID); Z79.891 Long term (current) use of opiate analgesic; Z95.828 Presence of other vascular implants and grafts; Z90.6 Acquired absence of other parts of urinary tract; Z79.01 Long term (current) use of anticoagulants; Z74.01 Bed confinement status
CPT/HCPCS: 36415; 70360; 71045; 80048; 80053; 81001; 82962; 84484; 85007; 85027; 86803; 87040; 87081; 87086; 87088; 87186; 87340; 94640; 96365; 99291; G0378; J1815; J1956; J2543; J3490

== ENCOUNTER 2025-03-11 17:25 | Inpatient (IN) | payer OTHER, MEDICAID ==
[~2025-03-11] VITALS: Ht 170.2 cm; Wt 105.0 kg
[2025-03-11] MEDS: SODIUM CHLORIDE 0.9% 1,000 ML IV ONE (01:30)
[~2025-03-11 17:25] MED LIST changes: -AUG875T PO; -DOCU-94 PO
--- NOTE | 2025-03-11 17:48 | ED.PDOC ---
History of Present Illness HPI Comments This is a 64 year old male ANAMIKAA presenting to the ED with chief complaint of right sided weakness and fatigue. EMS reports that the patient was noted by his home health nurse to be going in and out of consciousness for the past 3 hours with associated right sided weakness and generalized fatigue. EMS relays that the patient has improved a bit and is able to talk and answer questions, but will appear to be falling asleep at times. Patient denies any SOB, chest pain, nausea, vomiting, diarrhea, dizziness, fever, or chills. Chief Complaint: General Weakness Time Seen by MD: 17:46 Primary Care Provider: unknown Reviewed Notes: Nurses Notes, [facility] Caretaker Notes, Medications, Allergies Allergies: Coded Allergies: No Known Drug Allergy (Verified Allergy, Unknown, 04/21/22) Home Meds Active Scripts Diphenhydramine Hcl (Gnp Allergy) 25 Mg Cap, 25 MG PO HS for 5 Days, #5 CAP 0 Refills Prov:GRADY SANCHEZ MD 11/01/24 Pancrelipase (Lipase-Protease- (CREON) 36,000 Unt Cap, 53759 UNT OR TIDWM for 30 Days, #90 CAP Prov:MILLIE CALIXTO MD 03/30/24 Potassium Chloride (Potassium Chloride ER) 10 Meq Tab, 10 MEQ PO DAILY for 30 Days, #30 TAB Prov:JEREMIAH BOOGIE MD 01/23/24 Polyethylene Glycol 3350 (Miralax) 17 Gm Pow, 17 GM PO DAILY for 30 Days, #510 POW Prov:JEREMIAH BOOGIE MD 01/23/24 Evyuqyan-Ysrdiupuj-Yr (Otic) (Cortisporin Otic Susp) [address], 3 DROP RIGHT EAR TID, #10 ML Prov:JEANNE ARRIOLA PAC 04/21/23 Reported Medications Primidone (MYSOLINE TABLET) 50 Mg Tb, 50 MG PO, TAB 03/26/24 Cyanocobalamin (Vitamin B-12) 1,000 Mcg Tab, 1 TAB PO DAILY 09/14/23 Metformin Hydrochloride (Metformin Hcl) 500 Mg Tab, 1 TAB PO BID 09/14/23 Duloxetine Hcl (Cymbalta) 20 Mg Cap, 30 CAP PO DAILY, #30 CAP 2 Refills 09/14/23 Cholecalciferol (D3) 25 Mcg Chw, 25 MCG PO DAILY, TAB.CHEW 09/14/23 Bqgwpxpqiuo-Klwrgmfondez-Cpqqq (Trelegy Ellipta 100-62.5-25 Mcg/INH) 1 Aer Aer, 1 AER IN DAILY, AER 03/09/23 Metoprolol Tartrate (Metoprolol Tartrate) 25 Mg Tab, 25 MG PO BID for 30 Days, MG 03/09/23 Amlodipine Besylate (Amlodipine Besylate) 5 Mg Tab, 2.5 MG PO DAILY for 30 Days, MG 03/09/23 Simvastatin (Simvastatin) 10 Mg Tab, 10 MG PO HS for 30 Days, MG 03/09/23 Gabapentin (Gabapentin) 300 Mg Cap, 400 MG PO TID for 30 Days, MG 04/21/22 Famotidine (Famotidine) 20 Mg Tab, 20 MG PO HS for 30 Days, MG 04/21/22 Apixaban Base (ELIQUIS) 5 Mg Tab, 5 MG PO BID, TAB 04/21/22 Baclofen (Baclofen) 10 Mg Tab, 10 MG PO Q8HP for 30 Days, MG 04/21/22 Information Source: Patient, Emergency Med Personnel Mode of Arrival: EMS Severity: Moderate Timing: Hours Duration: Since onset Prehospital treatment: None Past Medical History PAST MEDICAL HISTORY: Asthma, Cancer, COPD, DM, GERD, High Lipids, HTN, UTI'S Past Medical History (Other): Guillain [place] Syndrome, 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 Surgical History (Other): Cystectomy, Prostatectomy, Rt urostomy, Large intestine resection Family History Family History: Reviewed,noncontributory to illness Social History Smoker: Non-Smoker Alcohol: Denies ETOH Use Drugs: Denies Drug Use Lives In: Home Constitutional: reports: fatigue; denies: chills, diaphoresis, fever, malaise, sweats, weakness, others EENTM: denies: blurred vision, double vision, ear bleeding, ear discharge, ear drainage, ear pain, ear ringing, eye pain, eye redness, hearing loss, mouth pain, mouth swelling, nasal discharge, nose bleeding, nose congestion, nose pain, photophobia, tearing, throat pain, throat swelling, voice changes, others Respiratory: denies: cough, hemoptysis, orthopnea, SOB at rest, shortness of breath, SOB with excertion, stridor, wheezing, others Cardiovascular: denies: chest pain, dizzy spells, diaphoresis, Dyspnea on exertion, edema, irregular heart beat, left arm pain, lightheadedness, palpitat ions, PND, syncope, others Gastrointestinal: denies: abdomen distended, abdominal pain, blood streaked bow els, constipated, diarrhea, dysphagia, difficulty swallowing, hematemesis, melena, nausea, poor appetite, poor fluid intake, rectal bleeding, rectal pain, vomiting, others Genitourinary: denies: burning, dysuria, flank pain, frequency, hematuria, incontinence, penile discharge, penile sore, pain, testicle pain, testicle swelling, urgency, others Neurological: reports: right sided weakness; denies: dizziness, fainting, headache, left sided numbness, left sided weakness, numbness, paresthesia, pre- existing deficit, right sided numbness, seizure, speech problems, tingling, tremors, weakness, others Musculoskeletal: denies: back pain, gout, joint pain, joint swelling, muscle p ain, muscle stiffness, neck pain, others Integumetry: denies: bruises, change in color, change in hair/nails, dryness, laceration, lesions, lumps, rash, wounds, others Allergic/Immunocompromised: denies: Difficulty Healing, Frequent Infections, Hives, Itching, others Hematologic/Lymphatic: denies: anemia, blood clots, easy bleeding, easy bruising, swollen glands, others Endocrine: denies: excessive hunger, excessive sweating, excessive thirst, excessive urination, flushing, intolerance to cold, intolerance to heat, unexplained weight gain, unexplained weight loss, others Psychiatric: denies: anxiety, bipolar disorder, depression, hopeless, panic disorder, schizophrenia, sleepless, suicidal, others All Other Systems: Reviewed and Negative Physical Exam General Appearance: Moderate Distress HEENT: Pale [place] (L), Pale [place] (R), Pharynx Normal, TMs Normal Neck: Full Range of Motion, Non-Tender, Normal, Normal Inspection Respiratory: Chest Non-Tender, Lungs Clear, No Accessory Muscle Use, No Respiratory Distress, Normal Breath Sounds Cardiovascular: No Edema, No JVD, No Murmur, No Gallop, Normal Peripheral Pulses, Regular Rate/Rhythm Breast Exam: Deferred Gastrointestinal: Hepatomegaly, No Pulsatile Mass, Normal Bowel Sounds, Soft, Other (Abdominal distention with colostomy in place) Genitalia: Deferred Pelvic: Deferred Rectal: Deferred Extremities: No calf tenderness, Normal capillary refill, Pedal edema Musculoskeletal : Apperance: Normal Neurologic: Alert, electric container tester II-XII nml as Tested, No Motor Deficits, Normal Affect, Normal Mood, No Sensory Deficits Cerebellar Function: Normal Reflexes: Normal Skin: Dry, Pallor, Warm Lymphatic: No Adenopathy Was a procedure done? Was a procedure done?: No Differential Dx Considerations may include: Autonomic dysfunction, generalized weakness, sepsis, electrolyte imbalance, hepatic encephalopathy, metabolic encephalopathy X-Ray, Labs, Meds, VS Vital Signs Date Time Temp Pulse Resp B/P (MAP) Pulse Ox O2 Delivery O2 Flow Rate FiO2 03/11/25 17:49 99.7 101 16 123/70 (87) 97 99.7 03/11/25 17:40 103 Lab Test 03/11/25 18:18 Range/Units White Blood Count 11.0 H 4.4-10.8 10^3/uL Red Blood Count 4.41 L 4.5-5.90 10^6/uL Hemoglobin 13.8 13.5-17.5 g/dL Hematocrit 41.4 41.0-53.0 % Mean Corpuscular Volume 93.9 80.0-100.0 fL Mean Corpuscular Hemoglobin 31.4 28.0-32.0 pg Mean Corpuscular Hemoglobin Concent 33.4 32.0-36.0 g/dL Red Cell Distribution Width 18.9 H 11.8-14.3 % Platelet Count 250 140-450 10^3/uL Mean Platelet Volume 6.3 L 6.9-10.8 fL Neutrophils (%) (Auto) 79.2 37.0-80.0 % Lymphocytes (%) (Auto) 8.5 L 10.0-50.0 % Monocytes (%) (Auto) 11.0 0.0-12.0 % Eosinophils (%) (Auto) 1.0 0.0-7.0 % Basophils (%) (Auto) 0.3 0.0-2.0 % Neutrophils # (Auto) 8.7 H 1.6-8.6 10 ^3/uL Lymphocytes # (Auto) 0.9 0.4-5.4 10 ^3/uL Monocytes # (Auto) 1.2 0-1.3 10 ^3/uL Eosinophils # (Auto) 0.1 0-0.8 10 ^3/uL Basophils # (Auto) 0 0-0.2 10 ^3/uL Nucleated Red Blood Cells 0.1 % Prothrombin Time 10.3 9.3-11.8 sec Prothrombin Time INR 0.97 0.9-1.15 Activated Partial Thromboplast Time 27.0 24.5-34.5 SEC Sodium Level 140 136-145 mmol/L Potassium Level 4.2 3.5-5.1 mmol/L Chloride Level 109 H 98-107 mmol/L Carbon Dioxide Level 24 20-31 mmol/L Anion Gap 7 5-15 Blood Urea Nitrogen 17 9-23 mg/dL Creatinine 0.78 0.700-1.30 mg/dL Glomerular Filtration Rate Calc 98 >90 mL/min BUN/Creatinine Ratio 21.8 H 10.0-20.0 Serum Glucose 133 H 74-106 mg/dL Lactic Acid Level 2.0 0.4-2.0 mmol/L Calcium Level 8.6 L 8.7-10.4 mg/dL Total Bilirubin 0.3 0.2-1.0 mg/dL Aspartate Amino Transferase (AST) 12 <34 U/L Alanine Aminotransferase (ALT) 14 7-40 U/L Alkaline Phosphatase 76 46-116 U/L Ammonia 25 11-32 umol/L Total Protein 6.9 5.7-8.2 g/dL Albumin 3.9 3.2-4.8 g/dL Lipase 25 12-53 U/L The CBC shows an elevated white blood cell count of 11 The rest of the CBC is within normal limits The chemistry panel is within normal limits. The lipase is within normal limits. Images Reviewed?: Images reviewed and evaluated by me Time of 1ST Reevaluation: 19:26 Reevaluation 1ST: Unchanged Patient Education/Counseling: Diagnosis, Treatment, Prognosis Family Education/Counseling: No Family Present SEPSIS Sepsis Screen Physician Orders Electrocardigram (03/11/25 17:40) Heplock Iv (03/11/25 17:57) Ux Ui Designer (03/11/25 17:57) Blood Pressure (03/11/25 17:57) Pulse Oximetry (03/11/25 17:57) Blood Culture (03/11/25 17:57) Vital Signs Date Time Temp Pulse Resp B/P (MAP) Pulse Ox O2 Delivery O2 Flow Rate FiO2 03/11/25 17:49 99.7 101 16 123/70 (87) 97 99.7 03/11/25 17:40 103 Laboratory Tests Test 03/11/25 18:18 Lactic Acid Level 2.0 mmol/L (0.4-2.0) White Blood Count 11.0 10^3/uL (4.4-10.8) H Departure 1 Departure Time of Disposition: 19:26 Impression: Primary Impression: Autonomic dysfunction Disposition: ADMITTED INPATIENT Admit to: Tele Condition: Fair Critical Care Note Critical Care Time?: Yes (45 min-critical care time only) Stability Stability form required: Yes Unstable for transfer: Telemetry monitoring (Telemetry monitoring required), ED Physician Assesment (Clinical assesment) Heart Score Heart Score: Heart Score Response (Comments) Value History N/A 0 EKG N/A 0 Age N/A 0 Risk Factors N/A 0 Troponin N/A 0 Total 0 I personally scribed for WILLIAM GUTIERREZ MD ([email or web address]) on 03/11/25 at 17:47. Electronically submitted by Theodore Grover ([email or web address]). WILLIAM GUTIERREZ MD Mar 11, 2025 17:47
[2025-03-11 18:32] LABS: Hematocrit 41.4 % (41.0-53.0); Hemoglobin 13.8 g/dL (13.5-17.5); Mean Corpuscular Hemoglobin 31.4 pg (28.0-32.0); Mean Corpuscular Volume 93.9 fL (80.0-100.0); Nucleated Red Blood Cells % 0.1 %
[2025-03-11 18:51] LABS: INR 0.97 (0.9-1.15); Partial Thromboplastin Time 27.0 SEC (24.5-34.5); Prothrombin Time 10.3 sec (9.3-11.8)
[2025-03-11 18:53] LABS: Alanine Aminotransferase 14 U/L (7-40); Albumin 3.9 g/dL (3.2-4.8); Alkaline Phosphatase 76 U/L (46-116); Anion Gap 7 (5-15); BUN/Creatinine Ratio 21.8 (10.0-20.0); Blood Urea Nitrogen 17 mg/dL (9-23); Carbon Dioxide 24 mmol/L (20-31); Lipase 25 U/L (12-53); Potassium 4.2 mmol/L (3.5-5.1); Sodium 140 mmol/L (136-145); Total Protein 6.9 g/dL (5.7-8.2)
[2025-03-11 18:54] LABS: Bilirubin, Total 0.3 mg/dL (0.2-1.0); Calcium 8.6 mg/dL (8.7-10.4); Chloride 109 mmol/L (98-107); Glucose 133 mg/dL (74-106)
[2025-03-11] MEDS ORDERED: LEVALBUTEROL HCL 1.25 MG/3 ML NEB NEB PRN (23:45)
[2025-03-11] MEDS ORDERED: ACETAMINOPHEN 325 MG TAB PO PRN (23:45)
[2025-03-11] MEDS ORDERED: IPRATROPIUM BROM 0.5 MG/2.5ML INH SOL NEB PRN (23:45)
[2025-03-12] VITALS (10 sets, daily range): BP systolic 123–137; BP diastolic 70–91; PULSE 93–107; RESP 13–20; TEMP 97.9–99.7; O2SAT 92–100
--- NOTE | 2025-03-12 00:59 | DVH ---
EXAM: CT HEAD WITHOUT CONTRAST INDICATION: dizziness TECHNIQUE: CT of the head without intravenous contrast. Radiation Dose : 1. Head: CT Dose: CTDI volume is 62 mGy. Dose-length product is 1090 mGy*cm The dose indicators for CT are the volume Computed Tomography (CT) Dose Index (CTDIvol) and the Dose Length Product (DLP), and are measured in units of mGy and mGy-cm, respectively. These indicators are not patient dose, but values generated from the CT scanner acquisition factors. The report includes radiation exposure data for exposures received during this examination. COMPARISON: None FINDINGS: There is no evidence of acute intracranial hemorrhage, extra-axial collection, mass effect, midline s hift, herniation or hydrocephalus. The ventricles, sulci and cisterns are age appropriate. The garcia-white differentiation is intact. Patchy periventricular and subcortical white matter hypoattenuation is nonspecific but may be related to small vessel ischemic disease. The visualized paranasal sinuses and mastoid air cells are clear. The surrounding soft tissues and osseous structures are unremarkable. IMPRESSION: 1. No acute intracranial abnormality. Radiation optimization: All CT scans at this facility use at least one of these dose optimization alla hniques: automated exposure control mA and/or kV adjustment per patient size (includes targeted exam s where dose is matched to clinical indication) or iterative reconstruction.
--- NOTE | 2025-03-12 01:03 | DVH ---
CHEST RADIOGRAPH Indication: SOB Technique: Single frontal view of the chest was obtained COMPARISON: XY CHEST PORTABLE on DOS: 11/13/24, XY CHEST PORTABLE on DOS: 10/29/24, XY CHEST PORTABLE o n DOS: 08/14/24, XY CHEST XRAY 1 VIEW on DOS: 07/10/24, XY CHEST PORTABLE on DOS: 05/29/24 FINDINGS: Lines and Tubes: None Lungs: Questionable mild interstitial pulmonary edema. Pleura: No effusion. No pneumothorax. Cardiomediastinal contours: Unremarkable Bones: Unremarkable IMPRESSION: 1. Questionable mild interstitial pulmonary edema.
[2025-03-12] MEDS: cefTRIAXone 1GM/50ML D5W 50 ML IV ONE (01:25)
[2025-03-12] MEDS ORDERED: VANCOMYCIN PER PHARMACY 0 MG IV SCH ×2 (04:00→12:30)
[2025-03-12] MEDS: SODIUM CHLORIDE 0.9% 1,000 ML IV ONE (04:07)
[2025-03-12] MEDS ORDERED: VANCOMYCIN 1GM/200ML PM 200 ML IV ONE ×2 (04:30→06:00)
[2025-03-12 04:34] LABS: Urine Protein, UAD 1+ (Negative)
--- NOTE | 2025-03-12 04:44 | DVHHPRES ---
History of Present Illness Resident Creating Document: SHAWNA ROCHE RESIDENT History of Present Illness Patient is a 63-year-old male with a past medical history of Guillian [place] syndrome diagnosed in 2020, history of bladder cancer status post cystectomy ileal conduit for urinary drainage, left lower extremity + port thrombosis DVT status post IVC filter on Eliquis 5 mg b.i.d., type 2 diabetes mellitus, GERD, hypertension, dyslipidemia was brought to the ER for generalized weakness. Patient reported that he felt weak in the evening and feverish but denied any chills following which he called the EMS came to the hospital for further evaluation. Patient has history of multiple urinary tract infections with the last urine culture showing the growth of Pseudomonas aeruginosa and Citrobacter youngae. patient reported no abdominal pain, no dizziness, no shortness of breath, no headache. Chest X ray shows mild pulmonary vascular congestion and questionable pulmonary edema. 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 Past medical history: Guillian [place] syndrome diagnosed in 2020, history of bladder cancer status post cystectomy ileal conduit for urinary drainage, left lower extremity + port thrombosis DVT status post IVC filter on Eliquis 5 mg b.i.d., type 2 diabetes mellitus, GERD, hypertension, dyslipidemia Past surgical history: Ileal urine Conduit surgery Social history: Patient lives at home and has home health services which take care. Denies smoking, alcohol, drug use Home medication: Amlodipine 2.5 mg, apixaban 5 mg b.i.d., duloxetine 20 mg once daily, famotidine 20 mg HS, pancrelipase TIDWM, metoprolol tartrate 25 mg b.i.d. Review of Systems Review of Systems Patient seen and examined at the bedside Reports that he feels okay but weaker than usual Denies cough, congestion, expectoration Allergies: Coded Allergies: No Known Drug Allergy (Verified Allergy, Unknown, 04/21/22) Medications Current Medications Medications Dose Ordered Sig/Simon Route Start Time Stop Time Status Last Admin Dose Admin Acetaminophen 650 mg Q6HP PRN PO 03/11/25 23:45 Apixaban 5 mg BID PO 03/12/25 10:00 Famotidine 20 mg Q12HR PO 03/12/25 10:00 Duloxetine HCl 30 mg DAILY PO 03/12/25 10:00 Levalbuterol HCl 0.625 mg Q8HP PRN NEB 03/11/25 23:45 Ipratropium [place] 0.5 mg Q8HPRN PRN NEB 03/11/25 23:45 Cefepime HCl 50 ml @ 12.5 mls/hr Q8HR IV 03/12/25 06:00 UNV Vancomycin HCl 0 ml @ 0 mls/hr UD IV 03/12/25 04:00 UNV Exam Vital Signs Vital Signs Date Time Temp Pulse Resp B/P (MAP) Pulse Ox O2 Delivery O2 Flow Rate FiO2 03/12/25 03:20 99.7 107 13 123/70 94 0.0 21 99.7 03/12/25 01:41 Room Air* Exam Gen - no pallor, no icterus, no cyanosis, no clubbing, no LAD, no edema . Skin - Patients skin is warm and dry. lower limbs are cold and clammy. HEENT - normocephalic, atraumatic, moist mucous membranes. Neck - full ROM, no LAD, no JVD. Pulmonary - B/L vesicular breath sounds. no crackles , no wheezing, no stridor. cardiovascular - normal S1,S2 heard. no murmurs heard. GI - distended abdomen. no hepatosplenomegaly. Ileal conduit with ileostomy bag with clearing urine with no haziness Neurological - Patient is A/O X 3 . Bilateral upper extremity strength 3/5. patient has lower extremity paralysis. no sensorium below the level of nipples. fecal incontinence. Labs/Xrays Labs Test 03/12/25 03:00 03/12/25 01:59 03/11/25 18:18 Range/Units POC Glucose 158 H 70-106 mg/dl White Blood Count 11.0 H 4.4-10.8 10^3/uL Red Blood Count 4.41 L 4.5-5.90 10^6/uL Hemoglobin 13.8 13.5-17.5 g/dL Hematocrit 41.4 41.0-53.0 % Mean Corpuscular Volume 93.9 80.0-100.0 fL Mean Corpuscular Hemoglobin 31.4 28.0-32.0 pg Mean Corpuscular Hemoglobin Concent 33.4 32.0-36.0 g/dL Red Cell Distribution Width 18.9 H 11.8-14.3 % Platelet Count 250 140-450 10^3/uL Mean Platelet Volume 6.3 L 6.9-10.8 fL Neutrophils (%) (Auto) 79.2 37.0-80.0 % Lymphocytes (%) (Auto) 8.5 L 10.0-50.0 % Monocytes (%) (Auto) 11.0 0.0-12.0 % Eosinophils (%) (Auto) 1.0 0.0-7.0 % Basophils (%) (Auto) 0.3 0.0-2.0 % Neutrophils # (Auto) 8.7 H 1.6-8.6 10 ^3/uL Lymphocytes # (Auto) 0.9 0.4-5.4 10 ^3/uL Monocytes # (Auto) 1.2 0-1.3 10 ^3/uL Eosinophils # (Auto) 0.1 0-0.8 10 ^3/uL Basophils # (Auto) 0 0-0.2 10 ^3/uL Nucleated Red Blood Cells 0.1 % Prothrombin Time 10.3 9.3-11.8 sec Prothrombin Time INR 0.97 0.9-1.15 Activated Partial Thromboplast Time 27.0 24.5-34.5 SEC Sodium Level 140 136-145 mmol/L Potassium Level 4.2 3.5-5.1 mmol/L Chloride Level 109 H 98-107 mmol/L Carbon Dioxide Level 24 20-31 mmol/L Anion Gap 7 5-15 Blood Urea Nitrogen 17 9-23 mg/dL Creatinine 0.78 0.700-1.30 mg/dL Glomerular Filtration Rate Calc 98 >90 mL/min BUN/Creatinine Ratio 21.8 H 10.0-20.0 Serum Glucose 133 H 74-106 mg/dL Lactic Acid Level 2.0 0.4-2.0 mmol/L Calcium Level 8.6 L 8.7-10.4 mg/dL Total Bilirubin 0.3 0.2-1.0 mg/dL Aspartate Amino Transferase (AST) 12 <34 U/L Alanine Aminotransferase (ALT) 14 7-40 U/L Alkaline Phosphatase 76 46-116 U/L Ammonia 25 11-32 umol/L Total Protein 6.9 5.7-8.2 g/dL Albumin 3.9 3.2-4.8 g/dL Lipase 25 12-53 U/L Assessment/Plan Assessment/Plan Sepsis likely due to UTI H/o urinary bladder Ca s/p cystectomy with ileal conduit - UA shows 2+ nitrite, 3+ LE, urine bacteria and urine WBCs - on IV cefepime - previous urine cultures showing Proteus mirabilis, Morganella Morgagni, Pseudomonas aeruginosa, Citrobacter youngae - urine cultures pending - blood cultures pending - IV fluids H/o Hypertensive heart disease with grade 1 diastolic dysfunction Pulmonary vascular congestion - held home medication amlodipine and metoprolol of soft blood pressure and sepsis - echo from December 2023 showed LVEF 55% with grade 1 diastolic dysfunction - chest x-ray shows mild pulmonary congestion with a questionable pulmonary edema - new echo pending H/o GBS H/o malabsorption - on gabapentin - pancrelipase (not available in the pharmacy) DVT lower extremity with IVC filter - patient is on apixaban, currently held because of hematuria PUD prophylaxis: Famotidine DVT prophylaxis: Held apixaban because of hematuria Goals of care discussed with the patient for over 17 minutes. Full code Time spent: 38 minutes Plan discussed with Dr. Morelos Plan discussed with: Patient My Orders Orders - SHAWNA ROCHE RESIDENT Procedure Category Date Status Time Admit ADMIT 03/11/25 Transmitted 23:42 Oxygen By Nasal RT 03/11/25 Transmitted Cannula 23:42 Stat Ekg For Chest PRABHU 03/11/25 In Process Pain 23:42 Emergency Dysrhythmia PRABHU 03/11/25 In Process Protocol 23:42 Notify Of Changes PRABHU 03/11/25 In Process From Base 23:42 Complete Blood Count LAB 03/12/25 Logged 04:00 Comprehensive LAB 03/12/25 Logged Metabolic Panel 04:00 Magnesium LAB 03/12/25 Logged 04:00 Vitamin B12 LAB 03/12/25 Logged 04:00 Folate (Folic Acid) LAB 03/12/25 Logged 04:00 Acetaminophen Tablet PHA 03/11/25 In Process (Tylenol Tablet) 23:45 Respiratory Culture ODETTE 03/11/25 Logged W/ Gs 23:42 Chest Xray 1 View XY 03/11/25 Resulted 23:42 Urine Bacterial ODETTE 03/11/25 In Process Culture 23:42 Urinalysis LAB 03/11/25 In Process 23:42 Apixaban (Eliquis) PHA 03/12/25 In Process 10:00 Famotidine Tablet PHA 03/12/25 In Process (Pepcid Tablet) 10:00 Duloxetine Hcl PHA 03/12/25 In Process Capsule (Cymbalta 10:00 Levalbuterol Hcl PHA 03/11/25 In Process (Xopenex Medneb) 23:45 Ipratropium Medneb PHA 03/11/25 In Process (Atrovent Medneb) 23:[address] 03/11/25 Resulted 23:56 Sodium Chloride 0.9% PHA 03/12/25 In Process 04:00 Clostridium Difficile ODETTE 03/12/25 Uncollected Toxin 03:59 Cefepime 1gm/ 50ml PHA 03/12/25 Logged (Maxipime 1gm/50ml) 06:00 Vancomycin Per PHA 03/12/25 Logged Pharmacy 04:00 Stool Bacterial ODETTE 03/12/25 Uncollected Culture 03:59 Urine Bacterial ODETTE 03/12/25 Logged Culture 04:12 Date of Service: Mar 11, 2025 Billing Provider: KRUPA MORELOS MD Common Visit Codes: [id number] INP/OBS CARE (HIGH) Secondary Visit Codes: [id number] CARE PLAN 30 MINUTES SHAWNA ROCHE RESIDENT Mar 12, 2025 04:44
[2025-03-12 05:40] LABS: Hematocrit 40.0 % (41.0-53.0); Hemoglobin 13.3 g/dL (13.5-17.5); Mean Corpuscular Hemoglobin 31.3 pg (28.0-32.0); Mean Corpuscular Volume 94.2 fL (80.0-100.0); Nucleated Red Blood Cells % 0.1 %
[2025-03-12 05:59] LABS: Alanine Aminotransferase 12 U/L (7-40); Albumin 3.7 g/dL (3.2-4.8); Alkaline Phosphatase 72 U/L (46-116); Anion Gap 8 (5-15); BUN/Creatinine Ratio 20.3 (10.0-20.0); Blood Urea Nitrogen 14 mg/dL (9-23); Carbon Dioxide 24 mmol/L (20-31); Magnesium 2.3 mg/dL (1.6-2.6); Sodium 143 mmol/L (136-145); Total Protein 6.6 g/dL (5.7-8.2)
[2025-03-12 06:02] LABS: Bilirubin, Total 0.3 mg/dL (0.2-1.0); Calcium 8.3 mg/dL (8.7-10.4); Chloride 111 mmol/L (98-107); Glucose 131 mg/dL (74-106); Potassium 3.5 mmol/L (3.5-5.1)
[2025-03-12] MEDS: CEFEPIME 1GM/ 50ML 50 ML IV SCH (06:35)
[2025-03-12] MEDS: GABAPENTIN 400 MG CAP PO SCH (06:35)
[2025-03-12] MEDS ORDERED: cefTRIAXone 1GM/50ML D5W 50 ML IV SCH (09:00)
[2025-03-12] MEDS ORDERED: APIXABAN 5 MG TAB PO SCH (10:00)
[2025-03-12] MEDS: FAMOTIDINE 20 MG TAB PO SCH (10:37)
--- NOTE | 2025-03-12 10:44 | ECG ---
[facility] Test Date: 2025-03-11 Test Time: 17:40:23 Pat Name: MONI KEMP Department: ED Room: 0201 Gender: M Operational Risk Consultant: : 1960 Requested By: WILLIAM GUTIERREZ Order Number: [id number] Reading MD: Bladimir Elliott Measurements Intervals [place] Rate: 103 P: 47 DC: 149 QRS: 81 QRSD: 92 T: 61 QT: 330 QTc: 432 Interpretive Statements Sinus tachycardia Borderline right axis deviation Electronically Signed On 03-14-2025 20:02:27 PDT by Bladimir Elliott Please click the below link to view image of tracing.
--- NOTE | 2025-03-12 11:59 | DVH ---
Date: 03/12/2025 10:27 AM Examination: XY KUB ABDOMEN SINGLE VIEW History: ABDOMEN DISTENTION Comparison: XY KUB ABDOMEN SINGLE VIEW on DOS: 01/16/24, XY KUB ABDOMEN SINGLE VIEW on DOS: 01/15/24, XY KUB ABDOMEN SINGLE VIEW on DOS: 01/13/24, XY KUB ABDOMEN SINGLE VIEW on DOS: 01/13/24, XY KUB ABDOMEN SINGLE VIEW on DOS: 01/12/24 TECHNIQUE: Frontal views of the abdomen was obtained. FINDINGS: Diffusely dilated loops of small bowel measuring up to 6 cm. Findings could represent small-bowel obs truction versus ileus. The lung bases are unremarkable. No acute osseous abnormality identified. IMPRESSION: Diffusely dilated loops of small bowel measuring up to 6 cm. Findings could represent small-bowel obs truction versus ileus. IVC filter in situ
[2025-03-12] MEDS ORDERED: POLYETHYLENE GLYCOL 17 GM PWDR PO ONE (12:30)
[2025-03-12] MEDS: SODIUM CHLORIDE 0.9% 1,000 ML IV SCH (13:33)
[2025-03-12] MEDS: DOXYCYCLINE 100MG/100ML 100 ML IV SCH (13:34)
[2025-03-12 15:05] LABS: COVID19 ANTIGEN SOFIA FIA NEGATIVE (NEGATIVE)
--- NOTE | 2025-03-12 16:00 | DVHPNRES ---
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 He says like a truck ran over him, Patient has history of multiple urinary tract infections with the last urine culture showing the growth of Pseudomonas aeruginosa and Citrobacter youngae. patient reported no abdominal pain, no dizziness, no shortness of breath, no headache. Chest X ray shows mild pulmonary vascular congestion and questionable pulmonary edema. 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 Past medical history: Guillian [place] syndrome diagnosed in 2020, history of bladder cancer status post cystectomy ileal conduit for urinary drainage, left lower extremity + port thrombosis DVT status post IVC filter on Eliquis 5 mg b.i.d., type 2 diabetes mellitus, GERD, hypertension, dyslipidemia Past surgical history: Ileal urine Conduit surgery Social history: Patient lives at home and has home health services which take care. Denies smoking, alcohol, drug use Home medication: Amlodipine 2.5 mg, apixaban 5 mg b.i.d., duloxetine 20 mg once daily, famotidine 20 mg HS, pancrelipase TIDWM, metoprolol tartrate 25 mg b.i.d. Patient seen and examined at the bedside. Abdomen is distended, KUB ordered shows SBO versus ileus. NPO Objective vital signs Vital Sign Date Time Temp Pulse Resp B/P (MAP) Pulse Ox O2 Delivery O2 Flow Rate FiO2 03/12/25 13:30 100 13 126/92 (103) 95 03/12/25 07:53 Nasal Cannula* 2 28 03/12/25 07:30 98.9 98.9 Total Intake and Output 03/11/25 03/11/25 03/12/25 15:00 23:00 07:00 Intake Total 2050 ml Balance 2050 ml medications Current Medications Medications Dose Ordered Sig/Simon Route Start Time Stop Time Status Last Admin Dose Admin Acetaminophen 650 mg Q6HP PRN PO 03/11/25 23:45 Apixaban 5 mg BID PO 03/12/25 10:00 Hold Famotidine 20 mg Q12HR PO 03/12/25 10:00 03/12/25 10:37 20 MG Duloxetine HCl 30 mg DAILY PO 03/12/25 10:00 03/12/25 10:37 30 MG Levalbuterol HCl 0.625 mg Q8HP PRN NEB 03/11/25 23:45 Ipratropium [place] 0.5 mg Q8HPRN PRN NEB 03/11/25 23:45 Cefepime HCl 50 ml @ 12.5 mls/hr Q8HR IV 03/12/25 06:00 03/12/25 15:00 12.5 MLS/HR Gabapentin 400 mg TID PO 03/12/25 06:00 03/12/25 06:35 400 MG Doxycycline Hyclate 100 ml @ 50 mls/hr Q12H IV 03/12/25 12:30 03/12/25 13:34 50 MLS/HR Metronidazole 100 ml @ 100 mls/hr Q8HR IV 03/12/25 14:00 03/12/25 14:35 100 MLS/HR Sodium Chloride 1,000 ml @ 100 mls/hr Q10H IV 03/12/25 12:30 03/12/25 13:33 100 MLS/HR Examination Patient lying in bed, A&O x3 General: Well-built, afebrile, palor, mucosae are moist Cardiovascular: Regular S1 and S2. No murmurs, gallops or rubs. No JVD elevation. No pedal edema Respiratory: Normal B/L air entry on room air. Clear lung sounds on auscultation Abdomen: Soft, nontender, distended, normoactive bowel sounds, no rebound tenderness, no organomegaly, no masses Ileal conduit with ileostomy bag with clearing urine with no haziness Genitourinary: Deferred MSK/skin: Mobilizes 4 limbs. Lower extremities are cold and clammy. Neurological: Bilateral upper extremity strength 3/5. patient has lower extremity paralysis. no sensorium below the level of nipples. fecal incontinence. Psych/Mental Status: A/Ox3 laboratory and microbiology Laboratory Tests 03/12/25 04:40 Test 03/12/25 04:40 Range/Units Serum Glucose 131 H 74-106 mg/dL Labs and/or images reviewed: Labs reviewed by me, Image(s) reviewed by me Problem List/Assessment/Plan Problem List/Assessment/Plan Sepsis likely due to acute cystitis History of bladder carcinoma status post cystectomy with ileal conduit UA shows 2+ nitrite, 3+ LE, urine bacteria and urine WBCs Urine culture ordered, previous urine culture showing Proteus, Pseudomonas, Citrobacter Blood culture ordered IV fluids IV cefepime Acute small-bowel obstruction versus ileus Rule out C diff KUB shows small bowel dilation greater than 6 cm, C diff studies pending Stool culture pending NPO, conservative management for now IV metronidazole Acute hypoxic respiratory failure secondary to Pulmonary edema Hypertensive heart disease with grade 1 diastolic dysfunction Likely Gram-positive and negative pneumonia IV cefepime, IV doxycycline IV fluids Duo nebs MRSA nares Echo ordered CIDP, history of [place] syndrome Continue home medication baclofen 10 mg daily Continue duloxetine 30 mg daily Continue gabapentin 400 mg TID p.r.n. Diabetes mellitus type 2-controlled On mild ISS Hold home medication metformin Left lower extremity port thrombosis DVT status post IVC filter Switched Eliquis 5 mg b.i.d to Lovenox 1 milligram/kg b.i.d. GERD Continue home medication famotidine 20 mg daily Hypertension Holding home medication amlodipine 2.5 mg daily Holding home medication metoprolol tartrate 25 mg daily DVT prophylaxis, Lovenox 1 milligram/kg b.i.d. Goals of care discussed with the patient for more than 28 minutes, full code status Plan discussed with patient in which all questions have been answered Case discussed with Dr. Urias Plan discussed with: Patient, Other (Caregiver at bedside) My Orders My Orders Orders - AMRIK SMITH RESIDENT Procedure Category Date Status Time Kub Abdomen Single XY 03/12/25 Resulted View 10:19 Doxycycline PHA 03/12/25 In Process 100mg/100ml 12:30 Metronidazole PHA 03/12/25 In Process 500mg/100ml (Flagyl 14:00 Npo (Nothing By DIET 03/12/25 Transmitted Mouth) Diet Lunch Sodium Chloride 0.9% PHA 03/12/25 In Process 12:30 Date of Service: Mar 12, 2025 Billing Provider: GRADY SANCHEZ MD Common Visit Codes: [id number] INP/OBS CARE(HIGH) AMRIK SMITH RESIDENT Mar 12, 2025 16:00 GRADY SANCHEZ MD Mar 16, 2025 22:12
[2025-03-12] MEDS ORDERED: DEXTROSE (50%) 50ML SYRG IV PRN (16:15)
[2025-03-12] MEDS: ACCU-CHEK COMFORT CURVE STRIP VI SCH (18:00)
[2025-03-12] MEDS ORDERED: PANC3600 OR (20:48)
[2025-03-12] MEDS ORDERED: LEVO112T4 PO (20:48)
[2025-03-12] MEDS: LEVALBUTEROL HCL 1.25 MG/3 ML NEB ONE (21:54)
[2025-03-12] MEDS: IPRATROPIUM BROM 0.5 MG/2.5ML INH SOL ONE (21:54)
[2025-03-12] MEDS ORDERED: ENOXAPARIN SOD 100 MG/1 ML SYRINGE SC SCH ×2 (22:00)
[2025-03-12] MEDS: IPRATROPIUM BROM 0.5 MG/2.5ML INH SOL NEB SCH (22:11)
[2025-03-12] MEDS: LEVALBUTEROL HCL 1.25 MG/3 ML NEB NEB SCH (22:11)
[2025-03-12] MEDS: InsuLIN REG 1unit/0.01ml Soln (100units/ml) SC SCH (23:32)
[2025-03-13] VITALS (13 sets, daily range): BP systolic 116–141; BP diastolic 78–89; PULSE 78–101; RESP 14–19; TEMP 97.8–98.8; O2SAT 92–99
[2025-03-13] MEDS: ENOXAPARIN SOD 100 MG/1 ML SYRINGE SC ONE (00:21)
[2025-03-13 07:38] LABS: Hematocrit 38.9 % (41.0-53.0); Hemoglobin 12.9 g/dL (13.5-17.5); Mean Corpuscular Hemoglobin 31.1 pg (28.0-32.0); Mean Corpuscular Volume 93.7 fL (80.0-100.0); Nucleated Red Blood Cells % 0.1 %
[2025-03-13 07:42] LABS: Sodium 144 mmol/L (136-145)
[2025-03-13 07:43] LABS: Anion Gap 8 (5-15); Calcium 9.2 mg/dL (8.7-10.4); Carbon Dioxide 26 mmol/L (20-31)
[2025-03-13 07:48] LABS: BUN/Creatinine Ratio 16.7 (10.0-20.0); Blood Urea Nitrogen 12 mg/dL (9-23); Chloride 110 mmol/L (98-107); Glucose 125 mg/dL (74-106); Potassium 3.4 mmol/L (3.5-5.1)
[2025-03-13] MEDS: FAMOTIDINE (10MG/ML) 2ML VL IV SCH (09:55)
[2025-03-13] MEDS: ENOXAPARIN SOD 100 MG/1 ML SYRINGE SC SCH (09:57)
[2025-03-13 10:36] LABS: Hepatitis B Surface Antigen Negative (Negative); Hepatitis C Antibody Negative (Negative)
--- NOTE | 2025-03-13 12:42 | DVH ---
Indication: r/o sbo, hyperactive bowel Technique: CT axial images of the abdomen and pelvis are obtained without contrast. Coronal and sagit vick reformats were obtained. Radiation Dose Information: CTDI volume is 23.94 mGy. Dose-length product is 1377.25 mGy*cm Comparison: No prior CT at the time of report. Abdominal radiograph from 03/12/2025 FINDINGS: There is limited interpretation of the abdomen and pelvis without administration of intravenous contr ast. Lung bases demonstrate atelectasis. Left adrenal adenoma measuring 1.6 cm. Right adrenal gland unremarkable. Spleen, pancreas unremarka ble. Multiple hepatic hypodensities measuring up to 1.[address] evidence for cholelithiasis. Right renal nonobstructing calculi measuring up 1.9 cm. Left renal nonobstructing calculi measuring u p to 4 mm. Left renal upper pole cyst measuring 2.9 cm. Ileal conduit. At the conduit site, there is a segment of herniated bowel measuring 3.9 x 3.5 cm with narrow neck measuring 1.4 cm. Stomach partially distended. Small bowel loops are relatively nondistended. There is a large volume stool within the distal sigmoid rectum the sigmoid colon is distended and dis placed into the upper abdomen up to 7.7 cm. There is a moderate volume stool within the remaining col on. Mild dilatation of the infrarenal abdominal aorta up to 2.5 cm. Postsurgical changes in the retroper itoneum. Cystectomy. No free pelvic fluid. No inguinal lymphadenopathy. Pelvic/inguinal region varic es. Moderate bilateral sacroiliac degenerative joint disease. Moderate thoracolumbar degenerative disc di sease. Thoracolumbar dextrocurvature. IMPRESSION: Distention of the sigmoid colon up to 7.7 cm may represent ileus sequela fecal impaction, ileus with other considerations including sigmoid volvulus not excluded but felt to be much less likely. Recom mend surgical evaluation. Large volume stool within the rectum and distal sigmoid colon. Moderate volume stool within the colon. Ileal conduit, cystectomy. There is a small segment of bowel herniation at the ileal conduit measuri ng 3.5 x 3.9 cm without definitive evidence for obstruction. IVC filter. Bilateral renal calculi as described. Atherosclerotic disease. Dilatation infrarenal abdominal aorta up to 2.5 cm. Other findings as described.
[2025-03-13] MEDS: POTASSIUM CHL 20MEQ/100ML 100 ML IV ONE (12:58)
--- NOTE | 2025-03-13 14:21 | DVHPNRES ---
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 He says like a truck ran over him, Patient has history of multiple urinary tract infections with the last urine culture showing the growth of Pseudomonas aeruginosa and Citrobacter youngae. patient reported no abdominal pain, no dizziness, no shortness of breath, no headache. Chest X ray shows mild pulmonary vascular congestion and questionable pulmonary edema. 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 Past medical history: Guillian [place] syndrome diagnosed in 2020, history of bladder cancer status post cystectomy ileal conduit for urinary drainage, left lower extremity + port thrombosis DVT status post IVC filter on Eliquis 5 mg b.i.d., type 2 diabetes mellitus, GERD, hypertension, dyslipidemia Past surgical history: Ileal urine Conduit surgery Social history: Patient lives at home and has home health services which take care. Denies smoking, alcohol, drug use Home medication: Amlodipine 2.5 mg, apixaban 5 mg b.i.d., duloxetine 20 mg once daily, famotidine 20 mg HS, pancrelipase TIDWM, metoprolol tartrate 25 mg b.i.d. 03/12 - Patient seen and examined at the bedside. Abdomen is distended, KUB ordered shows SBO versus ileus. NPO 03/13-patient seen and examined, overnight had a bowel movement, CT abdomen completed, shows multiple hepatic hypodensities measuring up to 1.7 cm. Right renal calculi, left renal nonobstructing calculi. Stomach partially distended. Small bowel loops are relatively nondistended. There is a large volume stool within the distal sigmoid rectum the sigmoid colon is distended and displaced into the upper abdomen up to 7.7 cm. Distention of the sigmoid colon up to 7.7 cm may represent ileus sequela fecal impaction, ileus with other considerations including sigmoid volvulus not excluded but felt to be much less likely. Recommend surgical evaluation. Surgery consulted. Objective vital signs Vital Sign Date Time Temp Pulse Resp B/P (MAP) Pulse Ox O2 Delivery O2 Flow Rate FiO2 03/13/25 13:00 98.0 91 18 116/78 (91) 92 98.0 03/13/25 08:09 Nasal Cannula* 1 24 Total Intake and Output 03/12/25 03/12/25 03/13/25 15:00 23:00 07:00 Intake Total 150 ml 450 ml 250 ml Output Total 1350 ml 850 ml 1000 ml Balance -1200 ml -400 ml -750 ml medications Current Medications Medications Dose Ordered Sig/Simon Route Start Time Stop Time Status Last Admin Dose Admin Acetaminophen 650 mg Q6HP PRN PO 03/11/25 23:45 Duloxetine HCl 30 mg DAILY PO 03/12/25 10:00 03/12/25 10:37 30 MG Cefepime HCl 50 ml @ 12.5 mls/hr Q8HR IV 03/12/25 06:00 03/13/25 06:20 12.5 MLS/HR Gabapentin 400 mg TID PO 03/12/25 06:00 03/12/25 06:35 400 MG Doxycycline Hyclate 100 ml @ 50 mls/hr Q12H IV 03/12/25 12:30 03/13/25 12:37 50 MLS/HR Metronidazole 100 ml @ 100 mls/hr Q8HR IV 03/12/25 14:00 03/13/25 05:04 100 MLS/HR Ipratropium [place] 0.5 mg Q8H NEB 03/12/25 22:00 03/13/25 08:09 0.5 MG Levalbuterol HCl 0.625 mg Q8H NEB 03/12/25 22:00 03/13/25 08:09 0.625 MG Diagnostic Test (Pha) 1 strip Q6HR 03/12/25 18:00 03/13/25 12:39 1 STRIP Insulin Human Regular Q6HR SC 03/12/25 18:00 Dextrose 50 ml UD PRN IV 03/12/25 16:15 Enoxaparin Sodium 90 mg Q12HR SC 03/13/25 10:00 03/13/25 09:57 90 MG Famotidine 20 mg Q12HR IV 03/13/25 10:00 03/13/25 09:55 20 MG Dextrose/Sodium Chloride 1,000 ml @ 100 mls/hr Q10H IV 03/13/25 12:15 Examination Patient lying in bed, A&O x3 General: Well-built, afebrile, palor, mucosae are moist Cardiovascular: Regular S1 and S2. No murmurs, gallops or rubs. No JVD elevation. No pedal edema Respiratory: Normal B/L air entry on room air. Clear lung sounds on auscultation Abdomen: Soft, nontender, distended, hyperactive bowel sounds, no rebound tenderness, no organomegaly, no masses Ileal conduit with ileostomy bag with clearing urine with no haziness Genitourinary: Deferred MSK/skin: Mobilizes 4 limbs. Lower extremities are cold and clammy. Neurological: Bilateral upper extremity strength 3/5. patient has lower extremity paralysis. no sensorium below the level of nipples. fecal incontinence. Psych/Mental Status: A/Ox3 laboratory and microbiology Laboratory Tests 03/13/25 05:11 Test 03/13/25 05:11 Range/Units Serum Glucose 125 H 74-106 mg/dL Microbiology Date/Time Source Procedure Growth Status 03/12/25 09:00 Stool Stool Culture - Preliminary Resulted 03/12/25 09:00 Stool Shiga Toxin I & II Pending Resulted 03/12/25 09:00 Stool Clostridium difficile Toxin Assay Pending Resulted 03/12/25 03:00 Urine - Catheterized Urine Culture - Preliminary Resulted 03/11/25 18:18 Blood Blood Culture - Preliminary NO GROWTH AFTER 24 HOURS OF INCUBATION. Resulted Labs and/or images reviewed: Labs reviewed by me, Image(s) reviewed by me Problem List/Assessment/Plan Problem List/Assessment/Plan Sepsis likely due to acute cystitis History of bladder carcinoma status post cystectomy with ileal conduit UA shows 2+ nitrite, 3+ LE, urine bacteria and urine WBCs Urine culture ordered, previous urine culture showing Proteus, Pseudomonas, Citrobacter Blood culture preliminary negative IV D5 with half NS IV cefepime Acute small-bowel obstruction versus ileus Rule out C diff Distended sigmoid colon 7.7 cm ? Focal impaction versus sigmoid volvulus versus ileus KUB shows small bowel dilation greater than 6 cm, C diff studies pending Stool culture preliminary negative NPO, conservative management for now, orogastric tube in place IV metronidazole CT abdomen without contrast shows CT abdomen completed, shows multiple hepatic hypodensities measuring up to 1.7 cm. Right renal calculi, left renal nonobstructing calculi. Stomach partially distended. Small bowel loops are relatively nondistended. There is a large volume stool within the distal sigmoid rectum the sigmoid colon is distended and displaced into the upper abdomen up to 7.7 cm. Distention of the sigmoid colon up to 7.7 cm may represent ileus sequela fecal impaction, ileus with other considerations including sigmoid volvulus not excluded but felt to be much less likely. Recommend surgical evaluation. Surgery consulted. Acute hypoxic respiratory failure secondary to Pulmonary edema Hypertensive heart disease with grade 1 diastolic dysfunction Likely Gram-positive and negative pneumonia IV cefepime, IV doxycycline IV fluids Duo nebs MRSA nares Echo 2023 unremarkable, LVEF 55% CIDP, history of T[place]a [place] syndrome Continue home medication baclofen 10 mg daily Continue duloxetine 30 mg daily Continue gabapentin 400 mg TID p.r.n. Diabetes mellitus type 2-controlled On mild ISS Hold home medication metformin Left lower extremity port thrombosis DVT status post IVC filter Switched Eliquis 5 mg b.i.d to Lovenox 1 milligram/kg b.i.d. GERD Continue home medication famotidine 20 mg daily Hypertension Holding home medication amlodipine 2.5 mg daily Holding home medication metoprolol tartrate 25 mg daily NPO Orogastric tube DVT prophylaxis, Lovenox 1 milligram/kg b.i.d. Goals of care discussed with the patient for more than 28 minutes, full code status Plan discussed with patient in which all questions have been answered Case discussed with Dr. Urias. Consider Clinimix tomorrow Plan discussed with: Patient, Other (Caregiver at the bedside, sister over the phone) My Orders My Orders Orders - AMRIK SMITH RESIDENT Procedure Category Date Status Time Ipratropium Medneb PHA 03/12/25 In Process (Atrovent Medneb) 22:00 Levalbuterol Hcl PHA 03/12/25 In Process (Xopenex Medneb) 22:00 Glucose Blood PHA 03/12/25 In Process (Accu-Chek Comfort 18:00 Insulin R (Human) PHA 03/12/25 In Process (Insulin R) 18:00 Dextrose 50% Syringe PHA 03/12/25 In Process 16:15 Mrsa Screen ODETTE 03/12/25 In Process 16:08 Enoxaparin Sodium PHA 03/13/25 In Process (Lovenox) 10:00 Famotidine Injection PHA 03/13/25 In Process (Pepcid Injection) 10:00 Ct Ab Pel Wo Con-No CT 03/13/25 Resulted Oral Or Iv 11:00 D5w/Sod Chl 0.45% PHA 03/13/25 In Process (D5w 1/2ns) 12:15 Place Og Tube ORDERS 03/13/25 Transmitted 12:59 Dietary Evaluation Review Comments: 1. At risk for hypoglycemia under NPO>1 day. If EN/GI unavaialbe r/t his current conditions, recommend TPN per pharmacy. 2. Advance to CCHO-60 diet texture as tolerated if PO feeding is permissible. Expected Outcomes/Goals: Avoid fast wt loss. Date of Service: Mar 13, 2025 Billing Provider: GRADY SANCHEZ MD Common Visit Codes: [id number] INP/OBS CARE(HIGH) AMRIK SMITH RESIDENT Mar 13, 2025 14:21 GRADY SANCHEZ MD Mar 16, 2025 22:18
[2025-03-13] MEDS: LIDOCAINE 2% TOPICAL JELLY 5 ML URJT TOP ONE (15:21)
[2025-03-13] MEDS: D5W/SOD CHL 0.45% 1,000 ML IV SCH (17:10)
--- NOTE | 2025-03-13 17:30 | DVH ---
Report Consult with Physician Open Discussion (F11) Query Retrieve Patient Info : MONI KEMP JAge/: 64YR (1960)Gender: MalePhone: [phone]: NA Order Info Location: [facility] Modality: DX Procedure Desc: XY CHEST PORTABLE DOS: 03/13/2025 15:34 wRVU: NA Pending Since: NA Reason: VERIFY NG TUBE PLACEMENT Status: Complete Tag: NA Type/Priority: Inpatient / STAT STAT Stroke: NO Physician Info Ordering: AMRIK SMITH RESIDENTRendering: Samuel Date: 03/13/2025Report Status: Final Search ANY 4M 1Y 2Y 5Y ALL DX OTH CT US CR XY CHEST PORTABLE DOS : 03/13/[address] AB PEL WO CON-NO ORAL OR IV DOS : 03/13/2025 TAO LYNN XY KUB ABDOMEN SINGLE VIEW DOS : 03/12/2025 CEFERINO ADAMES XY CHEST XRAY 1 VIEW DOS : 03/12/[address] HEAD WITHOUT CONTRAST DOS : 03/12/2025 GALINDO, SUHAIL XY CHEST PORTABLE DOS : 11/13/2024 MCCARTHY, GENIE XY NECK FOR SOFT TISSUE DOS : 11/13/2024 HUANG, AVERY XY CHEST PORTABLE DOS : 10/29/2024 GALINDO, SUHAIL CT NECK WITHOUT CONTRAST DOS : 10/29/2024 GALINDO, SUHAIL XY CHEST PORTABLE DOS : 08/14/2024 ONDONNELL HORTON US BiLat Lower DVT DOS : 07/11/2024 HUANG, AVERY CT CT ANGIO CHEST CONTRAST DOS : 07/11/2024 DEBRA MUNSON XY CHEST XRAY 1 VIEW DOS : 07/10/2024 TIO OCONNOR XY CHEST PORTABLE DOS : 05/30/[address] AB PEL WO CON-NO ORAL OR IV DOS : 03/25/2024 BRUCE NOBLE XY KUB ABDOMEN SINGLE VIEW DOS : 01/16/2024 CEFERINO ADAMES XY KUB ABDOMEN SINGLE VIEW DOS : 01/15/2024 MCCARTHY, GENIE XY CHEST PORTABLE DOS : 01/15/2024 MCCARTHY, GENIE XY CHEST PORTABLE DOS : 01/14/2024 TIO OCONNOR XY SMALL BOWEL SERIES-W GASTROGRA DOS : 01/14/2024 CEFERINO ADAMES KUB ABDOMEN SINGLE VIEW DOS : 01/14/2024 TIO OCONNOR XY CHEST XRAY 1 VIEW DOS : 01/14/[address] AB PEL WITH IV CON ONLY DOS : 01/13/2024 JENNIFER SHERI XY CHEST XRAY 1 VIEW DOS : 01/13/2024 RODRIGUEZ SHERI CAPPS KUB ABDOMEN SINGLE VIEW DOS : 01/13/2024 RODRIGUEZ SHERI CAPPS KUB ABDOMEN SINGLE VIEW DOS : 01/12/2024 CEFERINO ADAMES XY KUB ABDOMEN SINGLE VIEW DOS : 01/10/2024 CEFERINO ADAMES XY CHEST XRAY 1 VIEW DOS : 01/09/2024 FIROOZNIA, NILOFAR US BiLat Lower DVT DOS : 01/04/2024 EDILBERTO, SAYED CT CT AB PEL WO CON-NO ORAL OR IV DOS : 01/04/2024 NIKO SANABRIA XY CHEST PORTABLE DOS : 09/16/2023 ROSANGELACEFERINO Ford US KIDNEY DOS : 09/15/2023 ANITHA HATHAWAY XY CHEST PORTABLE DOS : 09/15/2023 ROSANGELA, CEFERINO CT CT AB PEL WO CON-NO ORAL OR IV DOS : 03/07/2023 RADHA FLYNNRomainTIO CXRP DOS : 06/01/2022 DENA GIFFORD MST4 DOS : 04/25/2022 ROSANNA RIVERA ABPL DOS : 04/21/2022 DAVID HENSLEY CXRP DOS : 04/21/2022 DENA ИРИНА EXAM: XR Chest, 1 View CLINICAL INDICATION: Verify NG tube Placement TECHNIQUE: Frontal view of the chest. COMPARISON: No relevant prior studies available. FINDINGS: LUNGS AND PLEURAL SPACES: Unremarkable. No consolidation. No pneumothorax. HEART: Unremarkable. No cardiomegaly. MEDIASTINUM: Unremarkable. Normal mediastinal contour. BONES/JOINTS: Unremarkable. No acute fracture. TUBES, LINES AND DEVICES: Enteric tube courses into the stomach but is high in position. Advancement may be beneficial. OTHER FINDINGS: Comparison XY CHEST XRAY 1 VIEW on DOS: 6/26/25, XY CHEST PORTABLE on DOS: 11/13/24, XY CHEST PORTABLE on DOS: 10/29/24, XY CHEST PORTABLE on DOS: 08/14/24, XY CHEST XRAY 1 VIEW on DOS: 07/10/24. . IMPRESSION: Enteric tube courses into the stomach but is high in position. Advancement may be beneficial. 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
[2025-03-13] MEDS: LIDOCAINE VISCOUS 2% 15ML UD PO ONE (18:00)
[2025-03-14] VITALS (15 sets, daily range): BP systolic 120–141; BP diastolic 74–84; PULSE 67–87; RESP 12–20; TEMP 97.8–98.2; O2SAT 94–100
[2025-03-14] MEDS: ENOXAPARIN SOD 100 MG/1 ML SYRINGE SC ONE (08:49)
[2025-03-14] MEDS: LIDOCAINE VISCOUS 2% 15ML UD PO ONE (08:49)
[2025-03-14] MEDS ORDERED: KETAMINE 50mg/ML 1ml syringe ONE (10:09)
[2025-03-14] MEDS ORDERED: MIDAZOLAM HCL 2MG/2ML 2ml VIAL (1mg/ml) ONE (10:09)
[2025-03-14] MEDS: SUCCINYLCHOLINE CHLORIDE 20 MG/ML 10ML VIAL IV ONE (10:10)
--- NOTE | 2025-03-14 10:59 | DVHINCON2 ---
Date of service: Mar 14, 2025 Family History: Chronic obstructive pulmonary disease G8 MOTHER Diabetes mellitus G8 FATHER FH: breast cancer G8 MOTHER FH: pancreatic cancer G8 FATHER Allergies: Coded Allergies: No Known Drug Allergy (Verified Allergy, Unknown, 04/21/22) Home Meds Active Scripts Diphenhydramine Hcl (Gnp Allergy) 25 Mg Cap, 25 MG PO HS for 5 Days, #5 CAP 0 Refills Prov:GRADY SANCHEZ MD 11/01/24 Pancrelipase (Lipase-Protease- (CREON) 36,000 Unt Cap, 29638 UNT OR TIDWM for 30 Days, #90 CAP Prov:MILLIE CALIXTO MD 03/30/24 Potassium Chloride (Potassium Chloride ER) 10 Meq Tab, 10 MEQ PO DAILY for 30 Days, #30 TAB Prov:JEREMIAH BOOGIE MD 01/23/24 Polyethylene Glycol 3350 (Miralax) 17 Gm Pow, 17 GM PO DAILY for 30 Days, #510 POW Prov:JEREMIAH BOOGIE MD 01/23/24 Uvlhebff-Qjpjdbfcr-Np (Otic) (Cortisporin Otic Susp) [address], 3 DROP RIGHT EAR TID, #10 ML Prov:JEANNE ARRIOLA PAC 04/21/23 Reported Medications Levothyroxine Sodium (Levothyroxine Sodium) 112 Mcg Tab, 1 TAB PO DAILY, #30 TAB 5 Refills 03/12/25 Pancrelipase (Lipase-Protease- (CREON) 36,000 Unt Cap, 75631 UNT OR, CAP 03/12/25 Primidone (MYSOLINE TABLET) 50 Mg Tb, 50 MG PO, TAB 03/26/24 Cyanocobalamin (Vitamin B-12) 1,000 Mcg Tab, 1 TAB PO DAILY 09/14/23 Metformin Hydrochloride (Metformin Hcl) 500 Mg Tab, 1 TAB PO BID 09/14/23 Duloxetine Hcl (Cymbalta) 20 Mg Cap, 30 CAP PO DAILY, #30 CAP 2 Refills 09/14/23 Cholecalciferol (D3) 25 Mcg Chw, 25 MCG PO DAILY, TAB.CHEW 09/14/23 Jzcelnqzxzl-Yiygetyvjpmc-Pnmmi (Trelegy Ellipta 100-62.5-25 Mcg/INH) 1 Aer Aer, 1 AER IN DAILY, AER 03/09/23 Metoprolol Tartrate (Metoprolol Tartrate) 25 Mg Tab, 25 MG PO BID for 30 Days, MG 03/09/23 Amlodipine Besylate (Amlodipine Besylate) 5 Mg Tab, 2.5 MG PO DAILY for 30 Days, MG 03/09/23 Simvastatin (Simvastatin) 10 Mg Tab, 10 MG PO HS for 30 Days, MG 03/09/23 Gabapentin (Gabapentin) 300 Mg Cap, 400 MG PO TID for 30 Days, MG 04/21/22 Famotidine (Famotidine) 20 Mg Tab, 20 MG PO HS for 30 Days, MG 04/21/22 Apixaban Base (ELIQUIS) 5 Mg Tab, 5 MG PO BID, TAB 04/21/22 Baclofen (Baclofen) 10 Mg Tab, 10 MG PO Q8HP for 30 Days, MG 04/21/22 Current Medications Current Medications Medications (Trade) Dose Ordered Sig/Simon Route PRN Reason Start Time Stop Time Status Last Admin Dextrose/Sodium Chloride 1,000 ml @ 100 mls/hr Q10H IV 03/13/25 12:15 03/14/25 08:48 Vital Signs Vital Signs Date Time Temp Pulse Resp B/P (MAP) Pulse Ox O2 Delivery O2 Flow Rate FiO2 03/14/25 10:00 98 Room Air* 0 21 03/14/25 08:50 98.1 87 16 120/82 (95) 98.1 Labs/Diagnostic Data Labs Test 03/14/25 05:41 03/13/25 05:11 03/12/25 14:19 03/12/25 08:34 Range/Units POC Glucose 161 H 70-106 mg/dl White Blood Count 5.7 # 4.4-10.8 10^3/uL Red Blood Count 4.15 L 4.5-5.90 10^6/uL Hemoglobin 12.9 L 13.5-17.5 g/dL Hematocrit 38.9 L 41.0-53.0 % Mean Corpuscular Volume 93.7 80.0-100.0 fL Mean Corpuscular Hemoglobin 31.1 28.0-32.0 pg Mean Corpuscular Hemoglobin Concent 33.2 32.0-36.0 g/dL Red Cell Distribution Width 18.7 H 11.8-14.3 % Platelet Count 248 140-450 10^3/uL Mean Platelet Volume 6.4 L 6.9-10.8 fL Neutrophils (%) (Auto) 74.9 37.0-80.0 % Lymphocytes (%) (Auto) 10.7 10.0-50.0 % Monocytes (%) (Auto) 12.5 H 0.0-12.0 % Eosinophils (%) (Auto) 1.3 0.0-7.0 % Basophils (%) (Auto) 0.6 0.0-2.0 % Neutrophils # (Auto) 4.3 1.6-8.6 10 ^3/uL Lymphocytes # (Auto) 0.6 0.4-5.4 10 ^3/uL Monocytes # (Auto) 0.7 0-1.3 10 ^3/uL Eosinophils # (Auto) 0.1 0-0.8 10 ^3/uL Basophils # (Auto) 0 0-0.2 10 ^3/uL Nucleated Red Blood Cells 0.1 % Sodium Level 144 136-145 mmol/L Potassium Level 3.4 L 3.5-5.1 mmol/L Chloride Level 110 H 98-107 mmol/L Carbon Dioxide Level 26 20-31 mmol/L Anion Gap 8 5-15 Blood Urea Nitrogen 12 9-23 mg/dL Creatinine 0.72 0.700-1.30 mg/dL Glomerular Filtration Rate Calc 101 >90 mL/min BUN/Creatinine Ratio 16.7 10.0-20.0 Serum Glucose 125 H 74-106 mg/dL Calcium Level 9.2 8.7-10.4 mg/dL Hepatitis B Surface Antigen Negative Negative Hepatitis C Antibody Negative Negative Influenza Type A Antigen Negative Negative Influenza Type B Antigen Negative Negative SARS-CoV-2 Antigen (Rapid) Negative NEGATIVE Lactic Acid Level 0.9 0.4-2.0 mmol/L Test 03/12/25 04:40 03/12/25 03:00 03/11/25 18:18 Range/Units Magnesium Level 2.3 1.6-2.6 mg/dL Total Bilirubin 0.3 0.2-1.0 mg/dL Aspartate Amino Transferase (AST) 12 <34 U/L Alanine Aminotransferase (ALT) 12 7-40 U/L Alkaline Phosphatase 72 46-116 U/L B-Type Natriuretic Peptide 21.06 0-100 pg/mL Total Protein 6.6 5.7-8.2 g/dL Albumin 3.7 3.2-4.8 g/dL Vitamin B12 Level 872 211-911 pg/mL Vitamin D 25-Hydroxy 53.7 30.0-100 ng/mL Folic Acid > 48.00 >5.38 ng/mL Thyroid Stimulating Hormone (TSH) 1.93 0.55-4.78 uIU/mL Urine Color Colorless Yellow Urine Clarity Turbid H Clear Urine pH 8.0 5.0-9.0 Urine Specific [place] 1.010 1.001-1.035 Urine Protein 1+ H Negative Urine Ketones Negative Negative Urine Blood 3+ H Negative /uL Urine Nitrite 2+ H Negative Urine Bilirubin Negative Negative Urine Urobilinogen Normal Negative mg/dL Urine Leukocyte Esterase 3+ Negative /uL Urine RBC 73 0 - 3 /hpf Urine Microscopic WBC 52 H 0-3 /HPF Urine Squamous Epithelial Cells Few <5 /hpf Urine Triple Phosphate Crystals Moderate None Seen /hpf Urine Bacteria Many H None Seen /hpf Urine Mucus Few None Seen Urine Glucose Normal Normal mg/dL Prothrombin Time 10.3 9.3-11.8 sec Prothrombin Time INR 0.97 0.9-1.15 Activated Partial Thromboplast Time 27.0 24.5-34.5 SEC Ammonia 25 11-32 umol/L Lipase 25 12-53 U/L Microbiology Date/Time Source Procedure Growth Status 03/12/25 23:35 Nose MRSA Screen - Final Complete 03/12/25 09:00 Stool Stool Culture - Final Complete 03/12/25 09:00 Stool Shiga Toxin I & II - Final Complete 03/12/25 09:00 Stool Clostridium difficile Toxin Assay - Final Complete 03/12/25 03:00 Urine - Catheterized Urine Culture - Preliminary Enterobacter aerogenes Morganella morganii Proteus mirabilis Resulted 03/11/25 18:18 Blood Blood Culture - Preliminary NO GROWTH AFTER 48 HOURS OF INCUBATION. Resulted Assessment 64 YEAR OLD MALE WITH ILEAL CONDUIT DUE TO CYSTECTOMY FOR BLADDER CANCER, PRESENTED WITH SIGMOID VOLVULUS WHICH HAS BEEN DECOMPRESSED BY SIGMOIDOSCOPY DONE BY dR bethany SOUZA. CONSERVATIVE TREATMENT FOR NOW, OPERATION IF NO IMPROV EMENT IN 48 HOURS. KEEP NGT IN. Plan discussed with: Patient LILLIE LINARES MD Mar 14, 2025 10:59
--- NOTE | 2025-03-14 11:00 | DVHOP2 ---
Operative Report DATE OF OPERATION: 03/14/25 PROCEDURE: Incomplete Colonoscopy with a reduction of volvulus and colonic decompression. PREOPERATIVE INDICATION: The patient is a 64 -year-old male undergoing colonoscopy for bowel obstruction suspected sigmoid volvulus POSTOPERATIVE DIAGNOSES: 1. Patient had a near complete volvulus involving the sigmoid colon and the mid transverse colon area and I was able to pass my colonoscope through both the sigmoid part of the volvulus and also in the mid transverse colon area beyond which there was a large amount of stool Had a long tortuous and redundant colon and it was an incomplete examination up to the proximal transverse colon area 2. Colonic decompression was performed and liquid stool was aspirated PROCEDURE PERFORMED BY: Guero Olsen M.D. SCOPE: Olympus videocolonoscope. ASA CLASS: 3 PREOPERATIVE MEDICATIONS: Mac Sedation PROCEDURE IN DETAIL: After obtaining an informed consent, the patient was placed on left lateral decubitus position. He was then sedated with the above medications. A rectal examination was performed that was normal. The colonoscope was then passed through the anus into the rectosigmoid. Was a sharp volvulus in the sigmoid colon I was able to advance the colonoscope beyond this area and decompress the colon I also was able to reach the proximal end of the volvulus in the mid transverse colon area I was able to advance the colonoscope just beyond this area however there was a large amount of formed stool in the right colon with poor visualization Colonic decompression was performed as the colonoscope was slowly withdrawn. On retroflexion he had 1+ hemorrhoids The stool in the left colon and rectal area was mostly liquid but patient had more formed stool in the right colon The patient tolerated the procedure well without difficulty. WITHDRAWAL TIME: Not applicable QUALITY OF THE PREP: [place] Bowel Prep score: Not applicable COMPLICATIONS : None SPECIMENS: None DISPOSITION: Transfer back to the floor Stable PLAN: 1. Resume ice chips and then clear liquid 2. If the patient is able to move his bowels and is tolerating ice chips and clear liquids then we can DC the NG tube 3. GI Services we will continue to monitor patient for any recurrent symptoms of volvulus and surgical consult is also following 4. Milk of magnesia 30 mL p.o. daily GUERO OLSEN MD Mar 14, 2025 11:00
--- NOTE | 2025-03-14 11:14 | DVHCONRES ---
Date Seen: Mar 14, 2025 Resident Creating Document: AMEYA CUEVAS RESIDENT Referring Physician Nish Sutton MD History of Present Illness Patient is 63 years old male with past medical history of Guillain-Brighton syndrome since 2020, history of bladder cancer, status post cholecystectomy, ger rt continued for urinary drainage, left lower extremity port thrombosis DVT, status post IVC filter, on Eliquis, diabetes mellitus type 2, GERD, hypertension, dyslipidemia was brought in to the ER due to generalized weakness. He lab workup revealed leukocytosis with WBC 11.0, mild hypokalemia with potassium 3.4. CT head negative for acute intracranial pathology. Chest/abdominal x-ray revealed diffuse dilated loops of small bowel measuring up to 6 cm. Suggestive of small-bowel obstruction versus ileus, IVC filter NC. CT abdomen and pelvis revealed- Distention of the sigmoid colon up to 7.7 cm may represent ileus sequela fecal impaction, ileus with other considerations including sigmoid volvulus not excluded but felt to be much less likely. Large volume stool within the rectum and distal sigmoid colon. Moderate volume stool within the colon. Ileal conduit, cystectomy. There is a small segment of bowel herniation at the ileal conduit measuring 3.5 x 3.9 cm without definitive evidence for obstruction. IVC filter. Bilateral renal calculi as described. Past medical history: Guillian [place] syndrome diagnosed in 2020, history of bladder cancer status post cystectomy ileal conduit for urinary drainage, left lower extremity + port thrombosis DVT status post IVC filter on Eliquis 5 mg b.i.d., type 2 diabetes mellitus, GERD, hypertension, dyslipidemia Past surgical history: Ileal urine Conduit surgery Social history: Patient lives at home and has home health services which take care. Denies smoking, alcohol, drug use Home medication: Amlodipine 2.5 mg, apixaban 5 mg b.i.d., duloxetine 20 mg once daily, famotidine 20 mg HS, pancrelipase TIDWM, metoprolol tartrate 25 mg b.i.d Patient was referred by Nish Hernandez MD for sigmoid volvulus. Patient is seen today at bedside. Status post surgery consult, Abdomen distended, tense Plan is to do a colonoscope with decompensation Patient on antibiotic cefepime and metronidazole Family History: Chronic obstructive pulmonary disease G8 MOTHER Diabetes mellitus G8 FATHER FH: breast cancer G8 MOTHER FH: pancreatic cancer G8 FATHER Allergies: Coded Allergies: No Known Drug Allergy (Verified Allergy, Unknown, 04/21/22) Home Meds Active Scripts Diphenhydramine Hcl (Gnp Allergy) 25 Mg Cap, 25 MG PO HS for 5 Days, #5 CAP 0 Refills Prov:GRADY SANCHEZ MD 11/01/24 Pancrelipase (Lipase-Protease- (CREON) 36,000 Unt Cap, 14874 UNT OR TIDWM for 30 Days, #90 CAP Prov:MILLIE CALIXTO MD 03/30/24 Potassium Chloride (Potassium Chloride ER) 10 Meq Tab, 10 MEQ PO DAILY for 30 Days, #30 TAB Prov:JEREMIAH BOOGIE MD 01/23/24 Polyethylene Glycol 3350 (Miralax) 17 Gm Pow, 17 GM PO DAILY for 30 Days, #510 POW Prov:JEREMIAH BOOGIE MD 01/23/24 Blkbjhyk-Kwxdzbudw-Xg (Otic) (Cortisporin Otic Susp) [address], 3 DROP RIGHT EAR TID, #10 ML Prov:JEANNE ARRIOLA PAC 04/21/23 Reported Medications Levothyroxine Sodium (Levothyroxine Sodium) 112 Mcg Tab, 1 TAB PO DAILY, #30 TAB 5 Refills 03/12/25 Pancrelipase (Lipase-Protease- (CREON) 36,000 Unt Cap, 87386 UNT OR, CAP 03/12/25 Primidone (MYSOLINE TABLET) 50 Mg Tb, 50 MG PO, TAB 03/26/24 Cyanocobalamin (Vitamin B-12) 1,000 Mcg Tab, 1 TAB PO DAILY 09/14/23 Metformin Hydrochloride (Metformin Hcl) 500 Mg Tab, 1 TAB PO BID 09/14/23 Duloxetine Hcl (Cymbalta) 20 Mg Cap, 30 CAP PO DAILY, #30 CAP 2 Refills 09/14/23 Cholecalciferol (D3) 25 Mcg Chw, 25 MCG PO DAILY, TAB.CHEW 09/14/23 Fhorkhoupvt-Tpbphamksfdu-Hhfuu (Trelegy Ellipta 100-62.5-25 Mcg/INH) 1 Aer Aer, 1 AER IN DAILY, AER 03/09/23 Metoprolol Tartrate (Metoprolol Tartrate) 25 Mg Tab, 25 MG PO BID for 30 Days, MG 03/09/23 Amlodipine Besylate (Amlodipine Besylate) 5 Mg Tab, 2.5 MG PO DAILY for 30 Days, MG 03/09/23 Simvastatin (Simvastatin) 10 Mg Tab, 10 MG PO HS for 30 Days, MG 03/09/23 Gabapentin (Gabapentin) 300 Mg Cap, 400 MG PO TID for 30 Days, MG 04/21/22 Famotidine (Famotidine) 20 Mg Tab, 20 MG PO HS for 30 Days, MG 04/21/22 Apixaban Base (ELIQUIS) 5 Mg Tab, 5 MG PO BID, TAB 04/21/22 Baclofen (Baclofen) 10 Mg Tab, 10 MG PO Q8HP for 30 Days, MG 04/21/22 Current Medications Current Medications Medications (Trade) Dose Ordered Sig/Simon Route PRN Reason Start Time Stop Time Status Last Admin Dextrose/Sodium Chloride 1,000 ml @ 100 mls/hr Q10H IV 03/13/25 12:15 03/14/25 08:48 Vital Signs Vital Signs Date Time Temp Pulse Resp B/P (MAP) Pulse Ox O2 Delivery O2 Flow Rate FiO2 03/14/25 10:00 98 Room Air* 0 21 03/14/25 08:50 98.1 87 16 120/82 (95) 98.1 Physical Exam General examination- awake, alert HEENT- PEERLA, no acute nasal discharge Cardiovascular- S1-S2 audible, rate and rhythm regular, no murmur Respiratory- CTAB, no wheeze or rhonchi Gastrointestinal-abdomen distended, tense Musculoskeletal-no acute joint swelling or tenderness or redness Lower extremity- no leg edema Neurological- cranial nerves intact, no acute dysarthria or dysphagia Psychiatry- denies depression or SI or HI Skin- no acute rash or purpura Labs/Diagnostic Data Labs Test 03/14/25 05:41 03/13/25 05:11 03/12/25 14:19 03/12/25 08:34 Range/Units POC Glucose 161 H 70-106 mg/dl White Blood Count 5.7 # 4.4-10.8 10^3/uL Red Blood Count 4.15 L 4.5-5.90 10^6/uL Hemoglobin 12.9 L 13.5-17.5 g/dL Hematocrit 38.9 L 41.0-53.0 % Mean Corpuscular Volume 93.7 80.0-100.0 fL Mean Corpuscular Hemoglobin 31.1 28.0-32.0 pg Mean Corpuscular Hemoglobin Concent 33.2 32.0-36.0 g/dL Red Cell Distribution Width 18.7 H 11.8-14.3 % Platelet Count 248 140-450 10^3/uL Mean Platelet Volume 6.4 L 6.9-10.8 fL Neutrophils (%) (Auto) 74.9 37.0-80.0 % Lymphocytes (%) (Auto) 10.7 10.0-50.0 % Monocytes (%) (Auto) 12.5 H 0.0-12.0 % Eosinophils (%) (Auto) 1.3 0.0-7.0 % Basophils (%) (Auto) 0.6 0.0-2.0 % Neutrophils # (Auto) 4.3 1.6-8.6 10 ^3/uL Lymphocytes # (Auto) 0.6 0.4-5.4 10 ^3/uL Monocytes # (Auto) 0.7 0-1.3 10 ^3/uL Eosinophils # (Auto) 0.1 0-0.8 10 ^3/uL Basophils # (Auto) 0 0-0.2 10 ^3/uL Nucleated Red Blood Cells 0.1 % Sodium Level 144 136-145 mmol/L Potassium Level 3.4 L 3.5-5.1 mmol/L Chloride Level 110 H 98-107 mmol/L Carbon Dioxide Level 26 20-31 mmol/L Anion Gap 8 5-15 Blood Urea Nitrogen 12 9-23 mg/dL Creatinine 0.72 0.700-1.30 mg/dL Glomerular Filtration Rate Calc 101 >90 mL/min BUN/Creatinine Ratio 16.7 10.0-20.0 Serum Glucose 125 H 74-106 mg/dL Calcium Level 9.2 8.7-10.4 mg/dL Hepatitis B Surface Antigen Negative Negative Hepatitis C Antibody Negative Negative Influenza Type A Antigen Negative Negative Influenza Type B Antigen Negative Negative SARS-CoV-2 Antigen (Rapid) Negative NEGATIVE Lactic Acid Level 0.9 0.4-2.0 mmol/L Test 03/12/25 04:40 03/12/25 03:00 03/11/25 18:18 Range/Units Magnesium Level 2.3 1.6-2.6 mg/dL Total Bilirubin 0.3 0.2-1.0 mg/dL Aspartate Amino Transferase (AST) 12 <34 U/L Alanine Aminotransferase (ALT) 12 7-40 U/L Alkaline Phosphatase 72 46-116 U/L B-Type Natriuretic Peptide 21.06 0-100 pg/mL Total Protein 6.6 5.7-8.2 g/dL Albumin 3.7 3.2-4.8 g/dL Vitamin B12 Level 872 211-911 pg/mL Vitamin D 25-Hydroxy 53.7 30.0-100 ng/mL Folic Acid > 48.00 >5.38 ng/mL Thyroid Stimulating Hormone (TSH) 1.93 0.55-4.78 uIU/mL Urine Color Colorless Yellow Urine Clarity Turbid H Clear Urine pH 8.0 5.0-9.0 Urine Specific [place] 1.010 1.001-1.035 Urine Protein 1+ H Negative Urine Ketones Negative Negative Urine Blood 3+ H Negative /uL Urine Nitrite 2+ H Negative Urine Bilirubin Negative Negative Urine Urobilinogen Normal Negative mg/dL Urine Leukocyte Esterase 3+ Negative /uL Urine RBC 73 0 - 3 /hpf Urine Microscopic WBC 52 H 0-3 /HPF Urine Squamous Epithelial Cells Few <5 /hpf Urine Triple Phosphate Crystals Moderate None Seen /hpf Urine Bacteria Many H None Seen /hpf Urine Mucus Few None Seen Urine Glucose Normal Normal mg/dL Prothrombin Time 10.3 9.3-11.8 sec Prothrombin Time INR 0.97 0.9-1.15 Activated Partial Thromboplast Time 27.0 24.5-34.5 SEC Ammonia 25 11-32 umol/L Lipase 25 12-53 U/L Microbiology Date/Time Source Procedure Growth Status 03/12/25 23:35 Nose MRSA Screen - Final Complete 03/12/25 09:00 Stool Stool Culture - Final Complete 03/12/25 09:00 Stool Shiga Toxin I & II - Final Complete 03/12/25 09:00 Stool Clostridium difficile Toxin Assay - Final Complete 03/12/25 03:00 Urine - Catheterized Urine Culture - Preliminary Enterobacter aerogenes Morganella morganii Proteus mirabilis Resulted 03/11/25 18:18 Blood Blood Culture - Preliminary NO GROWTH AFTER 48 HOURS OF INCUBATION. Resulted Assessment Assessment plan Sigmoid volvulus Distended abdomen Pneumonia Gram-positive versus Gram-negative Diabetes mellitus type 2 Left lower extremity port thrombosis DVT status post IV filter History of Guillain-Brighton syndrome Events Status post surgery consult, Abdomen distended, tense Plan is to do a colonoscope with decompensation Patient on antibiotic cefepime and metronidazole Plan Colonoscopy with the decompression of the sigmoid volvulus Surgery follow up recommended Continue IV antibiotic cefepime and metronidazole Milk of magnesium for constipation Avoid dehydration constipation Other treatment as per primary team Plan discussed with Dr. Shelly Olsen , nursing staff, Total time spent on patient evaluation, chart review, assessment and plan, di scussion discussion >35 minutes Plan discussed with: Patient, Other (RN) AMEYA CUEVAS RESIDENT Mar 14, 2025 11:14
--- NOTE | 2025-03-14 13:40 | DVHPNRES ---
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 He says like a truck ran over him, Patient has history of multiple urinary tract infections with the last urine culture showing the growth of Pseudomonas aeruginosa and Citrobacter youngae. patient reported no abdominal pain, no dizziness, no shortness of breath, no headache. Chest X ray shows mild pulmonary vascular congestion and questionable pulmonary edema. 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 Past medical history: Guillian [place] syndrome diagnosed in 2020, history of bladder cancer status post cystectomy ileal conduit for urinary drainage, left lower extremity + port thrombosis DVT status post IVC filter on Eliquis 5 mg b.i.d., type 2 diabetes mellitus, GERD, hypertension, dyslipidemia Past surgical history: Ileal urine Conduit surgery Social history: Patient lives at home and has home health services which take care. Denies smoking, alcohol, drug use Home medication: Amlodipine 2.5 mg, apixaban 5 mg b.i.d., duloxetine 20 mg once daily, famotidine 20 mg HS, pancrelipase TIDWM, metoprolol tartrate 25 mg b.i.d. 03/12 - Patient seen and examined at the bedside. Abdomen is distended, KUB ordered shows SBO versus ileus. NPO 03/13-patient seen and examined, overnight had a bowel movement, CT abdomen completed, shows multiple hepatic hypodensities measuring up to 1.7 cm. Right renal calculi, left renal nonobstructing calculi. Stomach partially distended. Small bowel loops are relatively nondistended. There is a large volume stool within the distal sigmoid rectum the sigmoid colon is distended and displaced into the upper abdomen up to 7.7 cm. Distention of the sigmoid colon up to 7.7 cm may represent ileus sequela fecal impaction, ileus with other considerations including sigmoid volvulus not excluded but felt to be much less likely. Recommend surgical evaluation. Surgery consulted. 03/14 - patient seen and examined, underwent colonoscopy and there was an attempt to detorsion of the sigmoid colon. Objective vital signs Vital Sign Date Time Temp Pulse Resp B/P (MAP) Pulse Ox O2 Delivery O2 Flow Rate FiO2 03/14/25 13:18 98.0 67 16 131/74 (93) 94 98.0 03/14/25 11:10 Room Air 0 98 Total Intake and Output 03/13/25 03/13/25 03/14/25 15:00 23:00 07:00 Intake Total 200 ml 700 ml 1400 ml Output Total 250 ml 525 ml Balance 200 ml 450 ml 875 ml medications Current Medications Medications Dose Ordered Sig/Simon Route Start Time Stop Time Status Last Admin Dose Admin Acetaminophen 650 mg Q6HP PRN PO 03/11/25 23:45 Duloxetine HCl 30 mg DAILY PO 03/12/25 10:00 03/12/25 10:37 30 MG Cefepime HCl 50 ml @ 12.5 mls/hr Q8HR IV 03/12/25 06:00 03/14/25 06:12 12.5 MLS/HR Gabapentin 400 mg TID PO 03/12/25 06:00 03/12/25 06:35 400 MG Doxycycline Hyclate 100 ml @ 50 mls/hr Q12H IV 03/12/25 12:30 03/14/25 11:35 50 MLS/HR Metronidazole 100 ml @ 100 mls/hr Q8HR IV 03/12/25 14:00 03/14/25 12:52 100 MLS/HR Ipratropium [place] 0.5 mg Q8H NEB 03/12/25 22:00 03/14/25 06:01 0.5 MG Levalbuterol HCl 0.625 mg Q8H NEB 03/12/25 22:00 03/14/25 06:01 0.625 MG Diagnostic Test (Pha) 1 strip Q6HR 03/12/25 18:00 03/14/25 11:35 1 STRIP Insulin Human Regular Q6HR SC 03/12/25 18:00 Dextrose 50 ml UD PRN IV 03/12/25 16:15 Enoxaparin Sodium 90 mg Q12HR SC 03/13/25 10:00 03/13/25 21:27 90 MG Famotidine 20 mg Q12HR IV 03/13/25 10:00 03/14/25 08:47 20 MG Dextrose/Sodium Chloride 1,000 ml @ 100 mls/hr Q10H IV 03/13/25 12:15 03/14/25 08:48 100 MLS/HR Magnesium Hydroxide 30 ml DAILY PO 03/15/25 10:00 Examination Patient lying in bed, A&O x3 General: Well-built, afebrile, palor, mucosae are moist; NGT in place Cardiovascular: Regular S1 and S2. No murmurs, gallops or rubs. No JVD elevation. No pedal edema Respiratory: Normal B/L air entry on room air. Clear lung sounds on auscultation Abdomen: Soft, nontender, distended, hyperactive bowel sounds, no rebound tenderness, no organomegaly, no masses Ileal conduit with ileostomy bag with clearing urine with no haziness Genitourinary: Deferred MSK/skin: Decreased motor strength in bilateral lower extremity. Lower extremities are cold and clammy. Neurological: Bilateral upper extremity strength 3/5. patient has lower extremity paralysis. no sensorium below the level of nipples. fecal incontinence. laboratory and microbiology Laboratory Tests 03/13/25 05:11 Test 03/13/25 05:11 Range/Units Serum Glucose 125 H 74-106 mg/dL Microbiology Date/Time Source Procedure Growth Status 03/12/25 23:35 Nose MRSA Screen - Final Complete 03/12/25 09:00 Stool Stool Culture - Final Complete 03/12/25 09:00 Stool Shiga Toxin I & II - Final Complete 03/12/25 09:00 Stool Clostridium difficile Toxin Assay - Final Complete 03/12/25 03:00 Urine - Catheterized Urine Culture - Preliminary Enterobacter aerogenes Morganella morganii Proteus mirabilis Resulted 03/11/25 18:18 Blood Blood Culture - Preliminary NO GROWTH AFTER 48 HOURS OF INCUBATION. Resulted Labs and/or images reviewed: Labs reviewed by me, Image(s) reviewed by me Problem List/Assessment/Plan Problem List/Assessment/Plan Sepsis due to acute cystitis History of bladder carcinoma status post cystectomy with ileal conduit UA shows 2+ nitrite, 3+ LE, urine bacteria and urine WBCs Urine culture ordered, previous urine culture showing Proteus, Pseudomonas, Citrobacter Blood culture preliminary negative IV D5 with half NS IV cefepime Near-complete Sigmoid volvulus status post detorsion 03/14 likely secondary to chronic constipation Acute small-bowel obstruction versus ileus Rule out C diff Distended sigmoid colon 7.7 cm ? Focal impaction versus sigmoid volvulus versus ileus KUB shows small bowel dilation greater than 6 cm, C diff studies pending Stool culture preliminary negative IV metronidazole and IV cefepime CT abdomen without contrast shows CT abdomen completed, shows multiple hepatic hypodensities measuring up to 1.7 cm. Right renal calculi, left renal nonobstructing calculi. Stomach partially distended. Small bowel loops are relatively nondistended. There is a large volume stool within the distal sigmoid rectum the sigmoid colon is distended and displaced into the upper abdomen up to 7.7 cm. Distention of the sigmoid colon up to 7.7 cm may represent ileus sequela fecal impaction, ileus with other considerations including sigmoid volvulus not excluded but felt to be much less likely. Recommend surgical evaluation. Surgeon consulted Underwent copy and decompression, partial detorsion by GI 03/14 Acute hypoxic respiratory failure secondary to Pulmonary edema Hypertensive heart disease with grade 1 diastolic dysfunction Likely Gram-positive and negative pneumonia IV cefepime, IV doxycycline IV fluids Duo nebs MRSA nares Echo 2023 unremarkable, LVEF 55% CIDP, history of [place] syndrome Continue home medication baclofen 10 mg daily Continue duloxetine 30 mg daily Continue gabapentin 400 mg TID p.r.n. Diabetes mellitus type 2-controlled On mild ISS Hold home medication metformin Left lower extremity port thrombosis DVT status post IVC filter Switched Eliquis 5 mg b.i.d to Lovenox 1 milligram/kg b.i.d. GERD Continue home medication famotidine 20 mg daily Hypertension Holding home medication amlodipine 2.5 mg daily Holding home medication metoprolol tartrate 25 mg daily DVT prophylaxis, Lovenox 1 milligram/kg b.i.d. Goals of care discussed with the patient for 20 minutes, full code status Plan discussed with patient in which all questions have been answered Case discussed with Dr. Martinez. Follow up with x-ray abdomen in the morning. Plan discussed with: Patient My Orders My Orders Orders - AMRIK SMITH RESIDENT Procedure Category Date Status Time * Surgical Consult CONS 03/13/[address] Ng ORDERS 03/13/25 Transmitted 15:03 Chest Portable XY 03/13/25 Resulted 15:23 Basic Metabolic Panel LAB 03/14/25 Logged 04:00 Complete Blood Count LAB 03/14/25 Logged 04:00 Magnesium LAB 03/14/25 Logged 04:00 Discontinue Ng ORDERS 03/14/25 Transmitted 13:19 Dietary Evaluation Review Comments: 1. At risk for hypoglycemia under NPO>1 day. If EN/GI unavaialbe r/t his current conditions, recommend TPN per pharmacy. 2. Advance to CCHO-60 diet texture as tolerated if PO feeding is permissible. Expected Outcomes/Goals: Avoid fast wt loss. Addendum Addendum Addendum I was physically present for the rodriguez portions of the service provided to patient by THE RESIDENT. I have reviewed the documentation, discussed the case with resident and agree with the resident's documentation except as noted. Also the patient's clinical case was discussed with the patient's nurse. This medical document was created using an electronic medical record system with computerized dictation system. Although this document has been carefully reviewed, there might still be some phonetic and typographical errors. These areas are purely typographical due to imperfections of the software programs, and do not reflect any compromise in the patient's medical care. Late signature. Date of Service: Mar 14, 2025 Billing Provider: ÁNGELA MARTINEZ MD Common Visit Codes: 78782-[id number] INP/OBS CARE(HIGH) Secondary Visit Codes: 30089-[id number] CARE PLAN 30 MINUTES (20 minutes) AMRIK SMITH Mar 14, 2025 13:40 ÁNGELA MARTINEZ MD Mar 16, 2025 04:53
[2025-03-14 13:55] LABS: Hematocrit 38.4 % (41.0-53.0); Hemoglobin 12.6 g/dL (13.5-17.5); Mean Corpuscular Hemoglobin 30.9 pg (28.0-32.0); Mean Corpuscular Volume 93.9 fL (80.0-100.0)
[2025-03-14 14:15] LABS: Anisocytosis Slight; Total Cells Counted 100.0 (100)
[2025-03-14 14:19] LABS: Sodium 144 mmol/L (136-145)
[2025-03-14 14:20] LABS: Anion Gap 8 (5-15); Calcium 9.0 mg/dL (8.7-10.4); Carbon Dioxide 24 mmol/L (20-31)
[2025-03-14 14:23] LABS: Chloride 112 mmol/L (98-107); Potassium 3.2 mmol/L (3.5-5.1)
[2025-03-14 14:25] LABS: BUN/Creatinine Ratio 16.9 (10.0-20.0); Blood Urea Nitrogen 12 mg/dL (9-23)
[2025-03-14 14:26] LABS: Glucose 116 mg/dL (74-106); Magnesium 1.9 mg/dL (1.6-2.6)
[2025-03-14] MEDS: POTASSIUM CHL 20MEQ/100ML 100 ML IV SCH (15:05)
--- NOTE | 2025-03-14 16:52 | DVH ---
CHEST RADIOGRAPH Indication: NG tube placement Technique: Single frontal view of the chest was obtained Comparison: XY CHEST PORTABLE on DOS: 03/13/25, XY CHEST XRAY 1 VIEW on DOS: 03/12/25, XY CHEST PORTABL E on DOS: 11/13/24 FINDINGS: Lines and Tubes: Enteric tube below the left diaphragm in the stomach. Lungs: No focal consolidation. Pleura: No effusion. No pneumothorax. Cardiomediastinal contours: Unremarkable Bones: No acute osseous abnormality. IMPRESSION: 1. Enteric tube below the left diaphragm in the stomach.
[2025-03-15] VITALS (15 sets, daily range): BP systolic 128–158; BP diastolic 77–98; PULSE 64–85; RESP 14–19; TEMP 98–98.1; O2SAT 92–100
[2025-03-15 06:26] LABS: Hematocrit 39.8 % (41.0-53.0); Hemoglobin 13.2 g/dL (13.5-17.5); Mean Corpuscular Hemoglobin 31.0 pg (28.0-32.0); Mean Corpuscular Volume 93.6 fL (80.0-100.0); Nucleated Red Blood Cells % 0.2 %
[2025-03-15 06:40] LABS: Anion Gap 11 (5-15); Calcium 9.4 mg/dL (8.7-10.4); Carbon Dioxide 22 mmol/L (20-31); Sodium 144 mmol/L (136-145)
[2025-03-15 06:45] LABS: Chloride 111 mmol/L (98-107); Potassium 3.1 mmol/L (3.5-5.1)
[2025-03-15 06:46] LABS: BUN/Creatinine Ratio 12.7 (10.0-20.0); Blood Urea Nitrogen 9 mg/dL (9-23)
[2025-03-15 06:47] LABS: Glucose 111 mg/dL (74-106)
[2025-03-15] MEDS: POTASSIUM EFFERVESENT TAB 25 MEQ PO ONE (08:14)
[2025-03-15] MEDS: MILK OF MAGNESIA 30ML SUSP PO SCH (08:49)
[2025-03-15] MEDS: POTASSIUM CHLORIDE 40 MEQ, LIDOCAINE 1% (LOCAL ANESTH.) 4 ML in SODIUM CHL 0.9% 250 ML IV ONE (08:53)
--- NOTE | 2025-03-15 09:14 | DVHPN2 ---
Subjective Date Seen: Mar 15, 2025 Post op day Post op day: 0 Patient reports: No new complaints, Feels better Objective Vitals Vital Sign Date Time Temp Pulse Resp B/P (MAP) Pulse Ox O2 Delivery O2 Flow Rate FiO2 03/15/25 08:56 98.1 79 16 158/98 (118) 97 98.1 03/15/25 07:54 Room Air* 0 21 Total Intake and Output 03/14/25 03/14/25 03/15/25 15:00 23:00 07:00 Intake Total 200 ml 950 ml 0 ml Output Total 600 ml 725 ml Balance 200 ml 350 ml -725 ml Medications Current Medications Medications Dose Ordered Sig/Simon Route Start Time Stop Time Status Last Admin Dose Admin Acetaminophen 650 mg Q6HP PRN PO 03/11/25 23:45 Duloxetine HCl 30 mg DAILY PO 03/12/25 10:00 03/12/25 10:37 30 MG Cefepime HCl 50 ml @ 12.5 mls/hr Q8HR IV 03/12/25 06:00 03/15/25 05:33 12.5 MLS/HR Gabapentin 400 mg TID PO 03/12/25 06:00 03/14/25 14:06 400 MG Doxycycline Hyclate 100 ml @ 50 mls/hr Q12H IV 03/12/25 12:30 03/15/25 00:30 50 MLS/HR Metronidazole 100 ml @ 100 mls/hr Q8HR IV 03/12/25 14:00 03/15/25 05:33 100 MLS/HR Ipratropium [place] 0.5 mg Q8H NEB 03/12/25 22:00 03/15/25 07:22 0.5 MG Levalbuterol HCl 0.625 mg Q8H NEB 03/12/25 22:00 03/15/25 07:22 0.625 MG Diagnostic Test (Pha) 1 strip Q6HR 03/12/25 18:00 03/15/25 05:26 1 STRIP Insulin Human Regular Q6HR SC 03/12/25 18:00 Dextrose 50 ml UD PRN IV 03/12/25 16:15 Enoxaparin Sodium 90 mg Q12HR SC 03/13/25 10:00 03/15/25 08:48 90 MG Famotidine 20 mg Q12HR IV 03/13/25 10:00 03/15/25 08:48 20 MG Dextrose/Sodium Chloride 1,000 ml @ 100 mls/hr Q10H IV 03/13/25 12:15 03/15/25 05:28 100 MLS/HR Magnesium Hydroxide 30 ml DAILY PO 03/15/25 10:00 General: Normal, Obese Head/Eyes: Normal ENT: Moist mucosal membranes Lungs: Normal, Normal inspection Cardiovascular: Normal, Regular rate and rhythm Labs and Microbiology Laboratory Tests 03/15/25 04:26 Test 03/15/25 04:26 Range/Units Serum Glucose 111 H 74-106 mg/dL Ass/Plan Labs and/or images reviewed: Labs reviewed by me, Image(s) reviewed by me Problem List Sepsis likely due to acute cystitis History of bladder carcinoma status post cystectomy with ileal conduit UA shows 2+ nitrite, 3+ LE, urine bacteria and urine WBCs Urine culture ordered, previous urine culture showing Proteus, Pseudomonas, Citrobacter Blood culture preliminary negative IV D5 with half NS IV cefepime Near-complete Sigmoid volvulus status post detorsion 03/14 likely secondary to chronic constipation Acute small-bowel obstruction versus ileus Rule out C diff Distended sigmoid colon 7.7 cm ? Focal impaction versus sigmoid volvulus versus ileus KUB shows small bowel dilation greater than 6 cm, C diff studies pending Stool culture preliminary negative IV metronidazole and IV cefepime CT abdomen without contrast shows CT abdomen completed, shows multiple hepatic hypodensities measuring up to 1.7 cm. Right renal calculi, left renal nonobstructing calculi. Stomach partially distended. Small bowel loops are relatively nondistended. There is a large volume stool within the distal sigmoid rectum the sigmoid colon is distended and displaced into the upper abdomen up to 7.7 cm. Distention of the sigmoid colon up to 7.7 cm may represent ileus sequela fecal impaction, ileus with other considerations including sigmoid volvulus not excluded but felt to be much less likely. Recommend surgical evaluation. Surgeon consulted Underwent copy and decompression, partial detorsion by GI 03/14 - ice chips only, DC NG, magnesium hydroxide 30 mL daily starting tomorrow GI = Resume ice chips and then clear liquid Acute hypoxic respiratory failure secondary to Pulmonary edema Hypertensive heart disease with grade 1 diastolic dysfunction Likely Gram-positive and negative pneumonia IV cefepime, IV doxycycline IV fluids Duo nebs MRSA nares Echo 2023 unremarkable, LVEF 55% CIDP, history of [place] syndrome Continue home medication baclofen 10 mg daily Continue duloxetine 30 mg daily Continue gabapentin 400 mg TID p.r.n. Diabetes mellitus type 2-controlled On mild ISS Hold home medication metformin Left lower extremity port thrombosis DVT status post IVC filter Switched Eliquis 5 mg b.i.d to Lovenox 1 milligram/kg b.i.d. GERD Continue home medication famotidine 20 mg daily Hypertension Holding home medication amlodipine 2.5 mg daily Holding home medication metoprolol tartrate 25 mg daily DVT prophylaxis, Lovenox 1 milligram/kg b.i.d. Goals of care discussed with the patient for more than 28 minutes, full code status Plan discussed with patient in which all questions have been answered Case discussed with Dr. Sanders. Started ice chips. Follow up with x-ray abdomen in the morning. Assessment/Plan no new complaints, patient abdomen distended, denies nausea and vomiting findings discussed with Dr. Prabhakar plan: order an abdominal x-ray NGT to [facility] Plan discussed with patient, Dr. Prabhakar Visit Coding Surgery Date of Service if different f: Mar 15, 2025 Billing Provider: LILLIE PRABHAKAR MD Surgery Visit Codes: [id number] INP/OBS CARE(HIGH) TAYO DUMONT NP Mar 15, 2025 09:14
--- NOTE | 2025-03-15 10:34 | DVH ---
XY POST PROCEDURE ABD/PEL XRAY HISTORY: abdomen distended TECHNICAL DATA: 2 view of the abdomen. COMPARISON: XY KUB ABDOMEN SINGLE VIEW on DOS: 03/12/25, XY KUB ABDOMEN SINGLE VIEW on DOS: 01/16/24, XY KUB ABDOMEN SINGLE VIEW on DOS: 01/15/24 FINDINGS: Multiple gaseous distended loops of bowel. An NGT is partially seen. An IVC filter and surgical cl ips are seen in the abdomen and pelvis. IMPRESSION: Nonspecific prominent gaseous distended loops of bowel.
[2025-03-15] MEDS ORDERED: hydrALAZINE HCL 20 MG/ML VL IV PRN (12:45)
--- NOTE | 2025-03-15 14:39 | DVHPNRES ---
Progress Note Date Seen: Mar 15, 2025 Resident Creating Document: GILMER SHI RESIDENT Medical Necessity Reason Pt with a Central, PICC or Fol: No Subjective Review of Systems patient seen and examined, underwent colonoscopy and attempt to detorsion of the sigmoid colon. NG in place, X-Ray KUB shows: Nonspecific prominent gaseous distended loops of bowel. Objective vital signs Vital Sign Date Time Temp Pulse Resp B/P (MAP) Pulse Ox O2 Delivery O2 Flow Rate FiO2 03/15/25 14:33 80 16 97 03/15/25 12:44 98.1 155/93 (113) 98.1 03/15/25 09:55 Room Air 0.0 03/15/25 09:55 21 Total Intake and Output 03/14/25 03/14/25 03/15/25 15:00 23:00 07:00 Intake Total 200 ml 950 ml 0 ml Output Total 600 ml 725 ml Balance 200 ml 350 ml -725 ml medications Current Medications Medications Dose Ordered Sig/Simon Route Start Time Stop Time Status Last Admin Dose Admin Acetaminophen 650 mg Q6HP PRN PO 03/11/25 23:45 Duloxetine HCl 30 mg DAILY PO 03/12/25 10:00 03/12/25 10:37 30 MG Cefepime HCl 50 ml @ 12.5 mls/hr Q8HR IV 03/12/25 06:00 03/15/25 13:02 12.5 MLS/HR Gabapentin 400 mg TID PO 03/12/25 06:00 03/14/25 14:06 400 MG Doxycycline Hyclate 100 ml @ 50 mls/hr Q12H IV 03/12/25 12:30 03/15/25 11:04 50 MLS/HR Metronidazole 100 ml @ 100 mls/hr Q8HR IV 03/12/25 14:00 03/15/25 13:03 100 MLS/HR Ipratropium [place] 0.5 mg Q8H NEB 03/12/25 22:00 03/15/25 14:32 0.5 MG Levalbuterol HCl 0.625 mg Q8H NEB 03/12/25 22:00 03/15/25 14:32 0.625 MG Diagnostic Test (Pha) 1 strip Q6HR 03/12/25 18:00 03/15/25 11:04 1 STRIP Insulin Human Regular Q6HR SC 03/12/25 18:00 Dextrose 50 ml UD PRN IV 03/12/25 16:15 Enoxaparin Sodium 90 mg Q12HR SC 03/13/25 10:00 03/15/25 08:48 90 MG Famotidine 20 mg Q12HR IV 03/13/25 10:00 03/15/25 08:48 20 MG Dextrose/Sodium Chloride 1,000 ml @ 100 mls/hr Q10H IV 03/13/25 12:15 03/15/25 05:28 100 MLS/HR Magnesium Hydroxide 30 ml DAILY PO 03/15/25 10:00 Hydralazine HCl 10 mg Q6HP PRN IV 03/15/25 12:45 Examination Patient lying in bed, A&O x3 General: Well-built, afebrile, palor, mucosae are moist. NG tube in place Cardiovascular: Regular S1 and S2. No murmurs, gallops or rubs. No JVD elevation. No pedal edema Respiratory: Normal B/L air entry on room air. Clear lung sounds on auscultation Abdomen: Soft, nontender, distended, hyperactive bowel sounds, no rebound tenderness, no organomegaly, no masses Ileal conduit with ileostomy bag with clearing urine with no haziness MSK/skin: Decreased motor strength in bilateral lower extremity. Lower extremities are cold and clammy. Neurological: Bilateral upper extremity strength 3/5. patient has lower extremity paralysis. no sensorium below the level of nipples. fecal incontinence. laboratory and microbiology Laboratory Tests 03/15/25 04:26 Test 03/15/25 04:26 Range/Units Serum Glucose 111 H 74-106 mg/dL Microbiology Date/Time Source Procedure Growth Status 03/14/25 13:15 Urine - Catheterized Urine Culture - Preliminary Resulted 03/12/25 23:35 Nose MRSA Screen - Final Complete 03/12/25 09:00 Stool Stool Culture - Final Complete 03/12/25 09:00 Stool Shiga Toxin I & II - Final Complete 03/12/25 09:00 Stool Clostridium difficile Toxin Assay - Final Complete 03/11/25 18:18 Blood Blood Culture - Preliminary NO GROWTH AFTER 72 HOURS OF INCUBATION. Resulted Labs and/or images reviewed: Labs reviewed by me, Image(s) reviewed by me Problem List/Assessment/Plan Problem List/Assessment/Plan Sepsis due to acute cystitis History of bladder carcinoma status post cystectomy with ileal conduit UA shows 2+ nitrite, 3+ LE, urine bacteria and urine WBCs Urine culture ordered, previous urine culture showing Proteus, Pseudomonas, Citrobacter Blood culture preliminary negative IV D5 with half NS IV cefepime Near-complete Sigmoid volvulus status post detorsion 03/14 likely secondary to chronic constipation Acute small-bowel obstruction versus ileus Rule out C diff Distended sigmoid colon 7.7 cm ? Focal impaction versus sigmoid volvulus versus ileus KUB shows small bowel dilation greater than 6 cm, C diff studies pending Stool culture preliminary negative IV metronidazole and IV cefepime CT abdomen without contrast shows CT abdomen completed, shows multiple hepatic hypodensities measuring up to 1.7 cm. Right renal calculi, left renal nonobstructing calculi. Stomach partially distended. Small bowel loops are relatively nondistended. There is a large volume stool within the distal sigmoid rectum the sigmoid colon is distended and displaced into the upper abdomen up to 7.7 cm. Distention of the sigmoid colon up to 7.7 cm may represent ileus sequela fecal impaction, ileus with other considerations including sigmoid volvulus not excluded but felt to be much less likely. Recommend surgical evaluation. Surgeon consulted Underwent colonoscopy and attempted decompression of sigmoid colon volvulus, partial detorsion by GI 03/14 - reviewed repeat KUB; still NPO as per GI; NG tube on intermittent suction Acute hypoxic respiratory failure secondary to Pulmonary edema Hypertensive heart disease with grade 1 diastolic dysfunction Likely Gram-positive and negative pneumonia IV cefepime, IV doxycycline IV fluids Duo nebs MRSA nares Echo 2023 unremarkable, LVEF 55% CIDP, history of [place] syndrome Continue home medication baclofen 10 mg daily Continue duloxetine 30 mg daily Continue gabapentin 400 mg TID p.r.n. Diabetes mellitus type 2-controlled On mild ISS Hold home medication metformin Left lower extremity port thrombosis DVT status post IVC filter Switched Eliquis 5 mg b.i.d to Lovenox 1 milligram/kg b.i.d. GERD Continue home medication famotidine 20 mg daily Hypertension Holding home medication amlodipine 2.5 mg daily Holding home medication metoprolol tartrate 25 mg daily DVT prophylaxis, Lovenox 1 milligram/kg b.i.d. X-Ray KUB shows: Nonspecific prominent gaseous distended loops of bowel. Plan discussed with patient in which all questions have been answered Case discussed with Dr. Sanders. Plan discussed with: Patient, Other (Nurse) My Orders My Orders Orders - GILMER SHI RESIDENT Procedure Category Date Status Time Hydralazine Injection PHA 03/15/25 In Process (Apresoline Inject 12:45 Dietary Evaluation Review Comments: 1. At risk for hypoglycemia under NPO>1 day. If EN/GI unavaialbe r/t his current conditions, recommend TPN per pharmacy. 2. Advance to CCHO-60 diet texture as tolerated if PO feeding is permissible. Expected Outcomes/Goals: Avoid fast wt loss. Addendum Addendum Addendum I was physically present for the rodriguez portions of the service provided to patient by THE RESIDENT. I have reviewed the documentation, discussed the case with resident and agree with the resident's documentation except as noted. Also the patient's clinical case was discussed with the patient's nurse. This medical document was created using an electronic medical record system with computerized dictation system. Although this document has been carefully reviewed, there might still be some phonetic and typographical errors. These areas are purely typographical due to imperfections of the software programs, and do not reflect any compromise in the patient's medical care. Late signature. Date of Service: Mar 15, 2025 Billing Provider: ÁNGELA SANDERS MD Common Visit Codes: [id number] INP/OBS CARE(HIGH) GILMER SHI RESIDENT Mar 15, 2025 14:39 ÁNGELA SANDERS MD Mar 16, 2025 04:57
--- NOTE | 2025-03-15 23:46 | DVHPN2 ---
Progress Note - Dictate Date Seen: Mar 15, 2025 Medical Necessity Reason Pt with a Central, PICC or Fol: No Subjective Patient has had two or three bowel movements since yesterday Abdomen was softer after colonoscopy and decompression Abdomen is again distended and slightly firm Patient has a suprapubic ileal conduit vital signs Vital Sign Date Time Temp Pulse Resp B/P (MAP) Pulse Ox O2 Delivery O2 Flow Rate FiO2 03/15/25 22:37 70 16 99 03/15/25 22:30 Room Air* 0 21 03/15/25 21:00 98.1 149/91 (110) 98.1 Total Intake and Output 03/14/25 03/14/25 03/15/25 15:00 23:00 07:00 Intake Total 200 ml 950 ml 0 ml Output Total 600 ml 725 ml Balance 200 ml 350 ml -725 ml medications Current Medications Medications Dose Ordered Sig/Simon Route Start Time Stop Time Status Last Admin Dose Admin Acetaminophen 650 mg Q6HP PRN PO 03/11/25 23:45 Duloxetine HCl 30 mg DAILY PO 03/12/25 10:00 03/12/25 10:37 30 MG Cefepime HCl 50 ml @ 12.5 mls/hr Q8HR IV 03/12/25 06:00 03/15/25 22:44 12.5 MLS/HR Gabapentin 400 mg TID PO 03/12/25 06:00 03/15/25 22:44 400 MG Doxycycline Hyclate 100 ml @ 50 mls/hr Q12H IV 03/12/25 12:30 03/15/25 11:04 50 MLS/HR Metronidazole 100 ml @ 100 mls/hr Q8HR IV 03/12/25 14:00 03/15/25 22:44 100 MLS/HR Ipratropium [place] 0.5 mg Q8H NEB 03/12/25 22:00 03/15/25 22:33 0.5 MG Levalbuterol HCl 0.625 mg Q8H NEB 03/12/25 22:00 03/15/25 22:33 0.625 MG Diagnostic Test (Pha) 1 strip Q6HR 03/12/25 18:00 03/15/25 17:37 1 STRIP Insulin Human Regular Q6HR SC 03/12/25 18:00 Dextrose 50 ml UD PRN IV 03/12/25 16:15 Enoxaparin Sodium 90 mg Q12HR SC 03/13/25 10:00 03/15/25 22:44 90 MG Famotidine 20 mg Q12HR IV 03/13/25 10:00 03/15/25 22:44 20 MG Dextrose/Sodium Chloride 1,000 ml @ 100 mls/hr Q10H IV 03/13/25 12:15 03/15/25 20:48 100 MLS/HR Magnesium Hydroxide 30 ml DAILY PO 03/15/25 10:00 Hydralazine HCl 10 mg Q6HP PRN IV 03/15/25 12:45 objective Patient lying in bed, A&O x3; General: Well-built, afebrile, palor, mucosae are moist Cardiovascular: Regular S1 and S2. Respiratory: Clear lung sounds on auscultation Abdomen: Soft, nontender, distended, hypoactive bowel sounds, no rebound tenderness, no organomegaly, no masses Ileal conduit with ileostomy bag with clearing urine with no haziness MSK/skin: Decreased motor strength in bilateral lower extremity. Lower extremities are cold and clammy. Neurological: Bilateral upper extremity strength 3/5. patient has lower extremity paralysis. no sensorium below the level of nipples. fecal incontinence. laboratory and microbiology Laboratory Tests 03/15/25 04:26 Test 03/15/25 04:26 Range/Units Serum Glucose 111 H 74-106 mg/dL Abd X RAY IMPRESSION: Nonspecific prominent gaseous distended loops of bowel. 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) (7) Constipation Prognosis Plan Surgical team is following patient, appreciate input Repeat abdominal x-ray today showed only nonspecific gaseous distention of the colon Patient still has an NG tube to low intermittent suction Patient may have some ice chips then advance to clear liquids If he is able to tolerate ice chips and clear liquids without significant distention then we can DC NG tube or trial of clamping NG tube Continue IV antibiotics and IV ppi Patient lives at home with his sister and does not have anybody else to care for him and is not able to walk He stated he probably would not be able to take care of a colostomy if that was required Dietary Evaluation Review Comments: 1. At risk for hypoglycemia under NPO>1 day. If EN/GI unavaialbe r/t his current conditions, recommend TPN per pharmacy. 2. Advance to CCHO-60 diet texture as tolerated if PO feeding is permissible. Expected Outcomes/Goals: Avoid fast wt loss. Plan discussed with: Patient GUERO SOUZA MD Mar 15, 2025 23:46
[2025-03-16] VITALS (15 sets, daily range): BP systolic 36–159; BP diastolic 58–99; PULSE 72–86; RESP 14–19; TEMP 97.8–98.3; O2SAT 92–100
[2025-03-16 08:06] LABS: Hematocrit 40.2 % (41.0-53.0); Hemoglobin 13.3 g/dL (13.5-17.5); Mean Corpuscular Hemoglobin 30.8 pg (28.0-32.0); Mean Corpuscular Volume 92.8 fL (80.0-100.0); Nucleated Red Blood Cells % 0.0 %
[2025-03-16 08:16] LABS: Anion Gap 10 (5-15); Carbon Dioxide 21 mmol/L (20-31); Sodium 142 mmol/L (136-145)
[2025-03-16 08:17] LABS: Calcium 9.4 mg/dL (8.7-10.4)
[2025-03-16 08:18] LABS: Chloride 111 mmol/L (98-107); Potassium 2.9 mmol/L (3.5-5.1)
[2025-03-16 08:22] LABS: BUN/Creatinine Ratio 12.1 (10.0-20.0); Glucose 105 mg/dL (74-106)
[2025-03-16 08:26] LABS: Blood Urea Nitrogen 8 mg/dL (9-23)
[2025-03-16] MEDS ORDERED: VANCOMYCIN PER PHARMACY 0 MG IV SCH (12:00)
[2025-03-16] MEDS: POTASSIUM CHLORIDE 40 MEQ, LIDOCAINE 1% (LOCAL ANESTH.) 4 ML in SODIUM CHL 0.9% 250 ML IV ONE (12:56)
--- NOTE | 2025-03-16 13:07 | DVH ---
XY GASTROGRAFIN ENEMA SINGLE CON HISTORY: r/o recurrent volvulus COMPARISON: None FINDINGS: A frontal projection of the abdomen was obtained as a computer graphics illustrator film. There is a large gaseous distended loop of colon. Contrast was introduced in a retrograde fashion under intermittent fluoroscopic observation with mult iple spot films being obtained. Multiple overhead films including a post were then obtained. Under fluoroscopic visualization contrast was unable to flow towards the left hemicolonic or transver se colon. IMPRESSION: Contrast pooling in the rectum and sigmoid which were severely distended. Contrast unable to flow ret rograde. This can be seen with sigmoid volvulus.
--- NOTE | 2025-03-16 13:52 | DVHPN2 ---
Progress Note Date Seen: Mar 16, 2025 Medical Necessity Reason Pt with a Central, PICC or Fol: No Objective vital signs Vital Sign Date Time Temp Pulse Resp B/P (MAP) Pulse Ox O2 Delivery O2 Flow Rate FiO2 03/16/25 10:00 97 Room Air 0.0 03/16/25 10:00 21 03/16/25 08:36 97.8 83 16 114/78 (90) 97.8 Total Intake and Output 03/15/25 03/15/25 03/16/25 15:00 23:00 07:00 Intake Total 1349 ml 850 ml 800 ml Output Total 125 ml 1550 ml 850 ml Balance 1224 ml -700 ml -50 ml medications Current Medications Medications Dose Ordered Sig/Simon Route Start Time Stop Time Status Last Admin Dose Admin Acetaminophen 650 mg Q6HP PRN PO 03/11/25 23:45 Duloxetine HCl 30 mg DAILY PO 03/12/25 10:00 03/12/25 10:37 30 MG Cefepime HCl 50 ml @ 12.5 mls/hr Q8HR IV 03/12/25 06:00 03/16/25 12:55 12.5 MLS/HR Gabapentin 400 mg TID PO 03/12/25 06:00 03/15/25 22:44 400 MG Metronidazole 100 ml @ 100 mls/hr Q8HR IV 03/12/25 14:00 03/16/25 12:55 100 MLS/HR Ipratropium [place] 0.5 mg Q8H NEB 03/12/25 22:00 03/16/25 06:08 0.5 MG Levalbuterol HCl 0.625 mg Q8H NEB 03/12/25 22:00 03/16/25 06:08 0.625 MG Enoxaparin Sodium 90 mg Q12HR SC 03/13/25 10:00 03/16/25 09:51 90 MG Famotidine 20 mg Q12HR IV 03/13/25 10:00 03/16/25 09:50 20 MG Dextrose/Sodium Chloride 1,000 ml @ 100 mls/hr Q10H IV 03/13/25 12:15 03/15/25 20:48 100 MLS/HR Magnesium Hydroxide 30 ml DAILY PO 03/15/25 10:00 Hydralazine HCl 10 mg Q6HP PRN IV 03/15/25 12:45 Vancomycin HCl 0 ml @ 0 mls/hr UD IV 03/16/25 12:00 Vancomycin HCl 250 ml @ 200 mls/hr Q12H IV 03/16/25 15:00 laboratory and microbiology Laboratory Tests 03/16/25 13:16 03/16/25 07:33 Test 03/16/25 07:33 Range/Units Serum Glucose 105 74-106 mg/dL Problem List/Assessment/Plan Problem List/Assessment/Plan 03/16/25 abdomen tensely distended, patient does not have reliable sensation, x ray reviewed, no flow of contrast past splenic flexure with very distended sigmoid colon. he may require colectomy, will get cardiology input. Plan discussed with: Patient Dietary Evaluation Review Comments: 1. At risk for hypoglycemia under NPO>1 day. If EN/GI unavaialbe r/t his current conditions, recommend TPN per pharmacy. 2. Advance to CCHO-60 diet texture as tolerated if PO feeding is permissible. Expected Outcomes/Goals: Avoid fast wt loss. LILLIE LINARES MD Mar 16, 2025 13:52
--- NOTE | 2025-03-16 14:23 | DVHPNRES ---
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 Patient states that feels like a truck ran over him. Patient has history of multiple urinary tract infections with the last urine culture showing the growth of Pseudomonas aeruginosa and Citrobacter youngae. Upon admission, The patient reported no abdominal pain, no dizziness, no shortness of breath, no headache. Chest X ray shows mild pulmonary vascular congestion and questionable pulmonary edema. 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 Urine culture at this hospitalization showed growth of Enterobacter, Morganella, Proteus, Enterococcus all sensitive to cefepime. Patient was initially started on IV cefepime, doxycycline and metronidazole. Upon admission, the patient was also noted to have abdominal distention reason why a CT of the abdomen was performed and a sigmoid volvulus was discovered. GI was consulted which recommended sigmoidoscopy with sigmoid volvulus the torsion. Patient was placed on an NG tube with negative suction and NPO. Patient seen and examined at bedside. Patient denies chest pain, abdominal distention or pain, no nausea or vomiting. Vital signs were reviewed, there is no fever or chills overnight. Patient still has NG tube placed with negative suction. GI is on board, GI recommended to start the patient on ice chips and slowly progress to clear liquid diet if tolerated. Surgical team is also on board which ordered a Gastrografin enema which we will follow up with the results. Today, we stopped doxycycline and we start the patient back on vancomycin IV. We will continue to follow up closely with the patient. ROS Constitutional: Denies weight loss, fever and chills. HEENT: Denies changes in vision and hearing. Respiratory: Denies shortness of breath and cough Cardiovascular: Denies chest discomfort or palpitations GI: Mild abdominal distention, reports improvement on abdominal discomfort. : Denies dysuria and urinary frequency. Musculoskeletal: Denies myalgias and joint pain Skin: Denies rash and pruritus. Neurological: Denies dizziness, headache, vision or hearing problems Objective vital signs Vital Sign Date Time Temp Pulse Resp B/P (MAP) Pulse Ox O2 Delivery O2 Flow Rate FiO2 03/16/25 10:00 97 Room Air 0.0 03/16/25 10:00 21 03/16/25 08:36 97.8 83 16 114/78 (90) 97.8 Total Intake and Output 03/15/25 03/15/25 03/16/25 15:00 23:00 07:00 Intake Total 1349 ml 850 ml 800 ml Output Total 125 ml 1550 ml 850 ml Balance 1224 ml -700 ml -50 ml medications Current Medications Medications Dose Ordered Sig/Simon Route Start Time Stop Time Status Last Admin Dose Admin Acetaminophen 650 mg Q6HP PRN PO 03/11/25 23:45 Duloxetine HCl 30 mg DAILY PO 03/12/25 10:00 03/12/25 10:37 30 MG Cefepime HCl 50 ml @ 12.5 mls/hr Q8HR IV 03/12/25 06:00 03/16/25 12:55 12.5 MLS/HR Gabapentin 400 mg TID PO 03/12/25 06:00 03/15/25 22:44 400 MG Metronidazole 100 ml @ 100 mls/hr Q8HR IV 03/12/25 14:00 03/16/25 12:55 100 MLS/HR Ipratropium Douglas 0.5 mg Q8H NEB 03/12/25 22:00 03/16/25 06:08 0.5 MG Levalbuterol HCl 0.625 mg Q8H NEB 03/12/25 22:00 03/16/25 06:08 0.625 MG Enoxaparin Sodium 90 mg Q12HR SC 03/13/25 10:00 03/16/25 09:51 90 MG Famotidine 20 mg Q12HR IV 03/13/25 10:00 03/16/25 09:50 20 MG Dextrose/Sodium Chloride 1,000 ml @ 100 mls/hr Q10H IV 03/13/25 12:15 03/15/25 20:48 100 MLS/HR Magnesium Hydroxide 30 ml DAILY PO 03/15/25 10:00 Hydralazine HCl 10 mg Q6HP PRN IV 03/15/25 12:45 Vancomycin HCl 0 ml @ 0 mls/hr UD IV 03/16/25 12:00 Vancomycin HCl 250 ml @ 200 mls/hr Q12H IV 03/16/25 15:00 Examination Physical Examination General: Patient alert and oriented in person, place and time. Patient following commands. HEENT: Normocephalic, atraumatic, moist mucous membranes Respiratory/pulmonary: Clear lungs bilaterally, no associated crackles or wheezes. Cardiovascular: Normal heart sounds S1 and S2 with no associated murmurs Abdomen: Abdomen Mildly distended, there is no pain to palpation in any of the abdominal quadrants, no palpable masses. There is an cystostomy bag present at the right flank lateral to the umbilicus. Extremities: There is no peripheral edema present at the lower extremities. Skin: No rashes or pruritus, there is no sacral edema present at this time. 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 laboratory and microbiology Laboratory Tests 03/16/25 07:33 Test 03/16/25 07:33 Range/Units Serum Glucose 105 74-106 mg/dL Microbiology Date/Time Source Procedure Growth Status 03/14/25 13:15 Urine - Catheterized Urine Culture - Preliminary Resulted 03/12/25 23:35 Nose MRSA Screen - Final Complete 03/12/25 09:00 Stool Stool Culture - Final Complete 03/12/25 09:00 Stool Shiga Toxin I & II - Final Complete 03/12/25 09:00 Stool Clostridium difficile Toxin Assay - Final Complete 03/11/25 18:18 Blood Blood Culture - Preliminary NO GROWTH AFTER 72 HOURS OF INCUBATION. Resulted Problem List/Assessment/Plan Problem List/Assessment/Plan Assessment/Plan Sepsis due to acute cystitis UA suggesting UTI History of bladder carcinoma status post cystectomy with ileal conduit -Urine culture ordered, previous urine culture showing Enterobacter, Morganella, Proteus, Enterococcus (could be due to cystectomy with ileal conduit) -Blood culture preliminary negative -IV D5W with half NS -IV cefepime -Stop doxycycline -Start IV vancomycin Acute abdominal distention likely due to sigmoid volvulus Status post detorsion 03/14/25 likely secondary to chronic constipation by GI R/O Acute small-bowel obstruction or ileus -Ruled out C diff -KUB showed small bowel dilation greater than 6 cm suggesting SBO vs ileus -C diff studies negative -Stool culture negative -Continue IV metronidazole, IV cefepime and start vancomycin -CT abdomen without contrast shows CT abdomen completed, shows multiple hepatic hypodensities measuring up to 1.7 cm. Right renal calculi, left renal nonobstructing calculi. Stomach partially distended. Small bowel loops are relatively nondistended. There is a large volume stool within the distal sigmoid rectum the sigmoid colon is distended and displaced into the upper abdomen up to 7.7 cm. Distention of the sigmoid colon up to 7.7 cm may represent ileus sequela fecal impaction, ileus with other considerations including sigmoid volvulus not excluded but felt to be much less likely. Recommend surgical evaluation. -Surgery on board -GI performed sigmoidoscopy making sigmoid volvulus detorsion. -Start Ice chips -Will consider progressing to clear liquids once GI and surgery recommends Acute hypoxic respiratory failure secondary to Pulmonary edema Hypertensive heart disease with grade 1 diastolic dysfunction Possible Gram-positive/negative bacterial pneumonia -Continue IV cefepime -Continue IV fluids -levalbuterol and ipratropium med nebs -MRSA nares came back negative -Echo 2023 unremarkable, LVEF 55% CIDP, history of [place] syndrome -Continue home medication baclofen 10 mg daily -Continue duloxetine 30 mg daily -Continue gabapentin 400 mg TID p.r.n. 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 GERD -Continue home medication famotidine 20 mg daily Hypertension -Holding home medication amlodipine 2.5 mg daily -Holding home medication metoprolol tartrate 25 mg daily Goals of care discussed with the patient and healthcare consulting manager at bedside for >35min, FULL CODE Plan discussed with Dr. Urias Plan discussed with: Patient My Orders My Orders Orders - DELORES BURGOS RESIDENT Procedure Category Date Status Time Potassium Chloride PHA 03/16/25 In Process (Potassium Chloride). 10:30 Dietary Evaluation Review Comments: 1. At risk for hypoglycemia under NPO>1 day. If EN/GI unavaialbe r/t his current conditions, recommend TPN per pharmacy. 2. Advance to CCHO-60 diet texture as tolerated if PO feeding is permissible. Expected Outcomes/Goals: Avoid fast wt loss. Date of Service: Mar 16, 2025 Billing Provider: GRADY SANCHEZ MD Common Visit Codes: [id number] INP/OBS CARE(HIGH) DELORES BURGOS RESIDENT Mar 16, 2025 14:22 GRADY SANCHEZ MD Mar 16, 2025 22:23
[2025-03-16] MEDS ORDERED: TPN PER PHARMACY 0 ML IV SCH (15:00)
[2025-03-16] MEDS ORDERED: DEXTROSE (50%) 50ML SYRG IV SCH (15:30)
[2025-03-16 16:16] LABS: Magnesium 1.7 mg/dL (1.6-2.6)
[2025-03-16 16:17] LABS: Triglycerides 192.0 mg/dL (< 150)
[2025-03-16 16:18] LABS: Albumin 4.1 g/dL (3.2-4.8)
--- NOTE | 2025-03-16 16:31 | DVHPN2 ---
Progress Note - Dictate Date Seen: Mar 16, 2025 Has the PT tested + for MRSA If YES, has PT been informed?: No Medical Necessity Reason Pt with a Central, PICC or Fol: No Subjective Pts abdomen tensely distended, patient does not have reliable sensation, Barium enema reviewed and no flow of contrast past splenic flexure with very distended sigmoid colon. vital signs Vital Sign Date Time Temp Pulse Resp B/P (MAP) Pulse Ox O2 Delivery O2 Flow Rate FiO2 03/16/25 14:22 75 14 100 03/16/25 13:00 98.3 159/99 (119) 98.3 03/16/25 10:00 Room Air 0.0 03/16/25 10:00 21 Total Intake and Output 03/15/25 03/15/25 03/16/25 15:00 23:00 07:00 Intake Total 1349 ml 850 ml 800 ml Output Total 125 ml 1550 ml 850 ml Balance 1224 ml -700 ml -50 ml medications Current Medications Medications Dose Ordered Sig/Simon Route Start Time Stop Time Status Last Admin Dose Admin Acetaminophen 650 mg Q6HP PRN PO 03/11/25 23:45 Duloxetine HCl 30 mg DAILY PO 03/12/25 10:00 03/12/25 10:37 30 MG Cefepime HCl 50 ml @ 12.5 mls/hr Q8HR IV 03/12/25 06:00 03/16/25 12:55 12.5 MLS/HR Gabapentin 400 mg TID PO 03/12/25 06:00 03/15/25 22:44 400 MG Metronidazole 100 ml @ 100 mls/hr Q8HR IV 03/12/25 14:00 03/16/25 12:55 100 MLS/HR Ipratropium Duarte 0.5 mg Q8H NEB 03/12/25 22:00 03/16/25 14:12 0.5 MG Levalbuterol HCl 0.625 mg Q8H NEB 03/12/25 22:00 03/16/25 14:12 0.625 MG Enoxaparin Sodium 90 mg Q12HR SC 03/13/25 10:00 03/16/25 09:51 90 MG Famotidine 20 mg Q12HR IV 03/13/25 10:00 03/16/25 09:50 20 MG Dextrose/Sodium Chloride 1,000 ml @ 100 mls/hr Q10H IV 03/13/25 12:15 03/15/25 20:48 100 MLS/HR Magnesium Hydroxide 30 ml DAILY PO 03/15/25 10:00 Hydralazine HCl 10 mg Q6HP PRN IV 03/15/25 12:45 Vancomycin HCl 0 ml @ 0 mls/hr UD IV 03/16/25 12:00 Vancomycin HCl 250 ml @ 200 mls/hr Q12H IV 03/16/25 15:00 Amino Acids 0 ml @ 0 mls/hr PER PHARMACY IV 03/16/25 15:00 Diagnostic Test (Pha) 1 strip Q6HR 03/16/25 18:00 Insulin Human Regular FOLLOW SLIDING SCALE Q6HR SC 03/16/25 18:00 Dextrose 50 ml UD IV 03/16/25 15:30 objective Patient lying in bed, A&O x3; General: Well-built, afebrile, palor, mucosae are moist Cardiovascular: Regular S1 and S2. Respiratory: Clear lung sounds on auscultation Abdomen: Soft, nontender, distended, hypoactive bowel sounds, no rebound tenderness, no organomegaly, no masses Ileal conduit with ileostomy bag with clearing urine with no haziness MSK/skin: Decreased motor strength in bilateral lower extremity. Lower extremities are cold and clammy. Neurological: Bilateral upper extremity strength 3/5. patient has lower extremity paralysis. no sensorium below the level of nipples. fecal incontinence. laboratory and microbiology Laboratory Tests 03/16/25 13:16 03/16/25 07:33 Test 03/16/25 07:33 Range/Units Serum Glucose 105 74-106 mg/dL Problems(with codes): (1) Volvulus of sigmoid colon (2) Constipation (3) Guillain Luis syndrome Prognosis Plan Patient has failed conservative treatment with colonic decompression and will likely require colectomy, Cardiology consult pending NG tube to low intermittent suction Start IV Clinimix Supportive care Prognosis remains guarded Patient will likely require placement after discharge because he has no one in the family to take care of him except once his Dietary Evaluation Review Comments: 1. At risk for hypoglycemia under NPO>1 day. If EN/GI unavaialbe r/t his current conditions, recommend TPN per pharmacy. 2. Advance to CCHO-60 diet texture as tolerated if PO feeding is permissible. Expected Outcomes/Goals: Avoid fast wt loss. Plan discussed with: Patient GUERO SOUZA MD Mar 16, 2025 16:31
--- NOTE | 2025-03-16 16:53 | DVHINCON2 ---
JESSICA ALFREDO [facility] 03/16/25 1653: Date Seen: Mar 16, 2025 Referring Physician MD Vanna Reason for Consultation Cardiac risk stratification History of Present Illness This is a 64-year-old male who presented to the emergency room with a chief complaint of generalized weakness. The patient who presented with a tensely distended abdomen and associated distended sigmoid colon may require at colectomy for which surgical team requested a cardiac risk stratification prior to intervention. The patient denies any chest pain, palpitations, diaphoresis, SOB, or syncopal events. He underwent a 12 lead electrocardiogram revealing a sinus rhythm. Recent transthoracic echocardiogram revealing LVEF of 55%. Functional capacity was not assessed given bed-bound status. Significant medical history includes history of the lower extremity DVT status post IVC filter on Eliquis therapy, diabetes mellitus type 2, Guillain-Robert syndrome diagnosed with bed-bound status diagnosed in 2021, chronic inflammatory demyelinating polyneuropathy, GERD, hypertension, dyslipidemia, and history of multiple UTIs. Past Medical History Past medical history reviewed. No other significant than mentioned above. Past Surgical History Ileal urine conduit Family History: Chronic obstructive pulmonary disease G8 MOTHER Diabetes mellitus G8 FATHER FH: breast cancer G8 MOTHER FH: pancreatic cancer G8 FATHER Family History Family history reviewed. Social History Denies the use of illicit drugs, alcohol, or tobacco use. Allergies: Coded Allergies: No Known Drug Allergy (Verified Allergy, Unknown, 04/21/22) Home Meds Active Scripts Diphenhydramine Hcl (Gnp Allergy) 25 Mg Cap, 25 MG PO HS for 5 Days, #5 CAP 0 Refills Prov:GRADY SANCHEZ MD 11/01/24 Pancrelipase (Lipase-Protease- (CREON) 36,000 Unt Cap, 89481 UNT OR TIDWM for 30 Days, #90 CAP Prov:MILLIE CALIXTO MD 03/30/24 Potassium Chloride (Potassium Chloride ER) 10 Meq Tab, 10 MEQ PO DAILY for 30 Days, #30 TAB Prov:JEREMIAH BOOGIE MD 01/23/24 Polyethylene Glycol 3350 (Miralax) 17 Gm Pow, 17 GM PO DAILY for 30 Days, #510 POW Prov:JEREMIAH BOOGIE MD 01/23/24 Txppjoom-Astvmubhc-Aj (Otic) (Cortisporin Otic Susp) [address], 3 DROP RIGHT EAR TID, #10 ML Prov:JEANNE ARRIOLA PAC 04/21/23 Reported Medications Levothyroxine Sodium (Levothyroxine Sodium) 112 Mcg Tab, 1 TAB PO DAILY, #30 TAB 5 Refills 03/12/25 Pancrelipase (Lipase-Protease- (CREON) 36,000 Unt Cap, 13998 UNT OR, CAP 03/12/25 Primidone (MYSOLINE TABLET) 50 Mg Tb, 50 MG PO, TAB 03/26/24 Cyanocobalamin (Vitamin B-12) 1,000 Mcg Tab, 1 TAB PO DAILY 09/14/23 Metformin Hydrochloride (Metformin Hcl) 500 Mg Tab, 1 TAB PO BID 09/14/23 Duloxetine Hcl (Cymbalta) 20 Mg Cap, 30 CAP PO DAILY, #30 CAP 2 Refills 09/14/23 Cholecalciferol (D3) 25 Mcg Chw, 25 MCG PO DAILY, TAB.CHEW 09/14/23 Cepsybemzsj-Uzfmnllaknqt-Vviex (Trelegy Ellipta 100-62.5-25 Mcg/INH) 1 Aer Aer, 1 AER IN DAILY, AER 03/09/23 Metoprolol Tartrate (Metoprolol Tartrate) 25 Mg Tab, 25 MG PO BID for 30 Days, MG 03/09/23 Amlodipine Besylate (Amlodipine Besylate) 5 Mg Tab, 2.5 MG PO DAILY for 30 Days, MG 03/09/23 Simvastatin (Simvastatin) 10 Mg Tab, 10 MG PO HS for 30 Days, MG 03/09/23 Gabapentin (Gabapentin) 300 Mg Cap, 400 MG PO TID for 30 Days, MG 04/21/22 Famotidine (Famotidine) 20 Mg Tab, 20 MG PO HS for 30 Days, MG 04/21/22 Apixaban Base (ELIQUIS) 5 Mg Tab, 5 MG PO BID, TAB 04/21/22 Baclofen (Baclofen) 10 Mg Tab, 10 MG PO Q8HP for 30 Days, MG 04/21/22 Home Meds Home medications reviewed. Current Medications Current Medications Medications (Trade) Dose Ordered Sig/Simon Route PRN Reason Start Time Stop Time Status Last Admin Vancomycin HCl 0 ml @ 0 mls/hr UD IV 03/16/25 12:00 Vancomycin HCl 250 ml @ 200 mls/hr Q12H IV 03/16/25 15:00 Amino Acids 0 ml @ 0 mls/hr PER PHARMACY IV 03/16/25 15:00 Diagnostic Test (Pha) (Accu-Chek Comfort Curve T) 1 strip Q6HR 03/16/25 18:00 Insulin Human Regular (InsuLIN R) FOLLOW SLIDING SCALE Q6HR SC 03/16/25 18:00 Dextrose 50 ml UD IV 03/16/25 15:30 Review of Systems Constitutional: Generalized weakness Ears, Nose, & Throat: No symptom reported Eyes: No symptom reported Neurological: No symptoms reported Pulmonary/Respiratory: No symptom reported Cardiovascular: No symptom reported Gastrointestinal: Abdominal pain Genitourinary: No symptom reported Musculoskeletal: No symptom reported Skin: No symptom reported Psychiatric: No symptom reported Endocrine: No symptom reported Hemotologic/Lymphatic: No symptom reported Vital Signs Vital Signs Date Time Temp Pulse Resp B/P (MAP) Pulse Ox O2 Delivery O2 Flow Rate FiO2 03/16/25 14:22 75 14 100 03/16/25 13:00 98.3 159/99 (119) 98.3 03/16/25 10:00 Room Air 0.0 03/16/25 10:00 21 Physical Exam General Appearance: Cooperative. Chronically ill. Contracted. Lower level paralysis Head Exam: Normal inspection Neck Exam: Normal inspection. Non-tender. Normal alignment Pulmonary/Respiratory: Chest non-tender. Clear bilateral breath sounds Cardiovascular/Chest: Regular rate and rhythm. S1, S2. NSR. No murmurs. No JVD. Peripheral Pulses: 2+ Radial (R). 2+ Radial (L). 1+ Pedal (R). 1+ Pedal (L) Abdominal Exam: Distended abdomen. NG tube in place to LIS Ankle Exam: Negative ankle edema Lower extremities: Negative lower extremity edema. Paralysis present. Neuro/Mental Status: A&O x3. Coherent Thoughts/Psych: Normal thought pattern. Appropriate mood and affect. Appearance: In no acute distress Skin Exam: Normal inspection. Normal color. Warm. Dry Labs/Diagnostic Data Labs Test 03/16/25 13:16 03/16/25 07:33 03/16/25 00:53 03/14/25 13:15 Range/Units Potassium Level 2.9 L 3.5-5.1 mmol/L Phosphorus Level 2.8 2.4-5.1 mg/dL Magnesium Level 1.7 1.6-2.6 mg/dL Albumin 4.1 3.2-4.8 g/dL Triglycerides Level 192 H < 150 mg/dL White Blood Count 6.9 4.4-10.8 10^3/uL Red Blood Count 4.33 L 4.5-5.90 10^6/uL Hemoglobin 13.3 L 13.5-17.5 g/dL Hematocrit 40.2 L 41.0-53.0 % Mean Corpuscular Volume 92.8 80.0-100.0 fL Mean Corpuscular Hemoglobin 30.8 28.0-32.0 pg Mean Corpuscular Hemoglobin Concent 33.2 32.0-36.0 g/dL Red Cell Distribution Width 18.4 H 11.8-14.3 % Platelet Count 260 140-450 10^3/uL Mean Platelet Volume 6.3 L 6.9-10.8 fL Neutrophils (%) (Auto) 73.1 37.0-80.0 % Lymphocytes (%) (Auto) 13.9 10.0-50.0 % Monocytes (%) (Auto) 9.6 0.0-12.0 % Eosinophils (%) (Auto) 2.7 0.0-7.0 % Basophils (%) (Auto) 0.7 0.0-2.0 % Neutrophils # (Auto) 5.1 1.6-8.6 10 ^3/uL Lymphocytes # (Auto) 1.0 0.4-5.4 10 ^3/uL Monocytes # (Auto) 0.7 0-1.3 10 ^3/uL Eosinophils # (Auto) 0.2 0-0.8 10 ^3/uL Basophils # (Auto) 0 0-0.2 10 ^3/uL Nucleated Red Blood Cells 0.0 % Sodium Level 142 136-145 mmol/L Chloride Level 111 H 98-107 mmol/L Carbon Dioxide Level 21 20-31 mmol/L Anion Gap 10 5-15 Blood Urea Nitrogen 8 L 9-23 mg/dL Creatinine 0.66 L 0.700-1.30 mg/dL Glomerular Filtration Rate Calc 103 >90 mL/min BUN/Creatinine Ratio 12.1 10.0-20.0 Serum Glucose 105 74-106 mg/dL Hemoglobin A1c 5.8 H <5.7 % A1C Calcium Level 9.4 8.7-10.4 mg/dL POC Glucose 110 H 70-106 mg/dl Differential Total Cells Counted 100.0 100 Neutrophils % (Manual) 70 37.0-80.0 Band Neutrophils % (Manual) 5 Lymphocytes % (Manual) 13 10.0-50.0 Monocytes % (Manual) 10 0-12 Eosinophils % (Manual) 2 0-7 Basophils % (Manual) 0 0.0-2.0 Metamyelocytes % (manual) 0 Myelocytes % (Manual) 0 Promyelocytes % (Manual) 0 Blast Cells % (Manual) 0 Reactive Lymphocytes 0 Platelet Estimate Adequate Anisocytosis (manual) Slight Test 03/13/25 05:11 03/12/25 14:19 03/12/25 08:34 03/12/25 04:40 Range/Units Hepatitis B Surface Antigen Negative Negative Hepatitis C Antibody Negative Negative Influenza Type A Antigen Negative Negative Influenza Type B Antigen Negative Negative SARS-CoV-2 Antigen (Rapid) Negative NEGATIVE Lactic Acid Level 0.9 0.4-2.0 mmol/L Total Bilirubin 0.3 0.2-1.0 mg/dL Aspartate Amino Transferase (AST) 12 <34 U/L Alanine Aminotransferase (ALT) 12 7-40 U/L Alkaline Phosphatase 72 46-116 U/L B-Type Natriuretic Peptide 21.06 0-100 pg/mL Total Protein 6.6 5.7-8.2 g/dL Vitamin B12 Level 872 211-911 pg/mL Vitamin D 25-Hydroxy 53.7 30.0-100 ng/mL Folic Acid > 48.00 >5.38 ng/mL Thyroid Stimulating Hormone (TSH) 1.93 0.55-4.78 uIU/mL Test 03/12/25 03:00 03/11/25 18:18 Range/Units Urine Color Colorless Yellow Urine Clarity Turbid H Clear Urine pH 8.0 5.0-9.0 Urine Specific [place] 1.010 1.001-1.035 Urine Protein 1+ H Negative Urine Ketones Negative Negative Urine Blood 3+ H Negative /uL Urine Nitrite 2+ H Negative Urine Bilirubin Negative Negative Urine Urobilinogen Normal Negative mg/dL Urine Leukocyte Esterase 3+ Negative /uL Urine RBC 73 0 - 3 /hpf Urine Microscopic WBC 52 H 0-3 /HPF Urine Squamous Epithelial Cells Few <5 /hpf Urine Triple Phosphate Crystals Moderate None Seen /hpf Urine Bacteria Many H None Seen /hpf Urine Mucus Few None Seen Urine Glucose Normal Normal mg/dL Prothrombin Time 10.3 9.3-11.8 sec Prothrombin Time INR 0.97 0.9-1.15 Activated Partial Thromboplast Time 27.0 24.5-34.5 SEC Ammonia 25 11-32 umol/L Lipase 25 12-53 U/L Microbiology Date/Time Source Procedure Growth Status 03/14/25 13:15 Urine - Catheterized Urine Culture - Final Escherichia coli - ESBL Complete 03/12/25 23:35 Nose MRSA Screen - Final Complete 03/12/25 09:00 Stool Stool Culture - Final Complete 03/12/25 09:00 Stool Shiga Toxin I & II - Final Complete 03/12/25 09:00 Stool Clostridium difficile Toxin Assay - Final Complete 03/11/25 18:18 Blood Blood Culture - Preliminary NO GROWTH AFTER 72 HOURS OF INCUBATION. Resulted Assessment Preprocedural cardiovascular examination Sepsis with acute cystitis and sigmoid volvulus Presence of IVC filter with history of LLE DVT, on Eliquis therapy CIDP/Guillain Robert Syndrome with bed-bound status Diabetes mellitus type 2 Hypertension GERD Obesity Plan/Recommendation (Dr. Estrada) Echocardiogram revealed an EF of 55%. Revised cardiac risk index (Gaston criteria): 6.0% risk of , [place], or cardiac arrest. Patient has no underlying history of congestive heart failure or coronary artery disease. Functional capacity not assessed given bedbound status. Per Cardiology standpoint, the patient is at an acceptable-risk for moderate to high-risk surgery. Agree with therapeutic Lovenox. Resume anticoagulation therapy within 24 hours if low postprocedural bleeding risk. There is no additional cardiac workup indicated prior to surgery. Thank you for allowing us to care for this patient. Please call with any questions or concerns. This medical document was created using an electronic medical record system with voice recognition software and computerized dictation system. Although this document has been carefully reviewed, there might still be some phonetic and typographical errors. Occasional wrong-word or ``sound-alike substitutions may have occurred due to the inherent limitations of voice recognition software. These areas are purely typographical due to imperfections of the software programs and do not reflect any compromise in the patient's medical care. Please read the chart carefully and recognize, using context, where these substitutions have occurred. Plan discussed with: Patient, Other NYHA Physical activity limitations: NA Date of Service: Mar 16, 2025 Billing Provider: JESSICA ALFREDO [employer] Cardiology Common Codes: 22463-[id number] INP/OBS CARE (High) NANCY ESTRADA MD 03/16/25 1728: Family History: Chronic obstructive pulmonary disease G8 MOTHER Diabetes mellitus G8 FATHER FH: breast cancer G8 MOTHER FH: pancreatic cancer G8 FATHER Allergies: Coded Allergies: No Known Drug Allergy (Verified Allergy, Unknown, 04/21/22) Home Meds Active Scripts Diphenhydramine Hcl (Gnp Allergy) 25 Mg Cap, 25 MG PO HS for 5 Days, #5 CAP 0 Refills Prov:GRADY SANCHEZ MD 11/01/24 Pancrelipase (Lipase-Protease- (CREON) 36,000 Unt Cap, 92967 UNT OR TIDWM for 30 Days, #90 CAP Prov:MILLIE CALIXTO MD 03/30/24 Potassium Chloride (Potassium Chloride ER) 10 Meq Tab, 10 MEQ PO DAILY for 30 Days, #30 TAB Prov:JEREMIAH BOOGIE MD 01/23/24 Polyethylene Glycol 3350 (Miralax) 17 Gm Pow, 17 GM PO DAILY for 30 Days, #510 POW Prov:JEREMIAH BOOGIE MD 01/23/24 Somdjnev-Ckdgmtbpy-Hp (Otic) (Cortisporin Otic Susp) [address], 3 DROP RIGHT EAR TID, #10 ML Prov:JEANNE ARRIOLA PAC 04/21/23 Reported Medications Levothyroxine Sodium (Levothyroxine Sodium) 112 Mcg Tab, 1 TAB PO DAILY, #30 TAB 5 Refills 03/12/25 Pancrelipase (Lipase-Protease- (CREON) 36,000 Unt Cap, 08092 UNT OR, CAP 03/12/25 Primidone (MYSOLINE TABLET) 50 Mg Tb, 50 MG PO, TAB 03/26/24 Cyanocobalamin (Vitamin B-12) 1,000 Mcg Tab, 1 TAB PO DAILY 09/14/23 Metformin Hydrochloride (Metformin Hcl) 500 Mg Tab, 1 TAB PO BID 09/14/23 Duloxetine Hcl (Cymbalta) 20 Mg Cap, 30 CAP PO DAILY, #30 CAP 2 Refills 09/14/23 Cholecalciferol (D3) 25 Mcg Chw, 25 MCG PO DAILY, TAB.CHEW 09/14/23 Yaxypliapiw-Rputzirqtcsy-Rubnb (Trelegy Ellipta 100-62.5-25 Mcg/INH) 1 Aer Aer, 1 AER IN DAILY, AER 03/09/23 Metoprolol Tartrate (Metoprolol Tartrate) 25 Mg Tab, 25 MG PO BID for 30 Days, MG 03/09/23 Amlodipine Besylate (Amlodipine Besylate) 5 Mg Tab, 2.5 MG PO DAILY for 30 Days, MG 03/09/23 Simvastatin (Simvastatin) 10 Mg Tab, 10 MG PO HS for 30 Days, MG 03/09/23 Gabapentin (Gabapentin) 300 Mg Cap, 400 MG PO TID for 30 Days, MG 04/21/22 Famotidine (Famotidine) 20 Mg Tab, 20 MG PO HS for 30 Days, MG 04/21/22 Apixaban Base (ELIQUIS) 5 Mg Tab, 5 MG PO BID, TAB 04/21/22 Baclofen (Baclofen) 10 Mg Tab, 10 MG PO Q8HP for 30 Days, MG 04/21/22 Plan/Recommendation agree with CV team Broth Mixer assessment and plan pt non ambulatory normal lvef on echo, stable ecg pt needs major GI surgery with DR Prabhakar plan to proceed intermediate risk JESSICA ALFREDO Mar 16, 2025 16:53 NANCY ESTRADA MD Mar 16, 2025 17:28
[2025-03-16] MEDS: VANCOMYCIN 1.25GM/250ML 250 ML IV SCH (16:55)
[2025-03-16] MEDS: LIDOCAINE 1% (LOCAL ANESTH.) PF 5ml SDV ID ONE (17:40)
[2025-03-16] MEDS: GASTROGRAFIN 120 ML SOL ONE (17:47)
[2025-03-16] MEDS: InsuLIN REG 1unit/0.01ml Soln (100units/ml) SC SCH (18:00)
[2025-03-16] MEDS: ACCU-CHEK COMFORT CURVE STRIP VI SCH (18:27)
[2025-03-16] MEDS: AMINO ACID INFUSION IN D10W 1,000 ML IV ONE (21:49)
[2025-03-16] MEDS: SODIUM CHLOR 0.9% PF (SALINE LOCK) 10ML VIAL/SYR IV SCH (21:50)
[2025-03-17] VITALS (15 sets, daily range): BP systolic 122–148; BP diastolic 69–94; PULSE 56–75; RESP 15–19; TEMP 97.8–98.5; O2SAT 92–100
[2025-03-17 06:06] LABS: Hematocrit 42.8 % (41.0-53.0); Hemoglobin 14.3 g/dL (13.5-17.5); Mean Corpuscular Hemoglobin 31.1 pg (28.0-32.0); Mean Corpuscular Volume 92.9 fL (80.0-100.0); Nucleated Red Blood Cells % 0.0 %
[2025-03-17 06:26] LABS: Alanine Aminotransferase 24 U/L (7-40); Albumin 4.1 g/dL (3.2-4.8); Alkaline Phosphatase 65 U/L (46-116); Anion Gap 12 (5-15); BUN/Creatinine Ratio 12.3 (10.0-20.0); Calcium 8.8 mg/dL (8.7-10.4); Carbon Dioxide 21 mmol/L (20-31); Magnesium 1.9 mg/dL (1.6-2.6); Sodium 142 mmol/L (136-145); Total Protein 7.4 g/dL (5.7-8.2)
[2025-03-17 06:41] LABS: Bilirubin, Total 0.2 mg/dL (0.2-1.0); Blood Urea Nitrogen 9 mg/dL (9-23); Chloride 109 mmol/L (98-107); Glucose 136 mg/dL (74-106); Potassium 3.3 mmol/L (3.5-5.1)
[2025-03-17] MEDS ORDERED: POTASSIUM CHLORIDE 20 MEQ, LIDOCAINE 1% (LOCAL ANESTH.) 2 ML in SODIUM CHL 0.9% 100 ML IV ONE (08:45)
[2025-03-17] MEDS: ERTAPENEM SOD INJ 1 GM in SODIUM CHL 0.9% 50 ML IV SCH (11:07)
[2025-03-17] MEDS: POTASSIUM PHOSPHATE 22 MEQ in SODIUM CHL 0.9% 100 ML IV ONE (12:35)
--- NOTE | 2025-03-17 13:18 | DVHPNRES ---
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 Patient states that feels like a truck ran over him. Patient has history of multiple urinary tract infections with the last urine culture showing the growth of Pseudomonas aeruginosa and Citrobacter youngae. Upon admission, The patient reported no abdominal pain, no dizziness, no shortness of breath, no headache. Chest X ray shows mild pulmonary vascular congestion and questionable pulmonary edema. 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 Urine culture at this hospitalization showed growth of Enterobacter, Morganella, Proteus, Enterococcus all sensitive to cefepime. Patient was initially started on IV cefepime, doxycycline and metronidazole. Upon admission, the patient was also noted to have abdominal distention reason why a CT of the abdomen was performed and a sigmoid volvulus was discovered. GI was consulted which recommended sigmoidoscopy with sigmoid volvulus the torsion. Patient was placed on an NG tube with negative suction and NPO. Patient seen and examined at bedside. Patient denies chest pain, no nausea or vomiting. Vital signs were reviewed, there is no fever or chills overnight. Patient still has NG tube placed with negative suction. Urine culture 03/16/25 result reported (+ ) E.coli growth, Cefepine was discontinued and Ertapenem was added. Patient will be kept on NPO. Surgical team is also on board which ordered a Gastrografin enema, results on 03/16/25 showed flow of contrast past splenic flexure with very distended sigmoid colon correlated with persistence of sigmoid volvulus. The patient will be scheduled for colectomy tomorrow. Will cardiology clearance was done today. We will continue to follow up closely with the patient. ROS Constitutional: Denies weight loss, fever and chills. HEENT: Denies changes in vision and hearing. Respiratory: Denies shortness of breath and cough Cardiovascular: Denies chest discomfort or palpitations GI: Mild abdomen distended. : Denies dysuria and urinary frequency. Musculoskeletal: Denies myalgias and joint pain. Skin: Denies rash and pruritus. Neurological: Denies dizziness, headache, vision or hearing problems Physical Examination General: Patient alert and oriented in person, place and time. Patient following commands. HEENT: Normocephalic, atraumatic, moist mucous membranes, NG-Tube with negative pressure, draining. Respiratory/pulmonary: Clear lungs bilaterally, no associated crackles or wheezes. Cardiovascular: Normal heart sounds S1 and S2 with no associated murmurs Abdomen: Abdomen Mildly distended, there is no pain to palpation in any of the abdominal quadrants, no palpable masses. There is an cystostomy bag present at the right flank lateral to the umbilicus draining clear urine. Extremities: There is no peripheral edema present at the lower extremities. Skin: No rashes or pruritus, there is no sacral edema present at this time. 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 Patient reports: Feels better Objective vital signs Vital Sign Date Time Temp Pulse Resp B/P (MAP) Pulse Ox O2 Delivery O2 Flow Rate FiO2 03/17/25 13:16 62 16 100 03/17/25 13:10 Room Air* 0 21 03/17/25 12:33 97.9 122/69 (86) 97.9 Total Intake and Output 03/16/25 03/16/25 03/17/25 15:00 23:00 07:00 Intake Total 100 ml 600 ml 1560 ml Output Total 100 ml 500 ml 925 ml Balance 0 ml 100 ml 635 ml medications Current Medications Medications Dose Ordered Sig/Simon Route Start Time Stop Time Status Last Admin Dose Admin Acetaminophen 650 mg Q6HP PRN PO 03/11/25 23:45 Duloxetine HCl 30 mg DAILY PO 03/12/25 10:00 03/12/25 10:37 30 MG Gabapentin 400 mg TID PO 03/12/25 06:00 03/15/25 22:44 400 MG Metronidazole 100 ml @ 100 mls/hr Q8HR IV 03/12/25 14:00 03/17/25 05:35 100 MLS/HR Ipratropium [place] 0.5 mg Q8H NEB 03/12/25 22:00 03/17/25 13:10 0.5 MG Levalbuterol HCl 0.625 mg Q8H NEB 03/12/25 22:00 03/17/25 13:10 0.625 MG Enoxaparin Sodium 90 mg Q12HR SC 03/13/25 10:00 03/16/25 09:51 90 MG Famotidine 20 mg Q12HR IV 03/13/25 10:00 03/17/25 10:08 20 MG Dextrose/Sodium Chloride 1,000 ml @ 100 mls/hr Q10H IV 03/13/25 12:15 03/17/25 10:07 100 MLS/HR Magnesium Hydroxide 30 ml DAILY PO 03/15/25 10:00 Hydralazine HCl 10 mg Q6HP PRN IV 03/15/25 12:45 Vancomycin HCl 0 ml @ 0 mls/hr UD IV 03/16/25 12:00 Vancomycin HCl 250 ml @ 200 mls/hr Q12H IV 03/16/25 15:00 03/17/25 03:07 200 MLS/HR Amino Acids 0 ml @ 0 mls/hr PER PHARMACY IV 03/16/25 15:00 Diagnostic Test (Pha) 1 strip Q6HR 03/16/25 18:00 03/17/25 12:40 1 STRIP Insulin Human Regular FOLLOW SLIDING SCALE Q6HR SC 03/16/25 18:00 Dextrose 50 ml UD IV 03/16/25 15:30 Sodium Chloride 10 ml QSHIFT@10,22 IV 03/16/25 22:00 03/17/25 10:09 10 ML Ertapenem 1 gm/ Sodium Chloride 50 ml @ 100 mls/hr DAILY IV 03/17/25 10:00 03/17/25 11:07 100 MLS/HR Fat Emulsion Intravenous 50 ml/ Sodium Phosphate 20 meq/Potassium Acetate 40 meq/ Calcium Gluconate 1.65 meq/ Magnesium Sulfate 12 meq/ Multivitamins 10 ml/Chromium/ Copper/Manganese/ Zinc 1 ml/Amino Acids/Dextrose 1,042.5483 ml @ 43 mls/hr [id number] IV 03/17/25 22:00 03/18/25 21:59 laboratory and microbiology Laboratory Tests 03/17/25 05:00 Test 03/17/25 05:00 Range/Units Serum Glucose 136 H 74-106 mg/dL Microbiology Date/Time Source Procedure Growth Status 03/14/25 13:15 Urine - Catheterized Urine Culture - Final Escherichia coli - ESBL Complete 03/12/25 23:35 Nose MRSA Screen - Final Complete 03/12/25 09:00 Stool Stool Culture - Final Complete 03/12/25 09:00 Stool Shiga Toxin I & II - Final Complete 03/12/25 09:00 Stool Clostridium difficile Toxin Assay - Final Complete 03/11/25 18:18 Blood Blood Culture - Final NO GROWTH AFTER 5 DAYS OF INCUBATION. Complete Problem List/Assessment/Plan Problem List/Assessment/Plan Assessment/Plan: Sepsis due to acute cystitis UA suggesting UTI History of bladder carcinoma status post cystectomy with ileal conduit -Urine culture ordered, previous urine culture showing Enterobacter, Morganella, Proteus, Enterococcus (could be due to cystectomy with ileal conduit) --Urine culture 03/16/25 result: (+) E.coli ESBL -Blood culture preliminary negative -IV D5W with half NS -Start Ertapenem IV -Stop IV cefepime -Stop doxycycline -Continue IV vancomycin -Continue IV Metronidazole. Acute abdominal distention likely due to sigmoid volvulus Status post detorsion 03/14/25 likely secondary to chronic constipation by GI -KUB showed small bowel dilation greater than 6 cm suggesting SBO vs ileus -C diff studies negative -Stool culture negative -Continue IV metronidazole, IV cefepime and start vancomycin -CT abdomen without contrast shows CT abdomen completed, shows multiple hepatic hypodensities measuring up to 1.7 cm. Right renal calculi, left renal nonobstructing calculi. Stomach partially distended. Small bowel loops are relatively nondistended. There is a large volume stool within the distal sigmoid rectum the sigmoid colon is distended and displaced into the upper abdomen up to 7.7 cm. Distention of the sigmoid colon up to 7.7 cm may represent ileus sequela fecal impaction, ileus with other considerations including sigmoid volvulus not excluded but felt to be much less likely. Recommend surgical evaluation. -Surgery on board -GI performed sigmoidoscopy making sigmoid volvulus detorsion. -GI performed Enema Gastrografin enema: persistence sigmoid volvulus on 03/16/25 -Surgical planned colectomy tomorrow. -Continue NPO Acute hypoxic respiratory failure secondary to Pulmonary edema Hypertensive heart disease with grade 1 diastolic dysfunction Possible Gram-positive/negative bacterial pneumonia -Stop IV cefepime -Continue IV fluids -levalbuterol and ipratropium med nebs -MRSA nares came back negative -Echo 2023 unremarkable, LVEF 55% CIDP, history of [place] syndrome -Continue home medication baclofen 10 mg daily -Continue duloxetine 30 mg daily -Continue gabapentin 400 mg TID p.r.n. 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 GERD -Continue home medication famotidine 20 mg daily Hypertension -Holding home medication amlodipine 2.5 mg daily -Holding home medication metoprolol tartrate 25 mg daily Goals of care discussed with the patient and medicare contact specialist at bedside for >35min, FULL CODE Plan discussed with Dr. Urias Plan discussed with: Patient, patient agreed with the plan. Plan discussed with: Patient Dietary Evaluation Review Comments: 1. At risk for hypoglycemia under NPO>1 day. If EN/GI unavaialbe r/t his current conditions, recommend TPN per pharmacy. 2. Advance to CCHO-60 diet texture as tolerated if PO feeding is permissible. Expected Outcomes/Goals: Avoid fast wt loss. ALYSON DUMONT RESIDENT Mar 17, 2025 13:18
[2025-03-17] MEDS: GOLYTELY 4L KIT PO ONE (13:30)
--- NOTE | 2025-03-17 13:38 | DVHPN2 ---
Progress Note - Dictate Date Seen: Mar 17, 2025 Has the PT tested + for MRSA If YES, has PT been informed?: No Medical Necessity Reason Pt with a Central, PICC or Fol: No Subjective Patient had a large bowel movement today Abdomen is less distended Patient is resting comfortably otherwise vital signs Vital Sign Date Time Temp Pulse Resp B/P (MAP) Pulse Ox O2 Delivery O2 Flow Rate FiO2 03/17/25 13:16 62 16 100 03/17/25 13:10 Room Air* 0 21 03/17/25 12:33 97.9 122/69 (86) 97.9 Total Intake and Output 03/16/25 03/16/25 03/17/25 14:59 22:59 06:59 Intake Total 100 ml 600 ml 1560 ml Output Total 100 ml 500 ml 925 ml Balance 0 ml 100 ml 635 ml medications Current Medications Medications Dose Ordered Sig/Simon Route Start Time Stop Time Status Last Admin Dose Admin Acetaminophen 650 mg Q6HP PRN PO 03/11/25 23:45 Duloxetine HCl 30 mg DAILY PO 03/12/25 10:00 03/12/25 10:37 30 MG Gabapentin 400 mg TID PO 03/12/25 06:00 03/15/25 22:44 400 MG Metronidazole 100 ml @ 100 mls/hr Q8HR IV 03/12/25 14:00 03/17/25 05:35 100 MLS/HR Ipratropium Whatley 0.5 mg Q8H NEB 03/12/25 22:00 03/17/25 13:10 0.5 MG Levalbuterol HCl 0.625 mg Q8H NEB 03/12/25 22:00 03/17/25 13:10 0.625 MG Enoxaparin Sodium 90 mg Q12HR SC 03/13/25 10:00 03/16/25 09:51 90 MG Famotidine 20 mg Q12HR IV 03/13/25 10:00 03/17/25 10:08 20 MG Dextrose/Sodium Chloride 1,000 ml @ 100 mls/hr Q10H IV 03/13/25 12:15 03/17/25 10:07 100 MLS/HR Magnesium Hydroxide 30 ml DAILY PO 03/15/25 10:00 Hydralazine HCl 10 mg Q6HP PRN IV 03/15/25 12:45 Vancomycin HCl 0 ml @ 0 mls/hr UD IV 03/16/25 12:00 Vancomycin HCl 250 ml @ 200 mls/hr Q12H IV 03/16/25 15:00 03/17/25 03:07 200 MLS/HR Amino Acids 0 ml @ 0 mls/hr PER PHARMACY IV 03/16/25 15:00 Diagnostic Test (Pha) 1 strip Q6HR 03/16/25 18:00 03/17/25 12:40 1 STRIP Insulin Human Regular FOLLOW SLIDING SCALE Q6HR SC 03/16/25 18:00 Dextrose 50 ml UD IV 03/16/25 15:30 Sodium Chloride 10 ml QSHIFT@10,22 IV 03/16/25 22:00 03/17/25 10:09 10 ML Ertapenem 1 gm/ Sodium Chloride 50 ml @ 100 mls/hr DAILY IV 03/17/25 10:00 03/17/25 11:07 100 MLS/HR Fat Emulsion Intravenous 50 ml/ Sodium Phosphate 20 meq/Potassium Acetate 40 meq/ Calcium Gluconate 1.65 meq/ Magnesium Sulfate 12 meq/ Multivitamins 10 ml/Chromium/ Copper/Manganese/ Zinc 1 ml/Amino Acids/Dextrose 1,042.5483 ml @ 43 mls/hr [id number] IV 03/17/25 22:00 03/18/25 21:59 objective Patient lying in bed, A&O x3; General: Well-built, afebrile, palor, mucosae are moist Cardiovascular: Regular S1 and S2. Respiratory: Clear lung sounds on auscultation Abdomen: Soft, nontender, less distended bowel sounds, no rebound tenderness, no organomegaly, no masses Ileal conduit with ileostomy bag with clearing urine with no haziness MSK/skin: Decreased motor strength in bilateral lower extremity. Lower extremities are cold and clammy. Neurological: Bilateral upper extremity strength 3/5. patient has lower extremity paralysis. no sensorium below the level of nipples. fecal incontinence. 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 At risk for hypoglycemia under NPO>1 day. If EN/GI unavaialbe r/t his current conditions, recommend TPN per pharmacy. 2. Advance to CCHO-60 diet texture as tolerated if PO feeding is permissible. Expected Outcomes/Goals: Avoid fast wt loss. Plan discussed with: Patient GUERO SOUZA MD Mar 17, 2025 13:38
--- NOTE | 2025-03-17 14:21 | DVHPN2 ---
Progress Note Date Seen: Mar 17, 2025 Has the PT tested + for MRSA If YES, has PT been informed?: No Medical Necessity Reason Pt with a Central, PICC or Fol: No Objective vital signs Vital Sign Date Time Temp Pulse Resp B/P (MAP) Pulse Ox O2 Delivery O2 Flow Rate FiO2 03/17/25 13:16 62 16 100 03/17/25 13:10 Room Air* 0 21 03/17/25 12:33 97.9 122/69 (86) 97.9 Total Intake and Output 03/16/25 03/16/25 03/17/25 15:00 23:00 07:00 Intake Total 100 ml 600 ml 1560 ml Output Total 100 ml 500 ml 925 ml Balance 0 ml 100 ml 635 ml medications Current Medications Medications Dose Ordered Sig/Simon Route Start Time Stop Time Status Last Admin Dose Admin Acetaminophen 650 mg Q6HP PRN PO 03/11/25 23:45 Duloxetine HCl 30 mg DAILY PO 03/12/25 10:00 03/12/25 10:37 30 MG Gabapentin 400 mg TID PO 03/12/25 06:00 03/15/25 22:44 400 MG Metronidazole 100 ml @ 100 mls/hr Q8HR IV 03/12/25 14:00 03/17/25 05:35 100 MLS/HR Ipratropium Battiest 0.5 mg Q8H NEB 03/12/25 22:00 03/17/25 13:10 0.5 MG Levalbuterol HCl 0.625 mg Q8H NEB 03/12/25 22:00 03/17/25 13:10 0.625 MG Enoxaparin Sodium 90 mg Q12HR SC 03/13/25 10:00 03/16/25 09:51 90 MG Famotidine 20 mg Q12HR IV 03/13/25 10:00 03/17/25 10:08 20 MG Dextrose/Sodium Chloride 1,000 ml @ 100 mls/hr Q10H IV 03/13/25 12:15 03/17/25 10:07 100 MLS/HR Magnesium Hydroxide 30 ml DAILY PO 03/15/25 10:00 Hydralazine HCl 10 mg Q6HP PRN IV 03/15/25 12:45 Vancomycin HCl 0 ml @ 0 mls/hr UD IV 03/16/25 12:00 Vancomycin HCl 250 ml @ 200 mls/hr Q12H IV 03/16/25 15:00 03/17/25 03:07 200 MLS/HR Amino Acids 0 ml @ 0 mls/hr PER PHARMACY IV 03/16/25 15:00 Diagnostic Test (Pha) 1 strip Q6HR 03/16/25 18:00 03/17/25 12:40 1 STRIP Insulin Human Regular FOLLOW SLIDING SCALE Q6HR SC 03/16/25 18:00 Dextrose 50 ml UD IV 03/16/25 15:30 Sodium Chloride 10 ml QSHIFT@10,22 IV 03/16/25 22:00 03/17/25 10:09 10 ML Ertapenem 1 gm/ Sodium Chloride 50 ml @ 100 mls/hr DAILY IV 03/17/25 10:00 03/17/25 11:07 100 MLS/HR Fat Emulsion Intravenous 50 ml/ Sodium Phosphate 20 meq/Potassium Acetate 40 meq/ Calcium Gluconate 1.65 meq/ Magnesium Sulfate 12 meq/ Multivitamins 10 ml/Chromium/ Copper/Manganese/ Zinc 1 ml/Amino Acids/Dextrose 1,042.5483 ml @ 43 mls/hr [id number] IV 03/17/25 22:00 03/18/25 21:59 laboratory and microbiology Laboratory Tests 03/17/25 05:00 Test 03/17/25 05:00 Range/Units Serum Glucose 136 H 74-106 mg/dL Problem List/Assessment/Plan Problem List/Assessment/Plan 03/16/25 abdomen tensely distended, patient does not have reliable sensation, x ray reviewed, no flow of contrast past splenic flexure with very distended sigmoid colon. he may require colectomy, will get cardiology input. 03/17/25 PATIENT HAS NO SIGNIFICANT BOWEL ACTIVITY BUT HAD TWO SMALL WATER STOOLS AND IS NOT PASSING Flatus. will attempt a modified bowel prep and possibly proceed withj a colon resection tomorrow, thoroughly explained that he may wind up with a colostomy. operation risks and possible; complications explained Plan discussed with: Patient, Other Dietary Evaluation Review Comments: 1. At risk for hypoglycemia under NPO>1 day. If EN/GI unavaialbe r/t his current conditions, recommend TPN per pharmacy. 2. Advance to CCHO-60 diet texture as tolerated if PO feeding is permissible. Expected Outcomes/Goals: Avoid fast wt loss. LILLIE LINARES MD Mar 17, 2025 14:21
[2025-03-17] MEDS: TPN PER PHARMACY IV NR (22:09)
[2025-03-18] VITALS (15 sets, daily range): BP systolic 138–158; BP diastolic 77–89; PULSE 67–90; RESP 16–18; TEMP 97.7–98.7; O2SAT 92–100
[2025-03-18] MEDS: ceFAZolin 2 GM/D5W50ml 50 ML IV ONE (06:49)
[2025-03-18 06:51] LABS: Alanine Aminotransferase 23 U/L (7-40); Albumin 3.7 g/dL (3.2-4.8); Alkaline Phosphatase 57 U/L (46-116); Anion Gap 11 (5-15); BUN/Creatinine Ratio 18.8 (10.0-20.0); Blood Urea Nitrogen 13 mg/dL (9-23); Carbon Dioxide 24 mmol/L (20-31); Sodium 143 mmol/L (136-145); Total Protein 6.6 g/dL (5.7-8.2)
[2025-03-18 06:59] LABS: Bilirubin, Total 0.2 mg/dL (0.2-1.0); Calcium 8.4 mg/dL (8.7-10.4); Chloride 108 mmol/L (98-107); Glucose 176 mg/dL (74-106); Magnesium 1.6 mg/dL (1.6-2.6)
[2025-03-18 07:00] LABS: Hematocrit 39.4 % (41.0-53.0); Hemoglobin 13.3 g/dL (13.5-17.5); Mean Corpuscular Hemoglobin 31.5 pg (28.0-32.0); Mean Corpuscular Volume 93.2 fL (80.0-100.0); Nucleated Red Blood Cells % 0.2 %
[2025-03-18] MEDS: BUPIVACAINE 0.5% P/F INJ 10 ML VIAL ONE (07:01)
[2025-03-18] MEDS: LIDOCAINE W/ EPINEPHRINE 1% 20ML VIAL ONE (07:01)
[2025-03-18 07:18] LABS: Potassium 2.5 mmol/L (3.5-5.1)
[2025-03-18] MEDS ORDERED: MIDAZOLAM HCL 2MG/2ML 2ml VIAL (1mg/ml) ONE (07:18)
[2025-03-18] MEDS ORDERED: fentaNYL CITRATE 100 MCG/2 ML VL ONE (07:18)
[2025-03-18] MEDS ORDERED: ONDANSETRON HCL 4 MG/2 ML VIAL ONE (07:19)
[2025-03-18] MEDS ORDERED: PROPOFOL 10 MG/ML 20 ML IV ONE (07:19)
[2025-03-18] MEDS ORDERED: ROCURONIUM 10MG/ML 10ML VIAL IV ONE (07:19)
[2025-03-18] MEDS ORDERED: LIDOCAINE 2% (LOCAL ANESTH.) PF 5ml SDV ONE (07:20)
[2025-03-18] MEDS: POTASSIUM CHL 20MEQ/100ML 100 ML IV SCH (08:36)
[2025-03-18] MEDS: VANCOMYCIN 750mg/150ml 150 ML IV SCH (12:03)
[2025-03-18] MEDS: MAGNESIUM SULFATE 1GM/100ML 100 ML IV SCH (13:15)
--- NOTE | 2025-03-18 14:46 | DVHPNRES ---
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 Patient states that feels like a truck ran over him. Patient has history of multiple urinary tract infections with the last urine culture showing the growth of Pseudomonas aeruginosa and Citrobacter youngae. Upon admission, The patient reported no abdominal pain, no dizziness, no shortness of breath, no headache. Chest X ray shows mild pulmonary vascular congestion and questionable pulmonary edema. 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 Urine culture at this hospitalization showed growth of Enterobacter, Morganella, Proteus, Enterococcus all sensitive to cefepime. Patient was initially started on IV cefepime, doxycycline and metronidazole. Upon admission, the patient was also noted to have abdominal distention reason why a CT of the abdomen was performed and a sigmoid volvulus was discovered. GI was consulted which recommended sigmoidoscopy with sigmoid volvulus the torsion. Patient was placed on an NG tube with negative suction and NPO. Urine culture 03/16/25 result reported (+ ) E.coli growth, Cefepine was discontinued and Ertapenem was added. Surgical team is also on board which ordered a Gastrografin enema, results on 03/16/25 showed flow of contrast past splenic flexure with very distended sigmoid colon correlated with persistence of sigmoid volvulus. Patient seen and examined at bedside. Patient denies chest pain, no nausea or vomiting. Vital signs were reviewed, there is no fever or chills overnight. The patient still has NG tube placed with negative suction. Today, surgery was postponed due to hypokalemia ( 2.5 mmol/L). Potassium correction was started; Post potassium supplementation with 40 meq IV improved to 3.1 mmol/L. Then supplementing with potassium 20 EF tablet PO now to improved 3.1 mmol/l level. The patient's potassium level will be f/u closely. The patient will be re- scheduled for colectomy when the hypokalemia resolves. ROS Constitutional: Denies weight loss, fever and chills. HEENT: Denies changes in vision and hearing. Respiratory: Denies shortness of breath and cough Cardiovascular: Denies chest discomfort or palpitations GI: Mild abdomen distended. : Denies dysuria and urinary frequency. Musculoskeletal: Denies myalgias and joint pain. Skin: Denies rash and pruritus. Neurological: Denies dizziness, headache, vision or hearing problems. Physical Examination General: Patient alert and oriented in person, place and time. Patient following commands. HEENT: Normocephalic, atraumatic, moist mucous membranes, NG-Tube with negative pressure, draining. Respiratory/pulmonary: Clear lungs bilaterally, no associated crackles or wheezes. Cardiovascular: Normal heart sounds S1 and S2 with no associated murmurs Abdomen: Abdomen Mildly distended, there is no pain to palpation in any of the abdominal quadrants, no palpable masses. There is an cystostomy bag present at the right flank lateral to the umbilicus draining clear urine. Extremities: There is no peripheral edema present at the lower extremities. Skin: No rashes or pruritus, there is no sacral edema present at this time. 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 Objective vital signs Vital Sign Date Time Temp Pulse Resp B/P (MAP) Pulse Ox O2 Delivery O2 Flow Rate FiO2 03/18/25 10:00 95 Room Air* 0 21 03/18/25 09:00 98.6 67 18 144/86 (105) 98.6 Total Intake and Output 03/17/25 03/17/25 03/18/25 15:00 23:00 07:00 Intake Total 50 ml 1847 ml 200 ml Output Total 225 ml 775 ml 2350 ml Balance -175 ml 1072 ml -2150 ml medications Current Medications Medications Dose Ordered Sig/Simon Route Start Time Stop Time Status Last Admin Dose Admin Acetaminophen 650 mg Q6HP PRN PO 03/11/25 23:45 Duloxetine HCl 30 mg DAILY PO 03/12/25 10:00 03/12/25 10:37 30 MG Gabapentin 400 mg TID PO 03/12/25 06:00 03/15/25 22:44 400 MG Metronidazole 100 ml @ 100 mls/hr Q8HR IV 03/12/25 14:00 03/17/25 22:06 100 MLS/HR Ipratropium Alexis 0.5 mg Q8H NEB 03/12/25 22:00 03/17/25 22:03 0.5 MG Levalbuterol HCl 0.625 mg Q8H NEB 03/12/25 22:00 03/17/25 22:03 0.625 MG Enoxaparin Sodium 90 mg Q12HR SC 03/13/25 10:00 03/16/25 09:51 90 MG Famotidine 20 mg Q12HR IV 03/13/25 10:00 03/18/25 09:30 20 MG Dextrose/Sodium Chloride 1,000 ml @ 100 mls/hr Q10H IV 03/13/25 12:15 03/18/25 09:43 100 MLS/HR Magnesium Hydroxide 30 ml DAILY PO 03/15/25 10:00 Hydralazine HCl 10 mg Q6HP PRN IV 03/15/25 12:45 Vancomycin HCl 0 ml @ 0 mls/hr UD IV 03/16/25 12:00 Amino Acids 0 ml @ 0 mls/hr PER PHARMACY IV 03/16/25 15:00 Diagnostic Test (Pha) 1 strip Q6HR 03/16/25 18:00 03/18/25 11:54 1 STRIP Insulin Human Regular FOLLOW SLIDING SCALE Q6HR SC 03/16/25 18:00 Dextrose 50 ml UD IV 03/16/25 15:30 Sodium Chloride 10 ml QSHIFT@10,22 IV 03/16/25 22:00 03/17/25 22:05 10 ML Ertapenem 1 gm/ Sodium Chloride 50 ml @ 100 mls/hr DAILY IV 03/17/25 10:00 03/18/25 09:32 100 MLS/HR Fat Emulsion Intravenous 50 ml/ Sodium Phosphate 20 meq/Potassium Acetate 40 meq/ Calcium Gluconate 1.65 meq/ Magnesium Sulfate 12 meq/ Multivitamins 10 ml/Chromium/ Copper/Manganese/ Zinc 1 ml/Amino Acids/Dextrose 1,042.5483 ml @ 43 mls/hr [id number] IV 03/17/25 22:00 03/18/25 21:59 03/17/25 22:09 43 MLS/HR Vancomycin HCl 150 ml @ 150 mls/hr Q12H IV 03/18/25 12:00 03/18/25 12:03 150 MLS/HR Fat Emulsion Intravenous 50 ml/ Potassium Acetate 40 meq/Potassium Phosphate 44 meq/ Calcium Gluconate 3.5 meq/Magnesium Sulfate 20 meq/ Multivitamins 10 ml/Chromium/ Copper/Manganese/ Zinc 1 ml/Insulin Human Regular 5 units/Amino Acids/ Dextrose 1,153.5768 ml @ 48 mls/hr Q24H2M IV 03/18/25 22:00 03/19/25 21:59 laboratory and microbiology Laboratory Tests 03/18/25 04:49 Test 03/18/25 04:49 Range/Units Serum Glucose 176 H 74-106 mg/dL Microbiology Date/Time Source Procedure Growth Status 03/14/25 13:15 Urine - Catheterized Urine Culture - Final Escherichia coli - ESBL Complete 03/12/25 23:35 Nose MRSA Screen - Final Complete 03/12/25 09:00 Stool Stool Culture - Final Complete 03/12/25 09:00 Stool Shiga Toxin I & II - Final Complete 03/12/25 09:00 Stool Clostridium difficile Toxin Assay - Final Complete 03/11/25 18:18 Blood Blood Culture - Final NO GROWTH AFTER 5 DAYS OF INCUBATION. Complete Labs and/or images reviewed: Labs reviewed by me Problem List/Assessment/Plan Problem List/Assessment/Plan Assessment/Plan: Sepsis due to acute cystitis UA suggesting UTI History of bladder carcinoma status post cystectomy with ileal conduit -Urine culture ordered, previous urine culture showing Enterobacter, Morganella, Proteus, Enterococcus (could be due to cystectomy with ileal conduit) --Urine culture 03/16/25 result: (+) E.coli ESBL -Blood culture preliminary negative -IV D5W with half NS -Start Ertapenem IV -Stop IV cefepime -Stop doxycycline -Continue IV vancomycin -Continue IV Metronidazole. Acute abdominal distention likely due to sigmoid volvulus Status post detorsion 03/14/25 likely secondary to chronic constipation by GI -KUB showed small bowel dilation greater than 6 cm suggesting SBO vs ileus -C diff studies negative -Stool culture negative -Continue IV metronidazole, IV cefepime and start vancomycin -CT abdomen without contrast shows CT abdomen completed, shows multiple hepatic hypodensities measuring up to 1.7 cm. Right renal calculi, left renal nonobstructing calculi. Stomach partially distended. Small bowel loops are relatively nondistended. There is a large volume stool within the distal sigmoid rectum the sigmoid colon is distended and displaced into the upper abdomen up to 7.7 cm. Distention of the sigmoid colon up to 7.7 cm may represent ileus sequela fecal impaction, ileus with other considerations including sigmoid volvulus not excluded but felt to be much less likely. Recommend surgical evaluation. -Surgery on board -GI performed sigmoidoscopy making sigmoid volvulus detorsion. -GI performed Enema Gastrografin enema: persistence sigmoid volvulus on 03/16/25 -Surgical planned colectomy, surgery will be rescheduled. -Continue NPO Acute hypoxic respiratory failure secondary to Pulmonary edema Hypertensive heart disease with grade 1 diastolic dysfunction Possible Gram-positive/negative bacterial pneumonia -Stop IV cefepime -Continue IV fluids -levalbuterol and ipratropium med nebs -MRSA nares came back negative -Echo 2023 unremarkable, LVEF 55% CIDP, history of Taina Wilton syndrome -Continue home medication baclofen 10 mg daily -Continue duloxetine 30 mg daily -Continue gabapentin 400 mg TID p.r.n. 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 GERD -Continue home medication famotidine 20 mg daily Hypertension -Holding home medication amlodipine 2.5 mg daily -Holding home medication metoprolol tartrate 25 mg daily Hypokalemia Potassium was 2.5 mmol/L then post potassium supplementation with 40 meq IV improved to 3.1 Potassium supplementing with potassium 20 EF tablet PO now to improved 3.1 mmol/l level Closely f/u potassium levels. Re-check Potassium 7:00 pm today and 7:00 am Goals of care discussed with the patient and manager home healthcare at bedside for >35min, FULL CODE Plan discussed with Dr. Urias Plan discussed with: Patient, patient agreed with the plan. Plan discussed with: Patient My Orders My Orders Orders - ALYSON DUMONT RESIDENT Procedure Category Date Status Time Vancomycin PHA 03/18/25 In Process 750mg/150ml 12:00 Vancomycin,Trough LAB 03/19/25 Verified 23:00 Vancomycin Per [facility] 03/20/25 In Process Pharmacy Protoc 00:00 Creatinine LAB 03/20/25 Verified 05:00 Complete Blood Count LAB 03/19/25 Verified 04:00 Comprehensive LAB 03/19/25 Verified Metabolic Panel 04:00 Magnesium LAB 03/19/25 Verified 04:00 Potassium LAB 03/18/25 Logged 19:00 Communication Order ORDERS 03/18/25 Transmitted 14:10 Communication Order ORDERS 03/18/25 Transmitted 14:18 Dietary Evaluation Review Comments: 1. At risk for hypoglycemia under NPO>1 day. If EN/GI unavaialbe r/t his current conditions, recommend TPN per pharmacy. 2. Advance to CCHO-60 diet texture as tolerated if PO feeding is permissible. Expected Outcomes/Goals: Avoid fast wt loss. ALYSON DUMONT RESIDENT Mar 18, 2025 14:46
[2025-03-18] MEDS: POTASSIUM PHOSPHATE 44 MEQ in D5W 5% 250 ML IV ONE (16:37)
[2025-03-18] MEDS ORDERED: POTASSIUM CHL 20MEQ/100ML 100 ML IV SCH (23:15)
[2025-03-18] MEDS: TPN PER PHARMACY IV NR (23:40)
[2025-03-19] VITALS (14 sets, daily range): BP systolic 119–143; BP diastolic 75–84; PULSE 67–92; RESP 17–20; TEMP 97.8–98.1; O2SAT 93–100
[2025-03-19 02:38] LABS: Alanine Aminotransferase 24 U/L (7-40); Albumin 3.7 g/dL (3.2-4.8); Alkaline Phosphatase 55 U/L (46-116); Anion Gap 11 (5-15); BUN/Creatinine Ratio 21.0 (10.0-20.0); Blood Urea Nitrogen 13 mg/dL (9-23); Carbon Dioxide 24 mmol/L (20-31); Sodium 142 mmol/L (136-145); Total Protein 6.6 g/dL (5.7-8.2)
[2025-03-19 02:41] LABS: Bilirubin, Total 0.2 mg/dL (0.2-1.0); Calcium 8.3 mg/dL (8.7-10.4); Chloride 107 mmol/L (98-107); Glucose 151 mg/dL (74-106); Potassium 3.4 mmol/L (3.5-5.1)
[2025-03-19] MEDS: POTASSIUM CHL 20MEQ/100ML 100 ML IV ONE (03:31)
[2025-03-19] MEDS: BUPIVACAINE 0.5% P/F INJ 10 ML VIAL ONE (07:07)
[2025-03-19] MEDS: LIDOCAINE W/ EPINEPHRINE 1% 20ML VIAL ONE (07:07)
--- NOTE | 2025-03-19 07:51 | DVHPNRES ---
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 Patient states that feels like a truck ran over him. Patient has history of multiple urinary tract infections with the last urine culture showing the growth of Pseudomonas aeruginosa and Citrobacter youngae. Upon admission, The patient reported no abdominal pain, no dizziness, no shortness of breath, no headache. Chest X ray shows mild pulmonary vascular congestion and questionable pulmonary edema. 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 Urine culture at this hospitalization showed growth of Enterobacter, Morganella, Proteus, Enterococcus all sensitive to cefepime. Patient was initially started on IV cefepime, doxycycline and metronidazole. Upon admission, the patient was also noted to have abdominal distention reason why a CT of the abdomen was performed and a sigmoid volvulus was discovered. GI was consulted which recommended sigmoidoscopy with sigmoid volvulus the torsion. Patient was placed on an NG tube with negative suction and NPO. Urine culture 03/16/25 result reported (+ ) E.coli growth, Cefepine was discontinued and Ertapenem was added. Surgical team is also on board which ordered a Gastrografin enema, results on 03/16/25 showed flow of contrast past splenic flexure with very distended sigmoid colon correlated with persistence of sigmoid volvulus. 03/19/25. Patient seen and examined at bedside. Patient denies chest pain, no nausea or vomiting. Vital signs were reviewed, there is no fever or chills overnight. Potassium levels have improved 3.4mmol/L. Today, Dr. Figueroa cancell the colectomy due to improvement, patient has bowel movements and is passing gas, also NG tube was discontinuated and patient will start and clear liquids po, The patient will be continued monitoried for recurrence of volvulus of the sigmoid colon. ROS Constitutional: Denies weight loss, fever and chills. HEENT: Denies changes in vision and hearing. Respiratory: Denies shortness of breath and cough Cardiovascular: Denies chest discomfort or palpitations GI: No abdominal pain. : Denies dysuria and urinary frequency. Musculoskeletal: Denies myalgias and joint pain. Skin: Denies rash and pruritus. Neurological: Denies dizziness, headache, vision or hearing problems. Physical Examination General: Patient alert and oriented in person, place and time. Patient following commands. HEENT: Normocephalic, atraumatic, moist mucous membranes, NG-Tube with negative pressure, draining. Respiratory/pulmonary: Clear lungs bilaterally, no associated crackles or wheezes. Cardiovascular: Normal heart sounds S1 and S2 with no associated murmurs Abdomen: Abdomen less distended, no pain to palpation in any of the abdominal quadrants, no palpable masses. There is an cystostomy bag present at the right flank lateral to the umbilicus draining clear urine. Extremities: There is no peripheral edema present at the lower extremities. Skin: No rashes or pruritus, there is no sacral edema present at this time. 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 Objective vital signs Vital Sign Date Time Temp Pulse Resp B/P (MAP) Pulse Ox O2 Delivery O2 Flow Rate FiO2 03/19/25 05:00 98.1 81 18 130/81 (97) 95 98.1 03/18/25 22:18 Room Air 0.0 03/18/25 22:18 21 Total Intake and Output 03/18/25 03/18/25 03/19/25 15:00 23:00 07:00 Intake Total 775 ml 1544.5 ml 450 ml Output Total 350 ml 2000 ml Balance 775 ml 1194.5 ml -1550 ml medications Current Medications Medications Dose Ordered Sig/Simon Route Start Time Stop Time Status Last Admin Dose Admin Acetaminophen 650 mg Q6HP PRN PO 03/11/25 23:45 Duloxetine HCl 30 mg DAILY PO 03/12/25 10:00 03/12/25 10:37 30 MG Gabapentin 400 mg TID PO 03/12/25 06:00 03/15/25 22:44 400 MG Metronidazole 100 ml @ 100 mls/hr Q8HR IV 03/12/25 14:00 03/18/25 23:38 100 MLS/HR Ipratropium [place] 0.5 mg Q8H NEB 03/12/25 22:00 03/18/25 22:19 0.5 MG Levalbuterol HCl 0.625 mg Q8H NEB 03/12/25 22:00 03/18/25 22:20 0.625 MG Enoxaparin Sodium 90 mg Q12HR SC 03/13/25 10:00 03/16/25 09:51 90 MG Famotidine 20 mg Q12HR IV 03/13/25 10:00 03/18/25 23:37 20 MG Dextrose/Sodium Chloride 1,000 ml @ 100 mls/hr Q10H IV 03/13/25 12:15 03/18/25 23:38 100 MLS/HR Magnesium Hydroxide 30 ml DAILY PO 03/15/25 10:00 Hydralazine HCl 10 mg Q6HP PRN IV 03/15/25 12:45 Vancomycin HCl 0 ml @ 0 mls/hr UD IV 03/16/25 12:00 Amino Acids 0 ml @ 0 mls/hr PER PHARMACY IV 03/16/25 15:00 Diagnostic Test (Pha) 1 strip Q6HR 03/16/25 18:00 03/18/25 23:39 1 STRIP Insulin Human Regular FOLLOW SLIDING SCALE Q6HR SC 03/16/25 18:00 03/18/25 17:52 8 UNITS Dextrose 50 ml UD IV 03/16/25 15:30 Sodium Chloride 10 ml QSHIFT@10,22 IV 03/16/25 22:00 03/18/25 23:37 10 ML Ertapenem 1 gm/ Sodium Chloride 50 ml @ 100 mls/hr DAILY IV 03/17/25 10:00 03/18/25 09:32 100 MLS/HR Vancomycin HCl 150 ml @ 150 mls/hr Q12H IV 03/18/25 12:00 03/19/25 01:31 150 MLS/HR Fat Emulsion Intravenous 50 ml/ Potassium Acetate 40 meq/Potassium Phosphate 44 meq/ Calcium Gluconate 3.5 meq/Magnesium Sulfate 20 meq/ Multivitamins 10 ml/Chromium/ Copper/Manganese/ Zinc 1 ml/Insulin Human Regular 5 units/Amino Acids/ Dextrose 1,153.5768 ml @ 48 mls/hr Q24H2M IV 03/18/25 22:00 03/19/25 21:59 03/18/25 23:40 48 MLS/HR Magnesium Oxide 400 mg DAILY PO 03/19/25 10:00 laboratory and microbiology Laboratory Tests 03/19/25 01:50 03/18/25 04:49 Test 03/19/25 01:50 Range/Units Serum Glucose 151 H 74-106 mg/dL Microbiology Date/Time Source Procedure Growth Status 03/14/25 13:15 Urine - Catheterized Urine Culture - Final Escherichia coli - ESBL Complete 03/12/25 23:35 Nose MRSA Screen - Final Complete 03/12/25 09:00 Stool Stool Culture - Final Complete 03/12/25 09:00 Stool Shiga Toxin I & II - Final Complete 03/12/25 09:00 Stool Clostridium difficile Toxin Assay - Final Complete 03/11/25 18:18 Blood Blood Culture - Final NO GROWTH AFTER 5 DAYS OF INCUBATION. Complete Problem List/Assessment/Plan Problem List/Assessment/Plan Assessment/Plan: Sepsis due to acute cystitis UA suggesting UTI History of bladder carcinoma status post cystectomy with ileal conduit -Urine culture ordered, previous urine culture showing Enterobacter, Morganella, Proteus, Enterococcus (could be due to cystectomy with ileal conduit) --Urine culture 03/16/25 result: (+) E.coli ESBL -Blood culture preliminary negative -IV D5W with half NS -Start Ertapenem IV -Stop IV cefepime -Stop doxycycline -Continue IV vancomycin -Continue IV Metronidazole. Acute abdominal distention likely due to sigmoid volvulus resolving Status post detorsion 03/14/25 likely secondary to chronic constipation by GI -KUB showed small bowel dilation greater than 6 cm suggesting SBO vs ileus -C diff studies negative -Stool culture negative -Continue IV metronidazole, IV cefepime and start vancomycin -CT abdomen without contrast shows CT abdomen completed, shows multiple hepatic hypodensities measuring up to 1.7 cm. Right renal calculi, left renal nonobstructing calculi. Stomach partially distended. Small bowel loops are relatively nondistended. There is a large volume stool within the distal sigmoid rectum the sigmoid colon is distended and displaced into the upper abdomen up to 7.7 cm. Distention of the sigmoid colon up to 7.7 cm may represent ileus sequela fecal impaction, ileus with other considerations including sigmoid volvulus not excluded but felt to be much less likely. Recommend surgical evaluation. -Surgery on board -GI performed sigmoidoscopy making sigmoid volvulus detorsion. -GI performed Enema Gastrografin enema: persistence sigmoid volvulus on 03/16/25 -Surgical planned colectomy, surgery will be rescheduled./ Cancelled due to GI improvement -Clear liquid diet. Acute hypoxic respiratory failure secondary to Pulmonary edema Hypertensive heart disease with grade 1 diastolic dysfunction Possible Gram-positive/negative bacterial pneumonia -Stop IV cefepime -Continue IV fluids -levalbuterol and ipratropium med nebs -MRSA nares came back negative -Echo 2023 unremarkable, LVEF 55% CIDP, history of [place] syndrome -Continue home medication baclofen 10 mg daily -Continue duloxetine 30 mg daily -Continue gabapentin 400 mg TID p.r.n. 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 GERD -Continue home medication famotidine 20 mg daily Hypertension -Holding home medication amlodipine 2.5 mg daily -Holding home medication metoprolol tartrate 25 mg daily Hypokalemia Potassium was 2.5 mmol/L then post potassium supplementation with 40 meq IV improved to 3.1 Potassium supplementing with potassium 20 EF tablet PO now to improved 3.1 mmol/l level Closely f/u potassium levels. Re-check Potassium 7:00 pm today and 7:00 am Goals of care discussed with the patient and healthcare consulting manager at bedside for >35min, FULL CODE Plan discussed with Dr. Urias Plan discussed with: Patient, patient agreed with the plan. Plan discussed with: Patient My Orders My Orders Orders - ALSYON DUMONT RESIDENT Procedure Category Date Status Time Vancomycin PHA 03/18/25 In Process 750mg/150ml 12:00 Vancomycin,Trough LAB 03/19/25 Logged 23:00 Vancomycin Per PR[facility] 03/20/25 In Process Pharmacy Protoc 00:00 Creatinine LAB 03/20/25 Verified 05:00 Complete Blood Count LAB 03/19/25 Logged 04:00 Magnesium Oxide PHA 03/19/25 In Process Tablet (Mag-Ox Tablet) 10:00 Dietary Evaluation Review Comments: 1. At risk for hypoglycemia under NPO>1 day. If EN/GI unavaialbe r/t his current conditions, recommend TPN per pharmacy. 2. Advance to CCHO-60 diet texture as tolerated if PO feeding is permissible. Expected Outcomes/Goals: Avoid fast wt loss. ALYSON DUMONT RESIDENT Mar 19, 2025 07:51
--- NOTE | 2025-03-19 08:53 | DVHPN2 ---
Progress Note Date Seen: Mar 19, 2025 Has the PT tested + for MRSA If YES, has PT been informed?: No Medical Necessity Reason Pt with a Central, PICC or Fol: No Objective vital signs Vital Sign Date Time Temp Pulse Resp B/P (MAP) Pulse Ox O2 Delivery O2 Flow Rate FiO2 03/19/25 05:00 98.1 81 18 130/81 (97) 95 98.1 03/18/25 22:18 Room Air 0.0 03/18/25 22:18 21 Total Intake and Output 03/18/25 03/18/25 03/19/25 15:00 23:00 07:00 Intake Total 775 ml 1544.5 ml 450 ml Output Total 350 ml 2000 ml Balance 775 ml 1194.5 ml -1550 ml medications Current Medications Medications Dose Ordered Sig/Simon Route Start Time Stop Time Status Last Admin Dose Admin Acetaminophen 650 mg Q6HP PRN PO 03/11/25 23:45 Duloxetine HCl 30 mg DAILY PO 03/12/25 10:00 03/12/25 10:37 30 MG Gabapentin 400 mg TID PO 03/12/25 06:00 03/15/25 22:44 400 MG Metronidazole 100 ml @ 100 mls/hr Q8HR IV 03/12/25 14:00 03/18/25 23:38 100 MLS/HR Ipratropium [place] 0.5 mg Q8H NEB 03/12/25 22:00 03/18/25 22:19 0.5 MG Levalbuterol HCl 0.625 mg Q8H NEB 03/12/25 22:00 03/18/25 22:20 0.625 MG Enoxaparin Sodium 90 mg Q12HR SC 03/13/25 10:00 03/16/25 09:51 90 MG Famotidine 20 mg Q12HR IV 03/13/25 10:00 03/18/25 23:37 20 MG Dextrose/Sodium Chloride 1,000 ml @ 100 mls/hr Q10H IV 03/13/25 12:15 03/18/25 23:38 100 MLS/HR Magnesium Hydroxide 30 ml DAILY PO 03/15/25 10:00 Hydralazine HCl 10 mg Q6HP PRN IV 03/15/25 12:45 Vancomycin HCl 0 ml @ 0 mls/hr UD IV 03/16/25 12:00 Amino Acids 0 ml @ 0 mls/hr PER PHARMACY IV 03/16/25 15:00 Diagnostic Test (Pha) 1 strip Q6HR 03/16/25 18:00 03/18/25 23:39 1 STRIP Insulin Human Regular FOLLOW SLIDING SCALE Q6HR SC 03/16/25 18:00 03/18/25 17:52 8 UNITS Dextrose 50 ml UD IV 03/16/25 15:30 Sodium Chloride 10 ml QSHIFT@10,22 IV 03/16/25 22:00 03/18/25 23:37 10 ML Ertapenem 1 gm/ Sodium Chloride 50 ml @ 100 mls/hr DAILY IV 03/17/25 10:00 03/18/25 09:32 100 MLS/HR Vancomycin HCl 150 ml @ 150 mls/hr Q12H IV 03/18/25 12:00 03/19/25 01:31 150 MLS/HR Fat Emulsion Intravenous 50 ml/ Potassium Acetate 40 meq/Potassium Phosphate 44 meq/ Calcium Gluconate 3.5 meq/Magnesium Sulfate 20 meq/ Multivitamins 10 ml/Chromium/ Copper/Manganese/ Zinc 1 ml/Insulin Human Regular 5 units/Amino Acids/ Dextrose 1,153.5768 ml @ 48 mls/hr Q24H2M IV 03/18/25 22:00 03/19/25 21:59 03/18/25 23:40 48 MLS/HR Magnesium Oxide 400 mg DAILY PO 03/19/25 10:00 laboratory and microbiology Test 03/19/25 08:26 Range/Units Serum Glucose Pending Problem List/Assessment/Plan Problem List/Assessment/Plan 03/16/25 abdomen tensely distended, patient does not have reliable sensation, x ray reviewed, no flow of contrast past splenic flexure with very distended sigmoid colon. he may require colectomy, will get cardiology input. 03/17/25 PATIENT HAS NO SIGNIFICANT BOWEL ACTIVITY BUT HAD TWO SMALL WATER STOOLS AND IS NOT PASSING Flatus. will attempt a modified bowel prep and possibly pro ceed withj a colon resection tomorrow, thoroughly explained that he may wind up with a colostomy. operation risks and possible; complications explained 03/19/25 patient had a normal bowel movement and his abdomen is much softerand less distended, he "doesn't know whether he is passing flatus". His pertinent labs and vital signs are normal and he seems to be less uncomfortable. I will cancel his operation for today, DC NG tube and give clear liquids po, He needs continued monitoring and if there is recurrence of volvulus of the sigmoid colon, will need an operation.I explained my plan to the patient and he agrees with the plan. Plan discussed with: Patient, Other Dietary Evaluation Review Comments: 1. At risk for hypoglycemia under NPO>1 day. If EN/GI unavaialbe r/t his current conditions, recommend TPN per pharmacy. 2. Advance to CCHO-60 diet texture as tolerated if PO feeding is permissible. Expected Outcomes/Goals: Avoid fast wt loss. LILLIE LINARES MD Mar 19, 2025 08:53
[2025-03-19 08:59] LABS: Anion Gap 10.0 (5-15); Carbon Dioxide 24.0 mmol/L (20-31); Sodium 143.0 mmol/L (136-145)
[2025-03-19 09:00] LABS: Calcium 8.9 mg/dL (8.7-10.4); Hematocrit 41.1 % (41.0-53.0); Hemoglobin 13.7 g/dL (13.5-17.5); Mean Corpuscular Hemoglobin 31.3 pg (28.0-32.0); Mean Corpuscular Volume 93.7 fL (80.0-100.0)
[2025-03-19 09:05] LABS: Glucose 99.0 mg/dL (74-106)
[2025-03-19 09:06] LABS: Albumin 3.8 g/dL (3.2-4.8)
[2025-03-19 09:07] LABS: BUN/Creatinine Ratio 21.0 (10.0-20.0); Blood Urea Nitrogen 13.0 mg/dL (9-23); Chloride 109.0 mmol/L (98-107); Magnesium 2.3 mg/dL (1.6-2.6); Potassium 3.5 mmol/L (3.5-5.1)
[2025-03-19 09:36] LABS: Total Cells Counted 100.0 (100)
[2025-03-19] MEDS: MAGNESIUM OXIDE 400 MG TAB PO SCH (12:33)
[2025-03-19] MEDS: TPN PER PHARMACY IV NR (21:20)
[2025-03-20] VITALS (14 sets, daily range): BP systolic 117–155; BP diastolic 80–93; PULSE 69–95; RESP 15–20; TEMP 97.3–98.4; O2SAT 92–100
[2025-03-20 05:36] LABS: Hematocrit 39.7 % (41.0-53.0); Hemoglobin 13.2 g/dL (13.5-17.5); Mean Corpuscular Hemoglobin 31.3 pg (28.0-32.0); Mean Corpuscular Volume 93.6 fL (80.0-100.0)
[2025-03-20 05:53] LABS: Alanine Aminotransferase 22 U/L (7-40); Albumin 3.4 g/dL (3.2-4.8); Alkaline Phosphatase 57 U/L (46-116); Anion Gap 10 (5-15); BUN/Creatinine Ratio 16.7 (10.0-20.0); Blood Urea Nitrogen 10 mg/dL (9-23); Carbon Dioxide 23 mmol/L (20-31); Glucose 89 mg/dL (74-106); Magnesium 2.2 mg/dL (1.6-2.6); Sodium 145 mmol/L (136-145); Total Protein 6.1 g/dL (5.7-8.2)
[2025-03-20 05:59] LABS: Bilirubin, Total 0.3 mg/dL (0.2-1.0); Calcium 8.3 mg/dL (8.7-10.4); Chloride 112 mmol/L (98-107); Potassium 3.1 mmol/L (3.5-5.1)
[2025-03-20] MEDS: POTASSIUM CHL 20MEQ/100ML 100 ML IV SCH (06:47)
[2025-03-20 06:53] LABS: Smudge Cells 1 /100 WBC; Total Cells Counted 100.0 (100)
--- NOTE | 2025-03-20 07:46 | DVHPN2 ---
Subjective Date Seen: Mar 20, 2025 Post op day Post op day: 0 Patient reports: Feels better Objective Vitals Vital Sign Date Time Temp Pulse Resp B/P (MAP) Pulse Ox O2 Delivery O2 Flow Rate FiO2 03/20/25 05:55 69 15 100 03/20/25 05:49 Room Air 0.0 03/20/25 05:49 21 03/20/25 05:00 97.3 117/80 (92) 97.3 Total Intake and Output 03/19/25 03/19/25 03/20/25 15:00 23:00 07:00 Intake Total 200 ml 450 ml 500 ml Output Total 1150 ml 700 ml Balance 200 ml -700 ml -200 ml Medications Current Medications Medications Dose Ordered Sig/Simon Route Start Time Stop Time Status Last Admin Dose Admin Acetaminophen 650 mg Q6HP PRN PO 03/11/25 23:45 Duloxetine HCl 30 mg DAILY PO 03/12/25 10:00 03/19/25 11:42 30 MG Gabapentin 400 mg TID PO 03/12/25 06:00 03/20/25 05:14 400 MG Metronidazole 100 ml @ 100 mls/hr Q8HR IV 03/12/25 14:00 03/20/25 05:15 100 MLS/HR Ipratropium [place] 0.5 mg Q8H NEB 03/12/25 22:00 03/20/25 05:49 0.5 MG Levalbuterol HCl 0.625 mg Q8H NEB 03/12/25 22:00 03/20/25 05:49 0.625 MG Enoxaparin Sodium 90 mg Q12HR SC 03/13/25 10:00 03/19/25 21:20 90 MG Famotidine 20 mg Q12HR IV 03/13/25 10:00 03/19/25 21:19 20 MG Dextrose/Sodium Chloride 1,000 ml @ 100 mls/hr Q10H IV 03/13/25 12:15 03/19/25 14:59 100 MLS/HR Magnesium Hydroxide 30 ml DAILY PO 03/15/25 10:00 Hydralazine HCl 10 mg Q6HP PRN IV 03/15/25 12:45 Vancomycin HCl 0 ml @ 0 mls/hr UD IV 03/16/25 12:00 Amino Acids 0 ml @ 0 mls/hr PER PHARMACY IV 03/16/25 15:00 Diagnostic Test (Pha) 1 strip Q6HR 03/16/25 18:00 03/20/25 06:20 1 STRIP Insulin Human Regular FOLLOW SLIDING SCALE Q6HR SC 03/16/25 18:00 03/18/25 17:52 8 UNITS Dextrose 50 ml UD IV 03/16/25 15:30 Sodium Chloride 10 ml QSHIFT@10,22 IV 03/16/25 22:00 03/19/25 21:21 10 ML Ertapenem 1 gm/ Sodium Chloride 50 ml @ 100 mls/hr DAILY IV 03/17/25 10:00 03/19/25 10:31 100 MLS/HR Vancomycin HCl 150 ml @ 150 mls/hr Q12H IV 03/18/25 12:00 03/19/25 23:54 150 MLS/HR Magnesium Oxide 400 mg DAILY PO 03/19/25 10:00 03/19/25 12:33 400 MG Fat Emulsion Intravenous 50 ml/ Potassium Acetate 20 meq/Potassium Phosphate 44 meq/ Calcium Gluconate 3.5 meq/Magnesium Sulfate 20 meq/ Multivitamins 10 ml/Chromium/ Copper/Manganese/ Zinc 1 ml/Insulin Human Regular 5 units/Amino Acids/ Dextrose 1,193.5768 ml @ 50 mls/hr [id number] IV 03/19/25 22:00 03/20/25 21:59 Potassium Chloride 100 ml @ 50 mls/hr Q2H IV 03/20/25 06:15 03/20/25 12:14 03/20/25 06:47 50 MLS/HR General: Normal, Obese Head/Eyes: Normal ENT: Moist mucosal membranes Lungs: Normal, Normal inspection Cardiovascular: Normal, Regular rate and rhythm Abdominal: Normal, Soft Labs and Microbiology Laboratory Tests 03/20/25 04:34 Test 03/20/25 04:34 Range/Units Serum Glucose 89 74-106 mg/dL Ass/Plan Labs and/or images reviewed: Labs reviewed by me Problem List Assessment/Plan: Sepsis due to acute cystitis UA suggesting UTI History of bladder carcinoma status post cystectomy with ileal conduit -Urine culture ordered, previous urine culture showing Enterobacter, Morganella, Proteus, Enterococcus (could be due to cystectomy with ileal conduit) --Urine culture 03/16/25 result: (+) E.coli ESBL -Blood culture preliminary negative -IV D5W with half NS -Start Ertapenem IV -Stop IV cefepime -Stop doxycycline -Continue IV vancomycin -Continue IV Metronidazole. Acute abdominal distention likely due to sigmoid volvulus resolving Status post detorsion 03/14/25 likely secondary to chronic constipation by GI -KUB showed small bowel dilation greater than 6 cm suggesting SBO vs ileus -C diff studies negative -Stool culture negative -Continue IV metronidazole, IV cefepime and start vancomycin -CT abdomen without contrast shows CT abdomen completed, shows multiple hepatic hypodensities measuring up to 1.7 cm. Right renal calculi, left renal nonobstructing calculi. Stomach partially distended. Small bowel loops are relatively nondistended. There is a large volume stool within the distal sigmoid rectum the sigmoid colon is distended and displaced into the upper abdomen up to 7.7 cm. Distention of the sigmoid colon up to 7.7 cm may represent ileus sequela fecal impaction, ileus with other considerations including sigmoid volvulus not excluded but felt to be much less likely. Recommend surgical evaluation. -Surgery on board -GI performed sigmoidoscopy making sigmoid volvulus detorsion. -GI performed Enema Gastrografin enema: persistence sigmoid volvulus on 03/16/25 -Surgical planned colectomy, surgery will be rescheduled./ Cancelled due to GI improvement -Clear liquid diet. Acute hypoxic respiratory failure secondary to Pulmonary edema Hypertensive heart disease with grade 1 diastolic dysfunction Possible Gram-positive/negative bacterial pneumonia -Stop IV cefepime -Continue IV fluids -levalbuterol and ipratropium med nebs -MRSA nares came back negative -Echo 2023 unremarkable, LVEF 55% CIDP, history of [place] syndrome -Continue home medication baclofen 10 mg daily -Continue duloxetine 30 mg daily -Continue gabapentin 400 mg TID p.r.n. 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 GERD -Continue home medication famotidine 20 mg daily Hypertension -Holding home medication amlodipine 2.5 mg daily -Holding home medication metoprolol tartrate 25 mg daily Hypokalemia Potassium was 2.5 mmol/L then post potassium supplementation with 40 meq IV improved to 3.1 Potassium supplementing with potassium 20 EF tablet PO now to improved 3.1 mmol/l level Closely f/u potassium levels. Re-check Potassium 7:00 pm today and 7:00 am Goals of care discussed with the patient and child daycare worker at bedside for >35min, FULL CODE Plan discussed with Dr. Urias Plan discussed with: Patient, patient agreed with the plan. Assessment/Plan no new complaints, patient abdomen distended, denies nausea and vomiting findings discussed with Dr. Prabhakar plan: order an abdominal x-ray NGT to [facility] 03/20/25 patient tolerating diet, denies nausea or vomiting abdomen soft, non distended BM this morning per EHR documentation patient states he does not know if he had a BM Plan: full liquid diet , DC if he becomes , distended, nausea or vomiting continue current treatment Plan discussed with Dr. Prabhakar patient Visit Coding Surgery Date of Service if different f: Mar 20, 2025 Billing Provider: LILLIE PRABHAKAR MD Surgery Visit Codes: [id number] INP/OBS CARE(HIGH) TAYO DUMONT NP Mar 20, 2025 07:46
[2025-03-20] MEDS ORDERED: VANCOMYCIN 750mg/150ml 150 ML IV SCH (09:45)
--- NOTE | 2025-03-20 10:06 | DVHPNRES ---
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 Patient states that feels like a truck ran over him. Patient has history of multiple urinary tract infections with the last urine culture showing the growth of Pseudomonas aeruginosa and Citrobacter youngae. Upon admission, The patient reported no abdominal pain, no dizziness, no shortness of breath, no headache. Chest X ray shows mild pulmonary vascular congestion and questionable pulmonary edema. 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 Urine culture at this hospitalization showed growth of Enterobacter, Morganella, Proteus, Enterococcus all sensitive to cefepime. Patient was initially started on IV cefepime, doxycycline and metronidazole. Upon admission, the patient was also noted to have abdominal distention reason why a CT of the abdomen was performed and a sigmoid volvulus was discovered. GI was consulted which recommended sigmoidoscopy with sigmoid volvulus the torsion. Patient was placed on an NG tube with negative suction and NPO. Urine culture 03/16/25 result reported (+ ) E.coli growth, Cefepine was discontinued and Ertapenem was added. Surgical team is also on board which ordered a Gastrografin enema, results on 03/16/25 showed flow of contrast past splenic flexure with very distended sigmoid colon correlated with persistence of sigmoid volvulus. 03/20/25. Patient seen and examined at bedside. Patient has started liquid diet yesterday and denies nausea o vomiting, today will continue with full liquid diet and re-assesst tolerance. Vital signs were reviewed, there is no fever or chills overnight. Potassium are 3.1mmol/L this morning, potassium 60 meq was ordered. The patient will be continued monitoried for recurrence of volvulus of the sigmoid colon and hypokalemia. ROS Constitutional: Denies weight loss, fever and chills. HEENT: Denies changes in vision and hearing. Respiratory: Denies shortness of breath and cough Cardiovascular: Denies chest discomfort or palpitations GI: No abdominal pain, distention has improved. : Denies dysuria and urinary frequency. Musculoskeletal: Denies myalgias and joint pain. Skin: Denies rash and pruritus. Neurological: Denies dizziness, headache, vision or hearing problems. Physical Examination General: Patient alert and oriented in person, place and time. Patient following commands. HEENT: Normocephalic, atraumatic, moist mucous membranes. Respiratory/pulmonary: Clear lungs bilaterally, no associated crackles or wheezes. Cardiovascular: Normal heart sounds S1 and S2 with no associated murmurs Abdomen: Abdomen less distended, no pain to palpation in any of the abdominal quadrants, no palpable masses. There is an cystostomy bag present at the right flank lateral to the umbilicus draining clear urine. Extremities: There is no peripheral edema present at the lower extremities. Skin: No rashes or pruritus, there is no sacral edema present at this time. 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 Objective vital signs Vital Sign Date Time Temp Pulse Resp B/P (MAP) Pulse Ox O2 Delivery O2 Flow Rate FiO2 03/20/25 09:00 97.4 78 17 129/82 (98) 96 97.4 03/20/25 05:49 Room Air 0.0 03/20/25 05:49 21 Total Intake and Output 03/19/25 03/19/25 03/20/25 15:00 23:00 07:00 Intake Total 200 ml 450 ml 600 ml Output Total 1150 ml 700 ml Balance 200 ml -700 ml -100 ml medications Current Medications Medications Dose Ordered Sig/Simon Route Start Time Stop Time Status Last Admin Dose Admin Acetaminophen 650 mg Q6HP PRN PO 03/11/25 23:45 Duloxetine HCl 30 mg DAILY PO 03/12/25 10:00 03/20/25 09:50 30 MG Gabapentin 400 mg TID PO 03/12/25 06:00 03/20/25 05:14 400 MG Metronidazole 100 ml @ 100 mls/hr Q8HR IV 03/12/25 14:00 03/20/25 05:15 100 MLS/HR Ipratropium [place] 0.5 mg Q8H NEB 03/12/25 22:00 03/20/25 05:49 0.5 MG Levalbuterol HCl 0.625 mg Q8H NEB 03/12/25 22:00 03/20/25 05:49 0.625 MG Enoxaparin Sodium 90 mg Q12HR SC 03/13/25 10:00 03/20/25 09:52 90 MG Famotidine 20 mg Q12HR IV 03/13/25 10:00 03/20/25 09:50 20 MG Dextrose/Sodium Chloride 1,000 ml @ 100 mls/hr Q10H IV 03/13/25 12:15 03/19/25 14:59 100 MLS/HR Magnesium Hydroxide 30 ml DAILY PO 03/15/25 10:00 Hydralazine HCl 10 mg Q6HP PRN IV 03/15/25 12:45 Vancomycin HCl 0 ml @ 0 mls/hr UD IV 03/16/25 12:00 Amino Acids 0 ml @ 0 mls/hr PER PHARMACY IV 03/16/25 15:00 Diagnostic Test (Pha) 1 strip Q6HR 03/16/25 18:00 03/20/25 06:20 1 STRIP Insulin Human Regular FOLLOW SLIDING SCALE Q6HR SC 03/16/25 18:00 03/18/25 17:52 8 UNITS Dextrose 50 ml UD IV 03/16/25 15:30 Sodium Chloride 10 ml QSHIFT@10,22 IV 03/16/25 22:00 03/20/25 09:52 10 ML Ertapenem 1 gm/ Sodium Chloride 50 ml @ 100 mls/hr DAILY IV 03/17/25 10:00 03/19/25 10:31 100 MLS/HR Magnesium Oxide 400 mg DAILY PO 03/19/25 10:00 03/20/25 09:50 400 MG Fat Emulsion Intravenous 50 ml/ Potassium Acetate 20 meq/Potassium Phosphate 44 meq/ Calcium Gluconate 3.5 meq/Magnesium Sulfate 20 meq/ Multivitamins 10 ml/Chromium/ Copper/Manganese/ Zinc 1 ml/Insulin Human Regular 5 units/Amino Acids/ Dextrose 1,193.5768 ml @ 50 mls/hr [id number] IV 03/19/25 22:00 03/20/25 21:59 Potassium Chloride 100 ml @ 50 mls/hr Q2H IV 03/20/25 06:15 03/20/25 12:14 03/20/25 09:50 50 MLS/HR Vancomycin HCl 150 ml @ 150 mls/hr Q12H IV 03/20/25 15:00 laboratory and microbiology Laboratory Tests 03/20/25 04:34 Test 03/20/25 04:34 Range/Units Serum Glucose 89 74-106 mg/dL Microbiology Date/Time Source Procedure Growth Status 03/14/25 13:15 Urine - Catheterized Urine Culture - Final Escherichia coli - ESBL Complete 03/12/25 23:35 Nose MRSA Screen - Final Complete 03/12/25 09:00 Stool Stool Culture - Final Complete 03/12/25 09:00 Stool Shiga Toxin I & II - Final Complete 03/12/25 09:00 Stool Clostridium difficile Toxin Assay - Final Complete 03/11/25 18:18 Blood Blood Culture - Final NO GROWTH AFTER 5 DAYS OF INCUBATION. Complete Problem List/Assessment/Plan Problem List/Assessment/Plan Assessment/Plan: Sepsis due to: -Acute cystitis -UA suggesting UTI History of bladder carcinoma status post cystectomy with ileal conduit -Urine culture ordered, previous urine culture showing Enterobacter, Morganella, Proteus, Enterococcus (could be due to cystectomy with ileal conduit) --Urine culture 03/16/25 result: (+) E.coli ESBL -Blood culture preliminary negative -IV D5W with half NS -Stop IV cefepime -Stop doxycycline -Continue IV vancomycin -Continue IV Metronidazole. -Continue IV Ertapenem Acute abdominal distention likely du: -Sigmoid volvulus, (resolving 03/19) Status post detorsion 03/14/25 likely secondary to chronic constipation by GI -KUB showed small bowel dilation greater than 6 cm suggesting SBO vs ileus -C diff studies negative -Stool culture negative -Continue IV metronidazole, IV cefepime and start vancomycin -CT abdomen without contrast shows CT abdomen completed, shows multiple hepatic hypodensities measuring up to 1.7 cm. Right renal calculi, left renal nonobstructing calculi. Stomach partially distended. Small bowel loops are relatively nondistended. There is a large volume stool within the distal sigmoid rectum the sigmoid colon is distended and displaced into the upper abdomen up to 7.7 cm. Distention of the sigmoid colon up to 7.7 cm may represent ileus sequela fecal impaction, ileus with other considerations including sigmoid volvulus not excluded but felt to be much less likely. Recommend surgical evaluation. -Surgery on board -GI performed sigmoidoscopy making sigmoid volvulus detorsion. -GI performed Enema Gastrografin enema: persistence sigmoid volvulus on 03/16/25 -Surgical planned colectomy, suregery was Canceled due abdominal distention improvement and patient had bowel movements. -Full liquid diet, if tolerate start soft diet. Acute hypoxic respiratory failure secondary to Pulmonary edema Hypertensive heart disease with grade 1 diastolic dysfunction Possible Gram-positive/negative bacterial pneumonia -Stop IV cefepime -Continue IV fluids -levalbuterol and ipratropium med nebs -MRSA nares came back negative -Echo 2023 unremarkable, LVEF 55% CIDP, history of Taina [place] syndrome -Continue home medication baclofen 10 mg daily -Continue duloxetine 30 mg daily -Continue gabapentin 400 mg TID p.r.n. 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 GERD -Continue home medication famotidine 20 mg daily Hypertension -Holding home medication amlodipine 2.5 mg daily -Holding home medication metoprolol tartrate 25 mg daily Hypokalemia Potassium was 2.5 mmol/L then post potassium supplementation with 40 meq IV improved to 3.1 Potassium supplementing with potassium 20 EF tablet PO now to improved 3.1 mmol/l level Closely f/u potassium levels. Re-check Potassium 7:00 pm today and 7:00 am Goals of care discussed with the patient and child care teacher at bedside for >35min, FULL CODE Plan discussed with Dr. Urias Plan discussed with: Patient, patient agreed with the plan. Plan discussed with: Patient My Orders My Orders Orders - ALYSON DUMONT RESIDENT Procedure Category Date Status Time Full Liq Diet DIET 03/20/25 Transmitted Breakfast Vancomycin Per [facility] 03/21/25 In Process Pharmacy Protoc 21:00 Vancomycin,Trough LAB 03/21/25 Verified 20:00 Vancomycin PHA 03/20/25 In Process 750mg/150ml 15:00 Dietary Evaluation Review Comments: 1. At risk for hypoglycemia under NPO>1 day. If EN/GI unavaialbe r/t his current conditions, recommend TPN per pharmacy. 2. Advance to CCHO-60 diet texture as tolerated if PO feeding is permissible. Expected Outcomes/Goals: Avoid fast wt loss. ALYSON DUMONT RESIDENT Mar 20, 2025 10:06
[2025-03-20] MEDS: VANCOMYCIN 750mg/150ml 150 ML IV SCH (16:35)
[2025-03-21] VITALS (19 sets, daily range): BP systolic 97–142; BP diastolic 63–99; PULSE 71–114; RESP 16–20; TEMP 96.9–98.2; O2SAT 94–100
[2025-03-21 06:36] LABS: Chloride 103 mmol/L (98-107)
[2025-03-21 06:37] LABS: Anion Gap 11 (5-15)
[2025-03-21 06:40] LABS: Hematocrit 32.2 % (41.0-53.0); Hemoglobin 10.4 g/dL (13.5-17.5); Mean Corpuscular Hemoglobin 31.5 pg (28.0-32.0); Mean Corpuscular Volume 97.4 fL (80.0-100.0); Nucleated Red Blood Cells % 0.0 %
[2025-03-21 06:42] LABS: BUN/Creatinine Ratio 12.5 (10.0-20.0); Blood Urea Nitrogen 11 mg/dL (9-23)
[2025-03-21 07:03] LABS: Calcium 7.0 mg/dL (8.7-10.4); Carbon Dioxide 20 mmol/L (20-31); Potassium 2.6 mmol/L (3.5-5.1); Sodium 134 mmol/L (136-145)
[2025-03-21 07:05] LABS: Glucose 430 mg/dL (74-106)
[2025-03-21] MEDS: POTASSIUM CHL 20MEQ/100ML 100 ML IV SCH (12:20)
--- NOTE | 2025-03-21 17:21 | DVHPNRES ---
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 Patient states that feels like a truck ran over him. Patient has history of multiple urinary tract infections with the last urine culture showing the growth of Pseudomonas aeruginosa and Citrobacter youngae. Upon admission, The patient reported no abdominal pain, no dizziness, no shortness of breath, no headache. Chest X ray shows mild pulmonary vascular congestion and questionable pulmonary edema. 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 Urine culture at this hospitalization showed growth of Enterobacter, Morganella, Proteus, Enterococcus all sensitive to cefepime. Patient was initially started on IV cefepime, doxycycline and metronidazole. Upon admission, the patient was also noted to have abdominal distention reason why a CT of the abdomen was performed and a sigmoid volvulus was discovered. GI was consulted which recommended sigmoidoscopy with sigmoid volvulus the torsion. Patient was placed on an NG tube with negative suction and NPO. Urine culture 03/16/25 result reported (+ ) E.coli growth, Cefepine and metronidazole was discontinued and Ertapenem was added. Surgical team is also on board which ordered a Gastrografin enema, results on 03/16/25 showed flow of contrast past splenic flexure with very distended sigmoid colon correlated with persistence of sigmoid volvulus. 03/20/25. Patient seen and examined at bedside. Patient has started liquid diet yesterday and denies nausea o vomiting, today will continue with full liquid diet and re-assess tolerance. Vital signs were reviewed, there is no fever or chills overnight. Potassium are 3.1mmol/L this morning, potassium 60 meq was ordered. The patient will be continued monitored for recurrence of volvulus of the sigmoid colon and hypokalemia. 03/21/25 Patient seen and examined at bedside. Patient has started liquid diet yesterday and denies nausea o vomiting, today will continue with mechanical soft diet and re-assess tolerance. Vancomycin was stopped today. Vital signs were reviewed, there is no fever or chills overnight, patiente is felling well, he had a BM yesterday night and today morning. Potassium was 2.6 mmol/L this morning, potassium 60 meq was ordered. K and Mg will be re-checked. The patient will be continued monitoried for recurrence of volvulus of the sigmoid colon and hypokalemia. ROS Constitutional: Denies weight loss, fever and chills. HEENT: Denies changes in vision and hearing. Respiratory: Denies shortness of breath and cough Cardiovascular: Denies chest discomfort or palpitations GI: No abdominal pain, distention has improved. : Denies dysuria and urinary frequency. Musculoskeletal: Denies myalgias and joint pain. Skin: Denies rash and pruritus. Neurological: Denies dizziness, headache, vision or hearing problems. Physical Examination General: Patient alert and oriented in person, place and time. Patient following commands. HEENT: Normocephalic, atraumatic, moist mucous membranes. Respiratory/pulmonary: Clear lungs bilaterally, no associated crackles or wheezes. Cardiovascular: Normal heart sounds S1 and S2 with no associated murmurs Abdomen: Abdomen less distended, no pain to palpation in any of the abdominal quadrants, no palpable masses. There is an cystostomy bag present at the right flank lateral to the umbilicus draining clear urine. Extremities: There is no peripheral edema present at the lower extremities. Skin: No rashes or pruritus, there is no sacral edema present at this time. 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 Objective vital signs Vital Sign Date Time Temp Pulse Resp B/P (MAP) Pulse Ox O2 Delivery O2 Flow Rate FiO2 03/21/25 14:17 89 16 98 03/21/25 13:00 96.9 97/63 (74) 96.9 03/21/25 10:05 Room Air* 0 21 Total Intake and Output 03/20/25 03/20/25 03/21/25 15:00 23:00 07:00 Intake Total 365 ml 575 ml 800 ml Output Total 700 ml 950 ml Balance 365 ml -125 ml -150 ml medications Current Medications Medications Dose Ordered Sig/Simon Route Start Time Stop Time Status Last Admin Dose Admin Acetaminophen 650 mg Q6HP PRN PO 03/11/25 23:45 Duloxetine HCl 30 mg DAILY PO 03/12/25 10:00 03/21/25 09:20 30 MG Gabapentin 400 mg TID PO 03/12/25 06:00 03/21/25 14:35 400 MG Ipratropium [place] 0.5 mg Q8H NEB 03/12/25 22:00 03/21/25 14:07 0.5 MG Levalbuterol HCl 0.625 mg Q8H NEB 03/12/25 22:00 03/21/25 14:07 0.625 MG Enoxaparin Sodium 90 mg Q12HR SC 03/13/25 10:00 03/21/25 09:20 90 MG Famotidine 20 mg Q12HR IV 03/13/25 10:00 03/21/25 09:20 20 MG Dextrose/Sodium Chloride 1,000 ml @ 100 mls/hr Q10H IV 03/13/25 12:15 03/21/25 14:12 100 MLS/HR Magnesium Hydroxide 30 ml DAILY PO 03/15/25 10:00 Hydralazine HCl 10 mg Q6HP PRN IV 03/15/25 12:45 Vancomycin HCl 0 ml @ 0 mls/hr UD IV 03/16/25 12:00 Diagnostic Test (Pha) 1 strip Q6HR 03/16/25 18:00 03/21/25 12:00 1 STRIP Insulin Human Regular FOLLOW SLIDING SCALE Q6HR SC 03/16/25 18:00 03/18/25 17:52 8 UNITS Dextrose 50 ml UD IV 03/16/25 15:30 Sodium Chloride 10 ml QSHIFT@10,22 IV 03/16/25 22:00 03/21/25 09:21 10 ML Ertapenem 1 gm/ Sodium Chloride 50 ml @ 100 mls/hr DAILY IV 03/17/25 10:00 03/21/25 09:20 100 MLS/HR Magnesium Oxide 400 mg DAILY PO 03/19/25 10:00 03/21/25 09:20 400 MG Vancomycin HCl 150 ml @ 150 mls/hr Q12H IV 03/20/25 15:00 03/21/25 14:21 150 MLS/HR Potassium Chloride 100 ml @ 50 mls/hr Q2H IV 03/21/25 11:30 03/21/25 17:29 03/21/25 16:54 50 MLS/HR laboratory and microbiology Laboratory Tests 03/21/25 04:34 Test 03/21/25 04:34 Range/Units Serum Glucose 430 #*H 74-106 mg/dL Microbiology Date/Time Source Procedure Growth Status 03/14/25 13:15 Urine - Catheterized Urine Culture - Final Escherichia coli - ESBL Complete 03/12/25 23:35 Nose MRSA Screen - Final Complete 03/12/25 09:00 Stool Stool Culture - Final Complete 03/12/25 09:00 Stool Shiga Toxin I & II - Final Complete 03/12/25 09:00 Stool Clostridium difficile Toxin Assay - Final Complete 03/11/25 18:18 Blood Blood Culture - Final NO GROWTH AFTER 5 DAYS OF INCUBATION. Complete Problem List/Assessment/Plan Problem List/Assessment/Plan Assessment/Plan: Sepsis due to: -Acute cystitis -UA suggesting UTI History of bladder carcinoma status post cystectomy with ileal conduit -Urine culture ordered, previous urine culture showing Enterobacter, Morganella, Proteus, Enterococcus (could be due to cystectomy with ileal conduit) --Urine culture 03/16/25 result: (+) E.coli ESBL -Blood culture preliminary negative -IV D5W with half NS -Stop IV cefepime -Stop doxycycline -Stop IV vancomycin -Stop IV Metronidazole. -Continue IV Ertapenem Acute abdominal distention likely du: -Sigmoid volvulus, (resolving 03/19) Status post detorsion 03/14/25 likely secondary to chronic constipation by GI -KUB showed small bowel dilation greater than 6 cm suggesting SBO vs ileus -C diff studies negative -Stool culture negative -Continue IV metronidazole, IV cefepime and start vancomycin -CT abdomen without contrast shows CT abdomen completed, shows multiple hepatic hyperdensities measuring up to 1.7 cm. Right renal calculi, left renal nonobstructing calculi. Stomach partially distended. Small bowel loops are relatively nondistended. There is a large volume stool within the distal sigmoid rectum the sigmoid colon is distended and displaced into the upper abdomen up to 7.7 cm. Distention of the sigmoid colon up to 7.7 cm may represent ileus sequela fecal impaction, ileus with other considerations including sigmoid volvulus not excluded but felt to be much less likely. Recommend surgical evaluation. -Surgery on board -GI performed sigmoidoscopy making sigmoid volvulus detorsion. -GI performed Enema Gastrografin enema: persistence sigmoid volvulus on 03/16/25 -Surgical planned colectomy, suregery was Canceled due abdominal distention improvement and patient had bowel movements. -Full liquid diet, if tolerate Continue with mechanical soft diet. Acute hypoxic respiratory failure secondary to Pulmonary edema Hypertensive heart disease with grade 1 diastolic dysfunction Possible Gram-positive/negative bacterial pneumonia -Stop IV cefepime -Continue IV fluids -levalbuterol and ipratropium med nebs -MRSA nares came back negative -Echo 2023 unremarkable, LVEF 55% CIDP, history of Taina [place] syndrome -Continue home medication baclofen 10 mg daily -Continue duloxetine 30 mg daily -Continue gabapentin 400 mg TID p.r.n. 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 GERD -Continue home medication famotidine 20 mg daily Hypertension -Holding home medication amlodipine 2.5 mg daily -Holding home medication metoprolol tartrate 25 mg daily Hypokalemia Potassium was 2.6 mmol/L, K 60 meq were ordered Closely f/u potassium levels. Re-check Potassium 7:00 pm today and 7:00 am [employer] was contacted today to arrange home health and PT for future discharge plan. Goals of care discussed with the patient and child care attendant at bedside for >35min, FULL CODE Plan discussed with Dr. Urias Plan discussed with: Patient, patient agreed with the plan. Plan discussed with: Patient My Orders My Orders Orders - ALYSON DUMONT RESIDENT Procedure Category Date Status Time * [employer] CONS 03/21/25 Transmitted Consult Potassium Chl PHA 03/21/25 In Process 20meq/100ml 11:30 Vancomycin,Trough LAB 03/22/25 Verified 02:00 Complete Blood Count LAB 03/22/25 Verified 04:00 Creatinine LAB 03/22/25 Verified 04:00 Dietary Evaluation Review Comments: 1. At risk for hypoglycemia under NPO>1 day. If EN/GI unavaialbe r/t his current conditions, recommend TPN per pharmacy. 2. Advance to CCHO-60 diet texture as tolerated if PO feeding is permissible. Expected Outcomes/Goals: Avoid fast wt loss. ALYSON DUMONT RESIDENT Mar 21, 2025 17:21
[2025-03-21 19:35] LABS: Potassium 4.0 mmol/L (3.5-5.1)
[2025-03-21 19:42] LABS: Magnesium 1.9 mg/dL (1.6-2.6)
[2025-03-22] VITALS (17 sets, daily range): BP systolic 125–162; BP diastolic 79–97; PULSE 84–111; RESP 16–18; TEMP 97.3–97.8; O2SAT 90–99
[2025-03-22 05:41] LABS: Hematocrit 38.2 % (41.0-53.0); Hemoglobin 12.9 g/dL (13.5-17.5); Mean Corpuscular Hemoglobin 31.8 pg (28.0-32.0); Mean Corpuscular Volume 93.8 fL (80.0-100.0); Nucleated Red Blood Cells % 0.0 %
[2025-03-22 05:53] LABS: Alanine Aminotransferase 19 U/L (7-40); Albumin 3.5 g/dL (3.2-4.8); Alkaline Phosphatase 62 U/L (46-116); Anion Gap 10 (5-15); BUN/Creatinine Ratio 11.8 (10.0-20.0); Blood Urea Nitrogen 10 mg/dL (9-23); Calcium 9.1 mg/dL (8.7-10.4); Carbon Dioxide 21 mmol/L (20-31); Potassium 3.6 mmol/L (3.5-5.1); Sodium 144 mmol/L (136-145); Total Protein 6.1 g/dL (5.7-8.2)
[2025-03-22 05:54] LABS: Bilirubin, Total < 0.2 mg/dL (0.2-1.0); Chloride 113 mmol/L (98-107); Glucose 144 mg/dL (74-106)
--- NOTE | 2025-03-22 11:44 | DVHPN2 ---
Subjective Date Seen: Mar 22, 2025 Post op day Post op day: 0 Patient reports: Feels better Objective Vitals Vital Sign Date Time Temp Pulse Resp B/P (MAP) Pulse Ox O2 Delivery O2 Flow Rate FiO2 03/22/25 09:54 95 Room Air 03/22/25 09:54 0 21 03/22/25 09:24 97.7 86 16 148/91 (110) 97.7 Total Intake and Output 03/21/25 03/21/25 03/22/25 15:00 23:00 07:00 Intake Total 1150 ml 2570 ml 1600 ml Output Total 2150 ml 1750 ml Balance 1150 ml 420 ml -150 ml Medications Current Medications Medications Dose Ordered Sig/Simon Route Start Time Stop Time Status Last Admin Dose Admin Acetaminophen 650 mg Q6HP PRN PO 03/11/25 23:45 Duloxetine HCl 30 mg DAILY PO 03/12/25 10:00 03/22/25 09:19 30 MG Gabapentin 400 mg TID PO 03/12/25 06:00 03/22/25 05:58 400 MG Ipratropium [place] 0.5 mg Q8H NEB 03/12/25 22:00 03/22/25 06:36 0.5 MG Levalbuterol HCl 0.625 mg Q8H NEB 03/12/25 22:00 03/22/25 06:36 0.625 MG Enoxaparin Sodium 90 mg Q12HR SC 03/13/25 10:00 03/22/25 09:20 90 MG Famotidine 20 mg Q12HR IV 03/13/25 10:00 03/22/25 09:20 20 MG Dextrose/Sodium Chloride 1,000 ml @ 100 mls/hr Q10H IV 03/13/25 12:15 03/22/25 05:59 100 MLS/HR Magnesium Hydroxide 30 ml DAILY PO 03/15/25 10:00 Hydralazine HCl 10 mg Q6HP PRN IV 03/15/25 12:45 Diagnostic Test (Pha) 1 strip Q6HR 03/16/25 18:00 03/21/25 18:19 1 STRIP Insulin Human Regular FOLLOW SLIDING SCALE Q6HR SC 03/16/25 18:00 03/18/25 17:52 8 UNITS Dextrose 50 ml UD IV 03/16/25 15:30 Sodium Chloride 10 ml QSHIFT@10,22 IV 03/16/25 22:00 03/22/25 09:20 10 ML Ertapenem 1 gm/ Sodium Chloride 50 ml @ 100 mls/hr DAILY IV 03/17/25 10:00 03/22/25 09:20 100 MLS/HR Magnesium Oxide 400 mg DAILY PO 03/19/25 10:00 03/22/25 09:19 400 MG General: Normal, Obese Head/Eyes: Normal ENT: Moist mucosal membranes Lungs: Normal, Normal inspection Cardiovascular: Normal, Regular rate and rhythm Abdominal: Normal, Soft Labs and Microbiology Laboratory Tests 03/22/25 04:37 Test 03/22/25 04:37 Range/Units Serum Glucose 144 #H 74-106 mg/dL Ass/Plan Labs and/or images reviewed: Labs reviewed by me Problem List Assessment/Plan: Sepsis due to: -Acute cystitis -UA suggesting UTI History of bladder carcinoma status post cystectomy with ileal conduit -Urine culture ordered, previous urine culture showing Enterobacter, Morganella, Proteus, Enterococcus (could be due to cystectomy with ileal conduit) --Urine culture 03/16/25 result: (+) E.coli ESBL -Blood culture preliminary negative -IV D5W with half NS -Stop IV cefepime -Stop doxycycline -Stop IV vancomycin -Stop IV Metronidazole. -Continue IV Ertapenem Acute abdominal distention likely du: -Sigmoid volvulus, (resolving 03/19) Status post detorsion 03/14/25 likely secondary to chronic constipation by GI -KUB showed small bowel dilation greater than 6 cm suggesting SBO vs ileus -C diff studies negative -Stool culture negative -Continue IV metronidazole, IV cefepime and start vancomycin -CT abdomen without contrast shows CT abdomen completed, shows multiple hepatic hyperdensities measuring up to 1.7 cm. Right renal calculi, left renal nonobstructing calculi. Stomach partially distended. Small bowel loops are relatively nondistended. There is a large volume stool within the distal sigmoid rectum the sigmoid colon is distended and displaced into the upper abdomen up to 7.7 cm. Distention of the sigmoid colon up to 7.7 cm may represent ileus sequela fecal impaction, ileus with other considerations including sigmoid volvulus not excluded but felt to be much less likely. Recommend surgical evaluation. -Surgery on board -GI performed sigmoidoscopy making sigmoid volvulus detorsion. -GI performed Enema Gastrografin enema: persistence sigmoid volvulus on 03/16/25 -Surgical planned colectomy, suregery was Canceled due abdominal distention improvement and patient had bowel movements. -Full liquid diet, if tolerate Continue with mechanical soft diet. 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 GERD -Continue home medication famotidine 20 mg daily Hypertension -Holding home medication amlodipine 2.5 mg daily -Holding home medication metoprolol tartrate 25 mg daily Hypokalemia Potassium was 2.6 mmol/L, K 60 meq were ordered Closely f/u potassium levels. Re-check Potassium 7:00 pm today and 7:00 am Student Officer was contacted today to arrange home health and PT for future discharge plan. Goals of care discussed with the patient and foster care case manager at bedside for >35min, FULL CODE Plan discussed with Dr. Urias Plan discussed with: Patient, patient agreed with the plan. Assessment/Plan no new complaints, patient abdomen distended, denies nausea and vomiting findings discussed with Dr. Prabhakar plan: order an abdominal x-ray NGT to [facility] 03/20/25 patient tolerating diet, denies nausea or vomiting abdomen soft, non distended BM this morning per EHR documentation patient states he does not know if he had a BM Plan: full liquid diet , DC if he becomes , distended, nausea or vomiting continue current treatment 03/22/25 patient diagnosis of volvulus no new complaints abdomen soft, non distended tolerating diet denies nausea or vomiting Plan: continue full liquid diet will reassess isela tomorrow am possibly advance diet continue current treatment Prognosis: Good Plan discussed with patient , Dr. Prabhakar Visit Coding Surgery Date of Service if different f: Mar 22, 2025 Billing Provider: LILLIE PRABHAKAR MD Surgery Visit Codes: [id number] INP/OBS CARE(HIGH) TAYO [facility] DRILLING MANAGER Mar 22, 2025 11:44
--- NOTE | 2025-03-22 20:03 | DVHPNRES ---
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 Patient states that feels like a truck ran over him. Patient has history of multiple urinary tract infections with the last urine culture showing the growth of Pseudomonas aeruginosa and Citrobacter youngae. Upon admission, The patient reported no abdominal pain, no dizziness, no shortness of breath, no headache. Chest X ray shows mild pulmonary vascular congestion and questionable pulmonary edema. 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 Urine culture at this hospitalization showed growth of Enterobacter, Morganella, Proteus, Enterococcus all sensitive to cefepime. Patient was initially started on IV cefepime, doxycycline and metronidazole. Upon admission, the patient was also noted to have abdominal distention reason why a CT of the abdomen was performed and a sigmoid volvulus was discovered. GI was consulted which recommended sigmoidoscopy with sigmoid volvulus the torsion. Patient was placed on an NG tube with negative suction and NPO. Urine culture 03/16/25 result reported (+ ) E.coli growth, Cefepine and metronidazole was discontinued and Ertapenem was added. Surgical team is also on board which ordered a Gastrografin enema, results on 03/16/25 showed flow of contrast past splenic flexure with very distended sigmoid colon correlated with persistence of sigmoid volvulus. 03/20/25. Patient has started liquid diet yesterday and denies nausea o vomiting, today will continue with full liquid diet and re-assess tolerance. Vital signs were reviewed, there is no fever or chills overnight. Potassium are 3.1mmol/L this morning, potassium 60 meq was ordered. The patient will be continued monitored for recurrence of volvulus of the sigmoid colon and hypokalemia. 03/21/25 Patient has started liquid diet yesterday and denies nausea o vomiting, today will continue with mechanical soft diet and re-assess tolerance. Vancomycin was stopped today. Vital signs were reviewed, there is no fever or chills overnight, patiente is felling well, he had a BM yesterday night and today morning. Potassium was 2.6 mmol/L this morning, potassium 60 meq was ordered. K and Mg will be re-checked. The patient will be continued monitoried for recurrence of volvulus of the sigmoid colon and hypokalemia. 03/22/25: Patient seen and examined at bedside. Has been tolerating soft diet. Hypokalemia is being monitored and managed. SS consult placed for home health for future discharge. ROS: Constitutional: Denies weight loss, fever and chills. HEENT: Denies changes in vision and hearing. Respiratory: Denies shortness of breath and cough Cardiovascular: Denies chest discomfort or palpitations GI: No abdominal pain, distention has improved. : Denies dysuria and urinary frequency. Musculoskeletal: Denies myalgias and joint pain. Skin: Denies rash and pruritus. Neurological: Denies dizziness, headache, vision or hearing problems. Objective vital signs Vital Sign Date Time Temp Pulse Resp B/P (MAP) Pulse Ox O2 Delivery O2 Flow Rate FiO2 03/22/25 17:00 97.3 92 16 132/89 (103) 94 97.3 03/22/25 09:54 Room Air 03/22/25 09:54 0 21 Total Intake and Output 03/21/25 03/21/25 03/22/25 15:00 23:00 07:00 Intake Total 1150 ml 2570 ml 1600 ml Output Total 2150 ml 1750 ml Balance 1150 ml 420 ml -150 ml medications Current Medications Medications Dose Ordered Sig/Simon Route Start Time Stop Time Status Last Admin Dose Admin Acetaminophen 650 mg Q6HP PRN PO 03/11/25 23:45 Duloxetine HCl 30 mg DAILY PO 03/12/25 10:00 03/22/25 09:19 30 MG Gabapentin 400 mg TID PO 03/12/25 06:00 03/22/25 16:02 400 MG Ipratropium [place] 0.5 mg Q8H NEB 03/12/25 22:00 03/22/25 14:04 0.5 MG Levalbuterol HCl 0.625 mg Q8H NEB 03/12/25 22:00 03/22/25 14:04 0.625 MG Enoxaparin Sodium 90 mg Q12HR SC 03/13/25 10:00 03/22/25 09:20 90 MG Famotidine 20 mg Q12HR IV 03/13/25 10:00 03/22/25 09:20 20 MG Dextrose/Sodium Chloride 1,000 ml @ 100 mls/hr Q10H IV 03/13/25 12:15 03/22/25 16:15 100 MLS/HR Magnesium Hydroxide 30 ml DAILY PO 03/15/25 10:00 Hydralazine HCl 10 mg Q6HP PRN IV 03/15/25 12:45 Diagnostic Test (Pha) 1 strip Q6HR 03/16/25 18:00 03/21/25 18:19 1 STRIP Insulin Human Regular FOLLOW SLIDING SCALE Q6HR SC 03/16/25 18:00 03/18/25 17:52 8 UNITS Dextrose 50 ml UD IV 03/16/25 15:30 Sodium Chloride 10 ml QSHIFT@10,22 IV 03/16/25 22:00 03/22/25 09:20 10 ML Ertapenem 1 gm/ Sodium Chloride 50 ml @ 100 mls/hr DAILY IV 03/17/25 10:00 03/22/25 09:20 100 MLS/HR Magnesium Oxide 400 mg DAILY PO 03/19/25 10:00 03/22/25 09:19 400 MG Examination General: Patient alert and oriented in person, place and time. Patient following commands. HEENT: Normocephalic, atraumatic, moist mucous membranes. Respiratory/pulmonary: Clear lungs bilaterally, no associated crackles or wheezes. Cardiovascular: Normal heart sounds S1 and S2 with no associated murmurs Abdomen: Abdomen less distended, no pain to palpation in any of the abdominal quadrants, no palpable masses. There is an cystostomy bag present at the right flank lateral to the umbilicus draining clear urine. Extremities: There is no peripheral edema present at the lower extremities. Skin: No rashes or pruritus, there is no sacral edema present at this time. 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 laboratory and microbiology Laboratory Tests 03/22/25 04:37 Test 03/22/25 04:37 Range/Units Serum Glucose 144 #H 74-106 mg/dL Microbiology Date/Time Source Procedure Growth Status 03/14/25 13:15 Urine - Catheterized Urine Culture - Final Escherichia coli - ESBL Complete 03/12/25 23:35 Nose MRSA Screen - Final Complete 03/12/25 09:00 Stool Stool Culture - Final Complete 03/12/25 09:00 Stool Shiga Toxin I & II - Final Complete 03/12/25 09:00 Stool Clostridium difficile Toxin Assay - Final Complete 03/11/25 18:18 Blood Blood Culture - Final NO GROWTH AFTER 5 DAYS OF INCUBATION. Complete Problem List/Assessment/Plan Problem List/Assessment/Plan Sepsis due to: -Acute cystitis -UA suggesting UTI History of bladder carcinoma status post cystectomy with ileal conduit -Urine culture ordered, previous urine culture showing Enterobacter, Morganella, Proteus, Enterococcus (could be due to cystectomy with ileal conduit) -Urine culture 03/16/25 result: (+) E.coli ESBL -Blood culture preliminary negative -IV D5W with half NS -Discontinued cefepime, doxycycline, vancomycin, Metronidazole. -Continue IV Ertapenem. We will continue after discharge through PICC line. Acute abdominal distention likely due to: -Sigmoid volvulus, (resolving 03/19) Status post detorsion 03/14/25 likely secondary to chronic constipation by GI -KUB showed small bowel dilation greater than 6 cm suggesting SBO vs ileus -C diff studies negative -Stool culture negative -Continue IV metronidazole, IV cefepime and start vancomycin -CT abdomen without contrast shows CT abdomen completed, shows multiple hepatic hyperdensities measuring up to 1.7 cm. Right renal calculi, left renal nonobstructing calculi. Stomach partially distended. Small bowel loops are relatively nondistended. There is a large volume stool within the distal sigmoid rectum the sigmoid colon is distended and displaced into the upper abdomen up to 7.7 cm. Distention of the sigmoid colon up to 7.7 cm may represent ileus sequela fecal impaction, ileus with other considerations including sigmoid volvulus not excluded but felt to be much less likely. Recommend surgical evaluation. -Surgery on board -GI performed sigmoidoscopy making sigmoid volvulus detorsion. -GI performed Enema Gastrografin enema: persistence sigmoid volvulus on 03/16/25 -Surgical planned colectomy, suregery was Canceled due abdominal distention improvement and patient had bowel movements. -Full liquid diet, if tolerate Continue with mechanical soft diet. 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 GERD -Continue home medication famotidine 20 mg daily Hypertension -Holding home medication amlodipine 2.5 mg daily -Holding home medication metoprolol tartrate 25 mg daily Hypokalemia Potassium WNL today. Closely f/u potassium levels. Goals of care discussed with the patient and hospice care consultant at bedside for >25min FULL CODE Plan discussed with Dr. Urias Plan discussed with: Patient My Orders My Orders Orders - DANIEL PENA RESIDENT Procedure Category Date Status Time * Public Affairs Manager CONS 03/22/25 Transmitted Consult 15:02 Complete Blood Count LAB 03/23/25 Verified 04:00 Comprehensive LAB 03/23/25 Verified Metabolic Panel 04:00 Dietary Evaluation Review Comments: 1. At risk for hypoglycemia under NPO>1 day. If EN/GI unavaialbe r/t his current conditions, recommend TPN per pharmacy. 2. Advance to CCHO-60 diet texture as tolerated if PO feeding is permissible. Expected Outcomes/Goals: Avoid fast wt loss. DANIEL PENA RESIDENT Mar 22, 2025 20:03
[2025-03-23] VITALS (10 sets, daily range): BP systolic 139–150; BP diastolic 87–95; PULSE 80–103; RESP 16–18; TEMP 97.6–98; O2SAT 92–100
[2025-03-23 12:47] LABS: Hematocrit 41.1 % (41.0-53.0); Hemoglobin 13.6 g/dL (13.5-17.5); Mean Corpuscular Hemoglobin 31.7 pg (28.0-32.0); Mean Corpuscular Volume 95.6 fL (80.0-100.0); Nucleated Red Blood Cells % 0.1 %
[2025-03-23 12:55] LABS: Alanine Aminotransferase 26 U/L (7-40); Albumin 3.6 g/dL (3.2-4.8); Alkaline Phosphatase 75 U/L (46-116); Anion Gap 10 (5-15); BUN/Creatinine Ratio 11.5 (10.0-20.0); Blood Urea Nitrogen 10 mg/dL (9-23); Calcium 8.9 mg/dL (8.7-10.4); Carbon Dioxide 24 mmol/L (20-31); Potassium 3.6 mmol/L (3.5-5.1); Sodium 145 mmol/L (136-145); Total Protein 6.2 g/dL (5.7-8.2)
[2025-03-23 12:58] LABS: Bilirubin, Total 0.2 mg/dL (0.2-1.0); Chloride 111 mmol/L (98-107); Glucose 169 mg/dL (74-106)
--- NOTE | 2025-03-23 14:06 | DVHDSRES ---
Discharge Summary Date of Admission Resident Creating Document: ALYSON DUMONT RESIDENT Mar 11, 2025 at 23:42 Date of Discharge: Mar 23, 2025 Labs/Diagnostic Data: Laboratory Results Test 03/23/25 12:00 03/23/25 06:09 03/21/25 19:05 03/20/25 04:34 White Blood Count 8.1 10^3/uL (4.4-10.8) Red Blood Count 4.29 10^6/uL (4.5-5.90) Hemoglobin 13.6 g/dL (13.5-17.5) Hematocrit 41.1 % (41.0-53.0) Mean Corpuscular Volume 95.6 fL (80.0-100.0) Mean Corpuscular Hemoglobin 31.7 pg (28.0-32.0) Mean Corpuscular Hemoglobin Concent 33.1 g/dL (32.0-36.0) Red Cell Distribution Width 19.3 % (11.8-14.3) Platelet Count 309 10^3/uL (140-450) Mean Platelet Volume 6.7 fL (6.9-10.8) Neutrophils (%) (Auto) 77.1 % (37.0-80.0) Lymphocytes (%) (Auto) 11.8 % (10.0-50.0) Monocytes (%) (Auto) 7.9 % (0.0-12.0) Eosinophils (%) (Auto) 2.4 % (0.0-7.0) Basophils (%) (Auto) 0.8 % (0.0-2.0) Neutrophils # (Auto) 6.3 10 ^3/uL (1.6-8.6) Lymphocytes # (Auto) 1.0 10 ^3/uL (0.4-5.4) Monocytes # (Auto) 0.6 10 ^3/uL (0-1.3) Eosinophils # (Auto) 0.2 10 ^3/uL (0-0.8) Basophils # (Auto) 0.1 10 ^3/uL (0-0.2) Nucleated Red Blood Cells 0.1 % Sodium Level 145 mmol/L (136-145) Potassium Level 3.6 mmol/L (3.5-5.1) Chloride Level 111 mmol/L (98-107) Carbon Dioxide Level 24 mmol/L (20-31) Anion Gap 10 (5-15) Blood Urea Nitrogen 10 mg/dL (9-23) Creatinine 0.87 mg/dL (0.700-1.30) Glomerular Filtration Rate Calc 95 mL/min (>90) BUN/Creatinine Ratio 11.5 (10.0-20.0) Serum Glucose 169 mg/dL (74-106) Calcium Level 8.9 mg/dL (8.7-10.4) Total Bilirubin 0.2 mg/dL (0.2-1.0) Aspartate Amino Transferase (AST) 23 U/L (13-40) Alanine Aminotransferase (ALT) 26 U/L (7-40) Alkaline Phosphatase 75 U/L (46-116) Total Protein 6.2 g/dL (5.7-8.2) Albumin 3.6 g/dL (3.2-4.8) POC Glucose 124 mg/dl (70-106) Magnesium Level 1.9 mg/dL (1.6-2.6) Differential Total Cells Counted 100.0 (100) Neutrophils % (Manual) 66 (37.0-80.0) Band Neutrophils % (Manual) 1 Lymphocytes % (Manual) 12 (10.0-50.0) Monocytes % (Manual) 15 (0-12) Eosinophils % (Manual) 2 (0-7) Basophils % (Manual) 0 (0.0-2.0) Metamyelocytes % (manual) 1 Myelocytes % (Manual) 0 Promyelocytes % (Manual) 0 Blast Cells % (Manual) 3 Reactive Lymphocytes 0 Smudge Cells 1 /100 WBC Platelet Estimate Adequate Phosphorus Level 3.5 mg/dL (2.4-5.1) Test 03/19/25 23:20 03/19/25 08:26 03/18/25 09:13 03/18/25 04:49 Vancomycin Level Trough 18.3 ug/mL (5-10) Estimated GFR () 167 mL/min Estimated GFR (Non- 138 mL/min Random Vancomycin Level 16.2 ug/mL (5-10) Clumped Platelets None Test 03/16/25 13:16 03/16/25 07:33 03/14/25 13:15 03/13/25 05:11 Triglycerides Level 192 mg/dL (< 150) Hemoglobin A1c 5.8 % A1C (<5.7) Anisocytosis (manual) Slight Hepatitis B Surface Antigen Negative (Negative) Hepatitis C Antibody Negative (Negative) Test 03/12/25 14:19 03/12/25 08:34 03/12/25 04:40 03/12/25 03:00 Influenza Type A Antigen Negative (Negative) Influenza Type B Antigen Negative (Negative) SARS-CoV-2 Antigen (Rapid) Negative (NEGATIVE) Lactic Acid Level 0.9 mmol/L (0.4-2.0) B-Type Natriuretic Peptide 21.06 pg/mL (0-100) Vitamin B12 Level 872 pg/mL (211-911) Vitamin D 25-Hydroxy 53.7 ng/mL (30.0-100) Folic Acid > 48.00 ng/mL (>5.38) Thyroid Stimulating Hormone (TSH) 1.93 uIU/mL (0.55-4.78) Urine Color Colorless (Yellow) Urine Clarity Turbid (Clear) Urine pH 8.0 (5.0-9.0) Urine Specific [place] 1.010 (1.001-1.035) Urine Protein 1+ (Negative) Urine Ketones Negative (Negative) Urine Blood 3+ /uL (Negative) Urine Nitrite 2+ (Negative) Urine Bilirubin Negative (Negative) Urine Urobilinogen Normal mg/dL (Negative) Urine Leukocyte Esterase 3+ /uL (Negative) Urine RBC 73 /hpf (0 - 3) Urine Microscopic WBC 52 /HPF (0-3) Urine Squamous Epithelial Cells Few /hpf (<5) Urine Triple Phosphate Crystals Moderate /hpf (None Seen) Urine Bacteria Many /hpf (None Seen) Urine Mucus Few (None Seen) Urine Glucose Normal mg/dL (Normal) Test 03/11/25 18:18 Prothrombin Time 10.3 sec (9.3-11.8) Prothrombin Time INR 0.97 (0.9-1.15) Activated Partial Thromboplast Time 27.0 SEC (24.5-34.5) Ammonia 25 umol/L (11-32) Lipase 25 U/L (12-53) Other Laboratory Tests 03/23/25 12:00 Brief Hx & Hospital Course: This is a 64-year-old male patient with PMHx of CIDP, 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 Patient states that feels like a truck ran over him. Patient has history of multiple urinary tract infections with the last urine culture showing the growth of Pseudomonas aeruginosa and Citrobacter youngae. Upon admission, The patient reported no abdominal pain, no dizziness, no shortness of breath, no headache. Chest X ray shows mild pulmonary vascular congestion and questionable pulmonary edema. 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 Urine culture at this hospitalization showed growth of Enterobacter, Morganella, Proteus, Enterococcus all sensitive to cefepime. Patient was initially started on IV cefepime, doxycycline and metronidazole. Upon admission, the patient was also noted to have abdominal distention reason why a CT of the abdomen was performed and a sigmoid volvulus was discovered. GI was consulted which recommended sigmoidoscopy with sigmoid volvulus the torsion. Patient was placed on an NG tube with negative suction and NPO. Urine culture 03/16/25 result reported (+ ) E.coli growth, Cefepine and metronidazole was discontinued and Ertapenem was added. Surgical team is also on board which ordered a Gastrografin enema, results on 03/16/25 showed flow of contrast past splenic flexure with very distended sigmoid colon correlated with persistence of sigmoid volvulus. The patient had the following course during hospitalization: 03/20/25. Patient has started liquid diet yesterday and denies nausea o vomiting, today will continue with full liquid diet and re-assess tolerance. Vital signs were reviewed, there is no fever or chills overnight. Potassium are 3.1mmol/L this morning, potassium 60 meq was ordered. The patient will be continued monitored for recurrence of volvulus of the sigmoid colon and hypokalemia. 03/21/25 Patient has started liquid diet yesterday and denies nausea o vomiting, today will continue with mechanical soft diet and re-assess tolerance. Vancomycin was stopped today. Vital signs were reviewed, there is no fever or chills overnight, patiente is felling well, he had a BM yesterday night and today morning. Potassium was 2.6 mmol/L this morning, potassium 60 meq was ordered. K and Mg will be re-checked. The patient will be continued monitoried for recurrence of volvulus of the sigmoid colon and hypokalemia. 03/22/25: Patient seen and examined at bedside. Has been tolerating soft diet. Hypokalemia is being monitored and managed. SS consult placed for home health for future discharge. Today, 03/23/25: Patient seen and examined at bedside. the patient has been tolerating soft diet. Hypokalemia has resolved (3.6mmol/L). has had 3 form bowel movements, abdominal distention has improved, draining clear urine on the ileo-cistostomy. Reivewed the vital signs, the patient has not had fever within the last 48 hrs. He is toleration well mechanical soft diet. The patient will be discharged today with home health services to continue antibiotic: Ertapenem 1 gr for 7 days via PICC line, and continue physical therapy. The patient will follow up with primary doctor in one week. ROS: Constitutional: Denies weight loss, fever and chills. HEENT: Denies changes in vision and hearing. Respiratory: Denies shortness of breath and cough Cardiovascular: Denies chest discomfort or palpitations GI: No abdominal pain, distention has improved. : Denies dysuria and urinary frequency. Musculoskeletal: Denies myalgias and joint pain. Skin: Denies rash and pruritus. Neurological: Denies dizziness, headache, vision or hearing problems. Examination General: Patient alert and oriented in person, place and time. Patient following commands. HEENT: Normocephalic, atraumatic, moist mucous membranes. Respiratory/pulmonary: Clear lungs bilaterally, no associated crackles or wheezes. Cardiovascular: Normal heart sounds S1 and S2 with no associated murmurs Abdomen: Abdomen less distended, no pain to palpation in any of the abdominal quadrants, no palpable masses. There is an cystostomy bag present at the right flank lateral to the umbilicus draining clear urine. Extremities: There is no peripheral edema present at the lower extremities. Skin: No rashes or pruritus, there is no sacral edema present at this time. 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 Plan: Sepsis due to: Acute cystitis -Continue IV Ertapenem. We will continue after discharge through PICC line x 7 days Acute abdominal distention likely due to: - Continue with mechanical soft diet. Acute hypoxic respiratory failure secondary to Pulmonary edema Hypertensive heart disease with grade 1 diastolic dysfunction Possible Gram-positive/negative bacterial pneumonia -Resolved CIDP, history of Taina Redmond syndrome -Continue home medication baclofen 10 mg daily -Continue duloxetine 30 mg daily -Continue gabapentin 400 mg TID p.r.n. 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 GERD -Continue home medication famotidine 20 mg daily Hypertension -Continue home medication amlodipine 2.5 mg daily -Continue home medication metoprolol tartrate 25 mg daily Hypokalemia Resolved (3.6 mmol/L) Plan discussed with Dr. Urias. Plan discussed with patient, the patient is agree with the plan. Condition at Discharge: Stable Final Diagnosis/Problems List -Gillain Redmond Syndrome -Sigmoid volvulus post ditortion -Sepsis due to acute cystitis -Acute hypoxic respiratory faiulure due possible gram +/- bacteria -DM 2 -Hypertension Discharge Disposition: Home with Health Services SNF Discharge Will this Physician continue t: No Discharge Instruct/Medications Diet: See Comment Diet comment: Mechanica soft diet Activity: No Restrictions, As Tolerated Follow Up/Referral: -Follow up with PCP -Follow up with PT Medications: Ertapenem 1g daily for 7 days via PICC line x 7 days. Scheduled Amlodipine Besylate (Amlodipine Besylate), 2.5 MG PO DAILY, (Reported) Apixaban Base (Eliquis), 5 MG PO BID, (Reported) Baclofen (Baclofen), 10 MG PO Q8HP, (Reported) Cholecalciferol (D3), 25 MCG PO DAILY, (Reported) Cyanocobalamin (Vitamin B-12), 1 TAB PO DAILY, (Reported) Diphenhydramine Hcl (Gnp Allergy), 25 MG PO HS Duloxetine Hcl (Cymbalta), 30 CAP PO DAILY, (Reported) Famotidine (Famotidine), 20 MG PO HS, (Reported) Nvqljwtgcpq-Kvozzzopmwdv-Nhvkn (Trelegy Ellipta 100-62.5-25 Mcg/INH), 1 AER IN DAILY, (Reported) Gabapentin (Gabapentin), 400 MG PO TID, (Reported) Levothyroxine Sodium (Levothyroxine Sodium), 1 TAB PO DAILY, (Reported) Metformin Hydrochloride (Metformin Hcl), 1 TAB PO BID, (Reported) Metoprolol Tartrate (Metoprolol Tartrate), 25 MG PO BID, (Reported) Uxrglzhs-Wpqvkovpy-Pb (Otic) (Cortisporin Otic Susp), 3 DROP RIGHT EAR TID Pancrelipase (Lipase-Protease- (Creon), 36,000 UNT OR TIDWM Polyethylene Glycol 3350 (Miralax), 17 GM PO DAILY Potassium Chloride (Potassium Chloride ER), 10 MEQ PO DAILY Simvastatin (Simvastatin), 10 MG PO HS, (Reported) Miscellaneous Medications Pancrelipase (Lipase-Protease- (Creon), 36,000 UNT OR, (Reported) Primidone (Mysoline Tablet), 50 MG PO, (Reported) Discharge Statement: "Patient was advised to return to the ER or call 911 if any headaches, dizziness, shortness of breath, chest pain, abdominal pain, bleeding, fevers, or worsening of medical condition. Patient was counseled about treatment plan, medications, possible side effects, patientverbalized understanding. All questions were answered to the best of my ability. This discharge took greater then 30 minutes in planning, reviewing documentation, counseling the patient, and discussing with other team members." ASSESSMENT ASSESSMENT Assessment -Gillain Redmond Syndrome -Sigmoid volvulus post ditortion -Sepsis due to acute cystitis -Acute hypoxic respiratory faiulure due possible gram +/- bacteria -DM 2 -Hypertension ALYSON DUMONT RESIDENT Mar 23, 2025 14:06
--- NOTE | 2025-03-23 23:06 | DVHPN2 ---
Progress Note - Dictate Date Seen: Mar 23, 2025 (Late entry Patient seen at 4:00 p.m.) Has the PT tested + for MRSA If YES, has PT been informed?: No Medical Necessity Reason Pt with a Central, PICC or Fol: No Subjective Patient continues to have daily bowel movements Abdomen is less distended Patient is resting comfortably otherwise vital signs Vital Sign Date Time Temp Pulse Resp B/P (MAP) Pulse Ox O2 Delivery O2 Flow Rate FiO2 03/23/25 16:49 97.8 103 18 148/95 (112) 94 97.8 03/23/25 10:18 Room Air 0.0 03/23/25 10:18 21 Total Intake and Output 03/22/25 03/22/25 03/23/25 15:00 23:00 07:00 Intake Total 50 ml 2210 ml 2800 ml Output Total 1600 ml 750 ml 2450 ml Balance -1550 ml 1460 ml 350 ml objective Patient lying in bed, A&O x3; General: Well-built, afebrile, palor, mucosae are moist Cardiovascular: Regular S1 and S2. Respiratory: Clear lung sounds on auscultation Abdomen: Soft, nontender, less distended bowel sounds, no rebound tenderness, no organomegaly, no masses Ileal conduit with ileostomy bag with clearing urine with no haziness MSK/skin: Decreased motor strength in bilateral lower extremity. Lower extremities are cold and clammy. Neurological: Bilateral upper extremity strength 3/5. patient has lower extremity paralysis. no sensorium below the level of nipples. fecal incontinence. laboratory and microbiology Laboratory Tests 03/23/25 12:00 Test 03/23/25 12:00 Range/Units Serum Glucose 169 H 74-106 mg/dL Problems(with codes): (1) Guillain Luis syndrome (2) GERD (gastroesophageal reflux disease) (3) Volvulus of sigmoid colon (4) Constipation Prognosis Plan Discharge planning is in progress Patient can take MiraLax 17 g p.o. daily Patient eats oatmeal daily increase fluid and fiber intake were advised Discussed with caregiver at bedside Dietary Evaluation Review Comments: 1. At risk for hypoglycemia under NPO>1 day. If EN/GI unavaialbe r/t his current conditions, recommend TPN per pharmacy. 2. Advance to CCHO-60 diet texture as tolerated if PO feeding is permissible. Expected Outcomes/Goals: Avoid fast wt loss. Plan discussed with: Patient, Other (Caregiver) GUERO SOUZA MD Mar 23, 2025 23:06
== END 2025-03-23 17:53 | disposition home health service (06) | DRG 853 ==
LOC: ER 17:25 → EDSEX 17:25 → EDBD 17:25 → OVERFLOW 23:42 → CENTRAL 03-12 18:00 → TELE-CENTR 03-18 08:10
PROVIDERS: ADMIT Student in an Organized Health Care Education/Training Program; ATTEND Student in an Organized Health Care Education/Training Program
PROC: 0D9E8ZZ Drainage of Large Intestine, Via Natural or Artificial Opening Endoscopic (ICD-10-PCS; principal; 2025-03-14 10:15)
PROC: 02HV33Z Insertion of Infusion Device into Superior Vena Cava, Percutaneous Approach (ICD-10-PCS; 2025-03-16)
PROC: B548ZZA Ultrasonography of Superior Vena Cava, Guidance (ICD-10-PCS; 2025-03-16)
DX: A41.9 Sepsis, unspecified organism (principal); J15.69 Pneumonia due to other Gram-negative bacteria; J96.01 Acute respiratory failure with hypoxia; J15.9 Unspecified bacterial pneumonia; K56.2 Volvulus; K56.609 Unspecified intestinal obstruction, unspecified as to partial versus complete obstruction; J81.1 Chronic pulmonary edema; G61.81 Chronic inflammatory demyelinating polyneuritis; N30.00 Acute cystitis without hematuria; Q43.8 Other specified congenital malformations of intestine; G61.0 Guillain-Barre syndrome; K21.9 Gastro-esophageal reflux disease without esophagitis; E66.9 Obesity, unspecified; I11.9 Hypertensive heart disease without heart failure; E87.6 Hypokalemia; E11.9 Type 2 diabetes mellitus without complications; G90.89 Other disorders of autonomic nervous system; E78.5 Hyperlipidemia, unspecified; N20.0 Calculus of kidney; J44.89 Other specified chronic obstructive pulmonary disease; K64.9 Unspecified hemorrhoids; Z74.01 Bed confinement status; Z79.899 Other long term (current) drug therapy; Z85.51 Personal history of malignant neoplasm of bladder; Z83.3 Family history of diabetes mellitus; Z82.5 Family history of asthma and other chronic lower respiratory diseases; Z80.0 Family history of malignant neoplasm of digestive organs; Z80.3 Family history of malignant neoplasm of breast; Z79.01 Long term (current) use of anticoagulants; Z86.718 Personal history of other venous thrombosis and embolism; Z95.828 Presence of other vascular implants and grafts; Z68.31 Body mass index [BMI] 31.0-31.9, adult
CPT/HCPCS: 36415; 36569; 70450; 71045; 74018; 74176; 74270; 80048; 80053; 80069; 80202; 81001; 82040; 82140; 82306; 82607; 82746; 82962; 83036; 83605; 83690; 83735; 83880; 84100; 84132; 84443; 84478; 85007; 85025; 85027; 85610; 85730; 86803; 86850; 86900; 86901; 87040; 87045; 87081; 87086; 87088; 87186; 87340; 87426; 87427; 87493; 87804; 93005; 94640; 96360; 99291; G0378; J0330; J1100; J1335; J1815; J2003; J2250; J2405; J2704; J3480; J3490; J7060

== ENCOUNTER 2025-04-27 09:02 | Inpatient (IN) | payer OTHER, MEDICAID ==
[2025-04-27] VITALS (25 sets, daily range): BP systolic 98–147; BP diastolic 2–89; PULSE 96–118; RESP 12–16; TEMP 98.5–99.9; O2SAT 95–100
[~2025-04-27] VITALS: Ht 170.2 cm; Wt 85.1 kg
[~2025-04-27 09:02] MED LIST changes: +LEVO112T4 PO
--- NOTE | 2025-04-27 09:14 | ED.PDOC ---
Altered Mental Status HPI Comments 64 y/o M, with PMHx of HTN, HLD, DM, UTI's, GERD, COPD, cancer, and asthma presents to the ED for CC of ALOC. EMS reports, patient is coming from home where family called d/t patient displaying altered behavior; LKW was at 0115 prior to patient going to sleep. At this time patient is only arousable to pain and is minimally responsive. No other symptoms or modifiers are obtainable. Time Seen by MD: 09:05 Primary Care Provider: unknown Reviewed Notes: Nurses Notes, Volumetric Weigher Notes, Medications, Allergies Allergies: Coded Allergies: No Known Drug Allergy (Verified Allergy, Unknown, 04/21/22) Home Meds Active Scripts Diphenhydramine Hcl (Gnp Allergy) 25 Mg Cap, 25 MG PO HS for 5 Days, #5 CAP 0 Refills Prov:GRADY SANCHEZ MD 11/01/24 Pancrelipase (Lipase-Protease- (CREON) 36,000 Unt Cap, 43645 UNT OR TIDWM for 30 Days, #90 CAP Prov:MILLIE CALIXTO MD 03/30/24 Potassium Chloride (Potassium Chloride ER) 10 Meq Tab, 10 MEQ PO DAILY for 30 Days, #30 TAB Prov:JEREMIAH BOOGIE MD 01/23/24 Polyethylene Glycol 3350 (Miralax) 17 Gm Pow, 17 GM PO DAILY for 30 Days, #510 POW Prov:JEREMIAH BOOGIE MD 01/23/24 Opqtwkjp-Pbgscbgyx-Dx (Otic) (Cortisporin Otic Susp) [address], 3 DROP RIGHT EAR TID, #10 ML Prov:JEANNE ARRIOLA PAC 04/21/23 Reported Medications Levothyroxine Sodium (Levothyroxine Sodium) 112 Mcg Tab, 1 TAB PO DAILY, #30 TAB 5 Refills 03/12/25 Pancrelipase (Lipase-Protease- (CREON) 36,000 Unt Cap, 03354 UNT OR, CAP 03/12/25 Primidone (MYSOLINE TABLET) 50 Mg Tb, 50 MG PO, TAB 03/26/24 Cyanocobalamin (Vitamin B-12) 1,000 Mcg Tab, 1 TAB PO DAILY 09/14/23 Metformin Hydrochloride (Metformin Hcl) 500 Mg Tab, 1 TAB PO BID 09/14/23 Duloxetine Hcl (Cymbalta) 20 Mg Cap, 30 CAP PO DAILY, #30 CAP 2 Refills 09/14/23 Cholecalciferol (D3) 25 Mcg Chw, 25 MCG PO DAILY, TAB.CHEW 09/14/23 Nupaennllxp-Lwwicnspbday-Syaqb (Trelegy Ellipta 100-62.5-25 Mcg/INH) 1 Aer Aer, 1 AER IN DAILY, AER 03/09/23 Metoprolol Tartrate (Metoprolol Tartrate) 25 Mg Tab, 25 MG PO BID for 30 Days, MG 03/09/23 Amlodipine Besylate (Amlodipine Besylate) 5 Mg Tab, 2.5 MG PO DAILY for 30 Days, MG 03/09/23 Simvastatin (Simvastatin) 10 Mg Tab, 10 MG PO HS for 30 Days, MG 03/09/23 Gabapentin (Gabapentin) 300 Mg Cap, 400 MG PO TID for 30 Days, MG 04/21/22 Famotidine (Famotidine) 20 Mg Tab, 20 MG PO HS for 30 Days, MG 04/21/22 Apixaban Base (ELIQUIS) 5 Mg Tab, 5 MG PO BID, TAB 04/21/22 Baclofen (Baclofen) 10 Mg Tab, 10 MG PO Q8HP for 30 Days, MG 04/21/22 Information Source: Patient Mode of Arrival: EMS Severity: Moderate Timing: Hours Duration: Since onset Prehospital treatment: None Quality: Decreased Alertness Recent: None History of: Diabetes Associated Signs and Symptoms: None Past Medical History PAST MEDICAL HISTORY: Asthma, Cancer, COPD, DM, GERD, High Lipids, HTN, UTI'S Family History Family History: Reviewed,noncontributory to illness Social History Smoker: Non-Smoker Alcohol: Denies ETOH Use Drugs: Denies Drug Use Lives In: Home Unable to Obtain due to: Altered Mental Status All Other Systems: Reviewed and Negative Physical Exam General Appearance: Normal, Other (minimally responsive) HEENT: Normal ENT Inspection, Pharynx Normal Neck: Full Range of Motion, Non-Tender, Normal, Normal Inspection Respiratory: Chest Non-Tender, Lungs Clear, No Accessory Muscle Use, No Respiratory Distress, Normal Breath Sounds Cardiovascular: No Edema, No Murmur, No Gallop, Normal Peripheral Pulses, Regular Rate/Rhythm Breast Exam: Deferred Gastrointestinal: No Organomegaly, Non Tender, No Pulsatile Mass, Normal Bowel Sounds, Soft, Other (iliostomy) Genitalia: Deferred Pelvic: Deferred Rectal: Deferred Extremities: No calf tenderness, Normal capillary refill, Normal inspection, Non-tender, No pedal edema Musculoskeletal : Apperance: Normal Neurologic: Other (altered, arousable to pain only ) Cerebellar Function: NOT DONE Reflexes: Normal, NOT DONE Skin: Dry, Mottled, Warm Lymphatic: No Adenopathy Was a procedure done? 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: Attending Physician () Indication: Inability to obtain IV Room prepared for procedure: Yes Boilermaker Mechanic performed hand hygien: Yes Maximal sterile barrier precau: Mask/Eye shield, Sterile gown, Cap, Sterlie gloves, Large sterlie drape Skin preparation completely dr: Yes Insertion site: Right, Internal jugular Number of lumens: 3 Central line exchanged over a: Yes Antiseptic ointment applied to: Yes Post Assessment: Chest X-Ray Informed consent obtained: Yes Risks/benefits/alt described: Yes Intubation Indication: Altered Mental Status Prep: Other (etomidate and rocuronium) Medicated with: Other (etomidate and rocuronium) Intubation Approach: Orotracheal Intubation size: cm (8.0, secured at 24cm at the teeth) Informed consent obtained: Yes Risks/benefits/alt described: Yes Differential Diagnosis (ALOC) Differential Diagnosis: Dehydration, Hypoglycemia, DKA, Encephalopathy, Other (UTI) X-Ray, Labs, Meds, VS Vital Signs Date Time Temp Pulse Resp B/P (MAP) Pulse Ox O2 Delivery O2 Flow Rate FiO2 04/27/25 12:15 99.9 123 18 152/103 (119) 92 99.9 04/27/25 12:00 99.7 129 16 175/112 (133) 93 99.7 04/27/25 11:35 131 16 193/118 (143) 95 40 04/27/25 11:30 99.5 137 16 180/115 (136) 94 99.5 04/27/25 11:15 133 16 172/112 (132) 95 04/27/25 11:00 135 16 174/117 (136) 95 04/27/25 10:45 129 16 186/113 (137) 95 04/27/25 10:34 140 16 188/120 (142) 95 40 04/27/25 10:30 188/120 04/27/25 10:30 188/120 04/27/25 10:30 145 17 188/120 (142) 95 04/27/25 10:20 101/70 04/27/25 10:00 98 10 101/70 (80) 92 04/27/25 09:42 102/64 (77) 04/27/25 09:11 100 04/27/25 09:08 98.6 102 14 108/74 94 98.6 Lab Test 04/27/25 11:32 04/27/25 09:43 04/27/25 09:16 Range/Units Blood Gas Specimen Type Arterial Blood Gas Sample Site Right radial Blood Gas Patient Temperature 37.0 Arterial Blood Date Drawn [id number] Arterial Blood pH 7.345 L 7.350-7.450 Arterial Blood Partial Pressure CO2 44.9 35.0-48.0 mmHg Arterial Blood Partial Pressure O2 81.0 L 83.0-108.0 mmHg Arterial Blood HCO3 24.0 21.0-28.0 mmol/L Arterial Blood Oxygen Saturation 95.4 94.0-98.0 % Arterial Blood Base Excess -2.0 -2.0-3.0 mmol/L Arterial Blood Oxyhemoglobin 92.9 L 94.0-98.0 % Arterial Blood Carboxyhemoglobin 1.8 H 0.5-1.5 % Arterial Blood Methemoglobin 0.8 0.0-1.5 % Abhi Test Modified Blood Gas Total Hemoglobin 17.20 13.5-17.5 g/dL Blood Gas Set Respiration Rate 16.0 Blood Gas Modality Vent - ac FiO2 % 40.0 Blood Gas Tidal Volume 500.0 Blood Gas PEEP or CPAP 5.0 Urine Color Yellow Yellow Urine Clarity Clear Clear Urine pH 6.0 5.0-9.0 Urine Specific [place] 1.019 1.001-1.035 Urine Protein Trace H Negative Urine Ketones Negative Negative Urine Blood Negative Negative /uL Urine Nitrite Negative Negative Urine Bilirubin Negative Negative Urine Urobilinogen 3 H Negative mg/dL Urine Leukocyte Esterase 1+ Negative /uL Urine RBC 3 0 - 3 /hpf Urine Microscopic WBC 12 H 0-3 /HPF Urine Squamous Epithelial Cells Few <5 /hpf Urine Bacteria Few H None Seen /hpf Urine Hyaline Casts Few 0 - 2 /lpf Urine Mucus Few None Seen Urine Glucose Normal Normal mg/dL White Blood Count 14.4 H 4.4-10.8 10^3/uL Red Blood Count 5.27 4.5-5.90 10^6/uL Hemoglobin 16.1 13.5-17.5 g/dL Hematocrit 48.9 41.0-53.0 % Mean Corpuscular Volume 92.8 80.0-100.0 fL Mean Corpuscular Hemoglobin 30.6 28.0-32.0 pg Mean Corpuscular Hemoglobin Concent 33.0 32.0-36.0 g/dL Red Cell Distribution Width 18.2 H 11.8-14.3 % Platelet Count 284 140-450 10^3/uL Mean Platelet Volume 6.7 L 6.9-10.8 fL Neutrophils (%) (Auto) 87.1 H 37.0-80.0 % Lymphocytes (%) (Auto) 3.0 L 10.0-50.0 % Monocytes (%) (Auto) 9.4 0.0-12.0 % Eosinophils (%) (Auto) 0.1 0.0-7.0 % Basophils (%) (Auto) 0.4 0.0-2.0 % Neutrophils # (Auto) 12.5 H 1.6-8.6 10 ^3/uL Lymphocytes # (Auto) 0.4 0.4-5.4 10 ^3/uL Monocytes # (Auto) 1.4 H 0-1.3 10 ^3/uL Eosinophils # (Auto) 0 0-0.8 10 ^3/uL Basophils # (Auto) 0.1 0-0.2 10 ^3/uL Nucleated Red Blood Cells 0.1 % Sodium Level 138 136-145 mmol/L Potassium Level 4.3 3.5-5.1 mmol/L Chloride Level 106 98-107 mmol/L Carbon Dioxide Level 23 20-31 mmol/L Anion Gap 9 5-15 Blood Urea Nitrogen 12 9-23 mg/dL Creatinine 0.75 0.700-1.30 mg/dL Glomerular Filtration Rate Calc 100 >90 mL/min BUN/Creatinine Ratio 16.0 10.0-20.0 Serum Glucose 173 H 74-106 mg/dL Lactic Acid Level 3.5 *H 0.4-2.0 mmol/L Calcium Level 8.7 8.7-10.4 mg/dL Total Bilirubin 0.4 0.2-1.0 mg/dL Aspartate Amino Transferase (AST) 15 13-40 U/L Alanine Aminotransferase (ALT) 24 7-40 U/L Alkaline Phosphatase 96 46-116 U/L Troponin I High Sensitivity < 3 L </=54 ng/L B-Type Natriuretic Peptide 34.96 0-100 pg/mL Total Protein 7.0 5.7-8.2 g/dL Albumin 4.1 3.2-4.8 g/dL Current Medications Medications (Trade) Dose Ordered Sig/Simon Route Start Time Stop Time Status Last Admin Cefepime HCl 50 ml @ 12.5 mls/hr ONCE ONCE IV 04/27/25 10:15 04/27/25 14:14 04/27/25 11:37 Midazolam HCl 50 ml @ 1 mls/hr Q24H IV 04/27/25 10:15 04/27/25 10:30 Fentanyl Citrate 250 ml @ 2.5 mls/hr Q24H IV 04/27/25 10:30 04/27/25 10:30 Etomidate 20 mg ONCE ONCE IV 04/27/25 10:30 04/27/25 10:32 DC 04/27/25 10:20 Rocuronium [place] 100 mg ONCE ONCE IV 04/27/25 10:30 04/27/25 10:32 DC 04/27/25 10:20 [place] [address] Ph: [phone] DIAGNOSTIC IMAGING Diagnostic Imaging Report : [id number] Signed PATIENT: MONI KEMP ACCT: [id number] UNIT: [id number] : 1960 LOC: ER ROOM / BED: / AGE / SEX: 64 / M ADM STATUS: REG ER SERVICE 09 ORDERING PHYSICIAN: MARIANO SLOAN MD PROCEDURE(s): CXRP - CHEST PORTABLE REASON: ams ORDER NUMBER(s): [id number], ACCESSION NUMBER(s): [id number] CHEST RADIOGRAPH Indication: ams Technique: Single frontal view of the chest was obtained COMPARISON: XY CHEST XRAY 1 VIEW on DOS: 03/14/25, XY CHEST PORTABLE on DOS: 03/13/25, XY CHEST XRAY 1 VIEW on DOS: 03/12/25, XY CHEST PORTABLE on DOS: 11/13/24, XY CHEST PORTABLE on DOS: 10/29/24 FINDINGS: Lines and Tubes: None Lungs: Clear Pleura: No effusion. No pneumothorax. Cardiomediastinal contours: Unremarkable Bones: Unremarkable IMPRESSION: No acute disease. ATED BY: AVI MCCARTHY MD DICTATED DATE/TIME: 04/27/25954 SIGNED BY: AVI MCCARTHY MD SIGNED DATE/TIME: 04/27/25954 CC: [place] [address] Ph: [phone] DIAGNOSTIC IMAGING Diagnostic Imaging Report : [id number] Signed PATIENT: MONI KEMP ACCT: [id number] UNIT: [id number] : 1960 LOC: ER ROOM / BED: / AGE / SEX: 64 / M ADM STATUS: REG ER SERVICE 4 ORDERING PHYSICIAN: MARIANO SLOAN MD PROCEDURE(s): HWOCT - HEAD WITHOUT CONTRAST REASON: ams ORDER NUMBER(s): [id number], ACCESSION NUMBER(s): [id number] EXAM: CT HEAD WITHOUT CONTRAST INDICATION: ams TECHNIQUE: CT of the head without intravenous contrast. Radiation Dose : 1. Head: CT Dose: CTDI volume is 24 mGy. Dose-length product is 1377 mGy*cm The dose indicators for CT are the volume Computed Tomography (CT) Dose Index (CTDIvol) and the Dose Length Product (DLP), and are measured in units of mGy and mGy-cm, respectively. These indicators are not patient dose, but values generated from the CT scanner acquisition factors. The report includes radiation exposure data for exposures received during this examination. COMPARISON: CT HEAD WITHOUT CONTRAST on DOS: 03/12/25, CT NECK WITHOUT CONTRAST on DOS: 10/29/24, BRAIN HEAD WO CONTRAST on DOS: 04/24/22 FINDINGS: There is no evidence of acute intracranial hemorrhage, extra-axial collection, mass effect, midline shift, herniation or hydrocephalus. The ventricles, sulci and cisterns are age appropriate. The garcia-white differentiation is intact. The visualized paranasal sinuses and mastoid air cells are clear. The surrounding soft tissues and osseous structures are unremarkable. IMPRESSION: No acute intracranial abnormality. Radiation optimization: All CT scans at this facility use at least one of these dose optimization techniques: automated exposure control mA and/or kV adjustment per patient size (includes targeted exams where dose is matched to clinical indication) or iterative reconstruction. ATED BY: AVI MCCARTHY MD DICTATED DATE/TIME: 04/27/25953 SIGNED BY: AVI MCCARTHY MD SIGNED DATE/TIME: 04/27/25953 CC: [place] [address] Ph: [phone] DIAGNOSTIC IMAGING Diagnostic Imaging Report : [id number] Signed PATIENT: MONI KEMP ACCT: [id number] UNIT: [id number] : 1960 LOC: ER ROOM / BED: / AGE / SEX: 64 / M ADM STATUS: REG ER SERVICE 1040 ORDERING PHYSICIAN: MARIANO SLOAN MD PROCEDURE(s): CXRP - CHEST PORTABLE REASON: POST INTUBATED AND OG TUBE ORDER NUMBER(s): [id number], ACCESSION NUMBER(s): [id number] EXAM: XY CHEST PORTABLE Indication: POST INTUBATED AND OG TUBE Technique: Single frontal view of the chest was obtained Comparison: XY CHEST PORTABLE on DOS: 04/27/25, XY CHEST XRAY 1 VIEW on DOS: 03/14/25, XY CHEST PORTABLE on DOS: 03/13/25, XY CHEST XRAY 1 VIEW on DOS: 03/12/25, XY CHEST PORTABLE on DOS: 11/13/24 FINDINGS: Lines and Tubes: Endotracheal tube projects 3 cm above the una. Enteric tube tip projects over the expected region of the stomach. Right internal jugular central venous catheter tip projects over superior vena cava. Lungs: Diffuse interstitial opacities. Low lung volumes. Trace left pleural effusion. No pneumothorax. Cardiomediastinal contours: Unremarkable Bones: No acute osseous abnormality. IMPRESSION: Lines and tubes are in appropriate position. Low lung volumes with diffuse interstitial opacities. ATED BY: AVERY QUIROZ MD DICTATED DATE/TIME: 04/27/251117 SIGNED BY: AVERY QUIROZ MD SIGNED DATE/TIME: 04/27/251117 CC: Time of 1ST Reevaluation: 09:35 Reevaluation 1ST: Unchanged Patient Education/Counseling: Diagnosis, Treatment Family Education/Counseling: No Family Present SEPSIS Sepsis Screen Physician Orders Chest Portable (04/27/25 09:05) Head Without Contrast (04/27/25 09:05) Electrocardigram (04/27/25 09:05) Blood Culture (04/27/25 09:05) Troponin-I Hs (04/27/25 10:05) Troponin-I Hs (04/27/25 12:05) Electrocardigram (04/27/25 10:05) Electrocardigram (04/27/25 12:05) Cefepime 2gm/50ml Ns (Maxipime 2gm/50ml) (04/27/25 10:15) Vancomycin Per Pharmacy (04/27/25 10:15) Propofol (Diprivan) (04/27/25 10:15) Midazolam Drip 50 Mg/50ml (Versed Drip 5 (04/27/25 10:15) Rass Sedation Scale Q1HR (04/27/25 10:11) Fentanyl Drip 2500mcg/250mlns (04/27/25 10:30) Rass Sedation Scale Q1HR (04/27/25 10:18) Communication Order (04/27/25 10:26) Ventilator Orders (04/27/25 10:32) Abg W/ Co-Ox (04/27/25 10:32) Respiratory Culture W/ Gs (04/27/25 10:32) Chest Portable (04/27/25 10:40) Vancomycin 1.5gm/250ml (Vancomycin [place] (04/27/25 11:45) Sodium Chloride 0.9% (04/27/25 12:30) Vital Signs Date Time Temp Pulse Resp B/P (MAP) Pulse Ox O2 Delivery O2 Flow Rate FiO2 04/27/25 12:15 99.9 123 18 152/103 (119) 92 99.9 04/27/25 12:00 99.7 129 16 175/112 (133) 93 99.7 04/27/25 11:35 131 16 193/118 (143) 95 40 8/11/25 11:30 99.5 137 16 180/115 (136) 94 99.5 04/27/25 11:15 133 16 172/112 (132) 95 04/27/25 11:00 135 16 174/117 (136) 95 04/27/25 10:45 129 16 186/113 (137) 95 04/27/25 10:34 140 16 188/120 (142) 95 40 04/27/25 10:30 188/120 04/27/25 10:30 188/120 04/27/25 10:30 145 17 188/120 (142) 95 04/27/25 10:20 101/70 04/27/25 10:00 98 10 101/70 (80) 92 04/27/25 09:42 102/64 (77) 04/27/25 09:11 100 04/27/25 09:08 98.6 102 14 108/74 94 98.6 Laboratory Tests Test 04/27/25 09:16 Lactic Acid Level 3.5 mmol/L (0.4-2.0) *H White Blood Count 14.4 10^3/uL (4.4-10.8) H Medications Medications Dose Ordered Sig/Simon Route Start Time Stop Time Status Last Admin Dose Admin Cefepime HCl 50 ml @ 12.5 mls/hr ONCE ONCE IV 04/27/25 10:15 04/27/25 14:14 04/27/25 11:37 Etomidate 20 mg ONCE ONCE IV 04/27/25 10:30 04/27/25 10:32 DC 04/27/25 10:20 Fentanyl Citrate 250 ml @ 2.5 mls/hr Q24H IV 04/27/25 10:30 04/27/25 10:30 Midazolam HCl 50 ml @ 1 mls/hr Q24H IV 04/27/25 10:15 04/27/25 10:30 Rocuronium [place] 100 mg ONCE ONCE IV 04/27/25 10:30 04/27/25 10:32 DC 04/27/25 10:20 Departure 1 Departure Time of Disposition: 12:28 (Patient presented with altered mental status and was unresponsive. Patient was not protecting his airway and was emergently intubated, central line placed. Patient was started on fluids and antibiotics ) Impression: Primary Impression: Acute metabolic encephalopathy Additional Impression: Unresponsive Disposition: ADMITTED INPATIENT Admit to: ICU Condition: Critical Critical Care Note Critical Care Time?: Yes Critical care comment: Unresponsive, concerning for sepsis Authorized and Performed by: Mariano Sloan MD Total critical care time: Approximately 116 minutes Due to a high probability of clinically significant, life threatening deterioration, the patient required my highest level of preparedness to intervene emergently and I personally spent this critical care time directly and personally managing the patient. This critical care time included obtaining a history; examining the patient; pulse oximetry; ordering and review of studies; arranging urgent treatment with development of a management plan; evaluation of patient's response to treatment; frequent reassessment; and, discussions with other providers. This critical care time was performed to assess and manage the high probability of imminent, life-threatening deterioration that could result in multi-organ failure. It was exclusive of separately billable procedures and treating other patients and teaching time. Please see my other sections and the rest of the note for further information on patient assessment and treatment. Stability Stability form required: No Heart Score Heart Score: Heart Score Response (Comments) Value History N/A 0 EKG N/A 0 Age N/A 0 Risk Factors N/A 0 Troponin N/A 0 Total 0 I personally scribed for MARIANO SLOAN MD ([email or web address]) on 04/27/25 at 09:14. Electronically submitted by Luna Fortune ([email or web address]). I personally scribed for MARIANO SLOAN MD ([email or web address]) on 04/27/25 at 11:06. Electronically submitted by Luna Fortune ([email or web address]). I personally scribed for MARIANO SLOAN MD ([email or web address]) on 04/27/25 at 11:13. Electronically submitted by Luna Fortune ([email or web address]). I personally scribed for MARIANO SLOAN MD ([email or web address]) on 04/27/25 at 11:14. Electronically submitted by Luna Fortune ([email or web address]). I personally scribed for MARIANO SLOAN MD ([email or web address]) on 04/27/25 at 11:55. Electronically submitted by Luna Fortune ([email or web address]). I personally scribed for MARIANO SLOAN MD ([email or web address]) on 04/27/25 at 11:56. Electronically submitted by Luna Fortune ([email or web address]). I personally scribed for MARIANO SLOAN MD ([email or web address]) on 04/27/25 at 11:57. Electronically submitted by Luna Fortune ([email or web address]). MARIANO SLOAN MD Apr 27, 2025 09:14
[2025-04-27 09:54] LABS: Hematocrit 48.9 % (41.0-53.0); Hemoglobin 16.1 g/dL (13.5-17.5); Mean Corpuscular Hemoglobin 30.6 pg (28.0-32.0); Mean Corpuscular Volume 92.8 fL (80.0-100.0); Nucleated Red Blood Cells % 0.1 %
--- NOTE | 2025-04-27 09:56 | DVH ---
EXAM: CT HEAD WITHOUT CONTRAST INDICATION: ams TECHNIQUE: CT of the head without intravenous contrast. Radiation Dose : 1. Head: CT Dose: CTDI volume is 24 mGy. Dose-length product is 1377 mGy*cm The dose indicators for CT are the volume Computed Tomography (CT) Dose Index (CTDIvol) and the Dose Length Product (DLP), and are measured in units of mGy and mGy-cm, respectively. These indicators are not patient dose, but values generated from the CT scanner acquisition factors. The report includes radiation exposure data for exposures received during this examination. COMPARISON: CT HEAD WITHOUT CONTRAST on DOS: 03/12/25, CT NECK WITHOUT CONTRAST on DOS: 10/29/24, BRAIN HEAD WO CONTRAST on DOS: 04/24/22 FINDINGS: There is no evidence of acute intracranial hemorrhage, extra-axial collection, mass effect, midline s hift, herniation or hydrocephalus. The ventricles, sulci and cisterns are age appropriate. The garcia-white differentiation is intact. The visualized paranasal sinuses and mastoid air cells are clear. The surrounding soft tissues and osseous structures are unremarkable. IMPRESSION: No acute intracranial abnormality. Radiation optimization: All CT scans at this facility use at least one of these dose optimization alla hniques: automated exposure control mA and/or kV adjustment per patient size (includes targeted exam s where dose is matched to clinical indication) or iterative reconstruction.
--- NOTE | 2025-04-27 09:58 | DVH ---
CHEST RADIOGRAPH Indication: ams Technique: Single frontal view of the chest was obtained COMPARISON: XY CHEST XRAY 1 VIEW on DOS: 03/14/25, XY CHEST PORTABLE on DOS: 03/13/25, XY CHEST XRAY 1 VIEW on DOS: 03/12/25, XY CHEST PORTABLE on DOS: 11/13/24, XY CHEST PORTABLE on DOS: 10/29/24 FINDINGS: Lines and Tubes: None Lungs: Clear Pleura: No effusion. No pneumothorax. Cardiomediastinal contours: Unremarkable Bones: Unremarkable IMPRESSION: No acute disease.
[2025-04-27 10:01] LABS: Alanine Aminotransferase 24 U/L (7-40); Albumin 4.1 g/dL (3.2-4.8); Alkaline Phosphatase 96 U/L (46-116); Anion Gap 9 (5-15); BUN/Creatinine Ratio 16.0 (10.0-20.0); Blood Urea Nitrogen 12 mg/dL (9-23); Calcium 8.7 mg/dL (8.7-10.4); Carbon Dioxide 23 mmol/L (20-31); Chloride 106 mmol/L (98-107); Potassium 4.3 mmol/L (3.5-5.1); Sodium 138 mmol/L (136-145); Total Protein 7.0 g/dL (5.7-8.2)
[2025-04-27 10:02] LABS: Bilirubin, Total 0.4 mg/dL (0.2-1.0)
[2025-04-27 10:10] LABS: Glucose 173 mg/dL (74-106); Lactic Acid w/Reflex 3.5 mmol/L (0.4-2.0)
[2025-04-27] MEDS ORDERED: VANCOMYCIN PER PHARMACY 0 MG IV SCH (10:15)
[2025-04-27] MEDS: ETOMIDATE (2MG/ML) 20ML VIAL IV ONE ×2 (10:20→10:29)
[2025-04-27] MEDS: ROCURONIUM 10MG/ML 10ML VIAL IV ONE ×2 (10:20→10:29)
[2025-04-27] MEDS: MIDAZOLAM DRIP 50 mg/50mL 50 ML IV ONE (10:29)
[2025-04-27] MEDS: fentaNYL Drip 2500mCg/250mlNS 250 ML IV ONE (10:29)
[2025-04-27] MEDS: PROPOFOL 100 ML IV ONE (10:29)
[2025-04-27] MEDS: fentaNYL Drip 2500mCg/250mlNS 250 ML IV SCH (10:30)
[2025-04-27] MEDS: MIDAZOLAM DRIP 50 mg/50mL 50 ML IV SCH (10:30)
[2025-04-27 10:36] LABS: Urine Protein, UAD TRACE (Negative)
--- NOTE | 2025-04-27 11:21 | DVH ---
EXAM: XY CHEST PORTABLE Indication: POST INTUBATED AND OG TUBE Technique: Single frontal view of the chest was obtained Comparison: XY CHEST PORTABLE on DOS: 04/27/25, XY CHEST XRAY 1 VIEW on DOS: 03/14/25, XY CHEST PORTABL E on DOS: 03/13/25, XY CHEST XRAY 1 VIEW on DOS: 03/12/25, XY CHEST PORTABLE on DOS: 11/13/24 FINDINGS: Lines and Tubes: Endotracheal tube projects 3 cm above the una. Enteric tube tip projects over th e expected region of the stomach. Right internal jugular central venous catheter tip projects over kelley perior vena cava. Lungs: Diffuse interstitial opacities. Low lung volumes. Trace left pleural effusion. No pneumothorax. Cardiomediastinal contours: Unremarkable Bones: No acute osseous abnormality. IMPRESSION: Lines and tubes are in appropriate position. Low lung volumes with diffuse interstitial opacities.
[2025-04-27 11:36] LABS: Base Excess -2.0 mmol/L (-2.0-3.0)
[2025-04-27] MEDS: CEFEPIME 2GM/50ML NS 50 ML IV ONE (11:37)
[2025-04-27] MEDS: SODIUM CHLORIDE 0.9% 1,000 ML IV ONE ×3 (12:30→16:00)
[2025-04-27] MEDS ORDERED: NITROGLYCERIN 0.4 MG SL TAB SL PRN (14:45)
[2025-04-27] MEDS ORDERED: MORPHINE SULFATE INJ 2 MG/ml SYRG IV PRN (14:45)
[2025-04-27] MEDS ORDERED: ONDANSETRON HCL 4 MG/2 ML VIAL IV PRN (14:45)
[2025-04-27] MEDS ORDERED: DOCUSATE SOD 100 MG CAP PO PRN (14:45)
--- NOTE | 2025-04-27 15:19 | DVHHP2 ---
History of Present Illness Reason for Visit: ALOC History of Present Illness Paul Montes De Oca is a 64-year-old male with past medical history of hypertension, hyperlipidemia, diabetes, UTI, bladder cancer, GERD, COPD, and ileal conduit, who was brought to the hospital for ALOC. Patient is typically bed bound. He was preparing for a colonoscopy for tomorrow. His caregiver states she cleaned him up about 0100 and he was normal. A little after 0400 she went in to clean him up and he was confused. He was answering questions but was very forgetful. His confusion worsened throughout the morning prompting her to call EMS. On arrival to ER he would barely open his eye when his name was called, no verbal responses. He was intubated shortly after arrival. Cardiovascular: HTN, hyperipidemia Pulmonary: COPD GI: GERD Heme/Onc: Cancer (bladder) Endocrine: Diabetes Past Surgical History: Other (Cystectomy) Smoke: No ALCOHOL: none Drugs: None Lives: with Family Domestic Violence: Neg Review of Systems Review of Systems Unable to obtain due to patient being intubated. Neurological: Other (ALOC) Allergies: Coded Allergies: No Known Drug Allergy (Verified Allergy, Unknown, 04/21/22) Medications Current Medications Medications Dose Ordered Sig/Simon Route Start Time Stop Time Status Last Admin Dose Admin Vancomycin HCl 0 ml @ 0 mls/hr UD IV 04/27/25 10:15 Hold Propofol 100 ml @ 2.454 mls/ hr Q24H IV 04/27/25 10:15 Midazolam HCl 50 ml @ 1 mls/hr Q24H IV 04/27/25 10:15 04/27/25 10:30 1 MLS/HR Fentanyl Citrate 250 ml @ 2.5 mls/hr Q24H IV 04/27/25 10:30 04/27/25 10:30 2.5 MLS/HR Exam Vital Signs Vital Signs Date Time Temp Pulse Resp B/P (MAP) Pulse Ox O2 Delivery O2 Flow Rate FiO2 04/27/25 14:01 120 16 114/81 (92) 93 40 04/27/25 12:30 99.9 99.9 04/27/25 09:30 Nasal Cannula* 3 General Appearance: Other (Sedated adn intubated) HEENT: Atraumatic Respiratory: Clear to auscultation, Normal air movement, Other (Intubated) Cardiovascular: Other (ST) Abdominal: Normal bowel sounds, Other (ileal conduit, abdomenis distended) Extremities: No clubbing, No cyanosis, No edema, Normal pulses Neuro: Other (Sedated) Labs/Xrays Labs Test 04/27/25 12:55 04/27/25 11:32 04/27/25 09:43 04/27/25 09:16 Range/Units Lactic Acid Level 2.6 *H 0.4-2.0 mmol/L Troponin I High Sensitivity 3 L </=54 ng/L Blood Gas Specimen Type Arterial Blood Gas Sample Site Right radial Blood Gas Patient Temperature 37.0 Arterial Blood Date Drawn [id number] Arterial Blood pH 7.345 L 7.350-7.450 Arterial Blood Partial Pressure CO2 44.9 35.0-48.0 mmHg Arterial Blood Partial Pressure O2 81.0 L 83.0-108.0 mmHg Arterial Blood HCO3 24.0 21.0-28.0 mmol/L Arterial Blood Oxygen Saturation 95.4 94.0-98.0 % Arterial Blood Base Excess -2.0 -2.0-3.0 mmol/L Arterial Blood Oxyhemoglobin 92.9 L 94.0-98.0 % Arterial Blood Carboxyhemoglobin 1.8 H 0.5-1.5 % Arterial Blood Methemoglobin 0.8 0.0-1.5 % Abhi Test Modified Blood Gas Total Hemoglobin 17.20 13.5-17.5 g/dL Blood Gas Set Respiration Rate 16.0 Blood Gas Modality Vent - ac FiO2 % 40.0 Blood Gas Tidal Volume 500.0 Blood Gas PEEP or CPAP 5.0 Urine Color Yellow Yellow Urine Clarity Clear Clear Urine pH 6.0 5.0-9.0 Urine Specific Blanket 1.019 1.001-1.035 Urine Protein Trace H Negative Urine Ketones Negative Negative Urine Blood Negative Negative /uL Urine Nitrite Negative Negative Urine Bilirubin Negative Negative Urine Urobilinogen 3 H Negative mg/dL Urine Leukocyte Esterase 1+ Negative /uL Urine RBC 3 0 - 3 /hpf Urine Microscopic WBC 12 H 0-3 /HPF Urine Squamous Epithelial Cells Few <5 /hpf Urine Bacteria Few H None Seen /hpf Urine Hyaline Casts Few 0 - 2 /lpf Urine Mucus Few None Seen Urine Glucose Normal Normal mg/dL White Blood Count 14.4 H 4.4-10.8 10^3/uL Red Blood Count 5.27 4.5-5.90 10^6/uL Hemoglobin 16.1 13.5-17.5 g/dL Hematocrit 48.9 41.0-53.0 % Mean Corpuscular Volume 92.8 80.0-100.0 fL Mean Corpuscular Hemoglobin 30.6 28.0-32.0 pg Mean Corpuscular Hemoglobin Concent 33.0 32.0-36.0 g/dL Red Cell Distribution Width 18.2 H 11.8-14.3 % Platelet Count 284 140-450 10^3/uL Mean Platelet Volume 6.7 L 6.9-10.8 fL Neutrophils (%) (Auto) 87.1 H 37.0-80.0 % Lymphocytes (%) (Auto) 3.0 L 10.0-50.0 % Monocytes (%) (Auto) 9.4 0.0-12.0 % Eosinophils (%) (Auto) 0.1 0.0-7.0 % Basophils (%) (Auto) 0.4 0.0-2.0 % Neutrophils # (Auto) 12.5 H 1.6-8.6 10 ^3/uL Lymphocytes # (Auto) 0.4 0.4-5.4 10 ^3/uL Monocytes # (Auto) 1.4 H 0-1.3 10 ^3/uL Eosinophils # (Auto) 0 0-0.8 10 ^3/uL Basophils # (Auto) 0.1 0-0.2 10 ^3/uL Nucleated Red Blood Cells 0.1 % Sodium Level 138 136-145 mmol/L Potassium Level 4.3 3.5-5.1 mmol/L Chloride Level 106 98-107 mmol/L Carbon Dioxide Level 23 20-31 mmol/L Anion Gap 9 5-15 Blood Urea Nitrogen 12 9-23 mg/dL Creatinine 0.75 0.700-1.30 mg/dL Glomerular Filtration Rate Calc 100 >90 mL/min BUN/Creatinine Ratio 16.0 10.0-20.0 Serum Glucose 173 H 74-106 mg/dL Calcium Level 8.7 8.7-10.4 mg/dL Total Bilirubin 0.4 0.2-1.0 mg/dL Aspartate Amino Transferase (AST) 15 13-40 U/L Alanine Aminotransferase (ALT) 24 7-40 U/L Alkaline Phosphatase 96 46-116 U/L B-Type Natriuretic Peptide 34.96 0-100 pg/mL Total Protein 7.0 5.7-8.2 g/dL Albumin 4.1 3.2-4.8 g/dL EXAM: CT HEAD WITHOUT CONTRAST FINDINGS: There is no evidence of acute intracranial hemorrhage, extra-axial collection, mass effect, midline shift, herniation or hydrocephalus. The ventricles, sulci and cisterns are age appropriate. The garcia-white differentiation is intact. The visualized paranasal sinuses and mastoid air cells are clear. The surrounding soft tissues and osseous structures are unremarkable. IMPRESSION: No acute intracranial abnormality. EXAM: XY CHEST PORTABLE FINDINGS: Lines and Tubes: Endotracheal tube projects 3 cm above the una. Enteric tube tip projects over the expected region of the stomach. Right internal jugular central venous catheter tip projects over superior vena cava. Lungs: Diffuse interstitial opacities. Low lung volumes. Trace left pleural effusion. No pneumothorax. Cardiomediastinal contours: Unremarkable Bones: No acute osseous abnormality. IMPRESSION: Lines and tubes are in appropriate position. Low lung volumes with diffuse interstitial opacities. SEPSIS Sepsis Screen Date sepsis recognized/suspect: Apr 27, 2025 Time Sepsis recognized/suspect: 1100 Recent Procedure: No On Antibiotic Therapy: No Respiratory Rate >20: No Heart Rate >90: Yes Temp<36 C (96.8 F) or >38.3 C: No SBP <90 or MAP <65 mmHG: No New Acute Mental Status Change: Yes Is the patient on CPAP, BIPAP,: Yes Physician Orders Chest Portable (04/27/25 09:05) Head Without Contrast (04/27/25 09:05) Electrocardigram (04/27/25 09:05) Blood Culture (04/27/25 09:05) Troponin-I Hs (04/27/25 12:05) Electrocardigram (04/27/25 10:05) Electrocardigram (04/27/25 12:05) Vancomycin Per Pharmacy (04/27/25 10:15) Propofol (Diprivan) (04/27/25 10:15) Midazolam Drip 50 Mg/50ml (Versed Drip 5 (04/27/25 10:15) Rass Sedation Scale Q1HR (04/27/25 10:11) Fentanyl Drip 2500mcg/250mlns (04/27/25 10:30) Rass Sedation Scale Q1HR (04/27/25 10:18) Communication Order (04/27/25 10:26) Ventilator Orders (04/27/25 10:32) Abg W/ Co-Ox (04/27/25 10:32) Respiratory Culture W/ Gs (04/27/25 10:32) Chest Portable (04/27/25 10:40) Drug Screen (04/27/25 13:31) Blood Alcohol (04/27/25 13:31) Insert Rectal Tube (04/27/25 14:21) Kub Abdomen Single View (04/27/25 14:36) Admit (04/27/25 14:37) Code Status (04/27/25 14:37) Ondansetron Hcl (Zofran) (04/27/25 14:45) Docusate Sodium Capsule (Colace Capsule) (04/27/25 14:45) Enoxaparin Sodium (Lovenox) (04/28/25 10:00) Complete Blood Count (04/28/25 04:00) Comprehensive Metabolic Panel (04/28/25 04:00) Npo (Nothing By Mouth) Diet (04/27/25 Dinner) Condition: Critical (04/27/25 14:37) Nitroglycerin Sublingual (Ntrostat Subli (04/27/25 14:45) Morphine Sulfate Injection (04/27/25 14:45) Stat Ekg For Chest Pain (04/27/25 14:37) Notify Of Changes From Base (04/27/25 14:37) Cylinder Inspector And Tester For 24 Hours (04/27/25 14:37) Emergency Dysrhythmia Protocol (04/27/25 14:37) Rhythm Strips Once Every Shift (04/27/25 14:37) Oxygen By Nasal Cannula (04/27/25 14:37) Urine Bacterial Culture (04/27/25 14:37) Vital Signs Date Time Temp Pulse Resp B/P (MAP) Pulse Ox O2 Delivery O2 Flow Rate FiO2 04/27/25 14:01 120 16 114/81 (92) 93 40 04/27/25 13:30 133/83 04/27/25 12:30 99.9 110 17 131/86 (101) 92 99.9 04/27/25 12:30 131/86 04/27/25 12:30 131/86 04/27/25 12:15 99.9 123 18 152/103 (119) 92 99.9 04/27/25 12:00 128 04/27/25 12:00 99.7 129 16 175/112 (133) 93 99.7 04/27/25 11:35 131 16 193/118 (143) 95 40 04/27/25 11:30 99.5 137 16 180/115 (136) 94 99.5 04/27/25 11:30 180/115 04/27/25 11:30 180/115 04/27/25 11:15 133 16 172/112 (132) 95 04/27/25 11:00 135 16 174/117 (136) 95 04/27/25 10:45 129 16 186/113 (137) 95 04/27/25 10:34 140 16 188/120 (142) 95 40 04/27/25 10:31 188/120 04/27/25 10:30 188/120 04/27/25 10:30 188/120 04/27/25 10:30 145 17 188/120 (142) 95 04/27/25 10:20 101/70 04/27/25 10:00 98 10 101/70 (80) 92 04/27/25 09:42 102/64 (77) 04/27/25 09:30 98 12 Nasal Cannula* 3 32 04/27/25 09:11 100 04/27/25 09:08 98.6 102 14 108/74 94 98.6 Laboratory Tests Test 04/27/25 09:16 04/27/25 12:55 Lactic Acid Level 3.5 mmol/L (0.4-2.0) *H 2.6 mmol/L (0.4-2.0) *H White Blood Count 14.4 10^3/uL (4.4-10.8) H Medications Medications Dose Ordered Sig/Simon Route Start Time Stop Time Status Last Admin Dose Admin Cefepime HCl 50 ml @ 12.5 mls/hr ONCE ONCE IV 04/27/25 10:15 04/27/25 14:14 DC 04/27/25 11:37 12.5 MLS/HR Etomidate 20 mg ONCE ONCE IV 04/27/25 10:30 04/27/25 10:32 DC 04/27/25 10:20 20 MG Fentanyl Citrate 250 ml @ 2.5 mls/hr Q24H IV 04/27/25 10:30 04/27/25 10:30 2.5 MLS/HR Midazolam HCl 50 ml @ 1 mls/hr Q24H IV 04/27/25 10:15 04/27/25 10:30 1 MLS/HR Rocuronium [place] 100 mg ONCE ONCE IV 04/27/25 10:30 04/27/25 10:32 DC 04/27/25 10:20 100 MG Sodium Chloride 1,000 ml @ 1,000 mls/hr Q1H ONCE IV 04/27/25 12:30 04/27/25 13:29 DC 04/27/25 12:30 1,000 MLS/HR Assessment/Plan Assessment/Plan Assessment: Acute metabolic encephalopathy, Lactic acidosis, Sepsis, Hyperglycemia, Diabetes, Hyperlipidemia, Plan: Admit to ICU, IV antibiotics, IV hydration, Blood cultures, Urine cultures, Sputum cultures, OG tube to LIS, Accu checks Q6 hours with sliding scale coverage, Home medications reconciled, Plan discussed with: Patient My Orders Orders - RUFINO ESQUIVEL TELE GROUT SEWER LINE REPAIRER Procedure Category Date Status Time Drug Screen LAB 04/27/25 Logged 13:31 Blood Alcohol LAB 04/27/25 Logged 13:31 Insert Rectal Tube ORDERS 04/27/25 Transmitted 14:21 Kub Abdomen Single XY 04/27/25 Logged View 14:36 Admit ADMIT 04/27/25 Transmitted 14:37 Code Status CODE 04/27/25 Transmitted 14:37 Ondansetron Hcl PHA 04/27/25 Transmitted (Zofran) 14:45 Docusate Sodium PHA 04/27/25 Transmitted Capsule (Colace 14:45 Enoxaparin Sodium PHA 04/28/25 Transmitted (Lovenox) 10:00 Complete Blood Count LAB 04/28/25 Verified 04:00 Comprehensive LAB 04/28/25 Verified Metabolic Panel 04:00 Npo (Nothing By DIET 04/27/25 Transmitted Mouth) Diet Dinner Condition: Critical PRABHU 04/27/25 In Process 14:37 Nitroglycerin PHA 04/27/25 Transmitted Sublingual (Ntrostat 14:45 Morphine Sulfate PHA 04/27/25 Transmitted Injection 14:45 Stat Ekg For Chest PRABHU 04/27/25 In Process Pain 14:37 Notify Of Changes PRABHU 04/27/25 Transmitted From Base 14:37 Cylinder Inspector And Tester For [facility] 04/27/25 Transmitted 24 Hours 14:37 Emergency Dysrhythmia [facility] 04/27/25 Transmitted Protocol 14:37 Rhythm Strips Once [facility] 04/27/25 Transmitted Every Shift 14:37 Oxygen By Nasal RT 04/27/25 Transmitted Cannula 14:37 Urine Bacterial ODETTE 04/27/25 Transmitted Culture 14:37 Date of Service: Apr 27, 2025 Billing Provider: RUFINO ESQUIVEL Common Visit Codes: [id number] INP/OBS CARE (HIGH) RUFINO ESQUIVEL Apr 27, 2025 15:19
--- NOTE | 2025-04-27 16:12 | DVH ---
Exam: XY KUB ABDOMEN SINGLE VIEW Indication: Distended Comparison: XY GASTROGRAFIN ENEMA SINGLE CON on DOS: 03/16/25, XY POST PROCEDURE ABD/PEL XRAY on DOS: 03/15/25, CT CT AB PEL WO CON-NO ORAL OR IV on DOS: 03/13/25, XY KUB ABDOMEN SINGLE VIEW on DOS: 5, CT CT AB PEL WO CON-NO ORAL OR IV on DOS: 03/25/24 Technique: 2 radiographic views of the abdomen. Findings: Enteric catheter in satisfactory position. Nonspecific bowel-gas pattern. There is no definite evidence for pneumoperitoneum. No abnormal calcifications noted. Impression: Nonspecific bowel-gas pattern. Enteric catheter in satisfactory position.
[2025-04-27] MEDS: VANCOMYCIN 1.5GM/250ML 250 ML IV ONE (17:43)
[2025-04-27] MEDS: [UNRECOGNIZED DRUG - OTHER] PO SCH (18:00)
[2025-04-27] MEDS ORDERED: DEXTROSE (50%) 50ML SYRG IV PRN (18:00)
[2025-04-27] MEDS: ACCU-CHEK COMFORT CURVE STRIP VI SCH (18:30)
[2025-04-27] MEDS: InsuLIN REG 1unit/0.01ml Soln (100units/ml) SC SCH (18:34)
[2025-04-27] MEDS: PROPOFOL 100 ML IV SCH (19:42)
[2025-04-27] MEDS: NOREPINEPHRINE 8 MG/250ML KIT 250 ML IV SCH (19:43)
[2025-04-27] MEDS: Simvastatin 10 MG PO SCH (21:35)
[2025-04-27] MEDS: GABAPENTIN 300 MG CAP PO SCH (21:35)
[2025-04-27] MEDS ORDERED: APIXABAN 5 MG TAB PO SCH (22:00)
[2025-04-28] VITALS (81 sets, daily range): BP systolic 84–138; BP diastolic 49–81; PULSE 4–129; RESP 14–18; TEMP 98.6–101.1; O2SAT 91–99
[2025-04-28] MEDS: VANCOMYCIN 750mg/150ml 150 ML IV SCH (05:06)
[2025-04-28 06:02] LABS: Base Excess -4.3 mmol/L (-2.0-3.0)
--- NOTE | 2025-04-28 06:10 | DVH ---
CHEST RADIOGRAPH Indication: ventilated Technique: Single frontal view of the chest was obtained COMPARISON: XY CHEST PORTABLE on DOS: 04/27/25, XY CHEST PORTABLE on DOS: 04/27/25, XY CHEST XRAY 1 VIE W on DOS: 03/14/25, XY CHEST PORTABLE on DOS: 03/13/25, XY CHEST XRAY 1 VIEW on DOS: 03/12/25 FINDINGS: Lines and Tubes: Slight interval advancement of the endotracheal tube such that the tip now projects approximately 1.8 cm above the level of the una. Remaining lines and tubes unchanged. Lungs: Small left pleural effusion. The lungs are otherwise clear. No pneumothorax. Cardiomediastinal contours: Unremarkable Bones: Unremarkable IMPRESSION: 1. Small left pleural effusion. 2. Slight interval advancement of endotracheal tube as above. Remaining lines and tubes unchanged.
[2025-04-28 06:36] LABS: Hematocrit 39.4 % (41.0-53.0); Hemoglobin 13.3 g/dL (13.5-17.5); Mean Corpuscular Hemoglobin 31.4 pg (28.0-32.0); Mean Corpuscular Volume 93.4 fL (80.0-100.0); Nucleated Red Blood Cells % 0.1 %
[2025-04-28 06:53] LABS: Alanine Aminotransferase 26 U/L (7-40); Alkaline Phosphatase 78 U/L (46-116); Anion Gap 8 (5-15); BUN/Creatinine Ratio 27.9 (10.0-20.0); Blood Urea Nitrogen 19 mg/dL (9-23); Carbon Dioxide 24 mmol/L (20-31); Potassium 3.8 mmol/L (3.5-5.1); Sodium 142 mmol/L (136-145); Total Protein 5.8 g/dL (5.7-8.2)
[2025-04-28 06:54] LABS: Albumin 3.3 g/dL (3.2-4.8)
[2025-04-28 06:55] LABS: Bilirubin, Total 0.4 mg/dL (0.2-1.0)
[2025-04-28 06:56] LABS: Calcium 7.8 mg/dL (8.7-10.4); Chloride 110 mmol/L (98-107); Glucose 168 mg/dL (74-106)
[2025-04-28] MEDS: APIXABAN 5 MG TAB PO SCH (10:00)
[2025-04-28] MEDS ORDERED: DULOXETINE HCL PO SCH (10:00)
[2025-04-28] MEDS: Fluticasone-Umeclidinium-Vilan (Trelegy Ellipta 100-62.5-25 Mcg/I IN SCH (10:00)
[2025-04-28] MEDS: ALBUTEROL SULF 2.5 MG/0.5ML(0.5%) NEB SOLN NEB SCH (10:18)
[2025-04-28] MEDS: IPRATROPIUM BROM 0.5 MG/2.5ML INH SOL NEB SCH ×2 (10:18→14:06)
[2025-04-28] MEDS: ENOXAPARIN SOD 40 MG/0.4 ML SYRINGE SC SCH (10:46)
[2025-04-28] MEDS: LEVOTHYROXINE SODIUM 112 MCG TAB PO SCH (11:01)
--- NOTE | 2025-04-28 12:00 | DVHPNRES ---
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 Two nights ago, he began a two-day colonoscopy prep. At approximately 11:45 PM, he was alert, oriented, and interacting normally. Around 1:00 AM, after consuming approximately seven glasses of the prep solution, he began feeling unwell and vomited a small amount. He was unable to continue the prep. By 6:30 AM, he became minimally responsive, only able to express fatigue. The gastroenterology team was contacted and advised immediate medical evaluation, prompting hospitalization. The patient has a history of recurrent hospitalizations for UTI (ESBL, Pseudomonas,), gastrointestinal issues, including gastric distension and colonic volvulus. He is afebrile, has no current ulcers, and receives regular repositioning to prevent complications. He lives with his sister, [id number], and mother, with his sister managing his medications and a home health nurse visiting three times weekly. Caregiver denies recent signs of infection or illness except mild constipation. On 03/14/25 Incomplete Colonoscopy with a reduction of volvulus and colonic decompression b/c near complete volvulus involving the sigmoid colon and the mid transverse colon area Past medical history: GBS diagnosed in 2020, history of bladder cancer s/p cystectomy ileal conduit for urinary drainage, left lower extremity + port thrombosis DVT status post IVC filter on Eliquis 5 mg b.i.d., type 2 diabetes mellitus, GERD, hypertension, dyslipidemia, COPD, volvulus Past surgical history: Ileal urine Conduit surgery Family history: Noncontributory Social history: Patient lives at home and has home health services which take care. Denies smoking, alcohol, drug use Home medication: Amlodipine 2.5 mg, apixaban 5 mg b.i.d., duloxetine 20 mg once daily, famotidine 20 mg HS, pancrelipase TIDWM, metoprolol tartrate 25 mg b.i.d. cyanocobalamin, cholecalciferol, baclofen 10 mg, gabapentin 400 mg TID, metformin 500 mg b.i.d. simvastatin 10 mg Allergies: No known allergies Patient seen and examined at the bedside. Unable to obtain ROS due to patient's clinical status currently intubated and on mechanical ventilation. Ordered pancultures, started on vancomycin and meropenem based on previous culture and sensitivity. Objective vital signs Vital Sign Date Time Temp Pulse Resp B/P (MAP) Pulse Ox O2 Delivery O2 Flow Rate FiO2 04/28/25 11:06 140/90 04/28/25 10:01 97 16 97 30 04/28/25 07:20 98.4 98.4 04/28/25 07:20 Mechanical Ventilator+ 04/27/25 20:00 0 Total Intake and Output 04/27/25 04/27/25 04/28/25 15:00 23:00 07:00 Intake Total 1037.5 ml 1800.0 ml 262.5 ml Output Total 1100 ml Balance 1037.5 ml 1800.0 ml -837.5 ml medications Current Medications Medications Dose Ordered Sig/Simon Route Start Time Stop Time Status Last Admin Dose Admin Vancomycin HCl 0 ml @ 0 mls/hr UD IV 04/27/25 10:15 Propofol 100 ml @ 2.454 mls/ hr Q24H IV 04/27/25 10:15 Midazolam HCl 50 ml @ 1 mls/hr Q24H IV 04/27/25 10:15 04/28/25 01:18 5 MLS/HR Fentanyl Citrate 250 ml @ 2.5 mls/hr Q24H IV 04/27/25 10:30 04/27/25 10:30 2.5 MLS/HR Apixaban 5 mg BID PO 04/27/25 22:00 UNV Levothyroxine Sodium 112 mcg DAILY PO 04/28/25 10:00 04/28/25 11:01 112 MCG Patient Own Medication 30 cap DAILY PO 04/28/25 10:00 UNV Norepinephrine Bitartrate 250 ml @ 3.75 mls/hr Q24H IV 04/27/25 17:45 04/28/25 10:11 3.75 MLS/HR Diagnostic Test (Pha) 1 strip Q6HR 04/27/25 18:00 04/28/25 05:37 1 STRIP Insulin Human Regular Q6HR SC 04/27/25 18:00 04/28/25 05:42 3 UNITS Dextrose 50 ml UD PRN IV 04/27/25 18:00 Vancomycin HCl 150 ml @ 200 mls/hr Q12H IV 04/28/25 06:00 04/28/25 05:06 200 MLS/HR Albuterol 2.5 mg Q4HR NEB 04/28/25 10:00 04/28/25 10:18 2.5 MG Ipratropium [place] 0.5 mg Q4HR NEB 04/28/25 10:00 Meropenem 50 ml @ 17 mls/hr Q8HR IV 04/28/25 14:00 Apixaban 5 mg BID PO 04/28/25 10:00 Enteral Nutritional Formula 1,000 ml 30ML/HR GT 04/28/25 09:45 Pantoprazole Sodium 40 mg DAILY IV 04/28/25 12:00 UNV Examination Pt is lying on bed, RASS - 3 General Appearance: Sedated, intubated on mechanical ventilation HEENT: Atraumatic, Mucous membranes moist/pink, right IJ line intact Respiratory: Clear to auscultation, Normal air movement, decreased air movement in left lower lobe Cardiovascular: Regular rate, Normal S1, Normal S2, No murmurs Abdominal: Active bowel sounds, Soft, mild distention with Ileal conduit it in place Extremities: Red, warm, mild swelling in bilateral knees Skin: as above Neuro: Deferred due to sedation and pupillary, gag reflex intact Nurse was there as insulation supervisor during examination laboratory and microbiology Laboratory Tests 04/28/25 05:31 Test 04/28/25 05:31 Range/Units Serum Glucose 168 H 74-106 mg/dL Microbiology Date/Time Source Procedure Growth Status 04/27/25 09:43 Voided Urine Urine Culture - Preliminary Resulted 04/27/25 09:16 Blood Blood Culture - Preliminary NO GROWTH AFTER 24 HOURS OF INCUBATION. Resulted Labs and/or images reviewed: Labs reviewed by me, Image(s) reviewed by me Problem List/Assessment/Plan Problem List/Assessment/Plan ONLINE CONTENT COORDINATOR # Acute metabolic encephalopathy likely from sepsis # Hx of GBS -sedated with a Versed, fentanyl -head CT showed no acute changes -delirium protocol as patient is off from sedation CVS # ? Septic shock-on pressors # HTN # HLD # chronic diastolic CHF -currently hypotension, monitor continuously -hold antihypertensives -ECHO 2023 LVEF 55% with grade 1 diastolic dysfunction RS # acute hypoxic respiratory failure likely from sepsis required intubation 04/27 # ? Aspiration pneumonia # COPD GI/Liver # GERD # colonic volvulus # Constipation Diet Acute complicated UTI HX of ESBL, Pseudomonas UTI Bladder cancers status post cystectomy with ileal conduit Metabolic/endo Type 2 DM with a recent HbA1c 5.7 Accu-Cheks and ISS MSK Bed-bound, bilateral lower extremity paralysis from GBS Right IJ line My Orders My Orders Orders - JANES BAHENA RESIDENT Procedure Category Date Status Time Albuterol Medneb PHA 04/28/25 In Process (Ventolin Medneb) 10:00 Ipratropium Medneb PHA 04/28/25 In Process (Atrovent Medneb) 10:00 Meropenem 1gm Ivpb PHA 04/28/25 In Process (Merrem 1gm/ Ns) 14:00 Thyroid Stimulating LAB 04/28/25 In Process Hormone 09:38 Vitamin B12 LAB 04/28/25 In Process 09:38 Rapid Influenza A&B LAB 04/28/25 In Process 09:38 PTPTT LAB 04/28/25 Logged 09:38 Magnesium LAB 04/28/25 In Process 09:38 Lactic Acid W/ Reflex LAB 04/28/25 Logged Order 09:38 Covid19 Antigen Tigist LAB 04/28/25 In Process 09:38 Apixaban (Eliquis) PHA 04/28/25 In Process 10:00 Nutritional PHA 04/28/25 In Process Supplements (Glucerna 09:45 Pantoprazole PHA 04/28/25 Logged (Protonix) 12:00 JANES BAHENA RESIDENT Apr 28, 2025 12:00
--- NOTE | 2025-04-28 12:08 | DVHPN2 ---
Subjective Patient intubated and sedated. Reviewed: Care Plan, H&P, Labs, Medications Changes from previous H/P or p: No Changes General: Per HPI Objective Vitals Vital Signs Date Time Temp Pulse Resp B/P (MAP) Pulse Ox O2 Delivery O2 Flow Rate FiO2 04/28/25 11:06 140/90 04/28/25 10:01 97 16 97 30 04/28/25 07:20 98.4 98.4 04/28/25 07:20 Mechanical Ventilator+ 04/27/25 20:00 0 Intake/Output Intake and Output 04/28/25 07:00 Intake Total 3100.0 ml Output Total 1100 ml Balance 2000.0 ml Intake Oral 50 ml IV Total 3050.0 ml Output Urine Total 1100 ml Stool Total 0 ml Gastric Drainage Total 0 ml General Appearance: moderate distress, Other (Intubated and sedated) HEENT: Atraumatic, PERRLA Cardiovascular: Normal S1, Normal S2 Abdomen: Normal bowel sounds, Soft, No tenderness, No hepatospenomegaly Extremities: No clubbing, No cyanosis, Normal pulses Skin: Dry, Intact Medications Current Medications Medications Dose Ordered Sig/Simon Route Start Time Stop Time Status Last Admin Dose Admin Vancomycin HCl 0 ml @ 0 mls/hr UD IV 04/27/25 10:15 Propofol 100 ml @ 2.454 mls/ hr Q24H IV 04/27/25 10:15 Midazolam HCl 50 ml @ 1 mls/hr Q24H IV 04/27/25 10:15 04/28/25 01:18 5 MLS/HR Fentanyl Citrate 250 ml @ 2.5 mls/hr Q24H IV 04/27/25 10:30 04/27/25 10:30 2.5 MLS/HR Apixaban 5 mg BID PO 04/27/25 22:00 UNV Levothyroxine Sodium 112 mcg DAILY PO 04/28/25 10:00 04/28/25 11:01 112 MCG Patient Own Medication 30 cap DAILY PO 04/28/25 10:00 UNV Norepinephrine Bitartrate 250 ml @ 3.75 mls/hr Q24H IV 04/27/25 17:45 04/28/25 10:11 3.75 MLS/HR Diagnostic Test (Pha) 1 strip Q6HR 04/27/25 18:00 04/28/25 05:37 1 STRIP Insulin Human Regular Q6HR SC 04/27/25 18:00 04/28/25 05:42 3 UNITS Dextrose 50 ml UD PRN IV 04/27/25 18:00 Vancomycin HCl 150 ml @ 200 mls/hr Q12H IV 04/28/25 06:00 04/28/25 05:06 200 MLS/HR Albuterol 2.5 mg Q4HR NEB 04/28/25 10:00 04/28/25 10:18 2.5 MG Ipratropium [place] 0.5 mg Q4HR NEB 04/28/25 10:00 Meropenem 50 ml @ 17 mls/hr Q8HR IV 04/28/25 14:00 Apixaban 5 mg BID PO 04/28/25 10:00 Enteral Nutritional Formula 1,000 ml 30ML/HR GT 04/28/25 09:45 Pantoprazole Sodium 40 mg DAILY IV 04/28/25 12:00 UNV Laboratory Results Laboratory Tests 04/28/25 05:31 Chemistry Test 04/28/25 05:31 Albumin 3.3 g/dL (3.2-4.8) Calcium Level 7.8 mg/dL (8.7-10.4) L Magnesium Level Pending Total Protein 5.8 g/dL (5.7-8.2) LFT Test 04/28/25 05:31 Alanine Aminotransferase (ALT) 26 U/L (7-40) Alkaline Phosphatase 78 U/L (46-116) Aspartate Amino Transferase (AST) 19 U/L (13-40) Total Bilirubin 0.4 mg/dL (0.2-1.0) HgA1c, TSH Test 04/28/25 05:31 Thyroid Stimulating Hormone (TSH) Pending Urinalysis Test 04/27/25 09:43 Urine Color Yellow (Yellow) Urine Clarity Clear (Clear) Urine pH 6.0 (5.0-9.0) Urine Specific [place] 1.019 (1.001-1.035) Urine Protein Trace (Negative) H Urine Ketones Negative (Negative) Urine Blood Negative /uL (Negative) Urine Nitrite Negative (Negative) Urine Bilirubin Negative (Negative) Urine Urobilinogen 3 mg/dL (Negative) H Urine Leukocyte Esterase 1+ /uL (Negative) Urine RBC 3 /hpf (0 - 3) Urine Microscopic WBC 12 /HPF (0-3) H Urine Squamous Epithelial Cells Few /hpf (<5) Urine Bacteria Few /hpf (None Seen) H Urine Hyaline Casts Few /lpf (0 - 2) Urine Mucus Few (None Seen) Urine Glucose Normal mg/dL (Normal) Blood Gas Results Test 04/28/25 05:54 Arterial Blood pH 7.371 (7.350-7.450) FiO2 % 30.0 Microbiology Microbiology Date/Time Source Procedure Growth Status 04/27/25 09:43 Voided Urine Urine Culture - Preliminary Resulted 04/27/25 09:16 Blood Blood Culture - Preliminary NO GROWTH AFTER 24 HOURS OF INCUBATION. 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 Critical care time spent with patient discussing and formulating plan of care: 40 minutes. This does not include time spent performing procedures. This medical document was created using an electronic medical record system with [employer] dictation system. Although this document has been carefully reviewed, there may still be some phonetic and typographical errors. These areas are purely typographical due to imperfections of the software programs, and do not reflect any compromise in the patient's medical care. Plan discussed with: Patient, Other (RN) My Orders Orders - SLAVA GALAN NP Procedure Category Date Status Time Basic Metabolic Panel LAB 04/29/25 Verified 04:00 Complete Blood Count LAB 04/29/25 Verified 04:00 Ipratropium Medneb PHA 04/28/25 Transmitted (Atrovent Medneb) 12:00 Levalbuterol Hcl PHA 04/28/25 Transmitted (Xopenex Medneb) 12:00 Date of Service: Apr 28, 2025 Billing Provider: SLAVA GALAN NP Common Visit Codes: [id number] CARE 30-74 MIN SLAVA GALAN NP Apr 28, 2025 12:08
[2025-04-28] MEDS: PANTOPRAZOLE 40 MG/10 ML VIAL INJ IV SCH (12:29)
[2025-04-28 12:46] LABS: COVID19 ANTIGEN SOFIA FIA NEGATIVE (NEGATIVE)
[2025-04-28 13:55] LABS: INR 1.03 (0.9-1.15); Partial Thromboplastin Time 29.0 SEC (24.5-34.5); Prothrombin Time 10.9 sec (9.3-11.8)
[2025-04-28] MEDS: MEROPENEM 1GM IVPB 50 ML IV SCH (14:00)
[2025-04-28] MEDS: LEVALBUTEROL HCL 1.25 MG/3 ML NEB NEB SCH (14:06)
[2025-04-28] MEDS ORDERED: ACETAMINOPHEN 650 mg PER 20.3 mL UD PO PRN (14:45)
[2025-04-29] VITALS (109 sets, daily range): BP systolic 86–184; BP diastolic 48–82; PULSE 73–128; RESP 9–28; TEMP 97.9–99.7; O2SAT 87–100
[2025-04-29 03:25] LABS: Hematocrit 37.9 % (41.0-53.0); Hemoglobin 12.6 g/dL (13.5-17.5); Mean Corpuscular Hemoglobin 31.1 pg (28.0-32.0); Mean Corpuscular Volume 93.4 fL (80.0-100.0); Nucleated Red Blood Cells % 0.0 %
[2025-04-29 03:34] LABS: Anion Gap 9 (5-15); Carbon Dioxide 23 mmol/L (20-31); Potassium 3.7 mmol/L (3.5-5.1); Sodium 143 mmol/L (136-145)
[2025-04-29 03:35] LABS: Chloride 111 mmol/L (98-107)
[2025-04-29 03:40] LABS: BUN/Creatinine Ratio 25.4 (10.0-20.0); Blood Urea Nitrogen 16 mg/dL (9-23)
[2025-04-29 03:55] LABS: Calcium 8.6 mg/dL (8.7-10.4); Glucose 192 mg/dL (74-106)
--- NOTE | 2025-04-29 05:15 | DVH ---
CHEST RADIOGRAPH Indication: intubated Technique: Single frontal view of the chest was obtained Comparison: XY CHEST PORTABLE on DOS: 04/28/25 FINDINGS: Lines and Tubes: The endotracheal tube terminates 3.8 cm above the una. The enteric tube terminate s in the stomach. Right central venous catheter terminates in the superior vena cava. Lungs: No focal consolidation. Pleura: Left pleural effusion. No pneumothorax. Cardiomediastinal contours: Cardiomegaly. Bones: No acute osseous abnormality. IMPRESSION: 1. Stable position of the support lines and tubes. 2. Left pleural effusion.
[2025-04-29 06:57] LABS: Base Excess -2.7 mmol/L (-2.0-3.0)
--- NOTE | 2025-04-29 10:03 | DVHPN2 ---
Subjective Patient intubated and sedated. Reviewed: Care Plan, H&P, Labs, Medications Changes from previous H/P or p: No Changes General: Per HPI Objective Vitals Vital Signs Date Time Temp Pulse Resp B/P (MAP) Pulse Ox O2 Delivery O2 Flow Rate FiO2 04/29/25 09:47 85 16 105/62 (76) 95 30 04/29/25 08:00 Mechanical Ventilator+ 0 04/29/25 08:00 98.2 98.2 Intake/Output Intake and Output 04/29/25 07:00 Intake Total 990.75 ml Output Total 975 ml Balance 15.75 ml Intake Oral 50 ml IV Total 940.75 ml Output Urine Total 975 ml General Appearance: moderate distress, Other (Intubated and sedated) HEENT: Atraumatic, PERRLA Cardiovascular: Normal S1, Normal S2 Abdomen: Normal bowel sounds, Soft, No tenderness, No hepatospenomegaly Extremities: No clubbing, No cyanosis, Normal pulses Skin: Dry, Intact Psych/Mental Status: Other (Unable to assess) Medications Current Medications Medications Dose Ordered Sig/Simon Route Start Time Stop Time Status Last Admin Dose Admin Vancomycin HCl 0 ml @ 0 mls/hr UD IV 04/27/25 10:15 Propofol 100 ml @ 2.454 mls/ hr Q24H IV 04/27/25 10:15 Midazolam HCl 50 ml @ 1 mls/hr Q24H IV 04/27/25 10:15 04/29/25 09:41 5 MLS/HR Fentanyl Citrate 250 ml @ 2.5 mls/hr Q24H IV 04/27/25 10:30 04/29/25 04:50 10 MLS/HR Apixaban 5 mg BID PO 04/27/25 22:00 UNV Levothyroxine Sodium 112 mcg DAILY PO 04/28/25 10:00 04/28/25 11:01 112 MCG Patient Own Medication 30 cap DAILY PO 04/28/25 10:00 UNV Norepinephrine Bitartrate 250 ml @ 3.75 mls/hr Q24H IV 04/27/25 17:45 04/28/25 10:11 3.75 MLS/HR Diagnostic Test (Pha) 1 strip Q6HR 04/27/25 18:00 04/29/25 06:00 1 STRIP Insulin Human Regular Q6HR SC 04/27/25 18:00 04/29/25 06:00 3 UNITS Dextrose 50 ml UD PRN IV 04/27/25 18:00 Vancomycin HCl 150 ml @ 200 mls/hr Q12H IV 04/28/25 06:00 04/28/25 18:50 200 MLS/HR Meropenem 50 ml @ 17 mls/hr Q8HR IV 04/28/25 14:00 04/29/25 06:15 17 MLS/HR Apixaban 5 mg BID PO 04/28/25 10:00 04/28/25 22:11 5 MG Enteral Nutritional Formula 1,000 ml 30ML/HR GT 04/28/25 09:45 Pantoprazole Sodium 40 mg DAILY IV 04/28/25 12:00 04/28/25 12:29 40 MG Ipratropium [place] 0.5 mg Q6HR NEB 04/28/25 12:00 04/29/25 05:38 0.5 MG Levalbuterol HCl 0.625 mg Q6HR NEB 04/28/25 12:00 04/29/25 05:38 0.625 MG Acetaminophen 650 mg Q6HP PRN PO 04/28/25 14:45 Laboratory Results Laboratory Tests 04/29/25 02:41 Chemistry Test 04/29/25 02:41 Calcium Level 8.6 mg/dL (8.7-10.4) L Coagulation Test 04/28/25 13:14 Prothrombin Time 10.9 sec (9.3-11.8) Prothrombin Time INR 1.03 (0.9-1.15) Activated Partial Thromboplast Time 29.0 SEC (24.5-34.5) Urinalysis Test 04/27/25 09:43 Urine Color Yellow (Yellow) Urine Clarity Clear (Clear) Urine pH 6.0 (5.0-9.0) Urine Specific [place] 1.019 (1.001-1.035) Urine Protein Trace (Negative) H Urine Ketones Negative (Negative) Urine Blood Negative /uL (Negative) Urine Nitrite Negative (Negative) Urine Bilirubin Negative (Negative) Urine Urobilinogen 3 mg/dL (Negative) H Urine Leukocyte Esterase 1+ /uL (Negative) Urine RBC 3 /hpf (0 - 3) Urine Microscopic WBC 12 /HPF (0-3) H Urine Squamous Epithelial Cells Few /hpf (<5) Urine Bacteria Few /hpf (None Seen) H Urine Hyaline Casts Few /lpf (0 - 2) Urine Mucus Few (None Seen) Urine Glucose Normal mg/dL (Normal) Blood Gas Results Test 04/29/25 06:34 Arterial Blood pH 7.372 (7.350-7.450) FiO2 % 30.0 Microbiology Microbiology Date/Time Source Procedure Growth Status 04/27/25 23:08 Nose MRSA Screen - Final Complete 04/27/25 10:25 Sputum Gram Stain - Final Resulted 04/27/25 10:25 Sputum Respiratory Culture - Preliminary Resulted 04/27/25 09:43 Voided Urine Urine Culture - Preliminary Resulted 04/27/25 09:16 Blood Blood Culture - Preliminary NO GROWTH AFTER 48 HOURS OF INCUBATION. 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 Currently on 4 micrograms/minute -continue current sedation -continue IV antibiotic therapy with Meropenem. DC vancomycin -continue tube feeding -bronchodilators: Continue Xopenex and Atrovent -PUD, DVT prophylaxis -repeat labs, chest x-ray, ABG in a.m. -plan of care discussed with the patient's family who were bedside. All questions answered. Critical care time spent with patient discussing and formulating plan of care: 40 minutes. This does not include time spent performing procedures. This medical document was created using an electronic medical record system with [employer] dictation system. Although this document has been carefully reviewed, there may still be some phonetic and typographical errors. These areas are purely typographical due to imperfections of the software programs, and do not reflect any compromise in the patient's medical care. Plan discussed with: Patient, Other (RN) My Orders Orders - SLAVA GALAN NP Procedure Category Date Status Time Ipratropium Medneb PHA 04/28/25 In Process (Atrovent Medneb) 12:00 Levalbuterol Hcl PHA 04/28/25 In Process (Xopenex Medneb) 12:00 Acetaminophen PHA 04/28/25 In Process Solution Oral 14:45 Mrsa Screen ODETTE 04/28/25 In Process 14:00 Chest Portable XY 04/29/25 Resulted 04:00 Abg W/ Co-Ox RT 04/29/25 Logged 05:22 * Wound Consult CONS 04/29/25 Transmitted Basic Metabolic Panel LAB 04/30/25 Verified 05:00 Basic Metabolic Panel LAB 05/01/25 Verified 05:00 Basic Metabolic Panel LAB 05/02/25 Verified 05:00 Complete Blood Count LAB 04/30/25 Verified 05:00 Complete Blood Count LAB 05/01/25 Verified 05:00 Complete Blood Count LAB 05/02/25 Verified 05:00 Chest Portable XY 04/30/25 Verified 04:00 Date of Service: Apr 29, 2025 Billing Provider: SLAVA GALAN NP Common Visit Codes: [id number] INP/OBS CARE(HIGH) SLAVA GALAN NP Apr 29, 2025 10:03
--- NOTE | 2025-04-29 19:31 | ECG ---
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
[2025-04-29] MEDS: Glucerna 1.2 Cal 1Liter BOTTLE GT SCH (21:05)
[2025-04-30] VITALS (111 sets, daily range): BP systolic 84–169; BP diastolic 54–99; PULSE 71–143; RESP 15–24; TEMP 98.2–100.2; O2SAT 93–100
[2025-04-30 04:50] LABS: Anion Gap 8 (5-15); Carbon Dioxide 25 mmol/L (20-31)
[2025-04-30 04:51] LABS: Hematocrit 35.6 % (41.0-53.0); Hemoglobin 11.8 g/dL (13.5-17.5); Mean Corpuscular Hemoglobin 31.2 pg (28.0-32.0); Mean Corpuscular Volume 93.7 fL (80.0-100.0); Nucleated Red Blood Cells % 0.0 %
[2025-04-30 04:54] LABS: Calcium 8.6 mg/dL (8.7-10.4); Chloride 113 mmol/L (98-107); Potassium 3.5 mmol/L (3.5-5.1); Sodium 146 mmol/L (136-145)
[2025-04-30 04:55] LABS: BUN/Creatinine Ratio 22.7 (10.0-20.0); Blood Urea Nitrogen 15 mg/dL (9-23); Magnesium 2.2 mg/dL (1.6-2.6)
[2025-04-30 05:06] LABS: Glucose 134 mg/dL (74-106)
--- NOTE | 2025-04-30 05:43 | DVH ---
CHEST RADIOGRAPH Indication: Device placement Technique: Single frontal view of the chest was obtained COMPARISON: XY CHEST PORTABLE on DOS: 04/29/25, XY CHEST PORTABLE on DOS: 04/28/25, XY CHEST PORTABLE o n DOS: 04/27/25, XY CHEST PORTABLE on DOS: 04/27/25, XY CHEST XRAY 1 VIEW on DOS: 03/14/25 FINDINGS: Lines and Tubes: Slight interval advancement of the endotracheal tube such that the tip now projects approximately 2.8 cm above the level of the una. Remaining lines and tubes unchanged. Lungs: Stable trace bilateral pleural effusions and minimal right basilar atelectasis. No evidence of focal consolidation. No pneumothorax. Cardiomediastinal contours: Unremarkable Bones: Unremarkable IMPRESSION: 1. Stable trace bilateral pleural effusions and minimal right basilar atelectasis. 2. Slight interval advancement of endotracheal tube such that the tip now projects approximately 2.8 cm above the level of the una. Remaining lines and tubes unchanged.
[2025-04-30 06:48] LABS: Base Excess -3.1 mmol/L (-2.0-3.0)
[2025-04-30] MEDS: DEXMEDETOMIDINE HCL IN D5W 100 ML IV SCH (11:00)
--- NOTE | 2025-04-30 11:20 | DVHPN2 ---
Subjective Patient intubated and sedated. Reviewed: Care Plan, H&P, Labs, Medications Changes from previous H/P or p: No Changes General: Per HPI Objective Vitals Vital Signs Date Time Temp Pulse Resp B/P (MAP) Pulse Ox O2 Delivery O2 Flow Rate FiO2 04/30/25 10:30 105 16 107/60 (76) 96 04/30/25 09:30 30 04/30/25 08:00 98.2 98.2 04/30/25 08:00 Mechanical Ventilator+ 04/29/25 20:00 0 Intake/Output Intake and Output 04/30/25 06:59 Intake Total 739.75 ml Output Total 925 ml Balance -185.25 ml Intake Oral 20 ml IV Total 654.75 ml Tube Feeding 65 ml Output Urine Total 925 ml General Appearance: moderate distress, Other (Intubated and sedated) HEENT: Atraumatic, PERRLA Cardiovascular: Normal S1, Normal S2 Abdomen: Normal bowel sounds, Soft, No tenderness, No hepatospenomegaly Extremities: No clubbing, No cyanosis, Normal pulses Skin: Dry, Intact Psych/Mental Status: Other (Unable to assess) Medications Current Medications Medications Dose Ordered Sig/Simon Route Start Time Stop Time Status Last Admin Dose Admin Vancomycin HCl 0 ml @ 0 mls/hr UD IV 04/27/25 10:15 Propofol 100 ml @ 2.454 mls/ hr Q24H IV 04/27/25 10:15 Midazolam HCl 50 ml @ 1 mls/hr Q24H IV 04/27/25 10:15 04/30/25 01:36 5 MLS/HR Fentanyl Citrate 250 ml @ 2.5 mls/hr Q24H IV 04/27/25 10:30 04/30/25 01:37 10 MLS/HR Apixaban 5 mg BID PO 04/27/25 22:00 UNV Levothyroxine Sodium 112 mcg DAILY PO 04/28/25 10:00 04/29/25 10:46 112 MCG Patient Own Medication 30 cap DAILY PO 04/28/25 10:00 UNV Norepinephrine Bitartrate 250 ml @ 3.75 mls/hr Q24H IV 04/27/25 17:45 04/30/25 01:36 3.75 MLS/HR Diagnostic Test (Pha) 1 strip Q6HR 04/27/25 18:00 04/30/25 06:00 1 STRIP Insulin Human Regular Q6HR SC 04/27/25 18:00 04/29/25 06:00 3 UNITS Dextrose 50 ml UD PRN IV 04/27/25 18:00 Vancomycin HCl 150 ml @ 200 mls/hr Q12H IV 04/28/25 06:00 04/30/25 05:07 200 MLS/HR Meropenem 50 ml @ 17 mls/hr Q8HR IV 04/28/25 14:00 04/30/25 05:07 17 MLS/HR Apixaban 5 mg BID PO 04/28/25 10:00 04/29/25 21:05 5 MG Enteral Nutritional Formula 1,000 ml 30ML/HR GT 04/28/25 09:45 04/29/25 21:05 1,000 ML Pantoprazole Sodium 40 mg DAILY IV 04/28/25 12:00 04/29/25 10:46 40 MG Ipratropium [place] 0.5 mg Q6HR NEB 04/28/25 12:00 04/30/25 06:24 0.5 MG Levalbuterol HCl 0.625 mg Q6HR NEB 04/28/25 12:00 04/30/25 06:24 0.625 MG Acetaminophen 650 mg Q6HP PRN PO 04/28/25 14:45 Laboratory Results Laboratory Tests 04/30/25 03:18 Chemistry Test 04/30/25 03:18 Calcium Level 8.6 mg/dL (8.7-10.4) L Magnesium Level 2.2 mg/dL (1.6-2.6) Urinalysis Test 04/27/25 09:43 Urine Color Yellow (Yellow) Urine Clarity Clear (Clear) Urine pH 6.0 (5.0-9.0) Urine Specific [place] 1.019 (1.001-1.035) Urine Protein Trace (Negative) H Urine Ketones Negative (Negative) Urine Blood Negative /uL (Negative) Urine Nitrite Negative (Negative) Urine Bilirubin Negative (Negative) Urine Urobilinogen 3 mg/dL (Negative) H Urine Leukocyte Esterase 1+ /uL (Negative) Urine RBC 3 /hpf (0 - 3) Urine Microscopic WBC 12 /HPF (0-3) H Urine Squamous Epithelial Cells Few /hpf (<5) Urine Bacteria Few /hpf (None Seen) H Urine Hyaline Casts Few /lpf (0 - 2) Urine Mucus Few (None Seen) Urine Glucose Normal mg/dL (Normal) Blood Gas Results Test 04/30/25 06:35 Arterial Blood pH 7.381 (7.350-7.450) FiO2 % 30.0 Microbiology Microbiology Date/Time Source Procedure Growth Status 04/28/25 14:00 Nose MRSA Screen - Final Complete 04/27/25 10:25 Sputum Gram Stain - Final Complete 04/27/25 10:25 Respiratory Culture - Final Methicillin Resistant S.aureus Complete 04/27/25 09:43 Voided Urine Urine Culture - Final Complete 04/27/25 09:16 Blood Blood Culture - Preliminary NO GROWTH AFTER 72 HOURS OF INCUBATION. 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 Wean sedation. CPAP trial when appropriate -continue IV antibiotic therapy with Meropenem. Vancomycin -continue tube feeding -bronchodilators: Continue Xopenex and Atrovent -PUD, DVT prophylaxis -repeat labs, chest x-ray, ABG in a.m. -plan of care discussed with the patient's family who were bedside. All questions answered. Critical care time spent with patient discussing and formulating plan of care: 40 minutes. This does not include time spent performing procedures. This medical document was created using an electronic medical record system with [employer] dictation system. Although this document has been carefully reviewed, there may still be some phonetic and typographical errors. These areas are purely typographical due to imperfections of the software programs, and do not reflect any compromise in the patient's medical care. Plan discussed with: Patient, Other (RN) My Orders Orders - SLAVA GALAN ACCESS LIAISON Procedure Category Date Status Time Apply: PRABHU 04/29/25 In Process 18:42 Apply Z-Guard PRABHU 04/29/25 In Process 18:42 Abg W/ Co-Ox RT 04/30/25 Logged 04:00 Cpap/Sed Vacation Med ORDERS 04/30/25 Transmitted Weaning 08:11 Cpap/Sed Vacation Med ORDERS 04/30/25 Transmitted Weaning 08:11 Urine Bacterial ODETTE 04/30/25 Logged Culture 08:11 Date of Service: Apr 30, 2025 Billing Provider: SLAVA GALAN NP Common Visit Codes: [id number] INP/OBS CARE(HIGH) SLAVA GALAN NP Apr 30, 2025 11:20
[2025-04-30] MEDS ORDERED: VANCOMYCIN 750MG KIT 100 ML IV SCH (12:30)
[2025-04-30] MEDS: VANCOMYCIN 750MG KIT 100 ML IV SCH (18:41)
[2025-05-01] VITALS (85 sets, daily range): BP systolic 91–175; BP diastolic 57–102; PULSE 72–107; RESP 9–26; TEMP 98.2–99.4; O2SAT 88–100
[2025-05-01 04:06] LABS: Hematocrit 33.6 % (41.0-53.0); Hemoglobin 11.2 g/dL (13.5-17.5); Mean Corpuscular Hemoglobin 31.1 pg (28.0-32.0); Mean Corpuscular Volume 92.9 fL (80.0-100.0); Nucleated Red Blood Cells % 0.0 %
[2025-05-01 04:21] LABS: Calcium 9.0 mg/dL (8.7-10.4)
[2025-05-01 04:22] LABS: Anion Gap 9 (5-15); Carbon Dioxide 27 mmol/L (20-31)
[2025-05-01 04:23] LABS: Chloride 112 mmol/L (98-107); Potassium 3.5 mmol/L (3.5-5.1); Sodium 148 mmol/L (136-145)
[2025-05-01 04:28] LABS: BUN/Creatinine Ratio 24.2 (10.0-20.0); Blood Urea Nitrogen 16 mg/dL (9-23)
[2025-05-01 04:35] LABS: Glucose 131 mg/dL (74-106)
--- NOTE | 2025-05-01 05:39 | DVH ---
CHEST RADIOGRAPH Indication: VENTILATION Technique: Single frontal view of the chest was obtained COMPARISON: XY CHEST PORTABLE on DOS: 04/30/25, XY CHEST PORTABLE on DOS: 04/29/25, XY CHEST PORTABLE o n DOS: 04/28/25, XY CHEST PORTABLE on DOS: 04/27/25, XY CHEST PORTABLE on DOS: 04/27/25 FINDINGS: Lines and Tubes: Unchanged. Lungs: Clear Pleura: No effusion. No pneumothorax. Cardiomediastinal contours: Unremarkable Bones: Unremarkable IMPRESSION: 1. No acute disease. 2. Lines and tubes unchanged.
--- NOTE | 2025-05-01 08:47 | DVHPN2 ---
Subjective Patient intubated and sedated. Reviewed: Care Plan, H&P, Labs, Medications Changes from previous H/P or p: No Changes General: Per HPI Objective Vitals Vital Signs Date Time Temp Pulse Resp B/P (MAP) Pulse Ox O2 Delivery O2 Flow Rate FiO2 05/01/25 08:15 99.4 86 16 109/67 (81) 96 99.4 05/01/25 08:06 30 05/01/25 07:56 Mechanical Ventilator+ 04/29/25 20:00 0 Intake/Output Intake and Output 05/01/25 07:00 Intake Total 1065.729 ml Output Total 1177 ml Balance -111.271 ml Intake Oral 120 ml IV Total 330.729 ml Tube Feeding 615 ml Output Urine Total 1175 ml Stool Total 2 ml General Appearance: Alert, mild distress, Other (Intubated and sedated) HEENT: Atraumatic, PERRLA Cardiovascular: Normal S1, Normal S2 Abdomen: Normal bowel sounds, Soft, No tenderness, No hepatospenomegaly Musculoskeletal: Weak motor strength RUE, Weak motor strength LUE, Weak motor strength RLE, Weak motor strength LLE Extremities: No clubbing, No cyanosis, Normal pulses Neuro: Cranial nerves 3-12 NL (Unable to assess) Skin: Dry, Intact Psych/Mental Status: Other (Unable to assess) Medications Current Medications Medications Dose Ordered Sig/Simon Route Start Time Stop Time Status Last Admin Dose Admin Vancomycin HCl 0 ml @ 0 mls/hr UD IV 04/27/25 10:15 Propofol 100 ml @ 2.454 mls/ hr Q24H IV 04/27/25 10:15 04/30/25 19:25 2.454 MLS/HR Midazolam HCl 50 ml @ 1 mls/hr Q24H IV 04/27/25 10:15 04/30/25 01:36 5 MLS/HR Fentanyl Citrate 250 ml @ 2.5 mls/hr Q24H IV 04/27/25 10:30 04/30/25 01:37 10 MLS/HR Apixaban 5 mg BID PO 04/27/25 22:00 UNV Levothyroxine Sodium 112 mcg DAILY PO 04/28/25 10:00 04/30/25 11:18 112 MCG Patient Own Medication 30 cap DAILY PO 04/28/25 10:00 UNV Norepinephrine Bitartrate 250 ml @ 3.75 mls/hr Q24H IV 04/27/25 17:45 04/30/25 01:36 3.75 MLS/HR Diagnostic Test (Pha) 1 strip Q6HR 04/27/25 18:00 05/01/25 05:23 1 STRIP Insulin Human Regular Q6HR SC 04/27/25 18:00 05/01/25 05:28 2 UNITS Dextrose 50 ml UD PRN IV 04/27/25 18:00 Meropenem 50 ml @ 17 mls/hr Q8HR IV 04/28/25 14:00 05/01/25 05:28 17 MLS/HR Apixaban 5 mg BID PO 04/28/25 10:00 04/30/25 21:34 5 MG Enteral Nutritional Formula 1,000 ml 30ML/HR GT 04/28/25 09:45 04/30/25 23:54 1,000 ML Pantoprazole Sodium 40 mg DAILY IV 04/28/25 12:00 04/30/25 11:18 40 MG Ipratropium [place] 0.5 mg Q6HR NEB 04/28/25 12:00 05/01/25 05:54 0.5 MG Levalbuterol HCl 0.625 mg Q6HR NEB 04/28/25 12:00 05/01/25 05:54 0.625 MG Acetaminophen 650 mg Q6HP PRN PO 04/28/25 14:45 Vancomycin HCl 100 ml @ 100 mls/hr Q12H IV 04/30/25 18:00 05/01/25 05:13 100 MLS/HR Laboratory Results Laboratory Tests 05/01/25 03:09 Chemistry Test 05/01/25 03:09 Calcium Level 9.0 mg/dL (8.7-10.4) Magnesium Level 2.1 mg/dL (1.6-2.6) Urinalysis Test 04/27/25 09:43 Urine Color Yellow (Yellow) Urine Clarity Clear (Clear) Urine pH 6.0 (5.0-9.0) Urine Specific [place] 1.019 (1.001-1.035) Urine Protein Trace (Negative) H Urine Ketones Negative (Negative) Urine Blood Negative /uL (Negative) Urine Nitrite Negative (Negative) Urine Bilirubin Negative (Negative) Urine Urobilinogen 3 mg/dL (Negative) H Urine Leukocyte Esterase 1+ /uL (Negative) Urine RBC 3 /hpf (0 - 3) Urine Microscopic WBC 12 /HPF (0-3) H Urine Squamous Epithelial Cells Few /hpf (<5) Urine Bacteria Few /hpf (None Seen) H Urine Hyaline Casts Few /lpf (0 - 2) Urine Mucus Few (None Seen) Urine Glucose Normal mg/dL (Normal) Microbiology Microbiology Date/Time Source Procedure Growth Status 04/28/25 14:00 Nose MRSA Screen - Final Complete 04/27/25 10:25 Sputum Gram Stain - Final Complete 04/27/25 10:25 Respiratory Culture - Final Methicillin Resistant S.aureus Complete 04/27/25 09:43 Voided Urine Urine Culture - Final Complete 04/27/25 09:16 Blood Blood Culture - Preliminary NO GROWTH AFTER 72 HOURS OF INCUBATION. 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 Able to follow some commands. Hemodynamically stable. Spontaneous breathing trial today. -continue IV antibiotic therapy with Meropenem. Vancomycin -continue tube feeding -bronchodilators: Continue Xopenex and Atrovent -repeat urine culture pending -PUD, DVT prophylaxis -repeat labs, chest x-ray, ABG in a.m. -discussed plan care with the patient and sister over the telephone. All questions answered. Critical care time spent with patient discussing and formulating plan of care: 40 minutes. This does not include time spent performing procedures. This medical document was created using an electronic medical record system with [employer] dictation system. Although this document has been carefully reviewed, there may still be some phonetic and typographical errors. These areas are purely typographical due to imperfections of the software programs, and do not reflect any compromise in the patient's medical care. Plan discussed with: Patient, Other (RN, Sister) My Orders Orders - SLAVA GALAN MORTAR [employer]KER Procedure Category Date Status Time Dexmedetomidine Hcl PHA 04/30/25 In Process In D5w (Precedex) 11:00 Communication Order ORDERS 04/30/25 Transmitted 11:00 Chest Portable XY 05/01/25 Resulted 04:00 Abg W/ Co-Ox RT 05/01/25 Logged 04:00 Cpap Trial For Am ORDERS 05/01/25 Transmitted 08:09 Cpap/Sed Vacation Med ORDERS 05/01/25 Transmitted Weaning 08:09 Date of Service: May 01, 2025 Billing Provider: SLAVA GALAN NP Common Visit Codes: [id number] CARE 30-74 MIN SLAVA GALAN NP May 01, 2025 08:47
[2025-05-01 10:25] LABS: Base Excess -0.5 mmol/L (-2.0-3.0)
[2025-05-02] VITALS (40 sets, daily range): BP systolic 118–161; BP diastolic 65–99; PULSE 70–105; RESP 7–20; TEMP 98.2–98.4; O2SAT 72–100
[2025-05-02 03:05] LABS: Anion Gap 9 (5-15); Calcium 8.8 mg/dL (8.7-10.4); Carbon Dioxide 29 mmol/L (20-31); Hematocrit 35.4 % (41.0-53.0); Hemoglobin 11.9 g/dL (13.5-17.5); Mean Corpuscular Hemoglobin 31.4 pg (28.0-32.0); Mean Corpuscular Volume 93.3 fL (80.0-100.0); Nucleated Red Blood Cells % 0.1 %
[2025-05-02 03:10] LABS: BUN/Creatinine Ratio 23.6 (10.0-20.0); Blood Urea Nitrogen 13 mg/dL (9-23); Chloride 111 mmol/L (98-107); Glucose 102 mg/dL (74-106); Potassium 3.1 mmol/L (3.5-5.1); Sodium 149 mmol/L (136-145)
[2025-05-02] MEDS: POTASSIUM CHL 20MEQ/100ML 100 ML IV SCH (07:42)
--- NOTE | 2025-05-02 10:50 | DVHPN2 ---
Subjective Patient denies any symptoms Reviewed: Care Plan, H&P, Labs, Medications Changes from previous H/P or p: No Changes General: Per HPI Objective Vitals Vital Signs Date Time Temp Pulse Resp B/P (MAP) Pulse Ox O2 Delivery O2 Flow Rate FiO2 05/02/25 08:00 98.4 79 8 136/73 (94) 99 98.4 05/02/25 08:00 Simple Mask* 6 50 Intake/Output Intake and Output 05/02/25 07:00 Intake Total 161.588 ml Output Total 1701 ml Balance -1539.412 ml Intake Oral 0 ml IV Total 161.588 ml Tube Feeding 0 ml Output Urine Total 1700 ml Stool Total 1 ml General Appearance: Alert, Oriented X3, Cooperative, mild distress HEENT: Atraumatic, PERRLA Cardiovascular: Normal S1, Normal S2 Abdomen: Normal bowel sounds, Soft, No tenderness, No hepatospenomegaly Musculoskeletal: Weak motor strength RUE, Weak motor strength LUE, Weak motor strength RLE, Weak motor strength LLE Extremities: No clubbing, No cyanosis, Normal pulses Neuro: Cranial nerves 3-12 NL (Unable to assess) Skin: Dry, Intact Psych/Mental Status: Other (Unable to assess) Medications Current Medications Medications Dose Ordered Sig/Simon Route Start Time Stop Time Status Last Admin Dose Admin Vancomycin HCl 0 ml @ 0 mls/hr UD IV 04/27/25 10:15 Propofol 100 ml @ 2.454 mls/ hr Q24H IV 04/27/25 10:15 04/30/25 19:25 2.454 MLS/HR Midazolam HCl 50 ml @ 1 mls/hr Q24H IV 04/27/25 10:15 04/30/25 01:36 5 MLS/HR Fentanyl Citrate 250 ml @ 2.5 mls/hr Q24H IV 04/27/25 10:30 04/30/25 01:37 10 MLS/HR Apixaban 5 mg BID PO 04/27/25 22:00 UNV Levothyroxine Sodium 112 mcg DAILY PO 04/28/25 10:00 04/30/25 11:18 112 MCG Patient Own Medication 30 cap DAILY PO 04/28/25 10:00 UNV Norepinephrine Bitartrate 250 ml @ 3.75 mls/hr Q24H IV 04/27/25 17:45 04/30/25 01:36 3.75 MLS/HR Diagnostic Test (Pha) 1 strip Q6HR 04/27/25 18:00 05/02/25 05:23 1 STRIP Insulin Human Regular Q6HR SC 04/27/25 18:00 05/01/25 11:53 2 UNITS Dextrose 50 ml UD PRN IV 04/27/25 18:00 Meropenem 50 ml @ 17 mls/hr Q8HR IV 04/28/25 14:00 05/02/25 05:13 17 MLS/HR Apixaban 5 mg BID PO 04/28/25 10:00 05/01/25 09:05 5 MG Enteral Nutritional Formula 1,000 ml 30ML/HR GT 04/28/25 09:45 04/30/25 23:54 1,000 ML Pantoprazole Sodium 40 mg DAILY IV 04/28/25 12:00 05/01/25 09:05 40 MG Ipratropium [place] 0.5 mg Q6HR NEB 04/28/25 12:00 05/02/25 07:02 0.5 MG Levalbuterol HCl 0.625 mg Q6HR NEB 04/28/25 12:00 05/02/25 07:02 0.625 MG Acetaminophen 650 mg Q6HP PRN PO 04/28/25 14:45 Vancomycin HCl 100 ml @ 100 mls/hr Q12H IV 04/30/25 18:00 05/02/25 05:13 100 MLS/HR Potassium Chloride 100 ml @ 50 mls/hr Q2H IV 05/02/25 06:45 05/02/25 12:44 05/02/25 07:42 50 MLS/HR Laboratory Results Laboratory Tests 05/02/25 02:20 Chemistry Test 05/02/25 02:20 Calcium Level 8.8 mg/dL (8.7-10.4) Urinalysis Test 04/27/25 09:43 Urine Color Yellow (Yellow) Urine Clarity Clear (Clear) Urine pH 6.0 (5.0-9.0) Urine Specific [place] 1.019 (1.001-1.035) Urine Protein Trace (Negative) H Urine Ketones Negative (Negative) Urine Blood Negative /uL (Negative) Urine Nitrite Negative (Negative) Urine Bilirubin Negative (Negative) Urine Urobilinogen 3 mg/dL (Negative) H Urine Leukocyte Esterase 1+ /uL (Negative) Urine RBC 3 /hpf (0 - 3) Urine Microscopic WBC 12 /HPF (0-3) H Urine Squamous Epithelial Cells Few /hpf (<5) Urine Bacteria Few /hpf (None Seen) H Urine Hyaline Casts Few /lpf (0 - 2) Urine Mucus Few (None Seen) Urine Glucose Normal mg/dL (Normal) Microbiology Microbiology Date/Time Source Procedure Growth Status 04/30/25 18:00 Urine - [place] Urine Culture - Preliminary Resulted 04/28/25 14:00 Nose MRSA Screen - Final Complete 04/27/25 10:25 Sputum Gram Stain - Final Complete 04/27/25 10:25 Respiratory Culture - Final Methicillin Resistant S.aureus Complete 04/27/25 09:16 Blood Blood Culture - Final NO GROWTH AFTER 5 DAYS OF INCUBATION. 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 Currently on simple mask at 6 L/min. Following all commands. Afebrile. Leukocytosis resolved. -continue IV antibiotic therapy with Meropenem. Vancomycin -start mechanical soft diet -bronchodilators: Continue Xopenex and Atrovent -repeat urine culture pending -PUD, DVT prophylaxis -repeat labs, chest x-ray in a.m. Transferred to step-down ICU Critical care time spent with patient discussing and formulating plan of care: 40 minutes. This does not include time spent performing procedures. This medical document was created using an electronic medical record system with [employer] dictation system. Although this document has been carefully reviewed, there may still be some phonetic and typographical errors. These areas are purely typographical due to imperfections of the software programs, and do not reflect any compromise in the patient's medical care. Plan discussed with: Patient, Other (RN) My Orders Orders - SLAVA GALAN NP Procedure Category Date Status Time Extubate PRABHU 05/01/25 In Process 11:20 Mechanical Soft Diet DIET 05/02/25 Transmitted Lunch Transfer Orders XFER 05/02/25 Transmitted 10:46 Date of Service: May 02, 2025 Billing Provider: SLAVA GALAN NP Common Visit Codes: [id number] CARE 30-74 MIN SLAVA GALAN NP May 02, 2025 10:50
[2025-05-02] MEDS: FLUCONAZOLE 200MG/100ML 100 ML IV SCH (11:34)
--- NOTE | 2025-05-02 12:49 | DVHPN2 ---
Progress Note - Dictate Date Seen: May 02, 2025 Medical Necessity Reason Pt with a Central, PICC or Fol: Yes The following are medically ne: Central Line, [place] Catheter vital signs Vital Sign Date Time Temp Pulse Resp B/P (MAP) Pulse Ox O2 Delivery O2 Flow Rate FiO2 05/02/25 12:00 80 05/02/25 12:00 98.4 9 161/79 (106) 100 98.4 05/02/25 12:00 Simple Mask* 6 50 Total Intake and Output 05/01/25 05/01/25 05/02/25 15:00 23:00 07:00 Intake Total 11.588 ml 150 ml Output Total 700 ml 1001 ml Balance 11.588 ml -550 ml -1001 ml medications Current Medications Medications Dose Ordered Sig/Simon Route Start Time Stop Time Status Last Admin Dose Admin Vancomycin HCl 0 ml @ 0 mls/hr UD IV 04/27/25 10:15 Fentanyl Citrate 250 ml @ 2.5 mls/hr Q24H IV 04/27/25 10:30 04/30/25 01:37 10 MLS/HR Apixaban 5 mg BID PO 04/27/25 22:00 UNV Levothyroxine Sodium 112 mcg DAILY PO 04/28/25 10:00 05/02/25 10:43 112 MCG Patient Own Medication 30 cap DAILY PO 04/28/25 10:00 UNV Diagnostic Test (Pha) 1 strip Q6HR 04/27/25 18:00 05/02/25 11:42 1 STRIP Insulin Human Regular Q6HR SC 04/27/25 18:00 05/01/25 11:53 2 UNITS Dextrose 50 ml UD PRN IV 04/27/25 18:00 Meropenem 50 ml @ 17 mls/hr Q8HR IV 04/28/25 14:00 05/02/25 05:13 17 MLS/HR Apixaban 5 mg BID PO 04/28/25 10:00 05/02/25 10:42 5 MG Pantoprazole Sodium 40 mg DAILY IV 04/28/25 12:00 05/02/25 10:43 40 MG Ipratropium [place] 0.5 mg Q6HR NEB 04/28/25 12:00 05/02/25 12:46 0.5 MG Levalbuterol HCl 0.625 mg Q6HR NEB 04/28/25 12:00 05/02/25 12:46 0.625 MG Acetaminophen 650 mg Q6HP PRN PO 04/28/25 14:45 Vancomycin HCl 100 ml @ 100 mls/hr Q12H IV 04/30/25 18:00 05/02/25 05:13 100 MLS/HR Fluconazole 100 ml @ 100 mls/hr DAILY IV 05/02/25 12:00 05/02/25 11:34 100 MLS/HR laboratory and microbiology Laboratory Tests 05/02/25 02:20 Test 05/02/25 02:20 Range/Units Serum Glucose 102 74-106 mg/dL Assessment/Plan ICU rounds 64-year-old gentleman Status post extubation COPD Acute hypoxemic respiratory failure MRSA pneumonia Altered mental status Patient is seen and examined Appears delirious On facemask oxygen vital signs stable Labs and imaging status reviewed Plan Oxygen as needed to keep sats above 90% Bronchodilators for COPD Swallow eval and diet as tolerated once the patient is more awake Continue antibiotics GI and DVT prophylaxis Okay to downgrade from pulmonary standpoint Dietary Evaluation Review Comments: Increase TF Glucerna to 65ml/hr providing 94gProtein, 1872 kcal and 1256ml free water supporting Pt with 96% protein needs, 91% energy needs. Expected Outcomes/Goals: prevent wt loss and catabolic syndromes Plan discussed with: Patient CHICO HOFFMAN MD May 02, 2025 12:49
[2025-05-02 19:04] LABS: Potassium 3.5 mmol/L (3.5-5.1)
[2025-05-02 19:11] LABS: Magnesium 1.8 mg/dL (1.6-2.6)
[2025-05-03] VITALS (37 sets, daily range): BP systolic 115–171; BP diastolic 61–89; PULSE 69–101; RESP 8–21; TEMP 98.1–99.1; O2SAT 90–100
[2025-05-03 03:43] LABS: Hematocrit 36.0 % (41.0-53.0); Hemoglobin 12.2 g/dL (13.5-17.5); Mean Corpuscular Hemoglobin 31.3 pg (28.0-32.0); Mean Corpuscular Volume 92.4 fL (80.0-100.0)
[2025-05-03 03:52] LABS: Anion Gap 7 (5-15); Calcium 8.9 mg/dL (8.7-10.4); Carbon Dioxide 31 mmol/L (20-31); Chloride 106 mmol/L (98-107); Sodium 144 mmol/L (136-145)
[2025-05-03 03:58] LABS: BUN/Creatinine Ratio 21.1 (10.0-20.0); Blood Urea Nitrogen 12 mg/dL (9-23)
[2025-05-03 04:33] LABS: Glucose 120 mg/dL (74-106); Potassium 3.3 mmol/L (3.5-5.1)
[2025-05-03] MEDS: POTASSIUM CHL 20MEQ/100ML 100 ML IV SCH (05:39)
[2025-05-03 06:38] LABS: Total Cells Counted 100.0 (100)
[2025-05-03 06:39] LABS: Anisocytosis Slight
--- NOTE | 2025-05-03 09:42 | DVHPN2 ---
Subjective Patient denies any symptoms Reviewed: Care Plan, H&P, Labs, Medications Changes from previous H/P or p: No Changes General: Per HPI Objective Vitals Vital Signs Date Time Temp Pulse Resp B/P (MAP) Pulse Ox O2 Delivery O2 Flow Rate FiO2 05/03/25 08:00 98.2 81 18 127/82 (97) 99 98.2 05/03/25 07:30 Simple Mask* 6 50 Intake/Output Intake and Output 05/03/25 07:00 Intake Total 1301 ml Output Total 1950 ml Balance -649 ml Intake Oral 600 ml IV Total 701 ml Output Urine Total 1950 ml # Bowel Movements 2 General Appearance: Alert, Oriented X3, Cooperative, mild distress HEENT: Atraumatic, PERRLA Cardiovascular: Normal S1, Normal S2 Abdomen: Normal bowel sounds, Soft, No tenderness, No hepatospenomegaly Musculoskeletal: Weak motor strength RUE, Weak motor strength LUE, Weak motor strength RLE, Weak motor strength LLE Extremities: No clubbing, No cyanosis, Normal pulses Neuro: Cranial nerves 3-12 NL (Unable to assess) Skin: Dry, Intact Psych/Mental Status: Other (Unable to assess) Medications Current Medications Medications Dose Ordered Sig/Simon Route Start Time Stop Time Status Last Admin Dose Admin Vancomycin HCl 0 ml @ 0 mls/hr UD IV 04/27/25 10:15 Fentanyl Citrate 250 ml @ 2.5 mls/hr Q24H IV 04/27/25 10:30 04/30/25 01:37 10 MLS/HR Apixaban 5 mg BID PO 04/27/25 22:00 UNV Levothyroxine Sodium 112 mcg DAILY PO 04/28/25 10:00 05/02/25 10:43 112 MCG Patient Own Medication 30 cap DAILY PO 04/28/25 10:00 UNV Diagnostic Test (Pha) 1 strip Q6HR 04/27/25 18:00 05/03/25 05:27 1 STRIP Insulin Human Regular Q6HR SC 04/27/25 18:00 05/01/25 11:53 2 UNITS Dextrose 50 ml UD PRN IV 04/27/25 18:00 Meropenem 50 ml @ 17 mls/hr Q8HR IV 04/28/25 14:00 05/03/25 06:28 17 MLS/HR Apixaban 5 mg BID PO 04/28/25 10:00 05/02/25 22:10 5 MG Pantoprazole Sodium 40 mg DAILY IV 04/28/25 12:00 05/02/25 10:43 40 MG Ipratropium [place] 0.5 mg Q6HR NEB 04/28/25 12:00 05/03/25 06:19 0.5 MG Levalbuterol HCl 0.625 mg Q6HR NEB 04/28/25 12:00 05/03/25 06:19 0.625 MG Acetaminophen 650 mg Q6HP PRN PO 04/28/25 14:45 Vancomycin HCl 100 ml @ 100 mls/hr Q12H IV 04/30/25 18:00 05/03/25 05:37 100 MLS/HR Fluconazole 100 ml @ 100 mls/hr DAILY IV 05/02/25 12:00 05/02/25 11:34 100 MLS/HR Laboratory Results Laboratory Tests 05/03/25 03:08 Chemistry Test 05/02/25 18:32 05/03/25 03:08 Magnesium Level 1.8 mg/dL (1.6-2.6) Calcium Level 8.9 mg/dL (8.7-10.4) Urinalysis Test 04/27/25 09:43 Urine Color Yellow (Yellow) Urine Clarity Clear (Clear) Urine pH 6.0 (5.0-9.0) Urine Specific [place] 1.019 (1.001-1.035) Urine Protein Trace (Negative) H Urine Ketones Negative (Negative) Urine Blood Negative /uL (Negative) Urine Nitrite Negative (Negative) Urine Bilirubin Negative (Negative) Urine Urobilinogen 3 mg/dL (Negative) H Urine Leukocyte Esterase 1+ /uL (Negative) Urine RBC 3 /hpf (0 - 3) Urine Microscopic WBC 12 /HPF (0-3) H Urine Squamous Epithelial Cells Few /hpf (<5) Urine Bacteria Few /hpf (None Seen) H Urine Hyaline Casts Few /lpf (0 - 2) Urine Mucus Few (None Seen) Urine Glucose Normal mg/dL (Normal) Microbiology Microbiology Date/Time Source Procedure Growth Status 04/30/25 18:00 Urine - [place] Urine Culture - Preliminary Resulted 04/28/25 14:00 Nose MRSA Screen - Final Complete 04/27/25 10:25 Sputum Gram Stain - Final Complete 04/27/25 10:25 Respiratory Culture - Final Methicillin Resistant S.aureus Complete 04/27/25 09:16 Blood Blood Culture - Final NO GROWTH AFTER 5 DAYS OF INCUBATION. 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 Noted hypoventilation, and improvement with hypoxia once patient is instructed to take deep breaths. -continue IV antibiotic therapy with Meropenem. Vancomycin -start mechanical soft diet -bronchodilators: Continue Xopenex and Atrovent -repeat urine culture pending -PUD, DVT prophylaxis -repeat labs, chest x-ray in a.m. Transferred to telemetry floor Critical care time spent with patient discussing and formulating plan of care: 40 minutes. This does not include time spent performing procedures. This medical document was created using an electronic medical record system with [employer] dictation system. Although this document has been carefully reviewed, there may still be some phonetic and typographical errors. These areas are purely typographical due to imperfections of the software programs, and do not reflect any compromise in the patient's medical care. Plan discussed with: Patient, Other (RN) My Orders Orders - SLAVA GALAN NP Procedure Category Date Status Time Mechanical Soft Diet DIET 05/02/25 Transmitted Lunch Transfer Orders XFER 05/02/25 Transmitted 10:46 Fluconazole PHA 05/02/25 In Process 200mg/100ml (Diflucan 12:00 Transfer Orders XFER 05/03/25 Transmitted 09:26 Date of Service: May 03, 2025 Billing Provider: SLAVA GALAN NP Common Visit Codes: [id number] INP/OBS CARE(HIGH) SLAVA GALAN NP May 03, 2025 09:42
--- NOTE | 2025-05-03 14:48 | DVHPN2 ---
Progress Note - Dictate Date Seen: May 03, 2025 Medical Necessity Reason Pt with a Central, PICC or Fol: Yes The following are medically ne: Central Line, [place] Catheter vital signs Vital Sign Date Time Temp Pulse Resp B/P (MAP) Pulse Ox O2 Delivery O2 Flow Rate FiO2 05/03/25 14:00 80 17 142/77 (98) 99 05/03/25 14:00 Nasal Cannula* 2 N/A Simple Mask* 05/03/25 12:00 98.4 98.4 Total Intake and Output 05/02/25 05/02/25 05/03/25 15:00 23:00 07:00 Intake Total 584 ml 597 ml 137 ml Output Total 1000 ml 950 ml Balance 584 ml -403 ml -813 ml medications Current Medications Medications Dose Ordered Sig/Simon Route Start Time Stop Time Status Last Admin Dose Admin Vancomycin HCl 0 ml @ 0 mls/hr UD IV 04/27/25 10:15 Apixaban 5 mg BID PO 04/27/25 22:00 UNV Levothyroxine Sodium 112 mcg DAILY PO 04/28/25 10:00 05/03/25 12:38 112 MCG Patient Own Medication 30 cap DAILY PO 04/28/25 10:00 UNV Diagnostic Test (Pha) 1 strip Q6HR 04/27/25 18:00 05/03/25 11:46 1 STRIP Insulin Human Regular Q6HR SC 04/27/25 18:00 05/01/25 11:53 2 UNITS Dextrose 50 ml UD PRN IV 04/27/25 18:00 Meropenem 50 ml @ 17 mls/hr Q8HR IV 04/28/25 14:00 05/03/25 06:28 17 MLS/HR Apixaban 5 mg BID PO 04/28/25 10:00 05/03/25 10:50 5 MG Pantoprazole Sodium 40 mg DAILY IV 04/28/25 12:00 05/03/25 10:50 40 MG Ipratropium [place] 0.5 mg Q6HR NEB 04/28/25 12:00 05/03/25 11:47 0.5 MG Levalbuterol HCl 0.625 mg Q6HR NEB 04/28/25 12:00 05/03/25 11:47 0.625 MG Acetaminophen 650 mg Q6HP PRN PO 04/28/25 14:45 Vancomycin HCl 100 ml @ 100 mls/hr Q12H IV 04/30/25 18:00 05/03/25 05:37 100 MLS/HR Fluconazole 100 ml @ 100 mls/hr DAILY IV 05/02/25 12:00 05/03/25 10:50 100 MLS/HR laboratory and microbiology Laboratory Tests 05/03/25 03:08 Test 05/03/25 03:08 Range/Units Serum Glucose 120 H 74-106 mg/dL Assessment/Plan ICU rounds 64-year-old gentleman COPD Acute hypoxemic respiratory failure MRSA pneumonia Altered mental status Patient is seen and examined events Status post extubation Appears delirious Answering questions appropriately Labs and imaging status reviewed Plan Oxygen as needed to keep sats above 90% Antibiotics F/u cultures Bronchodilators for COPD Continue antibiotics GI and DVT prophylaxis Okay to downgrade from pulmonary standpoint Dietary Evaluation Review Comments: Increase TF Glucerna to 65ml/hr providing 94gProtein, 1872 kcal and 1256ml free water supporting Pt with 96% protein needs, 91% energy needs. Expected Outcomes/Goals: prevent wt loss and catabolic syndromes Plan discussed with: Patient CHICO HOFFMAN MD May 03, 2025 14:48
[2025-05-04] VITALS (37 sets, daily range): BP systolic 116–164; BP diastolic 72–105; PULSE 79–110; RESP 8–20; TEMP 98.1–98.8; O2SAT 81–100
[2025-05-04 04:07] LABS: Hematocrit 37.7 % (41.0-53.0); Hemoglobin 13.0 g/dL (13.5-17.5); Mean Corpuscular Hemoglobin 31.6 pg (28.0-32.0); Mean Corpuscular Volume 91.7 fL (80.0-100.0); Nucleated Red Blood Cells % 0.0 %
--- NOTE | 2025-05-04 09:25 | DVHPN2 ---
Subjective Patient denies any symptoms Reviewed: Care Plan, H&P, Labs, Medications Changes from previous H/P or p: No Changes General: Per HPI Objective Vitals Vital Signs Date Time Temp Pulse Resp B/P (MAP) Pulse Ox O2 Delivery O2 Flow Rate FiO2 05/04/25 08:00 98.8 87 15 122/82 (95) 94 98.8 05/04/25 07:30 Nasal Cannula* 2 N/A Simple Mask* Intake/Output Intake and Output 05/04/25 07:00 Intake Total 483 ml Output Total 900 ml Balance -417 ml Intake Oral 250 ml IV Total 33 ml Other 200 ml Output Urine Total 900 ml General Appearance: Alert, Oriented X3, Cooperative, mild distress HEENT: Atraumatic, PERRLA Cardiovascular: Normal S1, Normal S2 Abdomen: Normal bowel sounds, Soft, No tenderness, No hepatospenomegaly Musculoskeletal: Weak motor strength RUE, Weak motor strength LUE, Weak motor strength RLE, Weak motor strength LLE Extremities: No clubbing, No cyanosis, Normal pulses Neuro: Cranial nerves 3-12 NL (Unable to assess) Skin: Dry, Intact Psych/Mental Status: Other (Unable to assess) Medications Current Medications Medications Dose Ordered Sig/Simon Route Start Time Stop Time Status Last Admin Dose Admin Apixaban 5 mg BID PO 04/27/25 22:00 UNV Levothyroxine Sodium 112 mcg DAILY PO 04/28/25 10:00 05/03/25 12:38 112 MCG Patient Own Medication 30 cap DAILY PO 04/28/25 10:00 UNV Diagnostic Test (Pha) 1 strip Q6HR 04/27/25 18:00 05/04/25 06:00 1 STRIP Insulin Human Regular Q6HR SC 04/27/25 18:00 05/01/25 11:53 2 UNITS Dextrose 50 ml UD PRN IV 04/27/25 18:00 Meropenem 50 ml @ 17 mls/hr Q8HR IV 04/28/25 14:00 05/04/25 05:26 17 MLS/HR Apixaban 5 mg BID PO 04/28/25 10:00 05/03/25 22:16 5 MG Pantoprazole Sodium 40 mg DAILY IV 04/28/25 12:00 05/03/25 10:50 40 MG Ipratropium [place] 0.5 mg Q6HR NEB 04/28/25 12:00 05/04/25 06:14 0.5 MG Levalbuterol HCl 0.625 mg Q6HR NEB 04/28/25 12:00 05/04/25 06:14 0.625 MG Acetaminophen 650 mg Q6HP PRN PO 04/28/25 14:45 Fluconazole 100 ml @ 100 mls/hr DAILY IV 05/04/25 10:00 UNV Doxycycline Monohydrate 100 mg Q12HR PO 05/04/25 10:00 UNV Laboratory Results Laboratory Tests 05/03/25 03:08 05/04/25 03:25 Urinalysis Test 04/27/25 09:43 Urine Color Yellow (Yellow) Urine Clarity Clear (Clear) Urine pH 6.0 (5.0-9.0) Urine Specific [place] 1.019 (1.001-1.035) Urine Protein Trace (Negative) H Urine Ketones Negative (Negative) Urine Blood Negative /uL (Negative) Urine Nitrite Negative (Negative) Urine Bilirubin Negative (Negative) Urine Urobilinogen 3 mg/dL (Negative) H Urine Leukocyte Esterase 1+ /uL (Negative) Urine RBC 3 /hpf (0 - 3) Urine Microscopic WBC 12 /HPF (0-3) H Urine Squamous Epithelial Cells Few /hpf (<5) Urine Bacteria Few /hpf (None Seen) H Urine Hyaline Casts Few /lpf (0 - 2) Urine Mucus Few (None Seen) Urine Glucose Normal mg/dL (Normal) Microbiology Microbiology Date/Time Source Procedure Growth Status 04/30/25 18:00 Urine - [place] Urine Culture - Final Complete 04/28/25 14:00 Nose MRSA Screen - Final Complete 04/27/25 10:25 Sputum Gram Stain - Final Complete 04/27/25 10:25 Respiratory Culture - Final Methicillin Resistant S.aureus Complete 04/27/25 09:16 Blood Blood Culture - Final NO GROWTH AFTER 5 DAYS OF INCUBATION. 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 Change to cyclin p.o., Diflucan p.o. -bronchodilators: Continue Xopenex and Atrovent -repeat urine culture pending -PUD, DVT prophylaxis -repeat labs, chest x-ray in a.m. Transfer to Medical/Surgical unit Total time spent with patient discussing and formulating plan of care: 35 minutes. This medical document was created using an electronic medical record system with [employer] dictation system. Although this document has been carefully reviewed, there may still be some phonetic and typographical errors. These areas are purely typographical due to imperfections of the software programs, and do not reflect any compromise in the patient's medical care. Plan discussed with: Patient, Other (RN) My Orders Orders - SLAVA GALAN NP Procedure Category Date Status Time Transfer Orders XFER 05/03/25 Transmitted 09:26 Fluconazole Ivpb PHA 05/04/25 Transmitted Diflucan 10:00 Doxycycline Tablet PHA 05/04/25 Transmitted (Vibramycin Tablet) 10:00 Date of Service: May 04, 2025 Billing Provider: SLAVA GALAN NP Common Visit Codes: [id number] INP/OBS CARE(HIGH) SLAVA GALAN NP May 04, 2025 09:25
[2025-05-04] MEDS: FLUCONAZOLE 200MG/100ML 100 ML IV SCH (10:00)
[2025-05-04] MEDS ORDERED: DOXYCYCLINE 100 MG TAB/CAP PO SCH (11:00)
[2025-05-04] MEDS: DOXYCYCLINE 100 MG TAB/CAP PO SCH (11:30)
[2025-05-05] VITALS (20 sets, daily range): BP systolic 118–162; BP diastolic 70–87; PULSE 75–110; RESP 13–20; TEMP 98–98.4; O2SAT 95–100
--- NOTE | 2025-05-05 09:22 | DVHPN2 ---
Subjective Patient denies any symptoms Reviewed: Care Plan, H&P, Labs, Medications Changes from previous H/P or p: No Changes General: Per HPI Objective Vitals Vital Signs Date Time Temp Pulse Resp B/P (MAP) Pulse Ox O2 Delivery O2 Flow Rate FiO2 05/05/25 08:00 87 13 96 Nasal Cannula* 2 28 05/05/25 05:00 98.0 126/79 (95) 98.0 Intake/Output Intake and Output 05/05/25 07:00 Intake Total 550 ml Output Total 2450 ml Balance -1900 ml Intake Oral 500 ml IV Total 50 ml Output Urine Total 2450 ml # Bowel Movements 2 General Appearance: Alert, Oriented X3, Cooperative, mild distress HEENT: Atraumatic, PERRLA Cardiovascular: Normal S1, Normal S2 Abdomen: Normal bowel sounds, Soft, No tenderness, No hepatospenomegaly Musculoskeletal: Weak motor strength RUE, Weak motor strength LUE, Weak motor strength RLE, Weak motor strength LLE Extremities: No clubbing, No cyanosis, Normal pulses Neuro: Cranial nerves 3-12 NL (Unable to assess) Skin: Dry, Intact Psych/Mental Status: Other (Unable to assess) Medications Current Medications Medications Dose Ordered Sig/Simon Route Start Time Stop Time Status Last Admin Dose Admin Apixaban 5 mg BID PO 04/27/25 22:00 UNV Levothyroxine Sodium 112 mcg DAILY PO 04/28/25 10:00 05/04/25 10:41 112 MCG Patient Own Medication 30 cap DAILY PO 04/28/25 10:00 UNV Diagnostic Test (Pha) 1 strip Q6HR 04/27/25 18:00 05/04/25 23:50 1 STRIP Insulin Human Regular Q6HR SC 04/27/25 18:00 05/01/25 11:53 2 UNITS Dextrose 50 ml UD PRN IV 04/27/25 18:00 Meropenem 50 ml @ 17 mls/hr Q8HR IV 04/28/25 14:00 05/05/25 05:24 17 MLS/HR Apixaban 5 mg BID PO 04/28/25 10:00 05/04/25 21:38 5 MG Pantoprazole Sodium 40 mg DAILY IV 04/28/25 12:00 05/04/25 10:40 40 MG Ipratropium [place] 0.5 mg Q6HR NEB 04/28/25 12:00 05/05/25 06:16 0.5 MG Levalbuterol HCl 0.625 mg Q6HR NEB 04/28/25 12:00 05/05/25 06:16 0.625 MG Acetaminophen 650 mg Q6HP PRN PO 04/28/25 14:45 Fluconazole 100 ml @ 100 mls/hr DAILY IV 05/04/25 10:00 05/04/25 10:00 100 MLS/HR Doxycycline Monohydrate 100 mg Q12HR PO 05/04/25 11:01 05/04/25 21:38 100 MG Laboratory Results Laboratory Tests 05/03/25 03:08 05/04/25 03:25 Urinalysis Test 04/27/25 09:43 Urine Color Yellow (Yellow) Urine Clarity Clear (Clear) Urine pH 6.0 (5.0-9.0) Urine Specific [place] 1.019 (1.001-1.035) Urine Protein Trace (Negative) H Urine Ketones Negative (Negative) Urine Blood Negative /uL (Negative) Urine Nitrite Negative (Negative) Urine Bilirubin Negative (Negative) Urine Urobilinogen 3 mg/dL (Negative) H Urine Leukocyte Esterase 1+ /uL (Negative) Urine RBC 3 /hpf (0 - 3) Urine Microscopic WBC 12 /HPF (0-3) H Urine Squamous Epithelial Cells Few /hpf (<5) Urine Bacteria Few /hpf (None Seen) H Urine Hyaline Casts Few /lpf (0 - 2) Urine Mucus Few (None Seen) Urine Glucose Normal mg/dL (Normal) Microbiology Microbiology Date/Time Source Procedure Growth Status 04/30/25 18:00 Urine - [place] Urine Culture - Final Complete 04/28/25 14:00 Nose MRSA Screen - Final Complete 04/27/25 10:25 Sputum Gram Stain - Final Complete 04/27/25 10:25 Respiratory Culture - Final Methicillin Resistant S.aureus Complete 04/27/25 09:16 Blood Blood Culture - Final NO GROWTH AFTER 5 DAYS OF INCUBATION. 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 Reported hypoxia during the evening. -continue current antimicrobial therapy. -bronchodilators: Continue Xopenex and Atrovent -repeat urine culture contaminated -PUD, DVT prophylaxis -repeat chest x-ray this a.m.. -discussed plan of care with the patient. We will reassess for possible discharge in a.m. Total time spent with patient discussing and formulating plan of care: 35 minutes. This medical document was created using an electronic medical record system with [employer] dictation system. Although this document has been carefully reviewed, there may still be some phonetic and typographical errors. These areas are purely typographical due to imperfections of the software programs, and do not reflect any compromise in the patient's medical care. Plan discussed with: Patient, Other (RN) My Orders Orders - SLAVA GALAN NP Procedure Category Date Status Time Fluconazole PHA 05/04/25 In Process 200mg/100ml (Diflucan 10:00 Transfer Orders XFER 05/04/25 Transmitted 09:21 Doxycycline Tablet PHA 05/04/25 In Process (Vibramycin Tablet) 11:01 Chest Xray 1 View XY 05/05/25 Logged 09:14 Date of Service: May 05, 2025 Billing Provider: SLAVA GALAN NP Common Visit Codes: [id number] INP/OBS CARE(HIGH) SLAVA GALAN NP May 05, 2025 09:22
--- NOTE | 2025-05-05 09:52 | DVH ---
CHEST RADIOGRAPH Indication: pna Technique: Single frontal view of the chest was obtained Comparison: XY CHEST PORTABLE on DOS: 05/01/25, XY CHEST PORTABLE on DOS: 04/30/25, XY CHEST PORTABLE o n DOS: 04/29/25, XY CHEST PORTABLE on DOS: 04/28/25, XY CHEST PORTABLE on DOS: 04/27/25 FINDINGS: Lines and Tubes: Right central venous catheter tip in the SVC .endotracheal tube and nasogastric tube removed Lungs: No focal consolidation. Pleura: No effusion. No pneumothorax. Cardiomediastinal contours: Unremarkable Bones: No acute osseous abnormality. IMPRESSION: No acute cardiopulmonary disease.
[2025-05-06] VITALS (15 sets, daily range): BP systolic 116–136; BP diastolic 77–90; PULSE 88–106; RESP 14–18; TEMP 36.6; O2SAT 93–100
[2025-05-06] MEDS ORDERED: FLUC100T PO (10:49)
[2025-05-06] MEDS ORDERED: DOXY100C79 PO (10:49)
--- NOTE | 2025-05-06 10:57 | DVHDS2 ---
Discharge Summary Date of Admission Apr 27, 2025 at 14:37 Date of Discharge: May 06, 2025 Admitting Diagnosis Acute metabolic encephalopathy Labs/Diagnostic Data: Laboratory Results Test 05/05/25 23:57 05/04/25 03:25 05/03/25 18:07 05/03/25 03:08 POC Glucose 164 mg/dl (70-106) White Blood Count 7.9 10^3/uL (4.4-10.8) Red Blood Count 4.11 10^6/uL (4.5-5.90) Hemoglobin 13.0 g/dL (13.5-17.5) Hematocrit 37.7 % (41.0-53.0) Mean Corpuscular Volume 91.7 fL (80.0-100.0) Mean Corpuscular Hemoglobin 31.6 pg (28.0-32.0) Mean Corpuscular Hemoglobin Concent 34.5 g/dL (32.0-36.0) Red Cell Distribution Width 17.5 % (11.8-14.3) Platelet Count 321 10^3/uL (140-450) Mean Platelet Volume 6.5 fL (6.9-10.8) Neutrophils (%) (Auto) 76.2 % (37.0-80.0) Lymphocytes (%) (Auto) 10.3 % (10.0-50.0) Monocytes (%) (Auto) 9.3 % (0.0-12.0) Eosinophils (%) (Auto) 3.0 % (0.0-7.0) Basophils (%) (Auto) 1.2 % (0.0-2.0) Neutrophils # (Auto) 6.0 10 ^3/uL (1.6-8.6) Lymphocytes # (Auto) 0.8 10 ^3/uL (0.4-5.4) Monocytes # (Auto) 0.7 10 ^3/uL (0-1.3) Eosinophils # (Auto) 0.2 10 ^3/uL (0-0.8) Basophils # (Auto) 0.1 10 ^3/uL (0-0.2) Nucleated Red Blood Cells 0.0 % Creatinine 0.59 mg/dL (0.700-1.30) Glomerular Filtration Rate Calc 107 mL/min (>90) Vancomycin Level Trough 16.2 ug/mL (5-10) Differential Total Cells Counted 100.0 (100) Neutrophils % (Manual) 82 (37.0-80.0) Band Neutrophils % (Manual) 5 Lymphocytes % (Manual) 9 (10.0-50.0) Monocytes % (Manual) 3 (0-12) Eosinophils % (Manual) 1 (0-7) Basophils % (Manual) 0 (0.0-2.0) Metamyelocytes % (manual) 0 Myelocytes % (Manual) 0 Promyelocytes % (Manual) 0 Blast Cells % (Manual) 0 Reactive Lymphocytes 0 Platelet Estimate Adequate Anisocytosis (manual) Slight Sodium Level 144 mmol/L (136-145) Potassium Level 3.3 mmol/L (3.5-5.1) Chloride Level 106 mmol/L (98-107) Carbon Dioxide Level 31 mmol/L (20-31) Anion Gap 7 (5-15) Blood Urea Nitrogen 12 mg/dL (9-23) BUN/Creatinine Ratio 21.1 (10.0-20.0) Serum Glucose 120 mg/dL (74-106) Calcium Level 8.9 mg/dL (8.7-10.4) Test 05/02/25 18:32 05/01/25 10:15 04/30/25 06:35 04/28/25 13:44 Magnesium Level 1.8 mg/dL (1.6-2.6) Blood Gas Specimen Type Arterial Blood Gas Sample Site Right radial Blood Gas Patient Temperature 37.0 Arterial Blood Date Drawn [id number] Arterial Blood pH 7.420 (7.350-7.450) Arterial Blood Partial Pressure CO2 37.3 mmHg (35.0-48.0) Arterial Blood Partial Pressure O2 89.2 mmHg (83.0-108.0) Arterial Blood HCO3 23.7 mmol/L (21.0-28.0) Arterial Blood Oxygen Saturation 96.4 % (94.0-98.0) Arterial Blood Base Excess -0.5 mmol/L (-2.0-3.0) Arterial Blood Oxyhemoglobin 95.8 % (94.0-98.0) Arterial Blood Carboxyhemoglobin 0.4 % (0.5-1.5) Arterial Blood Methemoglobin 0.2 % (0.0-1.5) Abhi Test Modified Blood Gas Total Hemoglobin 12.40 g/dL (13.5-17.5) Blood Gas Modality Vent - cpap FiO2 % 30.0 Blood Gas Pressure Support 8 Blood Gas PEEP or CPAP 5.0 Blood Gas Set Respiration Rate 16.0 Blood Gas Tidal Volume 500.0 Lactic Acid Level 1.1 mmol/L (0.4-2.0) Test 04/28/25 13:14 04/28/25 11:20 04/28/25 05:31 04/27/25 15:02 Prothrombin Time 10.9 sec (9.3-11.8) Prothrombin Time INR 1.03 (0.9-1.15) Activated Partial Thromboplast Time 29.0 SEC (24.5-34.5) Influenza Type A Antigen Negative (Negative) Influenza Type B Antigen Negative (Negative) SARS-CoV-2 Antigen (Rapid) Negative (NEGATIVE) Total Bilirubin 0.4 mg/dL (0.2-1.0) Aspartate Amino Transferase (AST) 19 U/L (13-40) Alanine Aminotransferase (ALT) 26 U/L (7-40) Alkaline Phosphatase 78 U/L (46-116) Total Protein 5.8 g/dL (5.7-8.2) Albumin 3.3 g/dL (3.2-4.8) Vitamin B12 Level 1069 pg/mL (211-911) Thyroid Stimulating Hormone (TSH) 0.39 uIU/mL (0.55-4.78) Troponin I High Sensitivity 4 ng/L (</=54) Plasma/Serum Blood Alcohol < 3.0 mg/dL (<10) Test 04/27/25 09:43 04/27/25 09:16 Urine Color Yellow (Yellow) Urine Clarity Clear (Clear) Urine pH 6.0 (5.0-9.0) Urine Specific [place] 1.019 (1.001-1.035) Urine Protein Trace (Negative) Urine Ketones Negative (Negative) Urine Blood Negative /uL (Negative) Urine Nitrite Negative (Negative) Urine Bilirubin Negative (Negative) Urine Urobilinogen 3 mg/dL (Negative) Urine Leukocyte Esterase 1+ /uL (Negative) Urine RBC 3 /hpf (0 - 3) Urine Microscopic WBC 12 /HPF (0-3) Urine Squamous Epithelial Cells Few /hpf (<5) Urine Bacteria Few /hpf (None Seen) Urine Hyaline Casts Few /lpf (0 - 2) Urine Mucus Few (None Seen) Urine Glucose Normal mg/dL (Normal) B-Type Natriuretic Peptide 34.96 pg/mL (0-100) Other Laboratory Tests 05/04/25 03:25 05/03/25 03:08 Brief Hx & Hospital Course: History of Present Illness Paul Montes De Oca is a 64-year-old male with past medical history of hypertension, hyperlipidemia, diabetes, UTI, bladder cancer, GERD, COPD, and ileal conduit, who was brought to the hospital for ALOC. Patient is typically bed bound. He was preparing for a colonoscopy for tomorrow. His caregiver states she cleaned him up about 0100 and he was normal. A little after 0400 she went in to clean him up and he was confused. He was answering questions but was very forgetful. His confusion worsened throughout the morning prompting her to call EMS. On arrival to ER he would barely open his eye when his name was called, no verbal responses. He was intubated shortly after arrival. Course of hospitalization: Patient was found to have worsening clinical status on day of admission, requiring intubation mechanical ventilation. Patient subsequently went into septic shock. Patient was started on empiric antibiotic therapy with vancomycin and Meropenem. Patient recently was discharged from the hospital with an infection of ESBL in the urine. Patient was weaned off vasopressors. He was subsequently extubated. Today, he was weaned off of oxygen with a saturation noted to be 95% on room air. Sputum culture came back positive for MRSA. Patient received a one week course of vancomycin which was deescalated to doxycycline 100 mg p.o. b.i.d.. Urine culture was also found to be contaminated times two different specimens. Yeast was noted in the 2nd culture, for which patient was started on Diflucan. Patient will be discharged back home with 24 hour care with established caregiver as well as having reestablishment of [facility] health services. Patient was also requesting for [facility] nursing services in addition to [facility], as the patient reports they assisted him with IV antibiotics at home without the need for requiring hospitalization. Patient will be continued on doxycycline and Diflucan p.o.. He will follow up with the his PCP in 1-2 weeks. All questions answered. Physical examination General: Alert and Oriented x3. No acute distress. Well-nourished. Eyes: EOMI. Anicteric. HENT: Moist mucous membranes. Lungs: Clear to auscultation bilaterally. No accessory muscle use. Cardiovascular: Regular rate and rhythm. No murmur. No JVD. Abdomen: Soft, non-tender and non-distended. No palpable masses. Extremities: No edema. Non-tender. Skin: No rashes or lesions. Warm. Neurologic: No focal neurological deficits. CN II-XII grossly intact, but not individually tested. Motor deficits to lower extremities Psychiatric: Cooperative. Appropriate mood and affect. Total time spent with patient discussing and formulating plan of care: 35 minutes. This medical document was created using an electronic medical record system with [employer] dictation system. Although this document has been carefully reviewed, there may still be some phonetic and typographical errors. These areas are purely typographical due to imperfections of the software programs, and do not reflect any compromise in the patient's medical care. 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 b.i.d. for five days Diflucan 100 mg p.o. daily x5 days Continue all home medications Scheduled Amlodipine Besylate (Amlodipine Besylate), 2.5 MG PO DAILY, (Reported) Apixaban Base (Eliquis), 5 MG PO BID, (Reported) Baclofen (Baclofen), 10 MG PO Q8HP, (Reported) Cholecalciferol (D3), 25 MCG PO DAILY, (Reported) Cyanocobalamin (Vitamin B-12), 1 TAB PO DAILY, (Reported) Diphenhydramine Hcl (Gnp Allergy), 25 MG PO HS Doxycycline (Monohydrate) (Doxycycline), 100 MG PO BID Duloxetine Hcl (Cymbalta), 30 CAP PO DAILY, (Reported) Famotidine (Famotidine), 20 MG PO HS, (Reported) Fluconazole (Diflucan), 100 MG PO DAILY Yykgxlvmnth-Mzwbonifkvzd-Uiaam (Trelegy Ellipta 100-62.5-25 Mcg/INH), 1 AER IN DAILY, (Reported) Gabapentin (Gabapentin), 400 MG PO TID, (Reported) Levothyroxine Sodium (Levothyroxine Sodium), 1 TAB PO DAILY, (Reported) Metformin Hydrochloride (Metformin Hcl), 1 TAB PO BID, (Reported) Metoprolol Tartrate (Metoprolol Tartrate), 25 MG PO BID, (Reported) Aqlslhqc-Fywwytlhs-Gy (Otic) (Cortisporin Otic Susp), 3 DROP RIGHT EAR TID Pancrelipase (Lipase-Protease- (Creon), 36,000 UNT OR TIDWM Polyethylene Glycol 3350 (Miralax), 17 GM PO DAILY Potassium Chloride (Potassium Chloride ER), 10 MEQ PO DAILY Simvastatin (Simvastatin), 10 MG PO HS, (Reported) Miscellaneous Medications Primidone (Mysoline Tablet), 50 MG PO, (Reported) 36 Discharge Statement: "Patient was advised to return to the ER or call 911 if any headaches, dizziness, shortness of breath, chest pain, abdominal pain, bleeding, fevers, or worsening of medical condition. Patient was counseled about treatment plan, medications, possible side effects, patientverbalized understanding. All questions were answered to the best of my ability. This discharge took greater then 30 minutes in planning, reviewing documentation, counseling the patient, and discussing with other team members." ASSESSMENT ASSESSMENT Assessment Septic shock Date of Service: May 06, 2025 Billing Provider: SLAVA GALAN NP Common Visit Codes: [id number] DISCH DAY >30min SLAVA GALAN NP May 06, 2025 10:57
== END 2025-05-06 19:50 | disposition home health service (06) | DRG 871 ==
LOC: ER 09:02 → EDBD 09:02 → OVERFLOW 14:37 → ICU WEST 04-28 14:00 → WEST WING 05-04 23:50
PROVIDERS: ADMIT Nurse Practitioner Acute Care; ATTEND Nurse Practitioner Acute Care
PROC: 0BH17EZ Insertion of Endotracheal Airway into Trachea, Via Natural or Artificial Opening (ICD-10-PCS; principal; 2025-04-27)
PROC: 5A1945Z Respiratory Ventilation, 24-96 Consecutive Hours (ICD-10-PCS; 2025-04-27)
PROC: 02HV33Z Insertion of Infusion Device into Superior Vena Cava, Percutaneous Approach (ICD-10-PCS; 2025-04-27)
DX: A41.9 Sepsis, unspecified organism (principal); G93.41 Metabolic encephalopathy; J96.01 Acute respiratory failure with hypoxia; R65.21 Severe sepsis with septic shock; J15.212 Pneumonia due to Methicillin resistant Staphylococcus aureus; E87.20 Acidosis, unspecified; J44.0 Chronic obstructive pulmonary disease with (acute) lower respiratory infection; E11.65 Type 2 diabetes mellitus with hyperglycemia; E78.5 Hyperlipidemia, unspecified; N30.90 Cystitis, unspecified without hematuria; I10 Essential (primary) hypertension; K21.9 Gastro-esophageal reflux disease without esophagitis; Z74.01 Bed confinement status; Z79.84 Long term (current) use of oral hypoglycemic drugs; Z79.899 Other long term (current) drug therapy; Z79.01 Long term (current) use of anticoagulants; Z85.51 Personal history of malignant neoplasm of bladder
CPT/HCPCS: 31500; 32556; 36415; 36556; 36600; 70450; 71045; 74018; 80048; 80053; 80202; 80320; 81001; 82565; 82607; 82805; 82962; 83605; 83735; 83880; 84132; 84443; 84484; 85007; 85025; 85027; 85610; 85730; 87040; 87070; 87077; 87081; 87086; 87186; 87205; 87426; 87804; 93005; 94002; 94003; 94640; 96361; 96365; 99291; 99292; G0378; J0692; J1450; J1815; J2185; J2470; J2704; J3480